=== PATIENT | female | born 1945 | race Caucasian/White ===

== ENCOUNTER → 2017-09-22 | Outpatient (CLI) | payer MEDICARE, OTHER ==
--- NOTE | 2017-09-23 11:51 | MM ---
Reason for exam: screening (asymptomatic). Last mammogram was performed 1 year ago. History: Patient is postmenopausal. Family history of breast cancer in daughter at age 43 and premenopausal breast cancer in sister. Benign cyst aspiration of the right breast. Took hormonal contraceptives for 2 years beginning at age 19. Physical Findings: A clinical breast exam by your physician is recommended on an annual basis and results should be correlated with mammographic findings. MG 3D Screening Mammo W/Cad Bilateral CC and MLO view(s) were taken. XCCL view(s) were taken of the right breast. Prior study comparison: September 13, 2016, bilateral MG 3d screening mammo w/cad. September 11, 2015, bilateral MG screening mammo w CAD. The breast tissue is heterogeneously dense. This may lower the sensitivity of mammography. Finding: There are typically benign vascular, round calcifications in both breasts. There is no discrete abnormality. ASSESSMENT: Benign, BI-RAD 2 RECOMMENDATION: Routine screening mammogram of both breasts in 1 year.
== END | disposition home or self-care (01) ==
LOC: RADMAMWWP 10:39
PROVIDERS: ATTEND Internal Medicine
DX: Z12.31 Encounter for screening mammogram for malignant neoplasm of breast (principal); Z80.3 Family history of malignant neoplasm of breast
CPT/HCPCS: 77063; G0202

== ENCOUNTER 2017-11-18 15:03 | Emergency (ER) | payer MEDICARE, OTHER ==
[2017-11-18 15:12] VITALS: RESP 16; TEMP 97.2
--- NOTE | 2017-11-18 15:37 | ED ---
Fall HPI - General Chief Complaint: Fall Stated Complaint: Fall/shoulder injury Time Seen by Provider: 11/18/17 15:06 Source: patient, RN notes reviewed Mode of arrival: EMS - History of Present Illness Initial Comments: This is a 72-year-old female who presents to the emergency department with chief complaint of fall injury. Patient states that prior to arrival she was at [facility]. She was walking on the sidewalk and slipped on a patch of ice. She landed on her buttucks and rolled onto her left side. Patient complains of left shoulder pain "within the joint." Patient was transported to the emergency department via EMS. Denies hitting her head, loss of consciousness or dizziness. Denies any neck tenderness. Denies any other injuries. Denies fever, chills, chest pain, shortness of breath, abdominal pain, nausea or vomiting, constipation or diarrhea, dysuria or hematuria, numbness or tingling, headache or vision changes. - Related Data Home Medications Medication Instructions Recorded Confirmed Omeprazole [PriLOSEC] 40 mg PO DAILY 03/31/15 11/18/17 Previous Rx's Medication Instructions Recorded HYDROcodone/APAP 5-325MG [[place] 5] 1 each PO Q6HR PRN #12 tab 11/18/17 Ibuprofen 600 mg PO Q6HR #20 tablet 11/18/17 Allergies Allergy/AdvReac Type Severity Reaction Status Date / Time No Known Allergies Allergy Verified 11/18/17 15:17 Review of Systems ROS Statement: Those systems with pertinent positive or pertinent negative responses have been documented in the HPI. ROS Other: All systems not noted in ROS Statement are negative. Past Medical History Past Medical History: Cancer, GERD/Reflux Additional Past Medical History / Comment(s): previous med for high BP but none currently, skin cancer History of Any Multi-Drug Resistant Organisms: None Reported Past Surgical History: Cholecystectomy, Hernia Repair, Tubal Ligation Additional Past Surgical History / Comment(s): Laley fundoplication with postoperative complications resulting in part of stomach removed and prolonged intubation, tracheostomy and multiple surgeries, sonja cataracts Past Anesthesia/Blood Transfusion Reactions: Motion Sickness Additional Past Anesthesia/Blood Transfusion Reaction / Comment(s): Alley fundoplication with postoperative complications resulting in prolonged intubation, tracheostomy and multiple surgeries Past Psychological History: No Psychological Hx Reported Smoking Status: Never smoker Past Alcohol Use History: None Reported Past Drug Use History: None Reported - Past Family History Sister(s) Family Medical History: Cancer Daughter(s) Family Medical History: Cancer General Exam - General Exam Comments Initial Comments: General: Awake and alert, well-developed; in no apparent distress. HEENT: Head atraumatic, normocephalic. Pupils are equal, round and reactive to light. Extraocular movements intact. Neck: Supple. Normal and full active ROM. No tenderness. Cardiovascular: Regular rate and rhythm. No murmurs, rubs or gallops. Chest symmetrical. Respiratory: Lungs clear to auscultation bilaterally. No wheezes, rales or rhonchi. Normal respiratory effort with no use of accessory muscles. Musculoskeletal: Patient unable to move her left shoulder due to pain. Tenderness on palpation of proximal humerus. Sensation is intact. Radial pulses are 2+ equal and palpable bilaterally. Skin: [place], warm and dry without rashes or lesions. Neurological: Alert and oriented x3. CN II-XII grossly intact. Speech is fluent and answers are appropriate. No focal neuro deficits. Psychiatric: Normal mood and affect. No overt signs of depression or anxiety noted. Limitations: no limitations Course Vital Signs 11/18/17 11/18/17 15:11 16:06 Temperature 97.2 F L Pulse Rate 61 61 Respiratory 16 16 Rate Blood Pressure 200/96 204/70 O2 Sat by Pulse 98 Oximetry Medical Decision Making - Medical Decision Making This is a 72-year-old female who presents for evaluation of left shoulder pain following a fall injury. X-ray revealed a proximal humerus fracture. Patient' s arm was was placed in a sling. She is in no acute distress at this time. She will be discharged home with referral to orthopedics. Patient had an elevated blood pressure in the emergency department. Patient states that she does not take anything for hypertension. She used to take medication but her blood pressure was too low. She was given 0.1 of Catapres while in the emergency department. Patient advised to follow-up with her primary care provider and to monitor her blood pressure. Return parameters were discussed. Patient is in agreement with plan and voices understanding. All questions were answered. - Radiology Data Radiology results: report reviewed X-ray left shoulder findings: There is an impacted and possibly comminuted proximal left humeral fracture. No dislocation. Left lung apex is visualized is normal. There is some slight superior displacement of the distal clavicle in relation to the acromion, associated acromioclavicular arthropathy noted. Bone mineralization is reduced which may limit sensitivity. Impression: Humerus fracture. Findings suggest acromioclavicular separation. Disposition Clinical Impression: Proximal humerus fracture Disposition: HOME SELF-CARE Condition: Good Instructions: Proximal Humerus Fracture (ED) Additional Instructions: Please follow-up with Dr. Wills tomorrow morning. Please take medications as prescribed. Please follow up with primary care provider within 1-2 days. Return to emergency department if symptoms should worsen or any concerns arise. Prescriptions: HYDROcodone/APAP 5-325MG [[place] 5] 1 each PO Q6HR PRN #12 tab PRN Reason: Pain Ibuprofen 600 mg PO Q6HR #20 tablet Referrals: Ankush Chery MD [Primary Care Provider] - 1-2 days Yimi Wills DO [Doctor of Osteopathic Medicine] - 1-2 days Time of Disposition: 16:44
--- NOTE | 2017-11-18 15:38 | XR ---
Left shoulder HISTORY: Trauma and pain 3 views of the left shoulder are submitted There is an impacted and possibly comminuted proximal left humeral fracture. No dislocation. Left jerri g apex as visualized is normal. There is some slight superior displacement of the distal clavicle in relation to the acromion, associated acromioclavicular arthropathy noted. Bone mineralization is redu ney which may limit sensitivity. IMPRESSION: Humerus fracture. Findings suggest acromioclavicular separation.
[2017-11-18] MEDS ORDERED: cloNIDine HCL 0.1 MG TAB PO STA (16:40)
[2017-11-18] MEDS ORDERED: HYDROmorphone 1 MG/ML 1 ML SYRINGE IM STA (16:41)
[2017-11-18 17:29] VITALS: PULSE 64
[2017-11-18 17:48] VITALS: BP 116/83
== END 2017-11-18 18:15 | disposition home or self-care (01) ==
LOC: EC 15:03
DX: S42.202A Unspecified fracture of upper end of left humerus, initial encounter for closed fracture (principal); K21.9 Gastro-esophageal reflux disease without esophagitis; R03.0 Elevated blood-pressure reading, without diagnosis of hypertension; Z85.828 Personal history of other malignant neoplasm of skin; Z79.899 Other long term (current) drug therapy; W00.9XXA Unspecified fall due to ice and snow, initial encounter; Y92.512 Supermarket, store or market as the place of occurrence of the external cause; Y93.01 Activity, walking, marching and hiking
CPT/HCPCS: 73030; 99283; 96372; J1170

== ENCOUNTER 2018-08-13 09:03 | Day surgery (SDC) | payer MEDICARE, OTHER ==
[2018-08-10 11:30] VITALS: BMI 20.6
[2018-08-13 09:29] VITALS: TEMP 97.1
[2018-08-13] MEDS ORDERED: LACTATED RINGERS 1,000 ML IV ONE (09:30)
[2018-08-13] MEDS ORDERED: PROPOFOL 10 MG/ML 20 ML VIAL IV ONE (10:27)
--- NOTE | 2018-08-13 11:02 | P.PCN ---
Date of Procedure: 08/13/18 Procedure(s) Performed: Brief history: Patient is a pleasant 73-year-old white female, scheduled for an elective upper endoscopy as well as colonoscopy as a part of evaluation of abdominal pain, chronic dyspeptic symptoms of several years duration. She had repair of hiatal hernia in 2001 and a few years later she had recurrence of the hernia. She complains of epigastric fullness, nausea and occasional heartburn after eating. She has been on Prilosec 20 mg daily with not much help. Procedure performed: Esophagogastroduodenoscopy with biopsy Colonoscopy Preoperative diagnosis: Chronic dyspepsia/heartburn Screening for colon cancer/family history of colon cancer Anesthesia: MAC Procedure: After informed consent was obtained from the patient was brought into the endoscopy unit and IV sedation was administered by anesthesia under continuous monitoring. Initially upper endoscopy was done. The Olympus GF 160 video endoscope was inserted inserted into the mouth and esophagus intubated without any difficulty and was gradually advanced into the stomach and duodenum and carefully examined. The bulb and second part of the duodenum appeared normal. The scope was then withdrawn into the stomach adequately insufflated with air and upon careful examination the antrum had gastritis and biopsies were done from this area. The body, appeared normal. in the proximal body of the stomach there was a 1 cm polyp that was biopsied. There was a large hiatal hernia noted with diaphragmatic impression at 40 cm from the incisors and the GE junction at 35 cm to the incisors. The scope was then withdrawn into the esophagus. The GE junction was located at 40 cm to the incisors. It appeared regular with no erythema erosions or ulcerations. Rest of the esophagus appeared normal. Patient tolerated the procedure well. At this time the patient continued to remain sedation. Initial digital rectal examination was normal. Olympus CF 160 video colonoscope was then inserted into the rectum and gradually advanced to the cecum without any difficulty. Careful examination was performed as the scope was gradually being withdrawn. The prep was excellent. The cecum, ascending colon, transverse colon, descending colon, sigmoid colon and rectum appeared normal. Scattered sigmoid diverticulosis seen. Retroflexion was performed in the rectum and no lesions were noted. Patient tolerated the procedure well. Impression: 1 Upper endoscopy revealed large hiatal hernia, 1 cm gastric polyp and mild gastritis. 2.Colonoscopy revealed scattered sigmoid diverticulosis but no evidence of colitis or colorectal neoplasia. Recommendations: Findings of this examination were discussed with the patient aswell a her family. She was advised to follow with the biopsy results. She will continue with Prilosec 20 mg twice daily and follow antireflux measures. She can have a repeat screening colonoscopy in 5 years from now because of the family history of colon cancer..
[2018-08-13 11:06] VITALS: BP 150/78; PULSE 93; RESP 16
== END 2018-08-13 11:40 | disposition home or self-care (01) ==
LOC: ORWHC2ENDO 09:03
PROVIDERS: ATTEND Internal Medicine Gastroenterology
DX: K29.50 Unspecified chronic gastritis without bleeding (principal); K44.9 Diaphragmatic hernia without obstruction or gangrene; K21.0 Gastro-esophageal reflux disease with esophagitis; K63.5 Polyp of colon; K57.30 Diverticulosis of large intestine without perforation or abscess without bleeding; K31.7 Polyp of stomach and duodenum; Z79.899 Other long term (current) drug therapy; Z85.828 Personal history of other malignant neoplasm of skin
CPT/HCPCS: 88305; 45378; 43239; J2704

== ENCOUNTER → 2018-11-04 | Outpatient (CLI) | payer MEDICARE, OTHER ==
--- NOTE | 2018-11-06 09:37 | MM ---
Reason for exam: screening (asymptomatic). Last mammogram was performed 1 year and 1 month ago. History: Patient is postmenopausal. Family history of breast cancer in daughter at age 43 and premenopausal breast cancer in sister. Benign cyst aspiration of the right breast. Took hormonal contraceptives for 2 years beginning at age 19. Physical Findings: A clinical breast exam by your physician is recommended on an annual basis and results should be correlated with mammographic findings. MG 3D Screening Mammo W/Cad Bilateral CC, MLO, and XCCL view(s) were taken. Prior study comparison: September 22, 2017, bilateral MG 3d screening mammo w/cad. September 13, 2016, bilateral MG 3d screening mammo w/cad. The breast tissue is heterogeneously dense. This may lower the sensitivity of mammography. Medial asymmetric density left CC view does not persist on 3D images. No significant changes when compared with prior studies. ASSESSMENT: Negative, BI-RAD 1 RECOMMENDATION: Routine screening mammogram of both breasts in 1 year.
== END | disposition home or self-care (01) ==
LOC: RADMAMWWP 10:41
PROVIDERS: ATTEND Internal Medicine
DX: Z12.31 Encounter for screening mammogram for malignant neoplasm of breast (principal); Z80.3 Family history of malignant neoplasm of breast
CPT/HCPCS: 77063; 77067

== ENCOUNTER → 2019-01-26 | Outpatient (CLI) | payer MEDICARE ==
--- NOTE | 2019-01-28 03:48 | BD ---
EXAMINATION TYPE: Axial Bone Density DATE OF EXAM: 01/26/2019 COMPARISON: 2014 CLINICAL HISTORY: 74-year-old female post menopausal screening without HRT Height: 5'5 Weight: 130 FRAX RISK QUESTIONS: History of Fracture in Adulthood: y Secondary Osteoporosis: RISK FACTORS HISTORY OF: Postmenopausal woman: y MEDICATIONS: Additional Medications: heart burn Additional History: skin cancer EXAM MEASUREMENTS: Bone mineral densitometry was performed using the [employer]. Bone mineral density as measured about the Lumbar spine is: ----- L1-L4(G/cm2): 1.044 T Score Values are as follows: ----- L2: -1.7 ----- L3: 0.0 ----- L4: -1.5 ----- L1-L4: -1.1 Bone mineral density has: Decreased -2.6% since study of: 09/11/2015 Bone mineral density about the R hip (g/cm2): 0.777 Bone mineral density about the L hip (g/cm2): 0.756 T Score values are as follows: -----R Neck: -1.9 -----L Neck: -2.0 -----R Total: -2.2 -----L Total: -2.3 Bone mineral density has: Decreased -11.2% since study of: 09/11/2015 IMPRESSION: Osteopenia (T Score between -2.5 and -1). There is slightly increased risk of fracture and the patient may be considered for treatment. Re-Screen 2-5 years. NOTE: T-SCORE=SD OF THE YOUNG ADULT MEAN.
== END | disposition home or self-care (01) ==
LOC: RADBDWWP 13:03
PROVIDERS: ATTEND Internal Medicine
DX: M85.88 Other specified disorders of bone density and structure, other site (principal); Z78.0 Asymptomatic menopausal state; Z80.3 Family history of malignant neoplasm of breast
CPT/HCPCS: 77080

== ENCOUNTER → 2019-11-05 | Outpatient (CLI) | payer MEDICARE ==
--- NOTE | 2019-11-05 13:09 | MM ---
Reason for exam: screening (asymptomatic). Last mammogram was performed 1 year ago. History: Patient is postmenopausal. Family history of breast cancer in daughter at age 43 and premenopausal breast cancer in sister. Benign cyst aspiration of the right breast. Took hormonal contraceptives for 2 years beginning at age 19. Physical Findings: A clinical breast exam by your physician is recommended on an annual basis and results should be correlated with mammographic findings. MG 3D Screening Mammo W/Cad Bilateral CC and MLO view(s) were taken. Prior study comparison: November 04, 2018, bilateral MG 3d screening mammo w/cad. September 22, 2017, bilateral MG 3d screening mammo w/cad. The breast tissue is heterogeneously dense. This may lower the sensitivity of mammography. There are benign appearing round vascular calcifications bilaterally. There is no discrete abnormality. ASSESSMENT: Benign, BI-RAD 2 RECOMMENDATION: Routine screening mammogram of both breasts in 1 year.
== END | disposition home or self-care (01) ==
LOC: RADMAMWWP 09:35 → EEVIPCON 10:00
PROVIDERS: ATTEND Internal Medicine
DX: Z12.31 Encounter for screening mammogram for malignant neoplasm of breast (principal)
CPT/HCPCS: 77063; 77067

== ENCOUNTER 2021-06-22 08:41 | Day surgery (SDC) | payer MEDICARE ==
[2021-06-20 15:48] VITALS: BMI 19.7
[~2021-06-22 08:41] MED LIST: LACTATED RINGERS 1,000 ML IV SCH; LIDOCAINE 1% (10MG/ML) FOR IV START INTRADERMA PRN
[2021-06-22 09:17] VITALS: TEMP 97.7
[2021-06-22] MEDS ORDERED: PROPOFOL 10 MG/ML 20 ML VIAL IV ONE (10:30)
[2021-06-22] MEDS ORDERED: LIDOCAINE 1% INJ 10MG/ML (20 ML MDV) ONE (10:30)
--- NOTE | 2021-06-22 10:42 | P.PCN ---
Date of Procedure: 06/22/21 Procedure(s) Performed: BRIEF HISTORY: Patient is a 75-year-old, pleasant, female scheduled for an upper endoscopy as a part of evaluation of epigastric pain, early satiety for the last several months duration.. She lost 30 pounds in the last 5 years duration. She has history of GERD and has been on omeprazole 20 mg daily. She had hiatal hernia repair of a 19 years ago followed by 3 more surgeries as a result of complications of Alley fundoplication. PROCEDURE PERFORMED: Esophagogastroduodenoscopy with biopsy. PREOPERATIVE DIAGNOSIS: Chronic epigastric pain/GERD/early satiety. IV sedation per anesthesia. PROCEDURE: After informed consent was obtained, the patient was brought into the endoscopy unit. IV sedation was administered by Anesthesia under continuous monitoring. Initially the Olympus GIF-140 video endoscope was inserted into the mouth. Esophagus intubated without any difficulty. It was gradually advanced into the stomach and duodenum and carefully examined. The bulb and the second part of the duodenum appeared normal. The scope at this time was withdrawn to the stomach, adequately insufflated with air, and upon careful examination, mucosa of the antrum had mild patchy areas of erythema in the prepyloric area which was biopsied. Mucosa of the body, cardia and the fundus appeared normal. The scope was then withdrawn into the esophagus. Moderate size paraesophageal hiatal hernia noted. The GE junction was located at 35 cm from the incisors. There was circumferential erythema and one superficial erosion at the GE junction consistent with LA grade a reflux esophagitis. The rest of the esophagus appeared normal and the patient tolerated the procedure well. IMPRESSION: 1. Moderate size hiatal hernia. 2. LA grade a reflux esophagitis. 3. Mild antral gastritis RECOMMENDATIONS: The findings of this examination were discussed with the patient as well as a family. She was advised to follow with the biopsy results.. She will continue with omeprazole 20 mg daily, small frequent meals and follow antireflux measures.
[2021-06-22 10:45] VITALS: RESP 18
[2021-06-22 11:00] VITALS: BP 171/68; PULSE 74
== END 2021-06-22 11:28 | disposition home or self-care (01) ==
LOC: ORWHC2ENDO 08:41
PROVIDERS: ATTEND Internal Medicine Gastroenterology
DX: R10.13 Epigastric pain (principal); K44.9 Diaphragmatic hernia without obstruction or gangrene; K29.50 Unspecified chronic gastritis without bleeding; Z79.899 Other long term (current) drug therapy; I10 Essential (primary) hypertension
CPT/HCPCS: 88305; 43239; J2001; J2704

== ENCOUNTER 2021-11-28 11:59 | Inpatient (IN) | payer MEDICARE, OTHER ==
[2021-11-28] MEDS ORDERED: ONDANSETRON 4 MG/2 ML VIAL IVP STA (12:24)
[2021-11-28] MEDS ORDERED: HYDROmorphone 1 MG/ML 1 ML SYRINGE IVP STA (12:24)
--- NOTE | 2021-11-28 12:49 | XR ---
EXAMINATION TYPE: XR Hip Complete LT DATE OF EXAM: 11/28/2021 COMPARISON: NONE HISTORY: Pain TECHNIQUE: 2 views submitted FINDINGS: Comminuted displaced fracture of the left femoral neck. Deformity along the inferior pubic ramus appe ars likely chronic. Probable vascular calcification. IMPRESSION: 1. Displaced comminuted fracture left femoral neck.
--- NOTE | 2021-11-28 12:49 | XR ---
EXAMINATION TYPE: XR chest 2V DATE OF EXAM: 11/28/2021 COMPARISON: NONE TECHNIQUE: PA and lateral views submitted. HISTORY: Pain FINDINGS: Hypertrophic degenerative changes spine. There is a chronic appearing deformity of of the humeral hea d, correlate for previous dislocation. Diffuse osteopenia. No overt failure. Bibasilar lower lobe inf iltrate and small effusion. Correlate for underlying COPD. Biapical pleural thickening. IMPRESSION: 1. Basilar atelectasis or infiltrate with normal. 2. COPD.
--- NOTE | 2021-11-28 13:09 | ED ---
Lower Extremity Injury HPI - General Chief Complaint: Extremity Injury, Lower Stated Complaint: Fall, left hip injury Time Seen by Provider: 11/28/21 12:07 Source: patient, EMS Mode of arrival: EMS Limitations: no limitations - History of Present Illness Initial Comments: 76-year-old female with past medical history of high blood pressure presents to the emergency department after a fall. 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 States that there was a student that was attempting to catch a football and ran into her. She fell onto her left hip. Denies hitting her head. No neck or back pain. Patient unable to get up and place any weight onto the extremity. No numbness, tingling or weakness into the knee or foot. No abdominal pain. Patient on any blood thinners. No other alleviating, precipitating or modifying factors - Related Data Home Medications Medication Instructions Recorded Confirmed Omeprazole 20 mg PO DAILY 06/20/21 06/20/21 amLODIPine BESYLATE [Norvasc] 2.5 mg PO HS 06/20/21 06/20/21 Allergies Allergy/AdvReac Type Severity Reaction Status Date / Time No Known Allergies Allergy Verified 11/28/21 12:14 Review of Systems ROS Statement: Those systems with pertinent positive or pertinent negative responses have been documented in the HPI. ROS Other: All systems not noted in ROS Statement are negative. Past Medical History Past Medical History: Cancer, GERD/Reflux, Hypertension Additional Past Medical History / Comment(s): hx. skin cancer, hx. colon polyps History of Any Multi-Drug Resistant Organisms: None Reported Past Surgical History: Cholecystectomy, Hernia Repair, Tubal Ligation Additional Past Surgical History / Comment(s): Alley fundoplication with postoperative complications resulting in part of stomach removed and prolonged intubation, tracheostomy and multiple surgeries, sonja cataracts, COLONOSCOPY, EGD Past Anesthesia/Blood Transfusion Reactions: Motion Sickness Additional Past Anesthesia/Blood Transfusion Reaction / Comment(s): . Past Psychological History: No Psychological Hx Reported Smoking Status: Never smoker Past Alcohol Use History: None Reported Past Drug Use History: None Reported - Past Family History Sister(s) Family Medical History: Cancer Daughter(s) Family Medical History: Cancer General Exam Limitations: no limitations General appearance: alert, in no apparent distress Head exam: Present: atraumatic, normocephalic, normal inspection Eye exam: Present: normal appearance, PERRL, EOMI. Absent: scleral icterus, conjunctival injection, periorbital swelling ENT exam: Present: normal exam, mucous membranes moist Neck exam: Present: normal inspection. Absent: tenderness, meningismus, lymphadenopathy Respiratory exam: Present: normal lung sounds bilaterally. Absent: respiratory distress, wheezes, rales, rhonchi, stridor Cardiovascular Exam: Present: regular rate, normal rhythm, normal heart sounds. Absent: systolic murmur, diastolic murmur, rubs, gallop, clicks GI/Abdominal exam: Present: soft, normal bowel sounds. Absent: distended, tenderness, guarding, rebound, rigid Extremities exam: Present: tenderness (Numbness to palpation of the left hip. 2+ DP and PT pulses. Patient able to wiggle toes. No pain to palpation of the ankle or knee. Left leg is shortened approximately 3 inches with lateral rotation), normal capillary refill. Absent: pedal edema, joint swelling, calf tenderness Back exam: Present: normal inspection Neurological exam: Present: alert, oriented X3, CN II-XII intact Psychiatric exam: Present: normal affect, normal mood Skin exam: Present: warm, dry, intact, normal color. Absent: rash Course Vital Signs 11/28/21 11/28/21 12:00 13:08 Temperature 98.8 F Pulse Rate 66 63 Respiratory 16 18 Rate Blood Pressure 131/64 121/42 O2 Sat by Pulse 98 99 Oximetry Medical Decision Making - Medical Decision Making On arrival patient was placed into room 2. She has been given 2 mg of IM morphine and 2 mg of IV morphine by EMS. Patient sent for x-rays which demonstrated a comminuted left hip fracture. Patient's pain is controlled at this time and she remains neurovascularly intact. With Dr. Alvarez who accepted admission. Chest x-ray and laboratory studies performed for preoperative clearance. Sound will be placed on consult - EKG Data EKG Comments: EKG demonstrates normal sinus rhythm with a ventricular rate of 62. DC interval 158. QRS 84. QTC 416. No acute ST segment elevations or depressions concerning for ischemic changes Disposition Clinical Impression: Fall, Hip fracture, left Disposition: ADMITTED IP TO THIS HOSP Condition: Stable Is patient prescribed a controlled substance at d/c from ED?: No Referrals: Iliana Buitrago MD [Primary Care Provider] - 1-2 days Decision to Admit Reason: Admit from EC Decision Date: 11/28/21 Decision Time: 13:09
[2021-11-28] MEDS ORDERED: ONDANSETRON 4 MG/2 ML VIAL IVP PRN ×2 (13:17→15:56)
[2021-11-28] MEDS ORDERED: MORPHINE SULFATE 4 MG/ML SYRINGE IV PRN (13:17)
[2021-11-28] MEDS ORDERED: NALOXONE 0.4 MG/ML 1 ML VIAL IV PRN ×2 (13:17→19:47)
[2021-11-28 13:19] LABS: Basophils # (A) 0.1 k/uL (0-0.2); Basophils % (A) 1 %; Eosinophils % (A) 1 %; HCT 33.3 % (34.0-46.0); HGB 11.2 gm/dL (11.4-16.0); Lymphocytes # (A) 1.3 k/uL (1.0-4.8); Lymphocytes % (A) 20 %; MCHC 33.6 g/dL (31.0-37.0); Mean Platelet Volume 8.1; Monocytes # (A) 0.4 k/uL (0-1.0); Monocytes % (A) 5 %; Neutrophils # (A) 4.7 k/uL (1.3-7.7); Neutrophils % (A) 72 %; Platelet Count 310 k/uL (150-450); RDW 13.6 % (11.5-15.5); WBC 6.5 k/uL (3.8-10.6)
[2021-11-28 13:30] LABS: Albumin 3.6 g/dL (3.5-5.0); Calcium 9.2 mg/dL (8.4-10.2); Potassium 4.8 mmol/L (3.5-5.1); Total Bilirubin 0.6 mg/dL (0.2-1.3); Total Protein 6.1 g/dL (6.3-8.2)
[2021-11-28 13:38] LABS: MCV 83.3 fL (80.0-100.0)
[2021-11-28 13:46] LABS: Partial Thromboplastin Time 22.3 sec (22.0-30.0)
[2021-11-28] MEDS ORDERED: PANTOPRAZOLE 40 MG/10 ML VIAL IVP STA (14:39)
--- NOTE | 2021-11-28 15:58 | P.CONS ---
History of Present Illness - Reason for Consult Consult date: 11/28/21 pre-op evaluation Requesting physician: Joseph Alvarez - Chief Complaint hip pain - History of Present Illness Patient is a 76-year-old female with a history of GERD, hypertension, and janeen fundoplication who presented to the ED after a fall. Evaluation in the ER demonstrated displaced left femorl neck fracture. She was incidentally positive for COVID in the ED. Hemoglobin was 11.2. We were asked to consult for medical risk stratification. Patient seen and examined at bedside. She reports that today a kid was chasing a ball and ran into causing her to fall on the floor at work. She had hip pain. She reports that 2 weeks ago she started with sore throat and then developed some nasal congestion. She denies cough. She has had chronic exertional dyspnea for the last 4 months. She is not vaccinated for COVID. Hx of a trach in the past after complication from hiatal hernia repair she was hospitalized for 7.5 months. Today she started having coughing productive of yellow discharge and she is unsure if it is emesis or phlegm. No nausea no vomiting, no diarrhea. Pertinent positives and negatives as discussed in HPI, a complete review of systems was performed and all other systems are negative. General: non toxic, no distress, appears at stated age, thin Derm: warm, dry Head: atraumatic, normocephalic, symmetric Eyes: EOMI, no lid lag, anicteric sclera, pupils equal round reactive to light ENT: Nose and ears atraumatic, no thrush, no pharyngeal erythema Neck: No thyromegaly, no cervical lymphadenopathy, trachea midline, supple Mouth: no lip lesion, mucus membranes moist Cardiovascular: S1S2 reg, no murmur, positive posterior tibial pulse bilateral, 1+ edema b/l LE, capillary refill less than 2 seconds Lungs: Decreased bs bilateral, no ronchi, no rales, no wheeze, no accessory muscle use Abdominal: soft, nontender to palpation, no guarding, no appreciable organomegaly, normal bowel sounds Ext: no gross muscle atrophy, muscle strength muscle strength 5 out of 5 in b/l upper extremities- deferred in lower extremities due to fracture, no contractures Neuro: CN II-XI grossly intact, light touch intact all 4 extremities, finger to nose within normal limits, Psych: Alert, oriented, appropriate affect Communicated left hip fracture Pre-operative risk stratification - patient is medically optimized for surgery without need for further testing - NSQIP for IM nailing patient is average risk for serious complication and cardiac complications - below average risk for - above average risk for admission to [facility] COVID-19 - CXR without signs of pneumonia - zinc, vit D, Vit C - out of the window for monoclonal if symptoms from 2 weeks ago related to COVID - also not a candidate for steroids due to being on room air - recommend starting anticoagulation as soon as cleared by ortho for anticoagulation HTN - controlled - resume norvasc GERD -PPI Thank you for allowing us to participate in the care of this pleasant patient. Do not hesitate to contact us with questions. Someone can be reached from the [facility] hospitalist group all hours of the day at [phone] or via [employer]. Past Medical History Past Medical History: Cancer, GERD/Reflux, Hypertension Additional Past Medical History / Comment(s): hx. skin cancer, hx. colon polyps History of Any Multi-Drug Resistant Organisms: None Reported Past Surgical History: Cholecystectomy, Hernia Repair, Tubal Ligation Additional Past Surgical History / Comment(s): Alley fundoplication with postoperative complications resulting in part of stomach removed and prolonged intubation, tracheostomy and multiple surgeries, sonja cataracts, COLONOSCOPY, EGD Past Anesthesia/Blood Transfusion Reactions: Motion Sickness Additional Past Anesthesia/Blood Transfusion Reaction / Comm: . Past Psychological History: No Psychological Hx Reported Smoking Status: Never smoker Past Alcohol Use History: None Reported Past Drug Use History: None Reported - Past Family History Sister(s) Family Medical History: Cancer Daughter(s) Family Medical History: Cancer Medications and Allergies Home Medications Medication Instructions Recorded Confirmed Type Cholecalciferol [Vitamin D3 (25 50 mcg PO BID 11/28/21 11/28/21 History Mcg = 1000 Iu)] Cyanocobalamin (Vitamin B-12) 1,000 mcg PO DAILY 11/28/21 11/28/21 History [Vitamin B-12] L.acidoph,Paracasei, B.lactis 1 cap PO DAILY 11/28/21 11/28/21 History [Probiotic] Wesley Red 1 cap PO DAILY 11/28/21 11/28/21 History Omeprazole 40 mg PO DAILY 11/28/21 11/28/21 History amLODIPine [Norvasc] 5 mg PO HS 11/28/21 11/28/21 History Allergies Allergy/AdvReac Type Severity Reaction Status Date / Time No Known Allergies Allergy Verified 11/28/21 14:00 Physical Exam Osteopathic Statement: *. No significant issues noted on an osteopathic struc tural exam other than those noted in the History and Physical/Consult. Vitals: Vital Signs Temp Pulse Resp BP Pulse Ox 11/28/21 13:08 63 18 121/42 99 11/28/21 12:00 98.8 F 66 16 131/64 98 Intake and Output 11/27/21 11/28/21 11/28/21 22:59 06:59 14:59 Other: Weight 54.431 kg Results CBC & Chem 7: 11/28/21 13:11 11/28/21 13:11 Labs: Abnormal Lab Results - Last 24 Hours (Table) 11/28/21 11/28/21 11/28/21 Range/Units 13:11 13:11 13:41 Hgb 11.2 L (11.4-16.0) gm/dL Hct 33.3 L (34.0-46.0) % Sodium 134 L (137-145) mmol/L BUN 29 H (7-17) mg/dL Total Protein 6.1 L (6.3-8.2) g/dL Coronavirus (PCR) Detected A (Not Detectd)
--- NOTE | 2021-11-28 16:35 | P.HPOR ---
History of Present Illness H&P Date: 11/28/21 Chief Complaint: Left hip injury This is a 76-year-old female who presented to the emergency department today after being knocked over on the playground of an elementary school, sustaining injury to her left hip. 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 A student was going for football and ran into her, knocking her over. She is brought to the emergency department. Her Covid test was positive today in the ER. Past Medical History Past Medical History: Cancer, GERD/Reflux, Hypertension Additional Past Medical History / Comment(s): hx. skin cancer, hx. colon polyps History of Any Multi-Drug Resistant Organisms: None Reported Past Surgical History: Cholecystectomy, Hernia Repair, Tubal Ligation Additional Past Surgical History / Comment(s): Alley fundoplication with postoperative complications resulting in part of stomach removed and prolonged intubation, tracheostomy and multiple surgeries, sonja cataracts, COLONOSCOPY, EGD Past Anesthesia/Blood Transfusion Reactions: Motion Sickness Additional Past Anesthesia/Blood Transfusion Reaction / Comment(s): . Past Psychological History: No Psychological Hx Reported Smoking Status: Never smoker Past Alcohol Use History: None Reported Past Drug Use History: None Reported - Past Family History Sister(s) Family Medical History: Cancer Daughter(s) Family Medical History: Cancer Medications and Allergies Home Medications Medication Instructions Recorded Confirmed Type Cholecalciferol [Vitamin D3 (25 50 mcg PO BID 11/28/21 11/28/21 History Mcg = 1000 Iu)] Cyanocobalamin (Vitamin B-12) 1,000 mcg PO DAILY 11/28/21 11/28/21 History [Vitamin B-12] L.acidoph,Paracasei, B.lactis 1 cap PO DAILY 11/28/21 11/28/21 History [Probiotic] Wesley Red 1 cap PO DAILY 11/28/21 11/28/21 History Omeprazole 40 mg PO DAILY 11/28/21 11/28/21 History amLODIPine [Norvasc] 5 mg PO HS 11/28/21 11/28/21 History Allergies Allergy/AdvReac Type Severity Reaction Status Date / Time No Known Allergies Allergy Verified 11/28/21 14:00 Physical Examination This is a pleasant 76-year-old female in no acute distress. She is alert and oriented at this time. Her daughter is present at bedside. Exam of the head neck reveal no obvious deformity. She has full cervical spine motion without difficulty or pain. Exam the upper extremities unremarkable. No areas of ecchymosis or swelling. No obvious deformity. Exam the lower extremities reveals slight shortening and external rotation to the left leg. She has full foot and ankle motion bilaterally. Neurovascular status to the lower extremities is intact. Results X-rays of the hip and pelvis reveal a displaced intertrochanteric fracture of the left hip. No other fractures identified. - Labs Labs: Abnormal Lab Results - Last 24 Hours (Table) 11/28/21 11/28/21 11/28/21 Range/Units 13:11 13:11 13:41 Hgb 11.2 L (11.4-16.0) gm/dL Hct 33.3 L (34.0-46.0) % Sodium 134 L (137-145) mmol/L BUN 29 H (7-17) mg/dL Total Protein 6.1 L (6.3-8.2) g/dL Coronavirus (PCR) Detected A (Not Detectd) H & H 11/28/21 Range/Units 13:11 Hgb 11.2 L (11.4-16.0) gm/dL Hct 33.3 L (34.0-46.0) % Coagulation 11/28/21 Range/Units 13:11 INR 1.0 (<1.2) Result Diagrams: 11/28/21 13:11 11/28/21 13:11 Assessment and Plan (1) Fall Current Visit: Yes Status: Acute Code(s): W19.XXXA - UNSPECIFIED FALL, INITIAL ENCOUNTER SNOMED Code(s): 4349976 (2) Hip fracture, left Current Visit: Yes Status: Acute Code(s): S72.002A - FRACTURE OF UNSP PART OF NECK OF LEFT FEMUR, INIT SNOMED Code(s): 463817361 Plan: The clinical and x-ray findings are discussed with the patient and her daughter. It is recommended she undergo closed reduction with insertion of intertrochanteric nail of the left hip. The procedures discussed in detail including the possible risks and outcomes. She may potentially need inpatient rehab postoperatively. Her Covid positive test results were discussed with the patient.
[2021-11-28] MEDS ORDERED: TRANEXAMIC ACID 1,000 MG in SODIUM CHLORIDE 0.9% 100 ML IVPB PRN (17:34)
[2021-11-28] MEDS ORDERED: ceFAZolin 2 GM in SODIUM CHLORIDE 0.9% 100 ML IVPB ONE (17:45)
[2021-11-28] MEDS ORDERED: IV FLUID CONTINUATION 1,000 ML IV ONE (18:34)
[2021-11-28] MEDS ORDERED: MIDAZOLAM 2 MG/2 ML VIAL ONE (18:34)
[2021-11-28] MEDS ORDERED: TRANEXAMIC ACID 1,000 MG/10 ML VIAL ONE (18:34)
[2021-11-28] MEDS ORDERED: SODIUM CHLORIDE 0.9% 100 ML BAG ONE (18:34)
--- NOTE | 2021-11-28 19:28 | P.OP ---
Date of Procedure: 11/28/21 Procedure(s) Performed: PREOPERATIVE DIAGNOSIS: Left hip intertrochanteric fracture. POSTOPERATIVE DIAGNOSIS: Left hip intertrochanteric fracture. OPERATION: Left hip intertrochanteric fracture closed reduction and intramedullary nailing using Synthes IT nail. SHAFT REPAIRER: Bre Meza PA-C (Assistance with: Patient positioning, retraction, exposure, hemostasis, fixation, irrigation, closure, dressing) ANESTHESIA: spinal ESTIMATED BLOOD LOSS: 25 mL. COMPLICATIONS: None OPERATIVE FINDINGS: See dictation INDICATIONS: Mrs. Griffin is a 76 year old female who is Covid positive with a history of acute left intertrochanteric fracture. The fracture is comminuted and displaced. The patient presents to the operating room today for closed reduction and intramedullary nailing. I discussed the risks of surgery in detail as being inclusive of but not limited to: Bleeding, infection, scarring, discomfort, blood vessel and/or nerve damage, need for further surgery, malunion, nonunion, gait disturbance including persistent or permanent limp, limb length inequality, arthritis, hardware failure, blood clot, pulmonary embolism, , and other risks. The consent form has been signed. PROCEDURE: After appropriate consent was obtained, the patient was taken to the operating room and placed in supine position. Spinal anesthetic was administered and after confirmation of adequate anesthesia, the patient was carefully placed in the supine position on the operating room table in the fracture table. The patient was placed up against a well-padded peroneal post. Care was taken to make sure about that all pressure points were adequately padded. The affected leg was placed in boot traction and the unaffected leg was placed in a well leg feliciano. Using gentle longitudinal distraction as well as adduction and internal rotation, the fracture was reduced as assessed by AP and lateral C-arm imaging. Once a satisfactory reduction had been obtained, the thigh was prepped and draped in the usual aseptic fashion using ChloraPrep. Ioban drape was used for the case and the patient received intravenous antibiotics prior to incision. Timeout was called, confirming patient identity, side, procedure, and administration of antibiotics. The incision was then created with a #10 blade just proximal to the greater trochanter laterally. It was carried down through skin into the subcutaneous tissues and through fascia. Hemostasis was obtained using electrocautery. The tip of the greater trochanter was palpated and a guide pin was placed at the tip and directed into the femoral shaft as assessed with C-arm imaging. Once optimal pin position had been obtained, a 17 mm reamer was used over the guide pin to create a path for the IT nail. IT nail selected was assembled to the insertion jig on the back table and bushings were checked for accuracy. The nail was then inserted using gentle mallet taps until it was fully deployed. The amount of rotation of the implant was assessed based on the amount of anteversion of the femoral neck. This was rotated to match the patient's femoral neck anteversion and the helical blade guide was placed through the insertion jig and through an incision on the lateral side of the thigh more distal than the first. Once this guide was placed against the lateral cortex of the femur, a guide pin was drilled into the central region of the femoral head and neck as based on AP and lateral C-arm imaging. Once optimal pin position had been obtained, the michael dewire was measured and appropriately sized helical blade was selected. The path for the helical blade was prepared using a tapered reamer. The helical blade was then inserted using gentle mallet taps along the guidewire until it was fully deployed. There was no displacement of the fracture during this step. The anti- rotation screw was locked down and the insertion apparatus for the helical blade was removed. The guide pin was then removed. Traction was then removed from the leg and the distal interlock was placed through the jig using standard technique. Finally, the insertion jig for the nail was removed and final C-arm images were taken and saved in both AP and lateral planes. The final x-rays showed satisfactory positioning of the implant and good reduction of the fracture. The top of the nail was plugged with a small quantity of bone wax and the incisions were then thoroughly irrigated with normal saline. Final hemostasis was obtained using electrocautery and closure of the fascia was performed using 0-Vicryl suture. 2-0 Vicryl suture was used in the subcutaneous tissues and bindu were used for the skin. Sterile dressing was then applied and the patient was carefully removed from the fracture table frame and placed onto the stretcher. The patient tolerated the procedure well. There were no complications and 25 of blood loss. The patient was then subsequently transferre d to recovery room in stable condition. Sponge and needle counts were correct.
[2021-11-28] MEDS ORDERED: MAGNESIUM HYDROXIDE 2,400 MG/10 ML CUP PO PRN (19:47)
[2021-11-28] MEDS ORDERED: HYDROcodone/APAP 5-325MG 1 EACH TAB PO PRN ×2 (19:47)
[2021-11-28] MEDS ORDERED: HYDROmorphone 0.5 MG/0.5 ML SYRINGE IVP PRN ×2 (19:47)
[2021-11-28] MEDS ORDERED: HYDROmorphone 0.2 MG/1 ML SYRINGE IVP PRN (19:47)
--- NOTE | 2021-11-28 19:49 | XR ---
EXAMINATION TYPE: XR Hip Complete LT DATE OF EXAM: 11/28/2021 COMPARISON: NONE HISTORY: Left hip nailing. TECHNIQUE: 2 views FINDINGS: There is intramedullary sam and transverse screw fixating the intertrochanteric fracture le ft femur. Components are in anatomic position. There was 37 seconds of fluoroscopy time recorded. IMPRESSION: No complicating process seen.
[2021-11-28] MEDS ORDERED: CHOLECALCIFEROL 25 MCG (1000 IU) TABLET PO SCH (21:00)
[2021-11-28] MEDS: SENNOSIDES-DOCUSATE SODIUM 1 EACH TAB PO SCH (21:01)
[2021-11-28] MEDS: SODIUM CHLORIDE 0.9% 1,000 ML IV SCH (21:01)
[2021-11-28] MEDS: amLODIPine 5 MG TAB PO SCH (21:01)
[2021-11-28] MEDS: ASPIRIN 81 MG PO SCH (21:01)
[2021-11-28 21:27] LABS: Basophils % (A) 0 %; Eosinophils % (A) 0 %; HCT 33.3 % (34.0-46.0); HGB 10.9 gm/dL (11.4-16.0); Lymphocytes # (A) 0.7 k/uL (1.0-4.8); Lymphocytes % (A) 5 %; MCH 27.8 pg (25.0-35.0); MCHC 32.7 g/dL (31.0-37.0); MCV 85.1 fL (80.0-100.0); Mean Platelet Volume 8.3; Monocytes # (A) 0.4 k/uL (0-1.0); Monocytes % (A) 3 %; Neutrophils # (A) 12.6 k/uL (1.3-7.7); Neutrophils % (A) 92 %; Platelet Count 250 k/uL (150-450); RBC 3.91 m/uL (3.80-5.40); RDW 13.6 % (11.5-15.5); WBC 13.7 k/uL (3.8-10.6)
[2021-11-28] MEDS: TEMAZEPAM 15 MG CAP PO PRN (23:26)
[2021-11-29] MEDS: SODIUM CHLORIDE 0.9% 1,000 ML IV SCH ×3 (05:02→19:42)
[2021-11-29] MEDS: PANTOPRAZOLE 40 MG TABLET PO SCH (05:02)
[2021-11-29] MEDS: ASCORBIC ACID 500 MG TAB PO SCH (07:43)
[2021-11-29] MEDS: ASPIRIN 81 MG PO SCH ×2 (07:43→20:49)
[2021-11-29] MEDS: CYANOCOBALAMIN 500 MCG TAB PO SCH (07:43)
[2021-11-29] MEDS: ZINC SULFATE 220 MG CAP PO SCH (07:43)
[2021-11-29] MEDS: CHOLECALCIFEROL 25 MCG (1000 IU) TABLET PO SCH (07:44)
--- NOTE | 2021-11-29 09:18 | P.PN ---
Subjective Progress Note Date: 11/29/21 Principal diagnosis: Intertrochanteric fracture left hip. Status post close reduction and insertion of intertrochanteric nail left hip. Covid 19 positive. This is a 76-year-old female who is postop day #1 status post close reduction with insertion of intertrochanteric nail left hip. The patient is in isolation secondary to testing positive for COVID-19. She has no new complaints or concerns today regarding her hip. She states that she does not feel well mentally. She has anxiety regarding a surgery in the past in which she had many complications. She is doing well today from an orthopedic standpoint. Vital signs are stable.Labs are stable. White count is slightly elevated at 13.7. Objective - Vital Signs Vital signs: Vital Signs Temp 98.0 F 11/29/21 05:07 Pulse 79 11/29/21 05:07 Resp 18 11/29/21 05:07 BP 114/55 11/29/21 05:07 Pulse Ox 99 11/29/21 05:07 Intake & Output 11/28/21 11/29/21 11/29/21 18:59 06:59 18:59 Intake Total 200 1540 Output Total 825 Balance 200 715 Weight 54.431 kg Intake: IV 200 1300 Sodium Chloride 0.9% 1, 1200 000 ml @ 100 mls/hr IV . Q10H JENNIFER Rx#:[id number] ceFAZolin 2 gm In Sodium 50 Chloride 0.9% 50 ml @ 100 mls/hr IVPB Q8HR JENNIFER Rx# :[id number] Oral 240 Output: Urine 800 Estimated Blood Loss 25 Other: Voiding Method Indwelling Catheter - Exam This is a 76-year-old female in no acute distress. She is alert and oriented 3. Exam of her left hip reveals that her dressings are clean, dry and intact. She has full foot and ankle motion bilaterally. Neurovascular status to the lower extremities is intact. - Labs CBC & Chem 7: 11/28/21 20:59 11/28/21 13:11 Labs: Abnormal Lab Results - Last 24 Hours (Table) 11/28/21 11/28/21 11/28/21 Range/Units 13:11 13:11 13:41 WBC (3.8-10.6) k/uL Hgb 11.2 L (11.4-16.0) gm/dL Hct 33.3 L (34.0-46.0) % Neutrophils # (1.3-7.7) k/uL Lymphocytes # (1.0-4.8) k/uL Sodium 134 L (137-145) mmol/L BUN 29 H (7-17) mg/dL Total Protein 6.1 L (6.3-8.2) g/dL Coronavirus (PCR) Detected A (Not Detectd) 11/28/21 Range/Units 20:59 WBC 13.7 H (3.8-10.6) k/uL Hgb 10.9 L (11.4-16.0) gm/dL Hct 33.3 L (34.0-46.0) % Neutrophils # 12.6 H (1.3-7.7) k/uL Lymphocytes # 0.7 L (1.0-4.8) k/uL Sodium (137-145) mmol/L BUN (7-17) mg/dL Total Protein (6.3-8.2) g/dL Coronavirus (PCR) (Not Detectd) Assessment and Plan (1) Fall Current Visit: Yes Status: Acute Code(s): W19.XXXA - UNSPECIFIED FALL, INITIAL ENCOUNTER SNOMED Code(s): 0539295 (2) Hip fracture, left Current Visit: Yes Status: Acute Code(s): S72.002A - FRACTURE OF UNSP PART OF NECK OF LEFT FEMUR, INIT SNOMED Code(s): 954872209 Plan: The clinical Findings are discussed with the patient. We are planning discharge to inpatient rehab possibly tomorrow if there is a bed available. It is discussed the patient that her covert status may make things more challenging as far as placement. Be up with physical therapy today toe-touch weightbearing to the left lower extremity with walker.
--- NOTE | 2021-11-29 09:42 | FL ---
Fluoroscopy HISTORY: Hip fracture 37 seconds fluoroscopy time supplied to the referring clinician. 2 intraoperative C-arm images docum ent the procedure. See dictated report from orthopedic surgery.
[2021-11-29 09:52] LABS: African American GFR (CKD) >90 (>60 ml/min/1.73 sqM); Anion Gap 7 mmol/L; Blood Urea Nitrogen 31 mg/dL (7-17); Calcium 8.5 mg/dL (8.4-10.2); Carbon Dioxide 21 mmol/L (22-30); Chloride 106 mmol/L (98-107); Glucose 103 mg/dL (74-99); Non-African American GFR(CKD) 83 (>60 ml/min/1.73 sqM); Potassium 4.5 mmol/L (3.5-5.1); Sodium 134 mmol/L (137-145)
[2021-11-29 09:57] LABS: HCT 28.2 % (34.0-46.0); MCH 27.9 pg (25.0-35.0); MCHC 32.3 g/dL (31.0-37.0); MCV 86.3 fL (80.0-100.0); Mean Platelet Volume 8.1; Platelet Count 274 k/uL (150-450); RBC 3.27 m/uL (3.80-5.40); RDW 13.8 % (11.5-15.5); WBC 7.7 k/uL (3.8-10.6)
[2021-11-29 10:01] LABS: HGB 9.1 gm/dL (11.4-16.0)
--- NOTE | 2021-11-29 16:17 | P.PN ---
<David Craig - Last Filed: 11/29/21 16:30> Subjective Progress Note Date: 11/29/21 Hospital course: Patient is a very pleasant 76-year-old female with a past medical history of h ypertension, GERD, and Josr fundoplication. She presented to the emergency department status post fall on 11/28/21. X-ray of left hip revealed a displaced comminuted fracture of left femoral neck. She also incidentally tested positive for Covid. Patient was admitted under orthopedic surgery team with Dr. Alvarez and we have been consulted for continued medical management throughout patient's hospitalization.. Physical examination: Patient seen and fully evaluated at the bedside this morning. Sitting up in chair and appeared to be comfortable. Patient reports postoperative pain is controlled at this time, but reports continued pain with movement and difficulty with standing and ambulation. She reports continued nasal congestion but denies having cough, shortness of breath at rest, or increased shortness of breath with exertion from baseline. Morning labs reviewed and postoperative hemoglobin stable at 9.1. General: non toxic, no distress, appears at stated age, thin Derm: warm, dry Head: atraumatic, normocephalic, symmetric Eyes: EOMI, no lid lag, anicteric sclera, pupils equal round reactive to light ENT: Nose and ears atraumatic, no thrush, no pharyngeal erythema Neck: No thyromegaly, no cervical lymphadenopathy, trachea midline, supple Mouth: no lip lesion, mucus membranes moist Cardiovascular: S1S2 reg, no murmur, positive posterior tibial pulse bilateral, 1+ edema b/l LE, capillary refill less than 2 seconds Lungs: Decreased bs bilateral, no ronchi, no rales, no wheeze, no accessory muscle use Abdominal: soft, nontender to palpation, no guarding, no appreciable organomegaly, normal bowel sounds Ext: no gross muscle atrophy, muscle strength muscle strength 5 out of 5 in b/l upper extremities- deferred in lower extremities due to fracture, no contractures Neuro: CN II-XI grossly intact, light touch intact all 4 extremities, finger to nose within normal limits, Psych: Alert, oriented, appropriate affect Assessment and plan of care: Communicated left hip fracture Status post closed reduction and intramedullary nailing of left femur -Management per primary admitting orthopedic surgery team including pain management, weightbearing, PT/OT, post operative dressing changes, and DVT prophylaxis. - Encourage use of incentive spirometry 10-15 times hourly while awake. COVID-19 - Monitor pulse oximetry, patient currently on room air saturating 98%. - CXR without signs of pneumonia - zinc, vit D, Vit C - out of the window for monoclonal bodies as symptoms reportedly began 2 weeks ago - also not a candidate for steroids as she remains on room air - recommend starting anticoagulation as soon as cleared by ortho to do so - Encourage use of incentive spirometry 10-15 times hourly while awake. HTN - controlled - Monitor vital signs and continue daily medication regimen with Norvasc 5 mg nightly. GERD -GI prophylaxis with Protonix 40 mg daily. Thank you for allowing us to participate in the care of this pleasant patient. Do not hesitate to contact us with questions. Someone can be reached from the [facility] hospitalist group all hours of the day at [phone] or via [employer] Objective - Vital Signs Vital signs: Vital Signs Temp 98.7 F 11/29/21 14:00 Pulse 69 11/29/21 14:00 Resp 16 11/29/21 14:00 BP 135/69 11/29/21 14:00 Pulse Ox 100 11/29/21 14:00 Intake & Output 11/28/21 11/29/21 11/29/21 18:59 06:59 18:59 Intake Total 200 1540 850 Output Total 825 500 Balance 200 715 350 Weight 54.431 kg Intake: IV 200 1300 850 Sodium Chloride 0.9% 1, 1200 800 000 ml @ 100 mls/hr IV . Q10H JENNIFER Rx#:[id number] ceFAZolin 2 gm In Sodium 50 50 Chloride 0.9% 50 ml @ 100 mls/hr IVPB Q8HR JENNIFER Rx# :[id number] Oral 240 Output: Urine 800 500 Uretheral (Bentley) 500 Estimated Blood Loss 25 Other: Voiding Method Indwelling Catheter - Labs CBC & Chem 7: 11/29/21 08:23 11/29/21 08:23 Labs: Abnormal Lab Results - Last 24 Hours (Table) 11/28/21 11/29/21 11/29/21 Range/Units 20:59 08:23 08:23 WBC 13.7 H (3.8-10.6) k/uL RBC 3.27 L (3.80-5.40) m/uL Hgb 10.9 L 9.1 L D (11.4-16.0) gm/dL Hct 33.3 L 28.2 L (34.0-46.0) % Neutrophils # 12.6 H (1.3-7.7) k/uL Lymphocytes # 0.7 L (1.0-4.8) k/uL Sodium 134 L (137-145) mmol/L Carbon Dioxide 21 L (22-30) mmol/L BUN 31 H (7-17) mg/dL Glucose 103 H (74-99) mg/dL <Sharon Chávez - Last Filed: 11/30/21 16:23> Subjective agree with note and plan Objective - Vital Signs Vital signs: Vital Signs Temp 98.9 F 11/30/21 14:18 Pulse 71 11/30/21 14:18 Resp 18 11/30/21 14:18 BP 125/68 11/30/21 14:18 Pulse Ox 100 11/30/21 14:18 Intake & Output 11/29/21 11/30/21 11/30/21 18:59 06:59 18:59 Intake Total 850 240 980 Output Total 500 Balance 350 240 980 Intake: IV 850 800 Sodium Chloride 0.9% 1, 800 800 000 ml @ 100 mls/hr IV . Q10H JENNIFER Rx#:[id number] ceFAZolin 2 gm In Sodium 50 Chloride 0.9% 50 ml @ 100 mls/hr IVPB Q8HR JENNIFER Rx# :[id number] Oral 240 180 Output: Urine 500 Uretheral (Bentley) 500 Other: Voiding Method Toilet Bedside Commode # Voids 1 - Labs CBC & Chem 7: 11/30/21 07:49 11/29/21 08:23 Labs: Abnormal Lab Results - Last 24 Hours (Table) 11/30/21 Range/Units 07:49 RBC 3.12 L (4.10-5.20) X 10*6/uL Hgb 8.3 L (12.0-15.0) g/dL Hct 26.2 L (37.2-46.3) % MCH 26.6 L (27.0-32.0) pg MCHC 31.7 L (32.0-37.0) g/dL Eosinophils # 0.03 L (0.04-0.35) X 10*3/uL
[2021-11-29] MEDS: amLODIPine 5 MG TAB PO SCH (20:49)
[2021-11-29] MEDS: TEMAZEPAM 15 MG CAP PO PRN ×2 (20:49→20:50)
[2021-11-29] MEDS: SENNOSIDES-DOCUSATE SODIUM 1 EACH TAB PO SCH (20:49)
[2021-11-30] MEDS: CYANOCOBALAMIN 500 MCG TAB PO SCH (07:54)
[2021-11-30] MEDS: ZINC SULFATE 220 MG CAP PO SCH (07:54)
[2021-11-30] MEDS: PANTOPRAZOLE 40 MG TABLET PO SCH (07:54)
[2021-11-30] MEDS: ASCORBIC ACID 500 MG TAB PO SCH (07:54)
[2021-11-30] MEDS: ASPIRIN 81 MG PO SCH (07:54)
[2021-11-30] MEDS: CHOLECALCIFEROL 25 MCG (1000 IU) TABLET PO SCH (07:54)
[2021-11-30 11:04] LABS: Basophils # (A) 0.02 X 10*3/uL (0.00-0.10); Basophils % (A) 0.3 %; Eosinophils # (A) 0.03 X 10*3/uL (0.04-0.35); Eosinophils % (A) 0.5 %; HCT 26.2 % (37.2-46.3); HGB 8.3 g/dL (12.0-15.0); Lymphocytes # (A) 1.08 X 10*3/uL (0.90-5.00); Lymphocytes % (A) 16.7 %; MCH 26.6 pg (27.0-32.0); MCHC 31.7 g/dL (32.0-37.0); Mean Platelet Volume 10.2 fL (9.5-12.2); Monocytes # (A) 0.61 X 10*3/uL (0.20-1.00); Monocytes % (A) 9.4 %; Neutrophils # (A) 4.72 X 10*3/uL (1.80-7.70); Neutrophils % (A) 72.9 %; Platelet Count 234 X 10*3/uL (140-440); RBC 3.12 X 10*6/uL (4.10-5.20); RDW 14.1 % (11.5-14.5); WBC 6.47 X 10*3/uL (4.50-10.00)
--- NOTE | 2021-11-30 12:00 | P.DS ---
Providers Date of admission: 11/28/21 13:17 Expected date of discharge: 11/30/21 Attending physician: Joseph Alvarez Consults: 11/28/21 13:18 Consult Physician Urgent Consulting Provider: Virginia Bonilla Consult Reason/Comments: fall, left hip fracture Do you want consulting provider notified?: Yes 11/28/21 13:59 Consult Physician Urgent Consulting Provider: Iliana Buitrago Consult Reason/Comments: medical clearance for hip fracture surgery Do you want consulting provider notified?: Yes Primary care physician: Iliana Buitrago MD - Discharge Diagnosis(es) (1) Fall Current Visit: Yes Status: Acute (2) Hip fracture, left Current Visit: Yes Status: Acute Hospital Course: This is a 76-year-old female who is admitted to [facility] on 11/28/2021 after falling and sustaining injury to the left hip. On exam and x- ray in the emergency department he is found to have an intertrochanteric fracture of the left hip. The patient also tested positive for Covid 19 in the emergency department but has been essentially asymptomatic. She has not vaccinated. She is admitted to our service for surgical intervention and care. Patient is taken to surgery for close reduction and insertion of intertrochant anais nail of the left hip. The procedure was performed without complication or sequelae. The patient is doing fairly well postoperatively. Vital signs and labs are stable on postoperative day #2. Patient is discharged to inpatient rehab in good condition. Please see med rec for accurate list of discharge medications. Patient Condition at Discharge: Stable Plan - Discharge Summary Discharge Rx Participant: Yes New Discharge Prescriptions: New HYDROcodone/APAP 5-325MG [Levan 5] 1 - 2 each PO Q6HR PRN #32 tab PRN Reason: Pain Aspirin [Adult Low Dose Aspirin EC] 81 mg PO BID #1 tab No Action Cyanocobalamin (Vitamin B-12) [Vitamin B-12] 1,000 mcg PO DAILY amLODIPine [Norvasc] 5 mg PO HS Omeprazole 40 mg PO DAILY L.acidoph,Paracasei, B.lactis [Probiotic] 1 cap PO DAILY Wesley Red 1 cap PO DAILY Cholecalciferol [Vitamin D3 (25 Mcg = 1000 Iu)] 50 mcg PO BID Discharge Medication List Cholecalciferol [Vitamin D3 (25 Mcg = 1000 Iu)] 50 mcg PO BID 11/28/21 [History] Cyanocobalamin (Vitamin B-12) [Vitamin B-12] 1,000 mcg PO DAILY 11/28/21 [History] L.acidoph,Paracasei, B.lactis [Probiotic] 1 cap PO DAILY 11/28/21 [History] Wesley Red 1 cap PO DAILY 11/28/21 [History] Omeprazole 40 mg PO DAILY 11/28/21 [History] amLODIPine [Norvasc] 5 mg PO HS 11/28/21 [History] Aspirin [Adult Low Dose Aspirin EC] 81 mg PO BID #1 tab 11/30/21 [Rx] HYDROcodone/APAP 5-325MG [Levan 5] 1 - 2 each PO Q6HR PRN #32 tab 11/30/21 [Rx] Follow up Appointment(s)/Referral(s): Iliana Buitrago MD [Primary Care Provider] - 1-2 days Luis A Torres, [NON-STAFF] - As Needed Bre Meza PAC [PHYSICIAN DYE REEL OPERATOR] - 2 Weeks Patient Instructions/Handouts: Coronavirus Disease 2019 (COVID-19), Intramedullary Nailing (DC) Activity/Diet/Wound Care/Special Instructions: Remove Optifoam dressing 7 days post op. Toe touch wt bearing LLE w walker. May shower. Discharge Disposition: TRANSFER TO SNF/ECF
[2021-11-30] MEDS: SODIUM CHLORIDE 0.9% 1,000 ML IV SCH (13:07)
--- NOTE | 2021-11-30 13:43 | P.PN ---
<David Craig - Last Filed: 11/30/21 13:38> Subjective Progress Note Date: 11/30/21 Hospital course: Patient is a very pleasant 76-year-old female with a past medical history of h ypertension, GERD, and Josr fundoplication. She presented to the emergency department status post fall on 11/28/21. X-ray of left hip revealed a displaced comminuted fracture of left femoral neck. She also incidentally tested positive for Covid. Patient was admitted under orthopedic surgery team with Dr. Alvarez and we have been consulted for continued medical management throughout patient's hospitalization.. Patient underwent closed reduction and intramedullary nailing by Dr. Buitrago on 11/28/21. Physical examination: Patient seen and fully evaluated at the bedside this morning. Doing well. She is postoperative day 2. Her respirations are even, regular, and unlabored on room air. She continues to deny having any chest pain, palpitations, or shortness of breath. Morning hemoglobin remains stable at 8.3. General: non toxic, no distress, appears at stated age Derm: warm, dry Head: atraumatic, normocephalic, symmetric Eyes: EOMI, no lid lag, anicteric sclera Mouth: no lip lesion, mucus membranes moist Cardiovascular: S1S2 reg, no murmur, positive posterior tibial pulse bilateral, Lungs: CTA bilateral, no rhonchi, no rales , no accessory muscle use Abdominal: soft, nontender to palpation, no guarding, no appreciable organomegaly Ext: no gross muscle atrophy, no edema, no contractures Neuro: CN II-XI grossly intact, no focal neuro deficits Psych: Alert, oriented, appropriate affect Assessment and plan of care: Communicated left hip fracture Status post closed reduction and intramedullary nailing of left femur -Management per primary admitting orthopedic surgery team including pain management, weightbearing, PT/OT, post operative dressing changes, and DVT prophylaxis. - Encourage use of incentive spirometry 10-15 times hourly while awake. COVID-19 - Monitor pulse oximetry, patient currently on room air saturating 98%. - CXR without signs of pneumonia - zinc, vit D, Vit C - out of the window for monoclonal bodies as symptoms reportedly began 2 weeks ago - also not a candidate for steroids as she remains on room air - recommend starting anticoagulation as soon as cleared by ortho to do so - Encourage use of incentive spirometry 10-15 times hourly while awake. HTN - controlled - Monitor vital signs and continue daily medication regimen with Norvasc 5 mg nightly. GERD -GI prophylaxis with Protonix 40 mg daily. Thank you for allowing us to participate in the care of this pleasant patient. Do not hesitate to contact us with questions. Someone can be reached from the [facility] hospitalist group all hours of the day at [phone] or via perfect serve Objective - Vital Signs Vital signs: Vital Signs Temp 97.6 F 11/30/21 05:35 Pulse 66 11/30/21 05:35 Resp 14 11/30/21 05:35 BP 131/72 11/30/21 05:35 Pulse Ox 97 11/30/21 05:35 Intake & Output 11/29/21 11/30/21 11/30/21 18:59 06:59 18:59 Intake Total 850 240 Output Total 500 Balance 350 240 Intake: IV 850 Sodium Chloride 0.9% 1, 800 000 ml @ 100 mls/hr IV . Q10H JENNIFER Rx#:[id number] ceFAZolin 2 gm In Sodium 50 Chloride 0.9% 50 ml @ 100 mls/hr IVPB Q8HR JENNIFER Rx# :[id number] Oral 240 Output: Urine 500 Uretheral (Bentley) 500 Other: Voiding Method Toilet Bedside Commode # Voids 1 - Labs CBC & Chem 7: 11/30/21 07:49 11/29/21 08:23 Labs: Abnormal Lab Results - Last 24 Hours (Table) 11/29/21 11/29/21 Range/Units 08:23 08:23 RBC 3.27 L (3.80-5.40) m/uL Hgb 9.1 L D (11.4-16.0) gm/dL Hct 28.2 L (34.0-46.0) % Sodium 134 L (137-145) mmol/L Carbon Dioxide 21 L (22-30) mmol/L BUN 31 H (7-17) mg/dL Glucose 103 H (74-99) mg/dL <Sharon Chávez - Last Filed: 11/30/21 16:21> Subjective agree with note and plan Objective - Vital Signs Vital signs: Vital Signs Temp 98.9 F 11/30/21 14:18 Pulse 71 11/30/21 14:18 Resp 18 11/30/21 14:18 BP 125/68 11/30/21 14:18 Pulse Ox 100 11/30/21 14:18 Intake & Output 11/29/21 11/30/21 11/30/21 18:59 06:59 18:59 Intake Total 850 240 980 Output Total 500 Balance 350 240 980 Intake: IV 850 800 Sodium Chloride 0.9% 1, 800 800 000 ml @ 100 mls/hr IV . Q10H JENNFIER Rx#:[id number] ceFAZolin 2 gm In Sodium 50 Chloride 0.9% 50 ml @ 100 mls/hr IVPB Q8HR JENNIFER Rx# :[id number] Oral 240 180 Output: Urine 500 Uretheral (Bentley) 500 Other: Voiding Method Toilet Bedside Commode # Voids 1 - Labs CBC & Chem 7: 11/30/21 07:49 11/29/21 08:23 Labs: Abnormal Lab Results - Last 24 Hours (Table) 11/30/21 Range/Units 07:49 RBC 3.12 L (4.10-5.20) X 10*6/uL Hgb 8.3 L (12.0-15.0) g/dL Hct 26.2 L (37.2-46.3) % MCH 26.6 L (27.0-32.0) pg MCHC 31.7 L (32.0-37.0) g/dL Eosinophils # 0.03 L (0.04-0.35) X 10*3/uL
[2021-11-30 15:12] VITALS: BP 125/68; PULSE 71; RESP 18; TEMP 98.9
== END 2021-11-30 16:21 | DRG 480 ==
LOC: EC 11:59 → 4SSUR 13:17
PROVIDERS: ADMIT Orthopaedic Surgery; ATTEND Orthopaedic Surgery
PROC: 0QS736Z Reposition Left Upper Femur with Intramedullary Internal Fixation Device, Percutaneous Approach (ICD-10-PCS; principal; 2021-11-28 16:30)
DX: S72.142A Displaced intertrochanteric fracture of left femur, initial encounter for closed fracture (principal); U07.1 COVID-19; K21.9 Gastro-esophageal reflux disease without esophagitis; I10 Essential (primary) hypertension; R06.09 Other forms of dyspnea; W03.XXXA Other fall on same level due to collision with another person, initial encounter; Y92.219 Unspecified school as the place of occurrence of the external cause; Z85.828 Personal history of other malignant neoplasm of skin; Z86.010 Personal history of colon polyps; Z98.890 Other specified postprocedural states; Z98.42 Cataract extraction status, left eye; Z98.41 Cataract extraction status, right eye; Z79.899 Other long term (current) drug therapy; Z98.51 Tubal ligation status; Z90.49 Acquired absence of other specified parts of digestive tract; Z80.9 Family history of malignant neoplasm, unspecified
CPT/HCPCS: 36415; 71046; 73502; 80048; 80053; 85025; 85027; 85610; 85730; 87635; 93005; 96374; 96375; 99285

== ENCOUNTER → 2022-05-16 | Outpatient (CLI) | payer MEDICARE ==
--- NOTE | 2022-05-16 14:31 | BD ---
EXAMINATION TYPE: Axial Bone Density DATE OF EXAM: 05/16/2022 COMPARISON: 01-26-2019 CLINICAL HISTORY: 77 years year old Female. ICD-10 CODE: M85.80 OSTEOPENIA Height: 64.5 Weight: 113 FRAX RISK QUESTIONS: History of Fracture in Adulthood: YES Secondary Osteoporosis: RISK FACTORS HISTORY OF: Hip Fracture (Right/Left): LEFT HIP FX When: 11/2021 Surgery to Hip(left): YES When: Family History of Osteoporosis: NO Active: YES Postmenopausal woman: YES AT 54 Lost more than 2 inches in height since high school: YES MEDICATIONS: Additional Medications: BP MEDS, HEART BURN MEDS, CALCIUM, VITAMIN D Additional History: EXAM MEASUREMENTS: Bone mineral densitometry was performed using the [employer] System. Bone mineral density as measured about the Lumbar spine is: ----- L1-L4(G/cm2): 0.988 T Score Values are as follows: ----- L1: -1.9 ----- L2: -2.1 ----- L3: -1.3 ----- L4: -1.3 ----- L1-L4: -1.6 Bone mineral density has: Decreased -5.4% since study of: 01-26-2019 Bone mineral density about the R hip (g/cm2): 0.662 T Score values are as follows: -----R Neck: -2.2 ----- -----R Total: -2.7 -----Bone mineral density has: Decreased -8.7% since study of: 01-26-2019 FRAX%s: The graph provided illustrates a 19.8% chance for a major osteoporotic fx and a 6.2% chance f or the hips probability for fx in 10 years time. IMPRESSION: Osteoporosis (T Score less than -2.5). There is increased fracture risk and therapy is usually indicated based on age. Re-Screen 1-2 years. NOTE: T-SCORE=SD OF THE YOUNG ADULT MEAN.
[2022-05-16 19:57] LABS: % Iron Saturation 6.01 (12.00-45.00); Ferritin 9.7 ng/mL (10.0-291.0); Iron 30 ug/dL (50-170); Total Iron Binding Capacity 493 ug/dL (228-460); Vitamin B12 >2000.0 pg/mL (200.0-944.0)
== END | disposition home or self-care (01) ==
LOC: RADBDWWP 13:04
PROVIDERS: ATTEND Internal Medicine
DX: M85.89 Other specified disorders of bone density and structure, multiple sites (principal); Z78.0 Asymptomatic menopausal state; D64.9 Anemia, unspecified
CPT/HCPCS: 36415; 77080; 82607; 82728; 82746; 83540; 83550

== ENCOUNTER → 2023-02-03 | Outpatient (CLI) | payer MEDICARE | END | disposition home or self-care (01) | LOC: RADNMMAIN 08:59 | PROVIDERS: ATTEND Internal Medicine | DX: Z53.9 Procedure and treatment not carried out, unspecified reason (principal) ==

== ENCOUNTER 2023-02-12 14:32 | Inpatient (IN) | payer MEDICARE ==
[2023-02-12] MEDS ORDERED: SODIUM CHLORIDE 0.9% 500 ML 500 ML IV STA (15:34)
[2023-02-12] MEDS ORDERED: ONDANSETRON 4 MG/2 ML VIAL IVP STA (15:35)
[2023-02-12] MEDS ORDERED: PANTOPRAZOLE 40 MG/10 ML VIAL IVP STA (15:35)
--- NOTE | 2023-02-12 15:45 | ED ---
General Adult HPI - General Chief complaint: Weakness Stated complaint: vomitting blood/backpain/trouble breathing Time Seen by Provider: 02/12/23 15:30 Source: patient, family, RN notes reviewed, old records reviewed Mode of arrival: wheelchair - History of Present Illness Initial comments: 78-year-old female presenting for evaluation of weakness and vomiting. Patient vomited between 8 and 10 times. This was dark. No prior history of GI bleed. No anticoagulation. No diarrhea or melena. No abdominal pain. No chest pain. She does feel quite weak. She has not had much to eat over the past 24 hours. - Related Data Home Medications Medication Instructions Recorded Confirmed Omeprazole 40 mg PO DAILY 11/28/21 02/12/23 amLODIPine [Norvasc] 5 mg PO DAILY 11/28/21 02/12/23 Amitriptyline HCl [Elavil] 25 mg PO DAILY 02/12/23 02/12/23 Mirabegron [Myrbetriq] 25 mg PO Q48H 02/12/23 02/12/23 Allergies Allergy/AdvReac Type Severity Reaction Status Date / Time No Known Allergies Allergy Verified 02/12/23 16:03 Review of Systems ROS Statement: Those systems with pertinent positive or pertinent negative responses have been documented in the HPI. ROS Other: All systems not noted in ROS Statement are negative. Past Medical History Past Medical History: Cancer, GERD/Reflux, Hypertension Additional Past Medical History / Comment(s): hx. skin cancer, hx. colon polyps History of Any Multi-Drug Resistant Organisms: None Reported Past Surgical History: Cholecystectomy, Hernia Repair, Tubal Ligation Additional Past Surgical History / Comment(s): Alley fundoplication with postoperative complications resulting in part of stomach removed and prolonged intubation, tracheostomy and multiple surgeries, sonja cataracts, COLONOSCOPY, EGD Past Anesthesia/Blood Transfusion Reactions: Motion Sickness Additional Past Anesthesia/Blood Transfusion Reaction / Comment(s): . Past Psychological History: No Psychological Hx Reported Smoking Status: Never smoker Past Alcohol Use History: None Reported Past Drug Use History: None Reported - Past Family History Sister(s) Family Medical History: Cancer Daughter(s) Family Medical History: Cancer General Exam General appearance: alert, in no apparent distress Head exam: Present: atraumatic, normocephalic Eye exam: Present: normal appearance, PERRL ENT exam: Present: normal exam Neck exam: Present: normal inspection. Absent: tenderness Respiratory exam: Present: normal lung sounds bilaterally. Absent: respiratory distress, wheezes Cardiovascular Exam: Present: regular rate, normal rhythm GI/Abdominal exam: Present: soft. Absent: distended, tenderness, guarding Extremities exam: Present: normal inspection, normal capillary refill. Absent: pedal edema Neurological exam: Present: alert, oriented X3, CN II-XII intact. Absent: motor sensory deficit Psychiatric exam: Present: normal affect, normal mood Skin exam: Present: warm, dry, intact, pallor. Absent: cyanosis, diaphoretic Course Vital Signs 02/12/23 14:42 Temperature 97.3 F L Pulse Rate 95 Respiratory 18 Rate Blood Pressure 171/102 O2 Sat by Pulse 98 Oximetry EKG Findings - EKG Comments: EKG Findings:: EKG: Sinus rhythm short AR, no ST segment elevation, T waves are upright, rate of 97, AR interval 118, QRS duration 82, QTC 388 Medical Decision Making - Medical Decision Making Was pt. sent in by a medical professional or institution (, PA, STYRENE DEHYDRATION REACTOR OPERATOR, urgent care, hospital, or group home...) When possible be specific @ -[No] Did you speak to anyone other than the patient for history (EMS, parent, family, police, friend...)? What history was obtained from this source @ -[No] Did you review nursing and triage notes (agree or disagree)? Why? @ -[I reviewed and agree with nursing and triage notes] Were old charts reviewed (outside hosp., previous admission, EMS record, old EKG, old radiological studies, urgent care reports/EKG's, group home records)? Report findings @ -[No old charts were reviewed] Differential Diagnosis (chest pain, altered mental status, abdominal pain women, abdominal pain men, vaginal bleeding, weakness, fever, dyspnea, syncope, headache, dizziness, GI bleed, back pain, seizure, CVA, palpatations, mental health, musculoskeletal)? @ -Small bowel obstruction, upper GI bleed EKG interpreted by me (3pts min.). @ -[As above] X-rays interpreted by me (1pt min.). @ -[Chest x-ray negative for acute findings, small bilateral pleural effusions, abdominal x-ray showing moderate stool burden with no obstructive process.] CT interpreted by me (1pt min.). @ -[None done] U/S interpreted by me (1pt. min.). @ -[None done] What testing was considered but not performed or refused? (CT, X-rays, U/S, labs)? Why? @ -[None] What meds were considered but not given or refused? Why? @ -[None] Did you discuss the management of the patient with other professionals (renate bravo i.e. , PA, STYRENE DEHYDRATION REACTOR OPERATOR, lab, RT, psych nurse, social worker masters, resaw operator, teacher, employee service officer, case management director)? Give summary @ -[Dr Rodriguez] Was smoking cessation discussed for >3mins.? @ -[No] Was critical care preformed (if so, how long)? @ -[No] Were there social determinants of health that impacted care today? How? (Homelessness, low income, unemployed, alcoholism, drug addiction, tra nsportation, low edu. Level, literacy, decrease access to med. care, correction, rehab)? @ -[No] Was there de-escalation of care discussed even if they declined (Discuss DNR or withdrawal of care, Hospice)? DNR status @ -[No] What co-morbidities impacted this encounter? (DM, HTN, Smoking, COPD, CAD, Cancer, CVA, ARF, Chemo, Hep., AIDS, mental health diagnosis, sleep apnea, morbid obesity)? @ -[Hiatal hernia] Was patient admitted / discharged? Hospital course, mention meds given and route , prescriptions, significant lab abnormalities, going to OR and other pertinent info. @ -[78-year-old female with multiple episodes of coffee-ground emesis. He called hemoglobin testing is positive. Patient's vital signs are stable. Her hemoglobin is 11.9 which is stable and improved for this patient. She started on Protonix and IV fluids. She will be admitted for serial hemoglobin and GI consultation. Case discussed with the admitting physician] Undiagnosed new problem with uncertain prognosis? @ -[No] Drug Therapy requiring intensive monitoring for toxicity (Heparin, Nitro, Insulin, Cardizem)? @ -[No] Were any procedures done? @ -[No] Diagnosis/symptom? @ -[Upper GI bleed, hematemesis] Acute, or Chronic, or Acute on Chronic? @ -[Acute] Uncomplicated (without systemic symptoms) or Complicated (systemic symptoms)? @ -[Complicated Side effects of treatment? @ -[No] Exacerbation, Progression, or Severe Exacerbation? @ -[No] Poses a threat to life or bodily function? How? (Chest pain, USA, MA, pneumonia, PE, COPD, DKA, ARF, appy, cholecystitis, CVA, Diverticulitis, Homicidal, Suicidal, threat to staff... and all critical care pts) @ -[Yes, risk of continued upper GI bleed and hemorrhagic shock.] - Lab Data Result diagrams: 02/12/23 15:56 02/12/23 15:56 Lab Results 02/12/23 02/12/23 02/12/23 Range/Units 15:56 15:56 15:56 WBC 6.9 (3.8-10.6) k/uL RBC 4.68 (3.80-5.40) m/uL Hgb 11.9 (11.4-16.0) gm/dL Hct 36.9 (34.0-46.0) % MCV 78.9 L (80.0-100.0) fL MCH 25.3 (25.0-35.0) pg MCHC 32.1 (31.0-37.0) g/dL RDW 14.7 (11.5-15.5) % Plt Count 339 (150-450) k/uL MPV 8.0 Neutrophils % 89 % Lymphocytes % 8 % Monocytes % 2 % Eosinophils % 0 % Basophils % 0 % Neutrophils # 6.2 (1.3-7.7) k/uL Lymphocytes # 0.6 L (1.0-4.8) k/uL Monocytes # 0.1 (0-1.0) k/uL Eosinophils # 0.0 (0-0.7) k/uL Basophils # 0.0 (0-0.2) k/uL PT 11.4 (9.0-12.0) sec INR 1.1 (<1.2) APTT 21.8 L (22.0-30.0) sec Sodium 139 (137-145) mmol/L Potassium 4.5 (3.5-5.1) mmol/L Chloride 100 (98-107) mmol/L Carbon Dioxide 19 L (22-30) mmol/L Anion Gap 20 mmol/L BUN 26 H (7-17) mg/dL Creatinine 0.84 (0.52-1.04) mg/dL Est GFR (CKD-EPI)AfAm 76 (>60 ml/min/1.73 sqM) Est GFR (CKD-EPI)NonAf 66 (>60 ml/min/1.73 sqM) Glucose 128 H (74-99) mg/dL Plasma Lactic Acid Maksim (0.7-2.0) mmol/L Calcium 10.1 (8.4-10.2) mg/dL Magnesium 2.1 (1.6-2.3) mg/dL Total Bilirubin 0.9 (0.2-1.3) mg/dL AST 27 (14-36) U/L ALT 20 (4-34) U/L Alkaline Phosphatase 153 H (38-126) U/L Total Protein 8.8 H (6.3-8.2) g/dL Albumin 5.1 H (3.5-5.0) g/dL Gastric Occult Blood (Negative) Blood Type Blood Type Recheck Bld Type Recheck Status Antibody Screen Spec Expiration Date 02/12/23 02/12/23 02/12/23 Range/Units 15:56 15:56 16:46 WBC (3.8-10.6) k/uL RBC (3.80-5.40) m/uL Hgb (11.4-16.0) gm/dL Hct (34.0-46.0) % MCV (80.0-100.0) fL MCH (25.0-35.0) pg MCHC (31.0-37.0) g/dL RDW (11.5-15.5) % Plt Count (150-450) k/uL MPV Neutrophils % % Lymphocytes % % Monocytes % % Eosinophils % % Basophils % % Neutrophils # (1.3-7.7) k/uL Lymphocytes # (1.0-4.8) k/uL Monocytes # (0-1.0) k/uL Eosinophils # (0-0.7) k/uL Basophils # (0-0.2) k/uL PT (9.0-12.0) sec INR (<1.2) APTT (22.0-30.0) sec Sodium (137-145) mmol/L Potassium (3.5-5.1) mmol/L Chloride (98-107) mmol/L Carbon Dioxide (22-30) mmol/L Anion Gap mmol/L BUN (7-17) mg/dL Creatinine (0.52-1.04) mg/dL Est GFR (CKD-EPI)AfAm (>60 ml/min/1.73 sqM) Est GFR (CKD-EPI)NonAf (>60 ml/min/1.73 sqM) Glucose (74-99) mg/dL Plasma Lactic Acid Maksim 2.4 H* (0.7-2.0) mmol/L Calcium (8.4-10.2) mg/dL Magnesium (1.6-2.3) mg/dL Total Bilirubin (0.2-1.3) mg/dL AST (14-36) U/L ALT (4-34) U/L Alkaline Phosphatase (38-126) U/L Total Protein (6.3-8.2) g/dL Albumin (3.5-5.0) g/dL Gastric Occult Blood Positive (Negative) Blood Type B Negative Blood Type Recheck B Neg Bld Type Recheck Status No Antibody Screen NEGATIVE Spec Expiration Date 02/15/20232355 Disposition Clinical Impression: Hematemesis Disposition: ADMITTED IP TO THIS [facility] Condition: Stable Is patient prescribed a controlled substance at d/c from ED?: No Referrals: Edgardo Rodriguez MD [Primary Care Provider] - 1-2 days Time of Disposition: 17:55
[2023-02-12 16:06] LABS: Basophils % (A) 0 %; Eosinophils % (A) 0 %; HCT 36.9 % (34.0-46.0); HGB 11.9 gm/dL (11.4-16.0); Lymphocytes # (A) 0.6 k/uL (1.0-4.8); Lymphocytes % (A) 8 %; MCH 25.3 pg (25.0-35.0); MCHC 32.1 g/dL (31.0-37.0); MCV 78.9 fL (80.0-100.0); Monocytes # (A) 0.1 k/uL (0-1.0); Monocytes % (A) 2 %; Neutrophils # (A) 6.2 k/uL (1.3-7.7); Neutrophils % (A) 89 %; Platelet Count 339 k/uL (150-450); RBC 4.68 m/uL (3.80-5.40); RDW 14.7 % (11.5-15.5); WBC 6.9 k/uL (3.8-10.6)
--- NOTE | 2023-02-12 16:34 | XR ---
EXAMINATION TYPE: XR KUB DATE OF EXAM: 02/12/2023 COMPARISON: None INDICATION: Weakness nausea vomiting TECHNIQUE: Single view abdomen FINDINGS: There is a nonspecific bowel gas pattern. Moderate fecal debris throughout the colon. No mass effect is evident. No free air is evident. Small bilateral pleural effusions may be present. Psoas margins are normal. IMPRESSION: 1. Moderate fecal retention. 2. Small bilateral pleural effusions.
[2023-02-12 16:35] LABS: Albumin 5.1 g/dL (3.5-5.0); Calcium 10.1 mg/dL (8.4-10.2); Magnesium 2.1 mg/dL (1.6-2.3); Potassium 4.5 mmol/L (3.5-5.1); Total Bilirubin 0.9 mg/dL (0.2-1.3); Total Protein 8.8 g/dL (6.3-8.2)
[2023-02-12 16:36] LABS: INR 1.1 (<1.2); Prothrombin Time 11.4 sec (9.0-12.0)
--- NOTE | 2023-02-12 16:37 | XR ---
EXAMINATION TYPE: XR chest 2V DATE OF EXAM: 02/12/2023 COMPARISON: 11/28/2021 INDICATION: Vomiting and nausea TECHNIQUE: Frontal and lateral views of the chest are obtained. FINDINGS: The heart size is normal. The pulmonary vasculature is normal. Small bilateral pleural effusions are present.. Some hyperinflation and increased AP diameter is pre sent compatible COPD. IMPRESSION: 1. Small bilateral pleural effusions. 2. COPD
[2023-02-12 16:41] LABS: Partial Thromboplastin Time 21.8 sec (22.0-30.0)
[2023-02-12] MEDS ORDERED: ACETAMINOPHEN TAB 325 MG TAB PO PRN (17:47)
[2023-02-12] MEDS ORDERED: NALOXONE 0.4 MG/ML 1 ML VIAL IV PRN (17:47)
[2023-02-12] MEDS: SODIUM CHLORIDE 0.9% 1,000 ML IV SCH (18:20)
[2023-02-12] MEDS: Mirabegron [Myrbetriq] 25 MG Tab.Er.24h PO SCH (18:41)
[2023-02-12] MEDS: PANTOPRAZOLE 40 MG/10 ML VIAL IVP SCH (21:29)
[2023-02-12 22:12] LABS: Basophils % (A) 0 %; Eosinophils % (A) 0 %; HCT 30.7 % (34.0-46.0); HGB 10.1 gm/dL (11.4-16.0); Lymphocytes # (A) 0.9 k/uL (1.0-4.8); Lymphocytes % (A) 12 %; MCH 25.2 pg (25.0-35.0); MCHC 32.8 g/dL (31.0-37.0); MCV 76.8 fL (80.0-100.0); Mean Platelet Volume 7.5; Microcytosis Slight; Monocytes # (A) 0.4 k/uL (0-1.0); Monocytes % (A) 6 %; Neutrophils # (A) 5.7 k/uL (1.3-7.7); Neutrophils % (A) 80 %; Platelet Count 280 k/uL (150-450); RBC 3.99 m/uL (3.80-5.40); RDW 14.7 % (11.5-15.5); WBC 7.1 k/uL (3.8-10.6)
[2023-02-13] MEDS: MELATONIN 3 MG TABLET PO SCH ×2 (01:47→20:17)
[2023-02-13] MEDS: amLODIPine 5 MG TAB PO SCH (08:18)
[2023-02-13] MEDS: PANTOPRAZOLE 40 MG/10 ML VIAL IVP SCH ×2 (08:18→20:18)
[2023-02-13] MEDS: SODIUM CHLORIDE 0.9% 1,000 ML IV SCH (08:18)
[2023-02-13] MEDS ORDERED: AMITRIPTYLINE HCL 25 MG TAB PO SCH ×2 (09:00→21:00)
[2023-02-13 09:21] LABS: Basophils % (A) 0 %; Eosinophils % (A) 1 %; HCT 32.4 % (34.0-46.0); HGB 10.3 gm/dL (11.4-16.0); Lymphocytes % (A) 16 %; MCH 25.7 pg (25.0-35.0); MCHC 31.9 g/dL (31.0-37.0); MCV 80.6 fL (80.0-100.0); Mean Platelet Volume 6.8; Monocytes # (A) 0.3 k/uL (0-1.0); Monocytes % (A) 5 %; Neutrophils # (A) 4.6 k/uL (1.3-7.7); Neutrophils % (A) 76 %; Platelet Count 255 k/uL (150-450); RBC 4.02 m/uL (3.80-5.40); RDW 14.8 % (11.5-15.5)
[2023-02-13 09:43] LABS: ALT 13 U/L (4-34); AST 21 U/L (14-36); African American GFR (CKD) >90 (>60 ml/min/1.73 sqM); Alkaline Phosphatase 109 U/L (38-126); Anion Gap 13 mmol/L; Blood Urea Nitrogen 32 mg/dL (7-17); Calcium 8.9 mg/dL (8.4-10.2); Carbon Dioxide 19 mmol/L (22-30); Chloride 107 mmol/L (98-107); Glucose 76 mg/dL (74-99); Non-African American GFR(CKD) 81 (>60 ml/min/1.73 sqM); Potassium 3.9 mmol/L (3.5-5.1); Sodium 139 mmol/L (137-145); Total Bilirubin 0.8 mg/dL (0.2-1.3); Total Protein 6.9 g/dL (6.3-8.2)
[2023-02-13 10:03] LABS: Appearance,Urine Cloudy (Clear); Bacteria,Urine Many /hpf; Bilirubin,Urine Negative (Negative); Blood,Urine Negative (Negative); Color,Urine Yellow; Glucose,Urine (UA) Negative (Negative); Ketones,Urine 2+ (Negative); Leukocyte Esterase,Urine Moderate (Negative); Mucus,Urine Occasional /hpf; Nitrite,Urine Negative (Negative); Protein,Urine Trace (Negative); RBC,Urine 2 /hpf (0-5); Specific Gravity,Urine 1.019 (1.001-1.035); Squamous Epithelial Cell,Urine 2 /hpf (0-4); Urobilinogen,Urine <2.0 mg/dL (<2.0); WBC,Urine 11 /hpf (0-5)
--- NOTE | 2023-02-13 11:16 | P.HPIM ---
History of Present Illness H&P Date: 02/12/23 Chief Complaint: Upper GI bleed HISTORY OF PRESENT ILLNESS: This is a 78-year-old female with a previous medical history significant for hypertension and hypertensive cardio vascular disease, hyperlipidemia, history of ALLERGIC rhinitis, GERD with esophagitis, osteopenia, detrusor stability, patient presented to the emergency department at [facility] with coffee-ground emesis associated with increased abdominal pain nausea and vomiting, patient was seen and evaluated in the emergency department and she was found to have a hemoglobin of 11.9, PT PTT and INR within normal value, BUN is slightly elevated, creatinine is normal, lactic acid slightly el evated at 2.4, patient was given IV fluid resuscitation the form of normal saline, she was started on Protonix 40 mg IV push every 12 hours, she was admitted to telemetry unit, with gastric nephrology consultation from Dr. Stout. REVIEW OF SYSTEMS: Constitutional: No documented fever, no chills, no night sweats. No weight change. No weakness, fatigue or lethargy. No daytime sleepiness. HEENT: No headache. No blurred vision or double vision, no loss of vision. No loss of Hearing, no ringing in the ears, no dizziness. No nasal drainage or congestion. No epistaxis. No sore throat. Lungs: No shortness of breath, no cough, no sputum production. No wheezing. Reports dyspnea with activity. Cardiovascular: No chest pain, no lower extremity edema. No palpitations. No paroxysmal nocturnal dyspnea. No orthopnea. No lightheadedness or dizziness. No syncopal episodes. Abdominal: Reports abdominal pain. No nausea, vomiting. No diarrhea. No constipation. No bloody or tarry stools reports loss of appetite. Genitourinary: No dysuria, increased frequency, urgency. No urinary retention. Musculoskeletal: No myalgias. No muscle weakness, no gait dysfunction, no frequent falls. No back pain. No neck pain. Integumentary: No wounds, no lesions. No rash or pruritus. No unusual bruising. No change in hair or nails. Neurologic: No aphasia. No facial droop. No change in mentation. No head injury. No headache. No paralysis. No paresthesia. Psychiatric: No depression. No anxiety. No mood swings. Endocrine: No abnormal blood sugars. No weight change. PAST MEDICAL HISTORY: Hypertension and hypertensive cardiovascular disease Hyperlipidemia. ALLERGIC rhinitis. GERD with esophagitis. Osteoporosis Detrusor instability. Rheumatoid arthritis positive serology Positive RANGEL. Constipation PAST SURGICAL HISTORY: left femur ORIF generally 2021 Left humerus fracture generally 2018 Incisional hernia surgeries in May 2012 Cholecystectomy August 2011 Cataract right eye February 2006 Detached retina right eye August 2005 Achilles tendon surgery for dropped food every 2002 Had a hernia surgery to prolonged hospital stay for 7 month generally 2001 Bilateral tubal ligation 1974 SOCIAL HISTORY: patient is a lifelong nonsmoker, she drinks monthly or less, she drinks about 3-4 cups of coffee a day, she drinks Diet Coke, she denies any marijuana use. FAMILY HISTORY: father at age of 85 from dementia and CAD, mother at age of 83 from CAD post-PCI 3, and she also's had a 3 valve replacement, patient had 2 sisters one at age of 78 from dementia and the other 2 sisters are okay patient has 2 daughters okay and patient has 2 sons one with smoking and had pneumothorax and seizure disorder and one is okay. PHYSICAL EXAMINATION: General: 78-year-old female laying down in bed in no apparent distress . HEENT: Head is atraumatic, normocephalic, pupils were equal round reactive to light and recommendation, extraocular muscle movement were intact, sclera nonicteric, conjunctivae were pale, mucous membranes of the mouth are somewhat dry. Neck: Supple, no JVP, normal carotid upstroke bilaterally, no lymphadenopathy. Chest: Decreased breath sounds at the bases, few rhonchi, no expiratory wheezes, no chest wall tenderness, no intercostal retractions. Heart: First heart sound is normal, second heart sound is normal there is systol ic ejection murmur 2/6 located in the left sternal border. Abdomen: Soft, mild tenderness to the epigastric area nondistended, positive bowel sounds. Extremities: There is no edema no calf tenderness DP +2 bilaterally. Neurologic examination: Patient is awake alert and oriented X 3, cranial nerves II-12 appear grossly intact, muscle power were 5 out of 5 in upper extremities and 5 out of 5 in bilateral lower extremities, deep tendon reflexes normal bilaterally. ASSESSMENT AND PLAN: 1. Upper GI bleed rule out peptic ulcer disease. Patient will be kept on nothing per mouth, start the patient on Protonix 40 mg IV push every 12 hours, check hemoglobin every 6 hours for the next 24 hours, transfuse for hemoglobin less than 7, Gastroenterology consultation from Dr. Stout. 2. Hypertension and hypertensive cardiovascular disease. Continue patient on amlodipine 5 mg once every day, monitor the patient blood pressure regularly. 3. Hyperlipidemia. Patient is not taking any medication at this time 3 4. GERD with esophagitis. Continue patient on Protonix 40 mg IV push every 12 hours. 5. Detrusor instability. Continue patient on Mirbetriq 25 mg po daily. 6. Rheumatoid arthritis positive serology and positive RANGEL.. Currently not taking any medication at this time. 7. ALLERGIC rhinitis. Continue patient on Claritin 10 mg once every day as well as Flonase spray 1 puff in each nostril twice every day as needed. 8. Osteoporosis. Continue patient on calcium 600 mg orally twice every day as well as vitamin D3 2000 and once every day continue with weightbearing exercise, monitor the patient with this is kind once every 2 years, she will need to be started on Prolia 9. DVT prophylaxis. Early ambulation and bilateral knee-high NITHIN hose. 10. GI prophylaxis. Continue patient on Protonix 40 mg IV push every 12 hours. 11. Admitted to inpatient. Estimate a length of stay 2 midnights. 12. Full code Past Medical History Past Medical History: Cancer, GERD/Reflux, Hypertension Additional Past Medical History / Comment(s): hx. skin cancer, hx. colon polyps History of Any Multi-Drug Resistant Organisms: None Reported Past Surgical History: Cholecystectomy, Hernia Repair, Tubal Ligation Additional Past Surgical History / Comment(s): Alley fundoplication with postoperative complications resulting in part of stomach removed and prolonged intubation, tracheostomy and multiple surgeries, sonja cataracts, COLONOSCOPY, EGD Past Anesthesia/Blood Transfusion Reactions: Motion Sickness Additional Past Anesthesia/Blood Transfusion Reaction / Comment(s): . Past Psychological History: No Psychological Hx Reported Smoking Status: Never smoker Past Alcohol Use History: None Reported Past Drug Use History: None Reported - Past Family History Sister(s) Family Medical History: Cancer Daughter(s) Family Medical History: Cancer Medications and Allergies Home Medications Medication Instructions Recorded Confirmed Type Omeprazole 40 mg PO DAILY 11/28/21 02/12/23 History amLODIPine [Norvasc] 5 mg PO DAILY 11/28/21 02/12/23 History Amitriptyline HCl [Elavil] 25 mg PO DAILY 02/12/23 02/12/23 History Mirabegron [Myrbetriq] 25 mg PO Q48H 02/12/23 02/12/23 History Allergies Allergy/AdvReac Type Severity Reaction Status Date / Time No Known Allergies Allergy Verified 02/12/23 16:03 Physical Exam Vitals: Vital Signs Temp Pulse Resp BP Pulse Ox 02/12/23 14:42 97.3 F L 95 18 171/102 98 Intake and Output 02/12/23 02/12/23 02/12/23 06:59 14:59 22:59 Other: Weight 50.802 kg Results CBC & Chem 7: 02/12/23 15:56 02/12/23 15:56 Labs: Abnormal Lab Results - Last 24 Hours (Table) 02/12/23 02/12/23 02/12/23 Range/Units 15:56 15:56 15:56 MCV 78.9 L (80.0-100.0) fL Lymphocytes # 0.6 L (1.0-4.8) k/uL APTT 21.8 L (22.0-30.0) sec Carbon Dioxide 19 L (22-30) mmol/L BUN 26 H (7-17) mg/dL Glucose 128 H (74-99) mg/dL Plasma Lactic Acid Maksim (0.7-2.0) mmol/L Alkaline Phosphatase 153 H (38-126) U/L Total Protein 8.8 H (6.3-8.2) g/dL Albumin 5.1 H (3.5-5.0) g/dL 02/12/23 Range/Units 15:56 MCV (80.0-100.0) fL Lymphocytes # (1.0-4.8) k/uL APTT (22.0-30.0) sec Carbon Dioxide (22-30) mmol/L BUN (7-17) mg/dL Glucose (74-99) mg/dL Plasma Lactic Acid Maksim 2.4 H* (0.7-2.0) mmol/L Alkaline Phosphatase (38-126) U/L Total Protein (6.3-8.2) g/dL Albumin (3.5-5.0) g/dL
--- NOTE | 2023-02-13 13:50 | P.PN ---
Subjective Progress Note Date: 02/13/23 HISTORY OF PRESENT ILLNESS: This is a 78-year-old female with a previous medical history signif icant for hypertension and hypertensive cardio vascular disease, hyperlipidemia, history of ALLERGIC rhinitis, GERD with esophagitis, osteopenia, detrusor stability, patient presented to the emergency department at [facility] with coffee-ground emesis associated with increased abdominal pain nausea and vomiting, patient was seen and evaluated in the emergency department and she was found to have a hemoglobin of 11.9, PT PTT and INR within normal value, BUN is slightly elevated, creatinine is normal, lactic acid slightly elevated at 2.4, patient was given IV fluid resuscitation the form of normal saline, she was started on Protonix 40 mg IV push every 12 hours, she was admitted to telemetry unit, with gastric nephrology consultation from Dr. Stout. 02/13: Patient has been seen by Dr. Chris Stout and scheduled for upper endoscopy tomorrow. Hemoglobin is 10.3. BUN 32 creatinine 0.72. Stool for occult blood last evening was positive. 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 Patient denies any abdominal pain. She has not had any vomiting since yesterday.. REVIEW OF SYSTEMS: Constitutional: No documented fever, no chills, no night sweats. No weight change. No weakness, fatigue or lethargy. No daytime sleepiness. HEENT: No headache. No blurred vision or double vision, no loss of vision. No loss of Hearing, no ringing in the ears, no dizziness. No nasal drainage or congestion. No epistaxis. No sore throat. Lungs: No shortness of breath, no cough, no sputum production. No wheezing. Reports dyspnea with activity. Cardiovascular: No chest pain, no lower extremity edema. No palpitations. No paroxysmal nocturnal dyspnea. No orthopnea. No lightheadedness or dizziness. No syncopal episodes. Abdominal: Reports abdominal pain. No nausea, vomiting. No diarrhea. No c onstipation. No bloody or tarry stools reports loss of appetite. Genitourinary: No dysuria, increased frequency, urgency. No urinary retention. Musculoskeletal: No myalgias. No muscle weakness, no gait dysfunction, no frequent falls. No back pain. No neck pain. Integumentary: No wounds, no lesions. No rash or pruritus. No unusual bruising. No change in hair or nails. Neurologic: No aphasia. No facial droop. No change in mentation. No head injury. No headache. No paralysis. No paresthesia. Psychiatric: No depression. No anxiety. No mood swings. Endocrine: No abnormal blood sugars. No weight change. PHYSICAL EXAMINATION: General: 78-year-old female laying down in bed in no apparent distress . HEENT: Head is atraumatic, normocephalic, pupils were equal round reactive to light and recommendation, extraocular muscle movement were intact, sclera nonicteric, conjunctivae were pale, mucous membranes of the mouth are somewhat dry. Neck: Supple, no JVP, normal carotid upstroke bilaterally, no lymphadenopathy. Chest: Decreased breath sounds at the bases, few rhonchi, no expiratory wheezes, no chest wall tenderness, no intercostal retractions. Heart: First heart sound is normal, second heart sound is normal there is systolic ejection murmur 2/6 located in the left sternal border. Abdomen: Soft, mild tenderness to the epigastric area nondistended, positive bowel sounds. Extremities: There is no edema no calf tenderness DP +2 bilaterally. Neurologic examination: Patient is awake alert and oriented X 3, cranial nerves II-12 appear grossly intact, muscle power were 5 out of 5 in upper extremities and 5 out of 5 in bilateral lower extremities, deep tendon reflexes normal bilaterally. ASSESSMENT AND PLAN: 1. Upper GI bleed rule out peptic ulcer disease. Patient will be kept on nothing per mouth after midnight, continue the patient on Protonix 40 mg IV push every 12 hours, check hemoglobin every 6 hours for the next 24 hours, transfuse for hemoglobin less than 7, Gastroenterology consultation from Dr. Stout with plan for EGD tomorrow. 2. Hypertension and hypertensive cardiovascular disease. Continue patient on amlodipine 5 mg once every day, monitor the patient blood pressure regularly. 3. Hyperlipidemia. Patient is not taking any medication at this time 3 4. GERD with esophagitis. Continue patient on Protonix 40 mg IV push every 12 hours. 5. Detrusor instability. Continue patient on Mirbetriq 25 mg po daily. 6. Rheumatoid arthritis positive serology and positive RANGEL.. Currently not taking any medication at this time. 7. ALLERGIC rhinitis. Continue patient on Claritin 10 mg once every day as well as Flonase spray 1 puff in each nostril twice every day as needed. 8. Osteoporosis. Continue patient on calcium 600 mg orally twice every day as well as vitamin D3 2000 and once every day continue with weightbearing exercise, monitor the patient with this is kind once every 2 years, she will need to be started on Prolia 9. DVT prophylaxis. Early ambulation and bilateral knee-high INTHIN hose. 10. GI prophylaxis. Continue patient on Protonix 40 mg IV push every 12 hours. 11. Full code Impression and plan of care have been directed as dictated by the signing physician. Nathalia Guillaume nurse practitioner acting as scribe for signing physician. Objective - Vital Signs Vital signs: Vital Signs Temp 97.4 F L 02/13/23 07:15 Pulse 65 02/13/23 08:15 Resp 16 02/13/23 09:52 BP 136/72 02/13/23 07:15 Pulse Ox 99 02/13/23 07:15 FiO2 Intake & Output 02/12/23 02/13/23 02/13/23 18:59 06:59 18:59 Output Total 120 400 Balance -120 -400 Weight 50.802 kg 50.802 kg Output: Urine 120 400 Other: Voiding Method Toilet - Labs CBC & Chem 7: 02/13/23 09:05 02/13/23 09:05 Labs: Abnormal Lab Results - Last 24 Hours (Table) 02/12/23 02/12/23 02/12/23 Range/Units 07:18 15:56 15:56 Hgb (11.4-16.0) gm/dL Hct (34.0-46.0) % MCV 78.9 L (80.0-100.0) fL Lymphocytes # 0.6 L (1.0-4.8) k/uL APTT 21.8 L (22.0-30.0) sec Carbon Dioxide (22-30) mmol/L BUN (7-17) mg/dL Glucose (74-99) mg/dL Plasma Lactic Acid Maksim (0.7-2.0) mmol/L Alkaline Phosphatase (38-126) U/L Total Protein (6.3-8.2) g/dL Albumin (3.5-5.0) g/dL Urine Appearance Cloudy H (Clear) Urine Protein Trace H (Negative) Urine Ketones 2+ H (Negative) Ur Leukocyte Esterase Moderate H (Negative) Urine WBC 11 H (0-5) /hpf Urine Bacteria Many H (None) /hpf Urine Mucus Occasional H (None) /hpf 02/12/23 02/12/23 02/12/23 Range/Units 15:56 15:56 22:00 Hgb 10.1 L (11.4-16.0) gm/dL Hct 30.7 L (34.0-46.0) % MCV 76.8 L (80.0-100.0) fL Lymphocytes # 0.9 L (1.0-4.8) k/uL APTT (22.0-30.0) sec Carbon Dioxide 19 L (22-30) mmol/L BUN 26 H (7-17) mg/dL Glucose 128 H (74-99) mg/dL Plasma Lactic Acid Maksim 2.4 H* (0.7-2.0) mmol/L Alkaline Phosphatase 153 H (38-126) U/L Total Protein 8.8 H (6.3-8.2) g/dL Albumin 5.1 H (3.5-5.0) g/dL Urine Appearance (Clear) Urine Protein (Negative) Urine Ketones (Negative) Ur Leukocyte Esterase (Negative) Urine WBC (0-5) /hpf Urine Bacteria (None) /hpf Urine Mucus (None) /hpf 02/13/23 02/13/23 Range/Units 09:05 09:05 Hgb 10.3 L (11.4-16.0) gm/dL Hct 32.4 L (34.0-46.0) % MCV (80.0-100.0) fL Lymphocytes # (1.0-4.8) k/uL APTT (22.0-30.0) sec Carbon Dioxide 19 L (22-30) mmol/L BUN 32 H (7-17) mg/dL Glucose (74-99) mg/dL Plasma Lactic Acid Maksim (0.7-2.0) mmol/L Alkaline Phosphatase (38-126) U/L Total Protein (6.3-8.2) g/dL Albumin (3.5-5.0) g/dL Urine Appearance (Clear) Urine Protein (Negative) Urine Ketones (Negative) Ur Leukocyte Esterase (Negative) Urine WBC (0-5) /hpf Urine Bacteria (None) /hpf Urine Mucus (None) /hpf
--- NOTE | 2023-02-13 14:30 | P.CONS ---
History of Present Illness - Reason for Consult Consult date: 02/13/23 Hematemesis Requesting physician: Edgardo Rodriguez - Chief Complaint Nausea and vomiting, coffee-ground emesis - History of Present Illness Patient pleasant 78-year-old female with a past medical history including hypertension, hyperlipidemia, and GERD with a history of Niesen fundoplication approximately 20 years ago with postop complications and multiple abdominal surgeries. Patient states that on Friday she started having some nausea and vomited twice a dark substance. 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 She stopped drinking any further,. The next day she tried to have some crackers and juice and water and then vomited 2 more times with brown liquid. She denied any abdominal pain associated with a vomiting. No fevers, no chills, shortness breath or chest pain. She her daughter recommended that she come to the emergency department while she was here yesterday she had 2-3 more coffee-ground emesis. She had positive gastric occult blood. Initial hemoglobin of 11.9 with a drop to 10.3. She denies any previous history of GI bleed. She has had several EGDs in the past for GERD. Last EGD 06/22/[address] Stout with findings of moderate sized hiatal hernia, LA grade a reflux esophagitis and mild antral gastritis. Prior to that she had EGD colonoscopy again with Dr. Polanco 2017 with EGD showing large hiatal hernia gastric polyp and mild gastritis with colonoscopy revealing scattered sigmoid diverticulosis with no concerns for neoplasm. Patient denies any anticoagulation, she does take Aleve as needed she believes only one per week. Review of Systems REVIEW OF SYSTEMS: CARDIOPULMONARY: No chest pain or shortness of breath. Gastrointestinal: No abdominal pain. Nausea with vomiting, coffee-ground emesis. No bright red blood. No rectal bleeding or melena. MUSCULOSKELETAL: Reports normal range of motion. SKIN: No rashes. No jaundice. ENDOCRINE: No chills, fevers. No excessive weight gain or loss. No polydipsia or polyuria. PSYCHIATRIC: Unremarkable. NEUROLOGY: No change in mental status. Denies dizziness, headache. ENT: Vision unremarkable. CONSTITUTIONAL: No recent weight loss. No fever, chills, night sweats. Past Medical History Past Medical History: Cancer, GERD/Reflux, Hypertension Additional Past Medical History / Comment(s): hx. skin cancer, hx. colon polyps History of Any Multi-Drug Resistant Organisms: None Reported Past Surgical History: Cholecystectomy, Hernia Repair, Orthopedic Surgery, Tubal Ligation Additional Past Surgical History / Comment(s): Alley fundoplication with postoperative complications resulting in part of stomach removed and prolonged intubation, tracheostomy and multiple surgeries, sonja cataracts, COLONOSCOPY, EGD, hip surgery 2021. Past Anesthesia/Blood Transfusion Reactions: Motion Sickness Additional Past Anesthesia/Blood Transfusion Reaction / Comm: . Past Psychological History: No Psychological Hx Reported Smoking Status: Never smoker Past Alcohol Use History: None Reported Past Drug Use History: None Reported - Past Family History Sister(s) Family Medical History: Cancer Daughter(s) Family Medical History: Cancer Medications and Allergies Home Medications Medication Instructions Recorded Confirmed Type Omeprazole 40 mg PO DAILY 11/28/21 02/12/23 History amLODIPine [Norvasc] 5 mg PO DAILY 11/28/21 02/12/23 History Amitriptyline HCl [Elavil] 25 mg PO DAILY 02/12/23 02/12/23 History Mirabegron [Myrbetriq] 25 mg PO Q48H 02/12/23 02/12/23 History Allergies Allergy/AdvReac Type Severity Reaction Status Date / Time No Known Allergies Allergy Verified 02/12/23 16:03 Physical Exam Vitals: Vital Signs Temp Pulse Pulse Pulse Resp BP BP 02/13/23 09:52 16 02/13/23 08:15 65 16 02/13/23 07:15 97.4 F L 91 16 136/72 02/13/23 04:00 98.2 F 82 18 143/80 02/13/23 00:00 98.1 F 103 H 18 139/70 02/12/23 21:35 99.3 F 100 18 160/80 02/12/23 18:28 101 H 16 183/95 02/12/23 14:42 97.3 F L 95 18 171/102 Pulse Ox 02/13/23 09:52 02/13/23 08:15 02/13/23 07:15 99 02/13/23 04:00 99 02/13/23 00:00 98 02/12/23 21:35 100 02/12/23 18:28 100 02/12/23 14:42 98 Intake and Output 04/05/23 04/06/23 04/06/23 22:59 06:59 14:59 Output Total 120 400 Balance -120 -400 Output: Urine 120 400 Other: Voiding Method Toilet Weight 50.802 kg General appearance: The patient is alert, oriented, appears in no acute distress. HET: Head is normocephalic and atraumatic. Conjunctiva pink. Sclera anicteric. Neck: Supple without lymphadenopathy. Trachea midline. Heart: S1 S2. Regular rate and rhythm. Lungs: Clear to auscultation. Abdomen: Soft, nontender, nondistended with bowel sounds. No guarding or rigidity. Skin: No rashes. No jaundice. Extremities: Normal skin color and turgor. No pedal edema. Neurological: No focal deficits. Alert and oriented x3. Results CBC & Chem 7: 02/13/23 09:05 02/13/23 09:05 Labs: Abnormal Lab Results - Last 24 Hours (Table) 02/12/23 02/12/23 02/12/23 Range/Units 15:56 15:56 15:56 Hgb (11.4-16.0) gm/dL Hct (34.0-46.0) % MCV 78.9 L (80.0-100.0) fL Lymphocytes # 0.6 L (1.0-4.8) k/uL APTT 21.8 L (22.0-30.0) sec Carbon Dioxide 19 L (22-30) mmol/L BUN 26 H (7-17) mg/dL Glucose 128 H (74-99) mg/dL Plasma Lactic Acid Maksim (0.7-2.0) mmol/L Alkaline Phosphatase 153 H (38-126) U/L Total Protein 8.8 H (6.3-8.2) g/dL Albumin 5.1 H (3.5-5.0) g/dL 02/12/23 02/12/23 02/13/23 Range/Units 15:56 22:00 09:05 Hgb 10.1 L (11.4-16.0) gm/dL Hct 30.7 L (34.0-46.0) % MCV 76.8 L (80.0-100.0) fL Lymphocytes # 0.9 L (1.0-4.8) k/uL APTT (22.0-30.0) sec Carbon Dioxide 19 L (22-30) mmol/L BUN 32 H (7-17) mg/dL Glucose (74-99) mg/dL Plasma Lactic Acid Maksim 2.4 H* (0.7-2.0) mmol/L Alkaline Phosphatase (38-126) U/L Total Protein (6.3-8.2) g/dL Albumin (3.5-5.0) g/dL 02/13/23 Range/Units 09:05 Hgb 10.3 L (11.4-16.0) gm/dL Hct 32.4 L (34.0-46.0) % MCV (80.0-100.0) fL Lymphocytes # (1.0-4.8) k/uL APTT (22.0-30.0) sec Carbon Dioxide (22-30) mmol/L BUN (7-17) mg/dL Glucose (74-99) mg/dL Plasma Lactic Acid Maksim (0.7-2.0) mmol/L Alkaline Phosphatase (38-126) U/L Total Protein (6.3-8.2) g/dL Albumin (3.5-5.0) g/dL Assessment and Plan (1) Coffee ground emesis Narrative/Plan: 78-year-old female with a long-standing history of GERD with previous Josr fundoplication at least 20 years ago with complications and multiple abdominal surgeries to follow. Patient presented to emergency department with coffee- ground emesis times several episodes. Denies any anticoagulation or regular NSAID use. Takes Aleve maybe 1 times a week. An initial hemoglobin of 11.9 admission with interrupted 10.3, BUN elevated to 32 of which can be seen with upper GI bleed. Unclear etiology as patient has not had previous GI bleed but has had multiple EGDs in the past. Possible etiologies include peptic ulcer disease, esophagitis, gastritis, AVM, or other possible etiologies. Recommend further evaluation with EGD. Current Visit: Yes Status: Acute Code(s): K92.0 - HEMATEMESIS SNOMED Code(s): 53885561 (2) Hiatal hernia Current Visit: Yes Status: Acute Code(s): K44.9 - DIAPHRAGMATIC HERNIA WITHOUT OBSTRUCTION OR GANGRENE SNOMED Code(s): 89395514 (3) History of Alley fundoplication Current Visit: Yes Status: Acute Code(s): Z98.890 - OTHER SPECIFIED POSTPROCEDURAL STATES SNOMED Code(s): 269652661 (4) History of abdominal surgery Current Visit: Yes Status: Acute Code(s): Z98.890 - OTHER SPECIFIED POSTPROCEDURAL STATES SNOMED Code(s): 359167944 (5) GERD (gastroesophageal reflux disease) Current Visit: No Status: Acute Code(s): K21.9 - GASTRO-ESOPHAGEAL REFLUX DISEASE WITHOUT ESOPHAGITIS SNOMED Code(s): 010227726 Plan: 1. Continue symptomatic and supportive care 2. Daily CBC, transfuse for hemoglobin less than 7 3. Protonix 40 mg IV twice a day 4. Patient may have clear liquid diet, nothing by mouth after midnight 5. Patient scheduled for EGD 6. Avoid NSAIDs Thank you for this consultation, we will continue to follow. Dr. Chris Stout I agree with the dictator's note, documented as a scribe by Martha Resendiz.
[2023-02-14] MEDS: SODIUM CHLORIDE 0.9% 1,000 ML IV SCH ×2 (01:53→11:15)
[2023-02-14 08:14] LABS: HCT 31.9 % (34.0-46.0); HGB 10.2 gm/dL (11.4-16.0); Hypochromasia Slight; MCH 26.5 pg (25.0-35.0); MCHC 32.1 g/dL (31.0-37.0); MCV 82.5 fL (80.0-100.0); Mean Platelet Volume 8.7; Platelet Count 203 k/uL (150-450); RBC 3.86 m/uL (3.80-5.40); WBC 4.9 k/uL (3.8-10.6)
[2023-02-14] MEDS: amLODIPine 5 MG TAB PO SCH (08:58)
[2023-02-14] MEDS: PANTOPRAZOLE 40 MG/10 ML VIAL IVP SCH (08:58)
[2023-02-14] MEDS ORDERED: IV FLUID CONTINUATION 1,000 ML IV ONE ×2 (09:56)
[2023-02-14] MEDS ORDERED: PROPOFOL 10 MG/ML 20 ML VIAL IV ONE (09:58)
[2023-02-14] MEDS ORDERED: LIDOCAINE 2% INJ 20 MG/ML (2 ML VIAL) ONE (09:58)
--- NOTE | 2023-02-14 10:11 | P.PCN ---
Date of Procedure: 02/14/23 Procedure(s) Performed: BRIEF HISTORY: Patient is a 78-year-old, pleasant, white female admitted hospital with nausea vomiting for the last 2 days' duration. She had some coffee-ground emesis. Hemoglobin is 10.1 g/dL. She is scheduled for an upper endoscopy as a part of evaluation o further. f. PROCEDURE PERFORMED: Esophagogastroduodenoscopy. PREOPERATIVE DIAGNOSIS: Nausea vomiting and coffee-ground emesis of 2 days' duration. IV sedation per anesthesia. PROCEDURE: After informed consent was obtained, the patient was brought into the endoscopy unit. IV sedation was administered by Anesthesia under continuous monitoring. Initially the Olympus GIF-140 video endoscope was inserted into the mouth. Esophagus intubated without any difficulty. It was gradually advanced into the stomach and duodenum and carefully examined. The bulb and the second part of the duodenum appeared normal. No active bleeding identified. The scope at this time was withdrawn to the stomach, adequately insufflated with air, and upon careful examination, mucosa of the antrum, had mild gastritis and biopsies were done from this area. Mucosa body, cardia and the fundus appeared normal. The scope was then withdrawn into the esophagus. Moderate size hiatal hernia noted. The GE junction was located at 36 cm from the incisors. The esophagus appeared normal. There were no erosions or ulcerations seen and the patient tolerated the procedure well. IMPRESSION: 1. Moderate size hiatal hernia. 2. Mild antral gastritis but no evidence of esophagitis or peptic ulcer disease. RECOMMENDATIONS: The findings of this examination were discussed with the patient as well as a family. She'll continue on Protonix 40 mg twice daily. Advance diet as tolerated. She can be discharged home today with outpatient follow-up in 4-6 weeks..
--- NOTE | 2023-02-14 10:22 | P.DS ---
Providers Date of admission: 02/12/23 17:47 Expected date of discharge: 02/14/23 Attending physician: Edgardo Rodriguez Consults: 02/12/23 17:47 Consult Physician Routine Consulting Provider: Sana Stout Consult Reason/Comments: Upper GI bleed Do you want consulting provider notified?: Yes Primary care physician: Edgardo Rodriguez Hospital Course: HISTORY OF PRESENT ILLNESS: This is a 78-year-old female with a previous medical history significant for hypertension and hypertensive cardio vascular disease, hyperlipidemia, history of ALLERGIC rhinitis, GERD with esophagitis, osteopenia, detrusor stability, patient presented to the emergency department at [facility] with coffee-ground emesis associated with increased abdominal pain nausea and vomiting, patient was seen and evaluated in the emergency department and she was found to have a hemoglobin of 11.9, PT PTT and INR within normal value, BUN is slightly elevated, creatinine is normal, lactic acid slightly elevated at 2.4, patient was given IV fluid resuscitation the form of normal saline, she was started on Protonix 40 mg IV push every 12 hours, she was admitted to telemetry unit, with gastric nephrology consultation from Dr. Stout. 02/13: Patient has been seen by Dr. Chris Stout and scheduled for upper endoscopy tomorrow. Hemoglobin is 10.3. BUN 32 creatinine 0.72. Stool for occult blood last evening was positive. monitoring and evaluation advisor is sinus rhythm. Patient denies any abdominal pain. She has not had any vomiting since yesterday.. 02/14: Patient underwent EGD this morning with Dr. Chris Stout will which revealed moderate sized hiatal hernia. Mild antral gastritis but no evidence of esophagitis or peptic ulcer disease. Recommendations to continue Protonix 40 mg twice daily and advance diet as tolerated. Patient is cleared for discharge and follow-up in the office in 4-6 weeks. Vital signs have been stable. monitoring and evaluation advisor is sinus rhythm. Patient will be discharged home today in stable c ondition. DISCHARGE DIAGNOSES 1. Upper GI bleed secondary to mild antral gastritis, ruled out peptic ulcer disease. 2. Hypertension and hypertensive cardiovascular disease. 3. Hyperlipidemia. 4. GERD with esophagitis. 5. Detrusor instability. 6. Rheumatoid arthritis positive serology and positive RANGEL. 7. ALLERGIC rhinitis. 8. Osteoporosis. Greater than 35 minutes was utilized and coordinating patient's discharge. Impression and plan of care have been directed as dictated by the signing physician. Nathalia Guillaume nurse practitioner acting as scribe for signing physician. Patient Condition at Discharge: Stable Plan - Discharge Summary Discharge Rx Participant: No New Discharge Prescriptions: New Pantoprazole [Protonix] 40 mg PO BID #60 tab Continue amLODIPine [Norvasc] 5 mg PO DAILY Mirabegron [Myrbetriq] 25 mg PO Q48H Amitriptyline HCl [Elavil] 25 mg PO DAILY Discontinued Omeprazole 40 mg PO DAILY Discharge Medication List amLODIPine [Norvasc] 5 mg PO DAILY 11/28/21 [History] Amitriptyline HCl [Elavil] 25 mg PO DAILY 02/12/23 [History] Mirabegron [Myrbetriq] 25 mg PO Q48H 02/12/23 [History] Pantoprazole [Protonix] 40 mg PO BID #60 tab 02/14/23 [Rx] Follow up Appointment(s)/Referral(s): Edgardo Rodriguez MD [Primary Care Provider] - 1 Week Sana Stout MD [STAFF PHYSICIAN] - 4 Weeks Discharge Disposition: HOME SELF-CARE
[2023-02-14 12:10] VITALS: BP 171/76; PULSE 72; RESP 17; TEMP 97.6
[2023-02-14] MEDS: Mirabegron [Myrbetriq] 25 MG Tab.Er.24h PO SCH (15:04)
== END 2023-02-14 15:23 | disposition home or self-care (01) | DRG 379 ==
LOC: EC 14:32 → 3SCARD 17:47
PROVIDERS: ADMIT Internal Medicine; ATTEND Internal Medicine
PROC: 0DB78ZX Excision of Stomach, Pylorus, Via Natural or Artificial Opening Endoscopic, Diagnostic (ICD-10-PCS; principal; 2023-02-14 10:00)
DX: K29.71 Gastritis, unspecified, with bleeding (principal); E78.5 Hyperlipidemia, unspecified; K21.00 Gastro-esophageal reflux disease with esophagitis, without bleeding; M06.9 Rheumatoid arthritis, unspecified; M81.0 Age-related osteoporosis without current pathological fracture; I10 Essential (primary) hypertension; J30.9 Allergic rhinitis, unspecified; K44.9 Diaphragmatic hernia without obstruction or gangrene; R76.8 Other specified abnormal immunological findings in serum; Z79.899 Other long term (current) drug therapy; Z85.828 Personal history of other malignant neoplasm of skin; Z87.19 Personal history of other diseases of the digestive system; Z82.49 Family history of ischemic heart disease and other diseases of the circulatory system; Z98.51 Tubal ligation status; Z98.42 Cataract extraction status, left eye; Z98.41 Cataract extraction status, right eye; Z87.81 Personal history of (healed) traumatic fracture
CPT/HCPCS: 36415; 43239; 71046; 74018; 80053; 81001; 82271; 83605; 83735; 85025; 85027; 85610; 85730; 86850; 86900; 86901; 88305; 93005; 96361; 96374; 96375; 96376; 99285

== ENCOUNTER → 2023-03-21 | Outpatient (CLI) | payer MEDICARE ==
[~2023-03-21] MED LIST changes: -LACTATED RINGERS 1,000 ML IV SCH; -LIDOCAINE 1% (10MG/ML) FOR IV START INTRADERMA PRN; +REGADENOSON 0.4 MG/5 ML SYRINGE IV PRN
--- NOTE | 2023-03-21 12:48 | CA ---
Lexiscan Nuclear Stress Test Report Name: Sherie Griffin Exam Date: 03/21/2023 09:12 Exam Location: [place] Stress Ht (in): 65 Wt (lb): 110 BSA: 1.53 Ordering Phys: Edgardo Rodriguez MD Referring Phys: Sana Stout MD Technologist: Franck Hughes Age: 78 Gender: F : 1945 Procedure CPT: Indications: I25.10 Atherosclerotic heart disease ICD-10 Codes: Patient History: Medications: Meds past 24 hrs: Pretest Chest Pain: STRESS TEST Lexiscan Protocol Exercise Duration (min:sec): 02:[address] Depressions (mm): Angina Score: Ma Score: Resting HR (bpm): 69 Peak HR (bpm): 89 Resting BP (mmHg): 155 / 82 Peak BP (mmHg): 156 / 69 MPHR: 141 Target HR: 120 % MPHR: 63 METS: 1.0 Total Dose: Peak Dose: Atropine: Double Product: 57924 BP Response: Stress Termination: protocol complete Stress Symptoms: no symptoms Stress Summary: ECG ANALYSIS Resting ECG: Stress ECG: CONCLUSIONS At baseline EKG showed normal sinus rhythm, normal axis, no significant ST or T wave abnormalities. Patient recieved IV infusion of Lexiscan 0.4mg and at peak infusion EKG showed no significant change from baseline. Conclusions: 1. Normal EKG response to Lexiscan infusion 2. Nuclear imaging to be reported separately. Dr. Daniel Blake DO (Electronically Signed) Final Date: 21 Mar 2023 12:47
--- NOTE | 2023-03-21 14:31 | NM ---
EXAMINATION TYPE: NM stress lexiscan cardiolite DATE OF EXAM: 03/21/2023 COMPARISON: NONE CLINICAL INDICATION: Female, 78 years old with history of I25.10 atherosclerotic heart disease; TECHNIQUE: After the intravenous administration of 9.3 mCi Tc 99m Sestamibi - Cardiolite resting SPE CT images acquired 45 minutes post injection. The patient received 0.4mg Lexiscan, 24.5 mCi Tc 99m Sestamibi - Stress images obtained [address] injection FINDINGS: Review of stress and rest SPECT images demonstrates no distinct perfusion abnormality. Gated analysi s shows normal wall motion with an estimated left ventricular ejection fraction of 72 %. IMPRESSION: No scintigraphic evidence for reversible ischemia.
== END | disposition home or self-care (01) ==
LOC: RADNMMAIN 07:30
PROVIDERS: ATTEND Internal Medicine
DX: I25.10 Atherosclerotic heart disease of native coronary artery without angina pectoris (principal)
CPT/HCPCS: 93017; 78452; A9500; J2785

== ENCOUNTER → 2023-05-09 | Outpatient (CLI) | payer MEDICARE ==
--- NOTE | 2023-05-09 18:28 | CT ---
EXAMINATION TYPE: CT chest wo con DATE OF EXAM: 05/09/2023 COMPARISON: None HISTORY: copd CT DLP: 116.10 mGycm, Automated exposure control for dose reduction was used. CONTRAST: None TECHNIQUE: Axial images were obtained at 5 mm thick sections. Reconstructed images are reviewed on t [employer] computer in the coronal plane. FINDINGS: Portion of the thyroid visualized is normal. There is a 0.4 cm calcification with pleural tenting at the lateral right apex. Series 4 image 11. A 0.4 cm calcification is in the right mid posterior lung series 4 image 23. No enlarged mediastinal or hilar adenopathy is evident. The ascending aorta diameter at the level o f the main pulmonary artery is 3. cm. The main pulmonary artery diameter at the bifurcation is 2.7 c m. Moderate coronary artery calcifications present. There is a moderate size hiatal hernia present. Limited CT sections are obtained through the upper abdomen. Abdomen is essentially unremarkable. IMPRESSIONS: 1. No suspicious lung nodules 2. Moderate size hiatal hernia.
== END | disposition home or self-care (01) ==
LOC: RADCTMAIN 11:57
PROVIDERS: ATTEND Internal Medicine
DX: J44.9 Chronic obstructive pulmonary disease, unspecified (principal); K44.9 Diaphragmatic hernia without obstruction or gangrene
CPT/HCPCS: 71250

== ENCOUNTER → 2023-05-16 | Outpatient (CLI) | payer MEDICARE ==
--- NOTE | 2023-05-19 08:28 | MM ---
Reason for Exam: Screening (asymptomatic). Last mammogram was performed 3 year(s) and 7 month(s) ago. Patient History: Menarche at age 15. First Full-Term at age 22. Postmenopausal. Hormonal Contraceptives for 2 years from age 19 until age 21. Benign Cyst Aspiration on the right side. Sister had breast cancer. Daughter had breast cancer, age 43. Risk Values: Lorna 5 year model risk: 6.2%. NCI Lifetime model risk: 10.2%. Prior Study Comparison: 09/22/2017 Bilateral Screening Mammogram, [facility]. 11/04/2018 Bilateral Screening Mammogram, [facility]. 11/05/2019 Bilateral Screening Mammogram, [facility]. Tissue Density: The breast tissue is heterogeneously dense. This may lower the sensitivity of mammography. Findings: Analyzed By CAD. There is no suspicious group of microcalcifications or new suspicious mass in either breast. Overall Assessment: Benign, BI-RAD 2 Management: Screening Mammogram of both breasts in 1 year. . Patient should continue monthly self-breast exams. A clinical breast exam by your physician is recommended on an annual basis. This exam should not preclude additional follow-up of suspicious palpable abnormalities. Note on Lorna scores and lifetime risk: 1. A Lorna score greater than 3% is considered moderate risk. If this is the case, consider specialist referral to assess eligibility for a risk reducing agent. 2. If overall lifetime risk for the development of breast cancer is 20% or higher, the patient may qualify for future screening with alternating mammogram and breast MRI. Electronically signed and approved by: Darrian Neal M.D. Radiologis
== END | disposition home or self-care (01) ==
LOC: RADMAMWWP 11:24
PROVIDERS: ATTEND Internal Medicine
DX: Z12.31 Encounter for screening mammogram for malignant neoplasm of breast (principal); Z78.0 Asymptomatic menopausal state; Z80.3 Family history of malignant neoplasm of breast
CPT/HCPCS: 77063; 77067

== ENCOUNTER → 2023-09-01 | Outpatient (CLI) | payer MEDICARE ==
--- NOTE | 2023-09-01 16:08 | US ---
EXAMINATION TYPE: US thyroid st tissue head/neck DATE OF EXAM: 09/01/2023 COMPARISON: CT chest 05/09/2023. CLINICAL INDICATION: Female, 78 years old with history of E04.1 thyroid nodule; thy nodule GLAND SIZE: Right Lobe: 4.0 x 1.8 x 2.0 cm Overall Parenchyma: homogenous Left Lobe: 3.9 x .8 x 1.2 cm Overall Parenchyma: Homogenous Isthmus Thickness: 0.2 cm NODULES RIGHT: # of nodules measured on right: 0 LEFT: # of nodules measured on left: 0 ISTHMUS: # of nodules measured in the isthmus: 0 Bilateral neck scanned, no evidence of lymphadenopathy. IMPRESSION: No suspicious thyroid nodules.
== END | disposition home or self-care (01) ==
LOC: RADUSWWP 14:49
PROVIDERS: ATTEND Internal Medicine
DX: E04.1 Nontoxic single thyroid nodule (principal)
CPT/HCPCS: 76536

== ENCOUNTER → 2024-05-21 | Outpatient (CLI) | payer MEDICARE ==
--- NOTE | 2024-05-22 09:14 | CA ---
Transthoracic Echo Report Name: Sherie Griffin Age: 79 Gender: F : 1945 Exam Date: 05/21/2024 15:11 Exam Location: [place] Echo Ht (in): 64 Wt (lb): 99 Ordering Physician: Edgardo Rodriguez MD Attending/Referring Phys: Permanent Waver Nataly Gill RDCS Procedure CPT: Indications: R91.1 SOLITARY PULMONARY NODULE Cardiac Hx: Technical Quality: Fair Contrast 1: Total Dose (mL): Contrast 2: Total Dose (mL): MEASUREMENTS (Male / Female) Normal Values 2D ECHO LV Diastolic Diameter PLAX 3.8 cm 4.2 - 5.9 / 3.9 - 5.3 cm LV Systolic Diameter PLAX 2.2 cm IVS Diastolic Thickness 0.9 cm 0.6 - 1.0 / 0.6 - 0.9 cm LVPW Diastolic Thickness 1.1 cm 0.6 - 1.0 / 0.6 - 0.9 cm LV Relative Wall Thickness 0.5 RV Internal Dim ED PLAX 2.1 cm LA Systolic Diameter LX 3.8 cm 3.0 - 4.0 / 2.7 - 3.8 cm LV Diastolic Volume MOD BP 44.1 cm??? 67 - 155 / 56 - 104 cm??? LV Systolic Volume MOD BP 22.0 cm??? 22 - 58 / 19 - 49 cm??? LV Ejection Fraction MOD BP 50.1 % >= 55 % LV Cardiac Index MOD BP 1313.8 cm???/min???m??? LV Diastolic Volume MOD 4C 51.4 cm??? LV Systolic Volume MOD 4C 23.7 cm??? LV Ejection Fraction MOD 4C 53.8 % LV Cardiac Index MOD 4C 1644.7 cm???/min???m??? LV Diastolic Length 4C 5.6 cm LV Systolic Length 4C 4.3 cm LV Diastolic Volume MOD 2C 37.8 cm??? LV Systolic Volume MOD 2C 19.1 cm??? LV Ejection Fraction MOD 2C 49.4 % LV Cardiac Index MOD 2C 1110.0 cm???/min???m??? LV Diastolic Length 2C 5.7 cm LV Systolic Length 2C 4.7 cm LA Volume 48.8 cm??? 18 - 58 / 22 - 52 cm??? LA Volume Index 34.6 cm???/m??? 16 - 28 cm???/m??? M-MODE Aortic Root Diameter MM 3.2 cm LA Systolic Diameter MM 3.2 cm LA Ao Ratio MM 1.0 AV Cusp Separation MM 1.4 cm DOPPLER AI Peak Velocity 347.9 cm/s AI Peak Gradient 48.4 mmHg AI Pressure Half Time 722.4 ms MV Area PHT 2.0 cm??? Mitral E Point Velocity 77.7 cm/s Mitral A Point Velocity 114.4 cm/s Mitral E to A Ratio 0.7 MV Deceleration Time 385.4 ms TR Peak Velocity 302.3 cm/s TR Peak Gradient 36.6 mmHg Right Atrial Pressure 8.0 mmHg Pulmonary Artery Systolic Pressu 44.6 mmHg Right Ventricular Systolic Press 44.6 mmHg FINDINGS Left Ventricle Left ventricular ejection fraction is estimated at 55-60 %. Mildly increased posterior wall thickness.Normal left ventricular systolic function with no obvious regional wall motion abnormalities. Left ventricular cavity size normal. Right Ventricle Mild right ventricular dilatation. Mild- Moderate pulmonary hypertension. Right ventricular systolic pressure estimated at 44.6 mmHg. Right Atrium Moderate right atrial dilatation. Left Atrium Moderately increased left atrial volume. Mitral Valve Mitral valve thickened. Mild thickening/calcification of the posterior mitral valve leaflet. Mild mitral regurgitation. No mitral stenosis. Aortic Valve Trileaflet aortic valve. Diffuse thickening (sclerosis) of the aortic valve cusps without reduced excursion. Mildto moderate aortic regurgitation. Eccentric aortic regurgitation jet directed at the mitral valve. Tricuspid Valve Structurally normal tricuspid valve. Moderate tricuspid regurgitation. Pulmonic Valve Structurally normal pulmonic valve. No pulmonic stenosis. Trace pulmonic regurgitation. Pericardium No pericardial or pleural effusion. Aorta Normal size aortic root and proximal ascending aorta. CONCLUSIONS Left ventricular ejection fraction 55-60% Mildly increased left ventricular wall thickness RVSP 44 Moderately dilated left atrium Mild mitral regurgitation Thickened aortic valve leaflets without significant aortic stenosis Mild to moderate aortic regurgitation Moderate tricuspid regurgitation No pericardial effusion Previewed by: Dr. Daniel Blake DO (Electronically Signed) Final Date: 22 May 2024 09:13
--- NOTE | 2024-05-22 13:03 | BD ---
EXAMINATION TYPE: Axial Bone Density DATE OF EXAM: 05/21/2024 CLINICAL HISTORY: 79 years old Female. ICD-10 CODE: M85.851 Osteopenia Height: 64" Weight: 99.3lbs FRAX RISK QUESTIONS: Alcohol (3 or more units per day): No Family History (Parent hip fracture): No Glucocorticoids (More than 3mos): No (Ex: prednisone, prednisolone, methylprednisolone, dexamethasone, and hydrocortisone). History of Fracture in Adulthood: Yes, left hip Secondary Osteoporosis: 1. Type 1 Diabetes: No 2. Hyperthyroidism: No 3. Menopause before 45: No 4. Malnutrition: No 5. Chronic liver disease: No Rheumatoid Arthritis: No Current Tobacco Use: No RISK FACTORS HISTORY OF: Hip Fracture (Right/Left): Yes, left When: Approx 2 years ago Spine Fracture: No History of Wrist Fracture: No Surgery to Spine/Hip(right/left)/Wrist (right/left): No MEDICATIONS: Thyroid Medications: No Osteoporosis Medications: No EXAM MEASUREMENTS: Bone mineral densitometry was performed using the [employer] System. Bone mineral density as measured about the Lumbar spine is: ----- L1-L4(G/cm2): 0.992 T Score Values are as follows: ----- L1: -2.6 ----- L2: -2.5 ----- L3: -0.4 ----- L4: -1.2 ----- L1-L4: -1.6 Z Score Values are as follows: ----- L1: -0.1 ----- L2: 0.0 ----- L3: 2.1 ----- L4: 1.3 ----- L1-L4: 0.9 Bone mineral density has: increased 0.4% since study of: 05/16/2022 Bone mineral density about the R hip (g/cm2): 0.616 T Score values are as follows: -----R Neck: -2.5 -----R Total: -3.1 Z Score values are as follows: -----R Neck: 0.0 -----R Total: -0.6 Bone mineral density has: decreased -6.9% since study of: 05/16/2022 FRAX%s: The graph provided illustrates a 21.4% chance for a major osteoporotic fx and a 7.6% chance f or the hips probability for fx in 10 years time. IMPRESSION: Osteoporosis (T Score less than -2.5). There is increased fracture risk and therapy is usually indicated based on age. Re-Screen 1-2 years. NOTE: T-SCORE=SD OF THE YOUNG ADULT MEAN.
== END | disposition home or self-care (01) ==
LOC: RADBDWWP 14:15
PROVIDERS: ATTEND Internal Medicine
DX: I35.1 Nonrheumatic aortic (valve) insufficiency (principal); M85.88 Other specified disorders of bone density and structure, other site; I08.3 Combined rheumatic disorders of mitral, aortic and tricuspid valves
CPT/HCPCS: 77080; 93306

== ENCOUNTER 2025-01-10 15:29 | Inpatient (IN) | payer MEDICARE ==
--- NOTE | 2025-01-10 15:53 | ED ---
SOB HPI - General Source: patient <Jenna Guillen - Last Filed: 01/10/25 16:07> <Greyson Hilliard - Last Filed: 01/10/25 21:52> - General Stated Complaint: flu SOB Time Seen by Provider: 01/10/25 15:52 - History of Present Illness Initial Comments: Quick [id number] female presenting for evaluation of shortness of breath. States she is very weak and appetite is decreased. Reports she was having flulike symptoms last week. Denies chest pain (Wilmer) 80-year-old female presenting with generalized weakness, increased dyspnea over the past 1 week. Patient states she had workup several months ago including both pulmonology and cardiology workup for dyspnea. She states that over the past 1 week she developed cough cold symptoms followed by progressive lethargy generalized weakness and dyspnea. She does report cough. She has very poor appetite at baseline. No chest pain. No abdominal pain. No fever. (Greyson Hilliard) - Related Data Home Medications Medication Instructions Recorded Confirmed amLODIPine [Norvasc] 5 mg PO DAILY 11/28/21 01/10/25 Mirabegron [Myrbetriq] 25 mg PO DAILY 02/12/23 01/10/25 Furosemide [Lasix] 40 mg PO HS 01/10/25 01/10/25 Potassium Chloride ER [K-Dur 20] 20 meq PO DAILY 01/10/25 01/10/25 Rosuvastatin [Crestor] 10 mg PO DAILY 01/10/25 01/10/25 Previous Rx's Medication Instructions Recorded Pantoprazole [Protonix] 40 mg PO BID #60 tab 02/14/23 Allergies Allergy/AdvReac Type Severity Reaction Status Date / Time No Known Allergies Allergy Verified 01/10/25 17:49 Review of Systems ROS Other: All systems not noted in ROS Statement are negative. <Jenna Guillen - Last Filed: 01/10/25 16:07> ROS Other: All systems not noted in ROS Statement are negative. <Greyson Hilliard - Last Filed: 01/10/25 21:52> ROS Statement: Those systems with pertinent positive or pertinent negative responses have been documented in the HPI. Past Medical History Past Medical History: Cancer, GERD/Reflux, Hypertension Additional Past Medical History / Comment(s): hx. skin cancer, hx. colon polyps History of Any Multi-Drug Resistant Organisms: None Reported Past Surgical History: Cholecystectomy, Hernia Repair, Orthopedic Surgery, Tubal Ligation Additional Past Surgical History / Comment(s): Alley fundoplication with postoperative complications resulting in part of stomach removed and prolonged intubation, tracheostomy and multiple surgeries, sonja cataracts, COLONOSCOPY, EGD, hip surgery 2021. Past Anesthesia/Blood Transfusion Reactions: Motion Sickness Additional Past Anesthesia/Blood Transfusion Reaction / Comment(s): . Past Psychological History: No Psychological Hx Reported Smoking Status: Never smoker Past Alcohol Use History: None Reported Past Drug Use History: None Reported - Past Family History Sister(s) Family Medical History: Cancer Daughter(s) Family Medical History: Cancer <Guillen - Last Filed: 01/10/25 16:07> General Exam <Jenna Guillen - Last Filed: 01/10/25 16:07> General appearance: alert, in distress (Tachypneic) Head exam: Present: atraumatic, normocephalic Eye exam: Present: normal appearance Neck exam: Present: normal inspection. Absent: tenderness, meningismus Respiratory exam: Present: respiratory distress, rhonchi Cardiovascular Exam: Present: regular rate, normal rhythm GI/Abdominal exam: Present: soft. Absent: distended, tenderness, guarding, rebound Extremities exam: Present: normal inspection, normal capillary refill. Absent: pedal edema, calf tenderness Neurological exam: Present: alert, oriented X3, CN II-XII intact. Absent: motor sensory deficit Psychiatric exam: Present: normal affect, normal mood Skin exam: Present: warm, dry, intact. Absent: cyanosis, diaphoretic <Greyson Hilliard - Last Filed: 01/10/25 21:52> - General Exam Comments Initial Comments: Visual Physical Exam General: Well-appearing, nontoxic, no acute distress. Head: Normocephalic, atraumatic Eyes: PERRLA, EOMI ENT: Airway patent Chest: Nonlabored breathing Skin: No visual rash, normal skin tone Neuro: Alert and oriented 3 Musculoskeletal: No gross abnormalities (Jenna Guillen) Course Vital Signs 01/10/25 01/10/25 01/10/25 15:51 18:33 18:48 Temperature 97.7 F Pulse Rate 104 H 98 Respiratory 20 19 Rate Blood Pressure 90/52 139/71 O2 Sat by Pulse 86 L 93 L 91 L Oximetry 01/10/25 01/10/25 01/10/25 18:49 19:05 20:59 Temperature Pulse Rate 101 H 105 H 111 H Respiratory Rate Blood Pressure O2 Sat by Pulse Oximetry 01/10/25 21:19 Temperature Pulse Rate 116 H Respiratory Rate Blood Pressure O2 Sat by Pulse Oximetry Medical Decision Making <Jenna Guillen - Last Filed: 01/10/25 16:07> - Lab Data Result diagrams: 01/10/25 20:17 01/10/25 20:17 <Greyson Hilliard - Last Filed: 01/10/25 21:52> - Medical Decision Making I completed the quick note portion of this chart signed Jenna Guillen PA-C (Jenna Guillen) Was pt. sent in by a medical professional or institution (GRABIEL Gifford, DOCUMENTATION ANALYST, urgent care, hospital, or [facility]...) When possible be specific @ -No Did you speak to anyone other than the patient for history (EMS, parent, family, police, friend...)? What history was obtained from this source @ -No Did you review nursing and triage notes (agree or disagree)? Why? @ -I reviewed and agree with nursing and triage notes Were old charts reviewed (outside hosp., previous admission, EMS record, old EKG, old radiological studies, urgent care reports/EKG's, [facility] records)? Report findings @ -No old charts were reviewed Differential Diagnosis (chest pain, altered mental status, abdominal pain women, abdominal pain men, vaginal bleeding, weakness, fever, dyspnea, syncope, headache, dizziness, GI bleed, back pain, seizure, CVA, palpatations, mental health, musculoskeletal)? @ -Not applicable EKG interpreted by me (3pts min.). @Sinus rhythm with frequent PVC, respiratory artifact, rate of 96, W[place] interval 173, QRS duration 83, QTc [address] segment elevation. Repeat EKG shows atrial fibrillation with RVR rate of 162 with ischemic changes likely demand related this EKG was obtained at 2144 patient started on Cardizem and primary care has been paged. X-rays interpreted by me (1pt min.). @Chest x-ray shows consolidated pneumonia right lower lobe CT interpreted by me (1pt min.). @ -None done U/S interpreted by me (1pt. min.). @ -None done What testing was considered but not performed or refused? (CT, X-rays, U/S, labs)? Why? @ -None What meds were considered but not given or refused? Why? @ -None Did you discuss the management of the patient with other professionals ( professionals i.e. Dr., PA, DOCUMENTATION ANALYST, lab, RT, psych nurse, social media marketing manager, paper slitter, teacher, special officer automat, case preparer and liner)? Give summary @ -[Yes Dr. Rodriguez Was smoking cessation discussed for >3mins.? @ -No Was critical care preformed (if so, how long)? @ -[Yes 35 minutes Were there social determinants of health that impacted care today? How? (Homelessness, low income, unemployed, alcoholism, drug addiction, transportation, low edu. Level, literacy, decrease access to med. care, [facility], rehab)? @ -No Was there de-escalation of care discussed even if they declined (Discuss DNR or withdrawal of care, Hospice)? DNR status @ -No What co-morbidities impacted this encounter? (DM, HTN, Smoking, COPD, CAD, Cancer, CVA, ARF, Chemo, Hep., AIDS, mental health diagnosis, sleep apnea, morbid obesity)? @ -None Was patient admitted / discharged? Hospital course, mention meds given and route, prescriptions, significant lab abnormalities, going to OR and other pertinent info. @ -[80-year-old female with dyspnea, cough, recent illness over the past 1 week. Patient test positive for influenza. She is moderately tachypneic and hypoxic requiring supplemental oxygen. Chest x-ray shows consolidated right lower lobar pneumonia. Patient started on antibiotics and as well as Tamiflu in the emergency department. She is admitted to her primary care provider Dr. Rodriguez who is able to see the patient in the emergency department. Patient will have a consultation from pulmonology for further recommendations. Undiagnosed new problem with uncertain prognosis? @ -No Drug Therapy requiring intensive monitoring for toxicity (Heparin, Nitro, Insulin, Cardizem)? @ -No Were any procedures done? @ -No Diagnosis/symptom? @ -Pneumonia, influenza, sepsis Acute, or Chronic, or Acute on Chronic? @ -[Acute Uncomplicated (without systemic symptoms) or Complicated (systemic symptoms)? @ -Default Side effects of treatment? @ -No Exacerbation, Progression, or Severe Exacerbation? @ -No Poses a threat to life or bodily function? How? (Chest pain, [place], [place], pneumonia, PE, COPD, DKA, ARF, appy, cholecystitis, CVA, Diverticulitis, Homicidal, Suicidal, threat to staff... and all critical care pts) @Yes, sepsis, respiratory failure (Greyson Hilliard) - Lab Data Lab Results 01/10/25 01/10/25 01/10/25 Range/Units 17:50 17:55 17:55 WBC 6.5 (3.8-10.6) k/uL RBC 4.48 (3.80-5.40) m/uL Hgb 8.8 L (11.4-16.0) gm/dL Hct 29.7 L (34.0-46.0) % MCV 66.3 L (80.0-100.0) fL MCH 19.5 L (25.0-35.0) pg MCHC 29.5 L (31.0-37.0) g/dL RDW 17.5 H (11.5-15.5) % Plt Count 261 (150-450) k/uL MPV 6.5 Neutrophils % (Manual) 55 % Band Neuts % (Manual) 32 % Lymphocytes % (Manual) 10 % Monocytes % (Manual) 3 % Neutrophils # (Manual) 5.60 (1.3-7.7) k/uL Lymphocytes # (Manual) 0.65 L (1.0-4.8) k/uL Monocytes # (Manual) 0.20 (0-1.0) k/uL Nucleated RBCs 0 (0-0) /100 WBC Hypochromasia Marked Hypochromasia (manual) Present Poikilocytosis Slight Poikilocytosis (manual Present Anisocytosis Slight Anisocytosis (manual) Present Microcytosis Marked Fragmented RBCs Present PT 11.0 (10.0-12.5) sec INR 1.0 (<1.2) APTT 25.4 (22.0-30.0) sec Sodium (137-145) mmol/L Potassium (3.5-5.1) mmol/L Chloride (98-107) mmol/L Carbon Dioxide (22-30) mmol/L Anion Gap mmol/L BUN (7-17) mg/dL Creatinine (0.52-1.04) mg/dL Est GFR (CKD-EPI)AfAm (>60 ml/min/1.73 sqM) Est GFR (CKD-EPI)NonAf (>60 ml/min/1.73 sqM) Glucose (74-99) mg/dL Lactic Ac Sepsis Rflx Plasma Lactic Acid Maksim (0.7-2.0) mmol/L Calcium (8.4-10.2) mg/dL Magnesium (1.6-2.3) mg/dL Total Bilirubin (0.2-1.3) mg/dL AST (14-36) U/L ALT (4-34) U/L Alkaline Phosphatase (38-126) U/L Troponin I (0.000-0.034) ng/mL NT-Pro-B Natriuret Pep pg/mL Total Protein (6.3-8.2) g/dL Albumin (3.5-5.0) g/dL Influenza Type A (PCR) Detected A (Not Detectd) Influenza Type B (PCR) Not Detected (Not Detectd) RSV (PCR) Not Detected (Not Detectd) SARS-CoV-2 (PCR) Not Detected (Not Detectd) 01/10/25 01/10/25 01/10/25 Range/Units 17:55 17:55 17:55 WBC (3.8-10.6) k/uL RBC (3.80-5.40) m/uL Hgb (11.4-16.0) gm/dL Hct (34.0-46.0) % MCV (80.0-100.0) fL MCH (25.0-35.0) pg MCHC (31.0-37.0) g/dL RDW (11.5-15.5) % Plt Count (150-450) k/uL MPV Neutrophils % (Manual) % Band Neuts % (Manual) % Lymphocytes % (Manual) % Monocytes % (Manual) % Neutrophils # (Manual) (1.3-7.7) k/uL Lymphocytes # (Manual) (1.0-4.8) k/uL Monocytes # (Manual) (0-1.0) k/uL Nucleated RBCs (0-0) /100 WBC Hypochromasia Hypochromasia (manual) Poikilocytosis Poikilocytosis (manual Anisocytosis Anisocytosis (manual) Microcytosis Fragmented RBCs PT (10.0-12.5) sec INR (<1.2) APTT (22.0-30.0) sec Sodium 136 L (137-145) mmol/L Potassium 3.9 (3.5-5.1) mmol/L Chloride 104 (98-107) mmol/L Carbon Dioxide 16 L (22-30) mmol/L Anion Gap 16 mmol/L BUN 44 H (7-17) mg/dL Creatinine 1.59 H (0.52-1.04) mg/dL Est GFR (CKD-EPI)AfAm 35 (>60 ml/min/1.73 sqM) Est GFR (CKD-EPI)NonAf 30 (>60 ml/min/1.73 sqM) Glucose 129 H (74-99) mg/dL Lactic Ac Sepsis Rflx Plasma Lactic Acid Maksim 4.1 H* (0.7-2.0) mmol/L Calcium 9.2 (8.4-10.2) mg/dL Magnesium 2.5 H (1.6-2.3) mg/dL Total Bilirubin 1.0 (0.2-1.3) mg/dL AST 59 H (14-36) U/L ALT 25 (4-34) U/L Alkaline Phosphatase 65 (38-126) U/L Troponin I 0.020 (0.000-0.034) ng/mL NT-Pro-B Natriuret Pep 2530 pg/mL Total Protein 6.3 (6.3-8.2) g/dL Albumin 3.5 (3.5-5.0) g/dL Influenza Type A (PCR) (Not Detectd) Influenza Type B (PCR) (Not Detectd) RSV (PCR) (Not Detectd) SARS-CoV-2 (PCR) (Not Detectd) 01/10/25 Range/Units 18:35 WBC (3.8-10.6) k/uL RBC (3.80-5.40) m/uL Hgb (11.4-16.0) gm/dL Hct (34.0-46.0) % MCV (80.0-100.0) fL MCH (25.0-35.0) pg MCHC (31.0-37.0) g/dL RDW (11.5-15.5) % Plt Count (150-450) k/uL MPV Neutrophils % (Manual) % Band Neuts % (Manual) % Lymphocytes % (Manual) % Monocytes % (Manual) % Neutrophils # (Manual) (1.3-7.7) k/uL Lymphocytes # (Manual) (1.0-4.8) k/uL Monocytes # (Manual) (0-1.0) k/uL Nucleated RBCs (0-0) /100 WBC Hypochromasia Hypochromasia (manual) Poikilocytosis Poikilocytosis (manual Anisocytosis Anisocytosis (manual) Microcytosis Fragmented RBCs PT (10.0-12.5) sec INR (<1.2) APTT (22.0-30.0) sec Sodium (137-145) mmol/L Potassium (3.5-5.1) mmol/L Chloride (98-107) mmol/L Carbon Dioxide (22-30) mmol/L Anion Gap mmol/L BUN (7-17) mg/dL Creatinine (0.52-1.04) mg/dL Est GFR (CKD-EPI)AfAm (>60 ml/min/1.73 sqM) Est GFR (CKD-EPI)NonAf (>60 ml/min/1.73 sqM) Glucose (74-99) mg/dL Lactic Ac Sepsis Rflx Y Plasma Lactic Acid Maksim (0.7-2.0) mmol/L Calcium (8.4-10.2) mg/dL Magnesium (1.6-2.3) mg/dL Total Bilirubin (0.2-1.3) mg/dL AST (14-36) U/L ALT (4-34) U/L Alkaline Phosphatase (38-126) U/L Troponin I (0.000-0.034) ng/mL NT-Pro-B Natriuret Pep pg/mL Total Protein (6.3-8.2) g/dL Albumin (3.5-5.0) g/dL Influenza Type A (PCR) (Not Detectd) Influenza Type B (PCR) (Not Detectd) RSV (PCR) (Not Detectd) SARS-CoV-2 (PCR) (Not Detectd) Critical Care Time Critical Care Time: Yes Total Critical Care Time: 35 <Greyson Hilliard - Last Filed: 01/10/25 21:52> Disposition <Jenna Guillen - Last Filed: 01/10/25 16:07> Is patient prescribed a controlled substance at d/c from ED?: No Time of Disposition: 19:04 <Greyson Hilliard - Last Filed: 01/10/25 21:52> Clinical Impression: Influenza A, PNA (pneumonia) Disposition: ADMITTED IP TO THIS HOSP Condition: Stable
--- NOTE | 2025-01-10 16:59 | XR ---
EXAMINATION TYPE: XR chest 1V portable DATE OF EXAM: 01/10/2025 4:47 PM COMPARISON: Chest radiographs from 02/12/2023 CLINICAL INDICATION: Female, 80 years old with history of Short of breath; TECHNIQUE: XR chest 1V portable Frontal view of the chest. FINDINGS: Lungs/Pleura: Right lower lobe airspace opacities. There is no evidence of pleural effusion, focal co nsolidation, or pneumothorax. Pulmonary vascularity: Unremarkable. Heart/mediastinum: Cardiomediastinal silhouette is unremarkable. Musculoskeletal: No acute osseous pathology. Other findings: None IMPRESSION: Right lower lobe pneumonia. [facility], , 01/10/2025 4:56 PM
[2025-01-10] MEDS: SODIUM CHLORIDE 0.9% 1,000 ML IV ONE (18:04)
[2025-01-10 18:19] LABS: Partial Thromboplastin Time 25.4 sec (22.0-30.0)
[2025-01-10 18:28] LABS: ALT 25 U/L (4-34); AST 59 U/L (14-36); African American GFR (CKD) 35 (>60 ml/min/1.73 sqM); Albumin 3.5 g/dL (3.5-5.0); Alkaline Phosphatase 65 U/L (38-126); Anion Gap 16 mmol/L; Blood Urea Nitrogen 44 mg/dL (7-17); Calcium 9.2 mg/dL (8.4-10.2); Carbon Dioxide 16 mmol/L (22-30); Chloride 104 mmol/L (98-107); Glucose 129 mg/dL (74-99); Magnesium 2.5 mg/dL (1.6-2.3); Non-African American GFR(CKD) 30 (>60 ml/min/1.73 sqM); Potassium 3.9 mmol/L (3.5-5.1); Sodium 136 mmol/L (137-145); Total Protein 6.3 g/dL (6.3-8.2)
[2025-01-10 18:31] LABS: Influenza A Detected (Not Detectd); Influenza B Not Detected (Not Detectd); RSV Not Detected (Not Detectd)
[2025-01-10] MEDS ORDERED: VANCOMYCIN IV PER PHARMACY 1 EACH MISC MISCELLANE PRN (18:35)
[2025-01-10 18:36] LABS: Anisocytosis Slight; HCT 29.7 % (34.0-46.0); HGB 8.8 gm/dL (11.4-16.0); Hypochromasia Marked; MCH 19.5 pg (25.0-35.0); MCHC 29.5 g/dL (31.0-37.0); MCV 66.3 fL (80.0-100.0); Mean Platelet Volume 6.5; Microcytosis Marked; Platelet Count 261 k/uL (150-450); Poikilocytosis Slight; RBC 4.48 m/uL (3.80-5.40); RDW 17.5 % (11.5-15.5); WBC 6.5 k/uL (3.8-10.6)
[2025-01-10 18:37] LABS: NT-Pro-B-Type Natriuretic Pept 2530 pg/mL
[2025-01-10] MEDS: AZITHROMYCIN 500 MG in SODIUM CHLORIDE 0.9% 250 ML IVPB STA (18:40)
[2025-01-10] MEDS: SODIUM CHLORIDE 0.9% 1,000 ML IV SCH (18:44)
[2025-01-10] MEDS: ALBUTEROL NEBULIZED 2.5 MG/3 ML INHALATION STA (18:48)
[2025-01-10] MEDS: IPRATROPIUM-ALBUTEROL 3 ML NEB INHALATION STA (18:49)
[2025-01-10] MEDS ORDERED: NALOXONE 0.4 MG/ML 1 ML VIAL IV PRN (19:01)
[2025-01-10] MEDS ORDERED: ACETAMINOPHEN TAB 325 MG TAB PO PRN (19:01)
[2025-01-10 19:03] LABS: Band Neutrophils % 32 %; Lymphocytes # (M) 0.65 k/uL (1.0-4.8); Neutrophils % (M) 55 %; Nucleated Red Blood Cells 0 /100 WBC (0-0); Total Cells Counted 100
--- NOTE | 2025-01-10 19:03 | P.HPIM ---
History of Present Illness H&P Date: 01/10/25 Chief Complaint: Right lower lobe pneumonia/influenza A HISTORY OF PRESENT ILLNESS: This is a 80-year-old female with a previous medical history significant for hypertension and hypertensive cardiovascular disease, hyperlipidemia, history of ALLERGIC rhinitis, GERD with esophagitis, osteopenia, detrusor stability, patient presented to the emergency department at [facility] with increased coughing and increased shortness of breath over the last few days, patient stated that she was doing fine up till about last week when she came down with an upper respite tract infection, she was complaining some cough and low-grade temperature, she was feeling fine at that time, however today she was supposed to come to my office to see me because of increased coughing and shortness of breath, however she contacted the office and stated that she was going to the ER by EMS because she was extremely short of breath, patient was seen in emergency department she was placed on nonrebreather with a 10 L oxygen and oxygenation was around 9394% on oxygen, her chest x-ray showed evidence of right lower lobe pneumonia, her influenza A came back positive, she was started on Rocephin 1 g piggyback every 24 hours, Zithromax 500 mg IV piggyback every 24 hours also Tamiflu 75 mg orally twice every day, she was started also on DuoNeb nebulization 4 times every day as well as Pulmicort 1 mg nebulization twice every day pulmonary consultation was obtained, patient will be admitted to the hospital for further evaluation and treatment. REVIEW OF SYSTEMS: Constitutional: Positive for documented fever, positive for chills, no night sweats. No weight change. Positive for weakness, fatigue or lethargy. No daytime sleepiness. HEENT: No headache. No blurred vision or double vision, no loss of vision. No loss of Hearing, no ringing in the ears, no dizziness. No nasal drainage or congestion. No epistaxis. No sore throat. Lungs: Positive for shortness of breath, positive for cough, positive for sputum production. Positive for wheezing. Reports dyspnea with activity. Cardiovascular: No chest pain, no lower extremity edema. No palpitations. No paroxysmal nocturnal dyspnea. No orthopnea. No lightheadedness or dizziness. No syncopal episodes. Abdominal: Reports abdominal pain. No nausea, vomiting. No diarrhea. No constipation. No bloody or tarry stools reports loss of appetite. Genitourinary: No dysuria, increased frequency, urgency. No urinary retention. Musculoskeletal: No myalgias. No muscle weakness, no gait dysfunction, no frequent falls. No back pain. No neck pain. Integumentary: No wounds, no lesions. No rash or pruritus. No unusual bruising. No change in hair or nails. Neurologic: No aphasia. No facial droop. No change in mentation. No head injury. No headache. No paralysis. No paresthesia. Psychiatric: No depression. No anxiety. No mood swings. Endocrine: No abnormal blood sugars. No weight change. PAST MEDICAL HISTORY: Hypertension and hypertensive cardiovascular disease Hyperlipidemia. ALLERGIC rhinitis. GERD with esophagitis. Osteoporosis Detrusor instability. Rheumatoid arthritis positive serology Positive RANGEL. Constipation PAST SURGICAL HISTORY: left femur ORIF generally 2021 Left humerus fracture generally 2017 Incisional hernia surgeries in May 2012 Cholecystectomy August 2011 Cataract right eye February 2006 Detached retina right eye August 2005 Achilles tendon surgery for dropped food every 2002 Had a hernia surgery to prolonged hospital stay for 7 month generally 2001 Bilateral tubal ligation 1973 SOCIAL HISTORY: patient is a lifelong nonsmoker, she drinks monthly or less, she drinks about 3-4 cups of coffee a day, she drinks Diet Coke, she denies any marijuana use. FAMILY HISTORY: father at age of 85 from dementia and CAD, mother at age of 83 from CAD post-PCI 3, and she also's had a 3 valve replacement, patient had 2 sisters one at age of 78 from dementia and the other 2 sisters are okay patient has 2 daughters okay and patient has 2 sons one with smoking and had pneumothorax and seizure disorder and one is okay. PHYSICAL EXAMINATION: General: 80-year-old female laying down in bed in moderate respiratory distress HEENT: Head is atraumatic, normocephalic, pupils were equal round reactive to light and recommendation, extraocular muscle movement were intact, sclera nonicteric, conjunctivae were pale, mucous membranes of the mouth are somewhat dry. Neck: Supple, no JVP, normal carotid upstroke bilaterally, no lymphadenopathy. Chest: Decreased breath sounds at the bases, few rhonchi, positive for egophony at the right lower lobe, positive for intercostal retraction. Heart: First heart sound is normal, second heart sound is normal there is systolic ejection murmur 2/6 located in the left sternal border. Abdomen: Soft, nontender nondistended positive ultrasound hepatosplenomegaly. Extremities: There is no edema no calf tenderness DP +2 bilaterally. Neurologic examination: Patient is awake alert and oriented X 3, cranial nerves II-12 appear grossly intact, muscle power were 5 out of 5 in upper extremities and 5 out of 5 in bilateral lower extremities, deep tendon reflexes normal bilaterally. ASSESSMENT AND PLAN: 1. Acute hypoxemic respiratory failure due to acute right lower lobe pneumonia with underlying influenza A Associated with sepsis. Check sputum culture, blood culture, start the patient on Rocephin 1 g piggyback every 24 hours, Zithromax 500 mg IV piggyback every 24 hours, Tamiflu 75 mg orally twice every day for 5 days, continue oxygen support, continue patient on DuoNeb 3 mL nebulization 4 times every day, continue Pulmicort 1 mg nebulization twice every day, pulmonary consultation Dr. Curiel. Follow-up with the patient very closely check mycoplasma IgG and IgM, check urine Legionella antigen, follow-up with the patient very closely. 2. Acute kidney injury due to acute tubular necrosis and vasomotor nephropathy. Continue IV fluid resuscitation in the form of normal saline 75 cc an hour, monitor the patient CMP over the next 24 hours, follow-up with the patient very closely. 3. Hypertension and hypertensive cardiovascular disease. Continue patient on amlodipine 5 mg once every day, monitor the patient blood pressure regularly. 4. Mixed hyperlipidemia continue patient on rosuvastatin 10 mg once every day, monitor lipid panel, keep LDL 55-70. 5. GERD with esophagitis. Continue patient on Protonix 40 mg orally twice every day 6. Detrusor instability. Continue patient on Mirbetriq 25 mg po daily. 7. Rheumatoid arthritis positive serology and positive RANGEL.. Currently not taking any medication at this time. 8. ALLERGIC rhinitis. Appears to be stable at this time 9. Osteoporosis. Patient will need to be started on Prolia 60 mg subcutaneously every 6 months, continue calcium and vitamin D supplement as an outpatient. 10. DVT prophylaxis. Bilateral knee-high NITHIN hose, Lovenox 30 mg subcutaneous every 24 hours 11. GI prophylaxis. Continue patient on Protonix 40 mg orally twice every day. 12. Admitted to inpatient. Estimate a length of stay 2 midnights. 13. Full code Past Medical History Past Medical History: Cancer, GERD/Reflux, Hypertension Additional Past Medical History / Comment(s): hx. skin cancer, hx. colon polyps History of Any Multi-Drug Resistant Organisms: None Reported Past Surgical History: Cholecystectomy, Hernia Repair, Orthopedic Surgery, Tubal Ligation Additional Past Surgical History / Comment(s): Alley fundoplication with postoperative complications resulting in part of stomach removed and prolonged intubation, tracheostomy and multiple surgeries, sonja cataracts, COLONOSCOPY, EGD, hip surgery 2021. Past Anesthesia/Blood Transfusion Reactions: Motion Sickness Additional Past Anesthesia/Blood Transfusion Reaction / Comment(s): . Past Psychological History: No Psychological Hx Reported Smoking Status: Never smoker Past Alcohol Use History: None Reported Past Drug Use History: None Reported - Past Family History Sister(s) Family Medical History: Cancer Daughter(s) Family Medical History: Cancer Medications and Allergies Home Medications Medication Instructions Recorded Confirmed Type amLODIPine [Norvasc] 5 mg PO DAILY 11/28/21 01/10/25 History Mirabegron [Myrbetriq] 25 mg PO DAILY 02/12/23 01/10/25 History Pantoprazole [Protonix] 40 mg PO BID #60 tab 02/14/23 01/10/25 Rx Furosemide [Lasix] 40 mg PO HS 01/10/25 01/10/25 History Potassium Chloride ER [K-Dur 20] 20 meq PO DAILY 01/10/25 01/10/25 History Rosuvastatin [Crestor] 10 mg PO DAILY 01/10/25 01/10/25 History Allergies Allergy/AdvReac Type Severity Reaction Status Date / Time No Known Allergies Allergy Verified 01/10/25 17:49 Physical Exam Vitals: Vital Signs Pulse Resp BP Pulse Ox 01/10/25 18:33 93 L 01/10/25 15:51 104 H 20 90/52 86 L Intake and Output 01/10/25 01/10/25 01/10/25 06:59 14:59 22:59 Other: Weight 45.359 kg Results CBC & Chem 7: 01/10/25 17:55 01/10/25 17:55 Labs: Abnormal Lab Results - Last 24 Hours (Table) 01/10/25 01/10/25 01/10/25 Range/Units 17:50 17:55 17:55 Hgb 8.8 L (11.4-16.0) gm/dL Hct 29.7 L (34.0-46.0) % MCV 66.3 L (80.0-100.0) fL MCH 19.5 L (25.0-35.0) pg MCHC 29.5 L (31.0-37.0) g/dL RDW 17.5 H (11.5-15.5) % Sodium 136 L (137-145) mmol/L Carbon Dioxide 16 L (22-30) mmol/L BUN 44 H (7-17) mg/dL Creatinine 1.59 H (0.52-1.04) mg/dL Glucose 129 H (74-99) mg/dL Plasma Lactic Acid Maksim (0.7-2.0) mmol/L Magnesium 2.5 H (1.6-2.3) mg/dL AST 59 H (14-36) U/L Influenza Type A (PCR) Detected A (Not Detectd) 01/10/25 Range/Units 17:55 Hgb (11.4-16.0) gm/dL Hct (34.0-46.0) % MCV (80.0-100.0) fL MCH (25.0-35.0) pg MCHC (31.0-37.0) g/dL RDW (11.5-15.5) % Sodium (137-145) mmol/L Carbon Dioxide (22-30) mmol/L BUN (7-17) mg/dL Creatinine (0.52-1.04) mg/dL Glucose (74-99) mg/dL Plasma Lactic Acid Maksim 4.1 H* (0.7-2.0) mmol/L Magnesium (1.6-2.3) mg/dL AST (14-36) U/L Influenza Type A (PCR) (Not Detectd)
[2025-01-10 19:04] LABS: Anisocytosis (M) Present; Hypochromasia (M) Present; Poikilocytosis (M) Present; RBC Fragments Present
[2025-01-10] MEDS: OSELTAMIVIR 75 MG CAP PO ONE (19:37)
[2025-01-10] MEDS: VANCOMYCIN 750 MG in SODIUM CHLORIDE 0.9% 250 ML IVPB ONE (19:37)
[2025-01-10 20:41] LABS: Anisocytosis Slight; HCT 31.6 % (34.0-46.0); HGB 8.7 gm/dL (11.4-16.0); Hypochromasia Marked; MCHC 27.4 g/dL (31.0-37.0); Mean Platelet Volume 7.2; Microcytosis Moderate; Platelet Count 257 k/uL (150-450); RBC 4.33 m/uL (3.80-5.40); RDW 17.6 % (11.5-15.5); WBC 6.5 k/uL (3.8-10.6)
[2025-01-10] MEDS: SODIUM CHLORIDE 0.9% 500 ML 500 ML IV ONE (20:42)
[2025-01-10] MEDS: PANTOPRAZOLE 40 MG TABLET PO SCH (20:42)
[2025-01-10 20:49] LABS: ALT 21 U/L (4-34); AST 55 U/L (14-36); African American GFR (CKD) 40 (>60 ml/min/1.73 sqM); Albumin 3.2 g/dL (3.5-5.0); Alkaline Phosphatase 55 U/L (38-126); Anion Gap 19 mmol/L; Blood Urea Nitrogen 41 mg/dL (7-17); Calcium 8.6 mg/dL (8.4-10.2); Carbon Dioxide 13 mmol/L (22-30); Chloride 106 mmol/L (98-107); Glucose 107 mg/dL (74-99); Non-African American GFR(CKD) 35 (>60 ml/min/1.73 sqM); Potassium 3.7 mmol/L (3.5-5.1); Sodium 138 mmol/L (137-145); Total Bilirubin 1.1 mg/dL (0.2-1.3); Total Protein 5.9 g/dL (6.3-8.2)
[2025-01-10] MEDS: IPRATROPIUM-ALBUTEROL 3 ML NEB INHALATION SCH (20:59)
[2025-01-10] MEDS: BUDESONIDE 1 MG/2 ML NEBU INHALATION STA (20:59)
[2025-01-10 21:39] LABS: Band Neutrophils % 21 %; Lymphocytes # (M) 0.72 k/uL (1.0-4.8); Monocytes # (M) 0.13 k/uL (0-1.0); Neutrophils % (M) 67 %; Nucleated Red Blood Cells 0 /100 WBC (0-0); Total Cells Counted 200
[2025-01-10 21:40] LABS: RBC Fragments Present
[2025-01-10 21:53] LABS: Poikilocytosis (M) Present
[2025-01-10] MEDS ORDERED: HEPARIN SODIUM 1,000 UN/ML (10ML VL) IV PRN (22:00)
[2025-01-10 22:01] LABS: Ovalocytes Present
[2025-01-10] MEDS: DILTIAZEM 125 MG in SODIUM CHLORIDE 0.9% 100 ML IV SCH (22:04)
[2025-01-10] MEDS: DILTIAZEM DRIP BOLUS FROM BAG 1 MG SOLN IV ONE (22:04)
[2025-01-10] MEDS: HEPARIN SODIUM 1,000 UN/ML (10ML VL) IV ONE (22:09)
[2025-01-10] MEDS: HEPARIN SOD,PORK IN 0.45% NACL 25,000 UNIT in 0.45% NACL 1 250ML.BAG IV SCH (22:10)
[2025-01-10 22:25] LABS: Anisocytosis Slight; HCT 25.5 % (34.0-46.0); HGB 7.5 gm/dL (11.4-16.0); Hypochromasia Marked; MCH 19.9 pg (25.0-35.0); MCHC 29.5 g/dL (31.0-37.0); Microcytosis Marked; Platelet Count 245 k/uL (150-450); Poikilocytosis Slight; RBC 3.78 m/uL (3.80-5.40); RDW 17.5 % (11.5-15.5); WBC 5.6 k/uL (3.8-10.6)
[2025-01-10 22:36] LABS: Partial Thromboplastin Time 25.5 sec (22.0-30.0)
[2025-01-10 22:52] LABS: MCV 67.4 fL (80.0-100.0)
[2025-01-11 05:23] LABS: Partial Thromboplastin Time 74.2 sec (22.0-30.0); Prothrombin Time 11.4 sec (10.0-12.5)
[2025-01-11 05:34] LABS: Anisocytosis Slight; HCT 26.6 % (34.0-46.0); HGB 7.7 gm/dL (11.4-16.0); Hypochromasia Marked; MCH 19.9 pg (25.0-35.0); MCHC 28.8 g/dL (31.0-37.0); MCV 69.1 fL (80.0-100.0); Mean Platelet Volume 8.8; Microcytosis Marked; Platelet Count 280 k/uL (150-450); Poikilocytosis Slight; RBC 3.86 m/uL (3.80-5.40); RDW 17.8 % (11.5-15.5); WBC 7.5 k/uL (3.8-10.6)
--- NOTE | 2025-01-11 05:50 | P.CNPUL ---
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 Her primary care provider is Dr. Rodriguez. Presented emergency department with a chief complaint of increasing shortness of breath developing over the last week or so. Associated symptoms including nasal congestion, cough, sore throat. Profound generalized weakness, unable to stand and walk. EMS was called yesterday afternoon, and she was br ought into the emergency department. Found to be extremely short of breath, placed on a 10 L nonrebreather. She was also in atrial fibrillation with rapid ventricular response, started on IV heparin per protocol and IV Cardizem. Workup in the emergency department including a viral screen positive for influenza A. Chest x-ray significant for cardiomegaly, small bilateral pleural effusions, and right lower lobe consolidation. CBC: WBC count 5.6, hemoglobin 7.5, platelets 245. CMP: Sodium 138, potassium 3.7, chloride 106, serum bicarb 13, anion gap 19, creatinine 1.41, glucose 107. Troponin 0.02. NT proBNP 2530. Lactic was 4.1 and is down to 2.4. Did receive a 1.5 L normal saline fluid bolus in the ED. Normal saline infusing at 75 mm/h. She has been started on Tamiflu. Patient currently be evaluated in the emergency department, she is on 6 L nasal cannula. Mild respiratory distress. Tachypneic. Conversational dyspnea speaking in 3-4 word phrases. Heart rhythm appears to be atrial fibrillation with rapid ventricular response with a rate up to 160 bpm. Blood pressure is normotensive. Currently on Cardizem which is infusing at 5 mg/h. Heparin continues to infuse per protocol. Denies history of atrial fibrillation. She denies any chest pain, heart palpitations, lighth eadedness/syncopal events, or lower extremity edema. She is prescribed Lasix to be taken on outpatient basis, she stopped taking this medication approximately 4 days ago. States she has been extremely weak and unable to make it to the bathroom. Most recent available echocardiogram from May, demonstrates preserved left ventricular ejection fraction of 55 to 60%, as well as, mild to moderate aortic regurgitation, mild to moderate tricuspid regurgitation. She has been started on Tamiflu with renal dose adjustment. States she has received a influenza vaccination this season. Empirically placed on antibiotics in the ED. Current vital signs: Afebrile, heart rate 158 bpm, blood pressure 107/86 mmHg, tachypneic breathing in the mid 20s, SpO2 reading 94% on 6 L/min nasal cannula. Review of Systems Constitutional: Reports fatigue, Reports poor appetite, Reports weakness, Denies chills, Denies fever, Denies weight gain, Denies weight loss Ears, nose, mouth and throat: Reports nasal congestion, Reports nasal discharge, Reports post-nasal drip, Reports sore throat, Denies headache, Denies sinus pain, Denies sinus pressure Cardiovascular: Denies chest pain, Denies irregular heart beat, Denies leg edema, Denies orthopnea, Denies palpitations, Denies paroxysmal nocturnal dyspnea, Denies syncope Respiratory: Reports as per HPI Gastrointestinal: Reports loss of appetite, Denies abdominal pain, Denies change in bowel habits, Denies diarrhea, Denies hematemesis, Denies hematochezia, Denies melena, Denies nausea, Denies vomiting Genitourinary: Denies dysuria Musculoskeletal: Denies limitation of motion Integumentary: Denies rash Neurological: Denies seizures, Denies syncope Psychiatric: Denies anxiety, Denies depression Past Medical History Past Medical History: Cancer, GERD/Reflux, Hypertension Additional Past Medical History / Comment(s): hx. skin cancer, hx. colon polyps History of Any Multi-Drug Resistant Organisms: None Reported Past Surgical History: Cholecystectomy, Hernia Repair, Orthopedic Surgery, Tubal Ligation Additional Past Surgical History / Comment(s): Alley fundoplication with postoperative complications resulting in part of stomach removed and prolonged intubation, tracheostomy and multiple surgeries, sonja cataracts, COLONOSCOPY, EGD, hip surgery 2021. Past Anesthesia/Blood Transfusion Reactions: Motion Sickness Additional Past Anesthesia/Blood Transfusion Reaction / Comment(s): . Past Psychological History: No Psychological Hx Reported Smoking Status: Never smoker Past Alcohol Use History: None Reported Past Drug Use History: None Reported - Past Family History Sister(s) Family Medical History: Cancer Daughter(s) Family Medical History: Cancer Medications and Allergies Home Medications Medication Instructions Recorded Confirmed Type amLODIPine [Norvasc] 5 mg PO DAILY 11/28/21 01/10/25 History Mirabegron [Myrbetriq] 25 mg PO DAILY 02/12/23 01/10/25 History Pantoprazole [Protonix] 40 mg PO BID #60 tab 02/14/23 01/10/25 Rx Furosemide [Lasix] 40 mg PO HS 01/10/25 01/10/25 History Potassium Chloride ER [K-Dur 20] 20 meq PO DAILY 01/10/25 01/10/25 History Rosuvastatin [Crestor] 10 mg PO DAILY 01/10/25 01/10/25 History Allergies Allergy/AdvReac Type Severity Reaction Status Date / Time No Known Allergies Allergy Verified 01/10/25 17:49 Physical Exam Vitals: Vital Signs Temp Pulse Resp BP Pulse Ox 01/11/25 00:10 137 H 20 101/61 96 01/10/25 22:15 158 H 42 H 107/86 94 L 01/10/25 21:44 98.4 F 174 H 42 H 111/62 01/10/25 21:19 116 H 01/10/25 20:59 111 H 01/10/25 19:05 105 H 01/10/25 18:49 101 H 01/10/25 18:48 97.7 F 98 19 139/71 91 L 01/10/25 18:33 93 L 01/10/25 15:51 104 H 20 90/52 86 L Intake and Output 01/10/25 01/10/25 01/11/25 14:59 22:59 06:59 Intake Total 10.333 Balance 10.333 Intake: Intake, IV Titration 10.333 Amount Diltiazem 125 mg In 10.333 Sodium Chloride 0.9% 100 ml @ 5 MG/HR 5 mls/hr IV .Q24H [facility] Rx#:[id number] Other: Weight 45.359 kg GENERAL EXAM: Alert, 80-year-old white female, on 6 L/min nasal cannula, in a mild amount of respiratory distress. HEAD: Normocephalic and atraumatic EYES: Normal reaction of pupils, equal size. NOSE: Clear with pink turbinates. THROAT: No erythema or exudates. NECK: No masses, no JVD. Remote appearing tracheostomy scar CHEST: No chest wall deformity. LUNGS: Equal air entry with right lower lobe inspiratory crackles. Tachypneic, conversational dyspnea CVS: S1 and S2 normal with no audible murmur, regular rhythm. No extra heart sounds ABDOMEN: No hepatosplenomegaly, active bowel sounds, no guarding or rigidity. SPINE: No scoliosis or deformity SKIN: No rashes CENTRAL NERVOUS SYSTEM: No focal deficits, tone is normal in all 4 extremities. EXTREMITIES: There is no peripheral edema, clubbing, or cyanosis. Peripheral pulses are intact. Results - Laboratory Findings CBC and BMP: 01/10/25 22:00 01/10/25 20:17 PT/INR, D-dimer PT 11.0 sec (10.0-12.5) 01/10/25 17:55 INR 1.0 (<1.2) 01/10/25 17:55 Abnormal lab findings: Abnormal Labs 01/10/25 01/10/25 01/10/25 17:50 17:55 17:55 RBC Hgb 8.8 L Hct 29.7 L MCV 66.3 L MCH 19.5 L MCHC 29.5 L RDW 17.5 H Lymphocytes # (Manual) 0.65 L Sodium 136 L Carbon Dioxide 16 L BUN 44 H Creatinine 1.59 H Glucose 129 H Plasma Lactic Acid Maksim Magnesium 2.5 H AST 59 H Total Protein Albumin Influenza Type A (PCR) Detected A 01/10/25 01/10/25 01/10/25 17:55 20:17 20:17 RBC Hgb 8.7 L Hct 31.6 L MCV 73.0 L D MCH 20.0 L MCHC 27.4 L RDW 17.6 H Lymphocytes # (Manual) 0.72 L Sodium Carbon Dioxide 13 L BUN 41 H Creatinine 1.41 H Glucose 107 H Plasma Lactic Acid Maksim 4.1 H* Magnesium AST 55 H Total Protein 5.9 L Albumin 3.2 L Influenza Type A (PCR) 01/10/25 01/10/25 21:35 22:00 RBC 3.78 L Hgb 7.5 L Hct 25.5 L MCV 67.4 L D MCH 19.9 L MCHC 29.5 L RDW 17.5 H Lymphocytes # (Manual) Sodium Carbon Dioxide BUN Creatinine Glucose Plasma Lactic Acid Maksim 2.4 H* Magnesium AST Total Protein Albumin Influenza Type A (PCR) - Diagnostic Findings Chest x-ray: image reviewed Assessment and Plan Assessment: Acute influenza A infection, with probable superimposed bacterial pneumonia Pneumonia/sepsis Atrial fibrillation with rapid ventricular response, new onset; currently on IV Cardizem and IV heparin Suspect acute exacerbation of CHF, with preserved ejection fraction Acute hypoxemic respiratory failure, secondary to a combination of above, Chest x-ray significant for cardiomegaly, trace to small bilateral pleural effusions, and right lower lobe consolidation. 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 Gastroesophageal reflux disease History of hypertension History of hyperlipidemia History of rheumatoid arthritis Plan: Patient's medications, labs, chest x-ray reviewed Continue supplemental oxygen maintain oxygen saturation 92% or greater Continue Tamiflu with renal adjustment Continue empiric antibiotics Blood cultures pending Check procalcitonin level Continue Cardizem, increase infusion rate to 10 mg/h Continue IV heparin per protocol Resume Lasix 40 mg daily Consult cardiology We will also continue to follow I have personally seen and examined the patient, performed the documentation and the assessment and plan as written. Number of minutes spent on the visit:20 This dictation was produced using [email or web address] dictation software please excuse grammatical errors Time with Patient: Greater than 30
[2025-01-11 07:11] LABS: Band Neutrophils % 13 %; Lymphocytes # (M) 1.05 k/uL (1.0-4.8); Monocytes # (M) 0.15 k/uL (0-1.0); Neutrophils % (M) 71 %; Nucleated Red Blood Cells 0 /100 WBC (0-0); Total Cells Counted 100
[2025-01-11 07:12] LABS: Crenated RBC Present; RBC Fragments Present
[2025-01-11 07:13] LABS: Ovalocytes Present
[2025-01-11] MEDS: SODIUM BICARBONATE TAB 650 MG TAB PO SCH (08:52)
[2025-01-11] MEDS: ATORVASTATIN 20 MG TAB PO SCH (08:52)
[2025-01-11] MEDS: OSELTAMIVIR 30 MG CAP PO SCH (08:53)
[2025-01-11] MEDS: POTASSIUM CHLORIDE ER 20 MEQ TAB.ER PO SCH (08:53)
[2025-01-11] MEDS: METOPROLOL TARTRATE 50 MG TAB PO SCH (08:55)
[2025-01-11] MEDS: APIXABAN 2.5 MG TABLET PO SCH (08:55)
[2025-01-11] MEDS: NON FORMULARY DRUG (Mirabegron [Myrbetriq] 25 MG Tab.Er.24h) PO SCH (08:56)
[2025-01-11] MEDS ORDERED: FUROSEMIDE 10 MG/ML 2 ML VIAL IV SCH (09:00)
[2025-01-11] MEDS ORDERED: FUROSEMIDE 40 MG TAB PO SCH (09:00)
[2025-01-11] MEDS: amLODIPine 5 MG TAB PO SCH (09:48)
[2025-01-11 10:26] LABS: Anisocytosis Slight; Basophils % (A) 0 %; Eosinophils % (A) 0 %; HCT 31.2 % (34.0-46.0); HGB 8.7 gm/dL (11.4-16.0); Hypochromasia Marked; Lymphocytes # (A) 0.4 k/uL (1.0-4.8); Lymphocytes % (A) 5 %; MCH 19.5 pg (25.0-35.0); MCHC 27.8 g/dL (31.0-37.0); MCV 70.2 fL (80.0-100.0); Mean Platelet Volume 7.2; Microcytosis Marked; Monocytes # (A) 0.2 k/uL (0-1.0); Monocytes % (A) 3 %; Neutrophils # (A) 7.4 k/uL (1.3-7.7); Neutrophils % (A) 91 %; Platelet Count 275 k/uL (150-450); RBC 4.44 m/uL (3.80-5.40); RDW 17.8 % (11.5-15.5); WBC 8.2 k/uL (3.8-10.6)
[2025-01-11 11:01] LABS: ALT 19 U/L (4-34); AST 43 U/L (14-36); African American GFR (CKD) 50 (>60 ml/min/1.73 sqM); Albumin 2.9 g/dL (3.5-5.0); Alkaline Phosphatase 56 U/L (38-126); Anion Gap 17 mmol/L; Blood Urea Nitrogen 37 mg/dL (7-17); Calcium 8.5 mg/dL (8.4-10.2); Carbon Dioxide 12 mmol/L (22-30); Chloride 112 mmol/L (98-107); Glucose 92 mg/dL (74-99); Non-African American GFR(CKD) 44 (>60 ml/min/1.73 sqM); Potassium 3.8 mmol/L (3.5-5.1); Sodium 141 mmol/L (137-145); Total Bilirubin 0.7 mg/dL (0.2-1.3); Total Protein 5.4 g/dL (6.3-8.2)
--- NOTE | 2025-01-11 13:21 | P.CRDCN ---
History of Present Illness History of present illness: HISTORY OF PRESENT ILLNESS: This is a 80-year-old female with a past medical history significant for hypertension, hyperlipidemia, and CHF. Patient follows in the office with Dr. Stout. We have been asked to see the patient in consultation for A-fib with RVR. Patient examined at the bedside in the emergency room. Patient states she presented to the hospital because she was so weak at home she was unable to walk. The patient was found to be positive for influenza A. She was also found to have pneumonia and started on antibiotics. She denies any chest pain or pressure. She currently denies any shortness of breath. Additionally the patient was found to be in A-fib with RVR. She denies any known history of atrial fibrillation. She was started on IV heparin and IV Cardizem. She is maintaining sinus mechanism at the time of examination. DIAGNOSTICS: - EKG reveals sinus mechanism with PVCs. Repeat EKG reveals atrial fibrillation with RVR. - Chest xray right lower lobe pneumonia. - Laboratory data: WBC 8.2. Hemoglobin 8.7. Platelet count 275. Sodium 141. Potassium 3.8. BUN 37. Creatinine 1.18. TSH 0.511. - Current home cardiac medications include amlodipine 5 mg daily, rosuvastatin 10 mg daily, Lasix 40 mg at night. - Patient underwent Lexiscan stress test in October 2024 in the office which was negative for ischemia - Most recent echocardiogram obtained in May 2024 revealed ejection fraction 55 to 60%, mild MR, mild to moderate AR, moderate tricuspid regurgitation - Cardiac catheterization history: Unknown REVIEW OF SYSTEMS: At the time of my exam: CONSTITUTIONAL: Denies fever or chills. HEENT: Denies blurred vision, vision changes, or eye pain. Denies hemoptysis CARDIOVASCULAR: Denies chest pain. Denies orthopnea. Denies PND. Denies palpita tions RESPIRATORY: Denies shortness of breath. GASTROINTESTINAL: Denies abdominal pain. Denies nausea or vomiting. HEMATOLOGIC: Denies bleeding disorders. GENITOURINARY: Denies any blood in urine. SKIN: Denies pruitis. Denies rash. PHYSICAL EXAM: VITAL SIGNS: Reviewed. GENERAL: Well-developed in no acute distress. HEENT: Head is normocephalic. Pupils are equal, round. Sclerae anicteric. Mucous membranes of the mouth are moist. Neck supple. No JVD or thyromegaly LUNGS: Respirations even and unlabored. Lungs essentially clear to auscultation bilaterally. HEART: Regular rate and rhythm. S1 and S2 heard. ABDOMEN: Soft. Nondistended. Nontender. EXTREMITIES: Normal range of motion. No clubbing or cyanosis. Peripheral pulses intact. No lower extremity edema NEUROLOGIC: Awake and alert. ASSESSMENT: Generalized weakness Acute influenza A Right lower lobe pneumonia New onset atrial fibrillation with RVR, currently maintaining sinus mechanism Chronic heart failure with preserved EF, currently euvolemic Chronic anemia History of hypertension History of hyperlipidemia PLAN: Obtain 2D echo to assess cardiac structure and function Discontinue heparin. Begin Eliquis 2.5 mg twice a day Discontinue IV Cardizem TSH checked and within normal limits Discontinue IV Lasix as patient is currently euvolemic upon examination Continue home medications including amlodipine and atorvastatin Begin metoprolol tartrate 50 mg twice a day Continue telemetry monitoring Further recommendations pending patient course Nurse practitioner note has been reviewed by physician. Signing provider agrees with the documented findings, assessment, and plan of care documented by CLIENT RELATIONS REPRESENTATIVE as a scribe. Past Medical History Past Medical History: Cancer, GERD/Reflux, Hypertension Additional Past Medical History / Comment(s): hx. skin cancer, hx. colon polyps History of Any Multi-Drug Resistant Organisms: None Reported Past Surgical History: Cholecystectomy, Hernia Repair, Orthopedic Surgery, Tubal Ligation Additional Past Surgical History / Comment(s): Alley fundoplication with postoperative complications resulting in part of stomach removed and prolonged intubation, tracheostomy and multiple surgeries, sonja cataracts, COLONOSCOPY, EGD, hip surgery 2021. Past Anesthesia/Blood Transfusion Reactions: Motion Sickness Additional Past Anesthesia/Blood Transfusion Reaction / Comment(s): . Past Psychological History: No Psychological Hx Reported Smoking Status: Never smoker Past Alcohol Use History: None Reported Past Drug Use History: None Reported - Past Family History Sister(s) Family Medical History: Cancer Daughter(s) Family Medical History: Cancer Medications and Allergies Home Medications Medication Instructions Recorded Confirmed Type amLODIPine [Norvasc] 5 mg PO DAILY 11/28/21 01/10/25 History Mirabegron [Myrbetriq] 25 mg PO DAILY 02/12/23 01/10/25 History Pantoprazole [Protonix] 40 mg PO BID #60 tab 02/14/23 01/10/25 Rx Furosemide [Lasix] 40 mg PO HS 01/10/25 01/10/25 History Potassium Chloride ER [K-Dur 20] 20 meq PO DAILY 01/10/25 01/10/25 History Rosuvastatin [Crestor] 10 mg PO DAILY 01/10/25 01/10/25 History Allergies Allergy/AdvReac Type Severity Reaction Status Date / Time No Known Allergies Allergy Verified 01/10/25 17:49 Physical Exam Vitals: Vital Signs Temp Pulse Resp BP Pulse Ox 01/11/25 13:00 51 L 20 101/52 95 01/11/25 12:57 52 L 01/11/25 12:49 77 01/11/25 12:00 98.9 F 50 L 18 100/65 96 01/11/25 11:00 55 L 20 111/57 98 01/11/25 10:30 58 L 20 91/57 97 01/11/25 09:58 58 L 01/11/25 09:45 61 01/11/25 09:43 56 L 18 101/55 96 01/11/25 07:49 85 18 105/61 96 01/11/25 04:00 97 24 101/55 95 01/11/25 00:10 137 H 20 101/61 96 01/10/25 22:15 158 H 42 H 107/86 94 L 01/10/25 21:44 98.4 F 174 H 42 H 111/62 01/10/25 21:19 116 H 01/10/25 20:59 111 H 01/10/25 19:05 105 H 01/10/25 18:49 101 H 01/10/25 18:48 97.7 F 98 19 139/71 91 L 01/10/25 18:33 93 L 01/10/25 15:51 104 H 20 90/52 86 L Intake and Output 01/10/25 01/11/25 01/11/25 22:59 06:59 14:59 Intake Total 53.151 Balance 53.151 Intake: Intake, IV Titration 53.151 Amount Diltiazem 125 mg In 10.333 Sodium Chloride 0.9% 100 ml @ 5 MG/HR 5 mls/hr IV .Q24H [facility] Rx#:[id number] Heparin Sod,Pork in 0.45% 42.818 NaCl 25,000 unit In 0.45 % NaCl 1 250ml.bag @ 12 UNITS/KG/HR 5.443 mls/hr IV .Q24H [facility] Rx#: [id number] Other: Weight 45.359 kg Results 01/11/25 09:55 01/11/25 09:55 Cardiac Enzymes 01/10/25 01/10/25 01/10/25 Range/Units 17:55 17:55 20:17 AST 59 H 55 H (14-36) U/L Troponin I 0.020 (0.000-0.034) ng/mL 01/11/25 Range/Units 09:55 AST 43 H (14-36) U/L Troponin I (0.000-0.034) ng/mL Coagulation 01/10/25 01/10/25 01/11/25 Range/Units 10:00 17:55 04:22 PT 11.0 11.0 11.4 (10.0-12.5) sec APTT 25.5 25.4 74.2 H (22.0-30.0) sec CBC 01/10/25 01/10/25 01/10/25 Range/Units 17:55 20:17 22:00 WBC 6.5 6.5 5.6 (3.8-10.6) k/uL RBC 4.48 4.33 3.78 L (3.80-5.40) m/uL Hgb 8.8 L 8.7 L 7.5 L (11.4-16.0) gm/dL Hct 29.7 L 31.6 L 25.5 L (34.0-46.0) % Plt Count 261 257 245 (150-450) k/uL 01/11/25 01/11/25 Range/Units 04:22 09:55 WBC 7.5 8.2 (3.8-10.6) k/uL RBC 3.86 4.44 (3.80-5.40) m/uL Hgb 7.7 L 8.7 L (11.4-16.0) gm/dL Hct 26.6 L 31.2 L (34.0-46.0) % Plt Count 280 275 (150-450) k/uL Comprehensive Metabolic Panel 01/10/25 01/10/25 01/11/25 Range/Units 17:55 20:17 09:55 Sodium 136 L 138 141 (137-145) mmol/L Potassium 3.9 3.7 3.8 (3.5-5.1) mmol/L Chloride 104 106 112 H (98-107) mmol/L Carbon Dioxide 16 L 13 L 12 L (22-30) mmol/L BUN 44 H 41 H 37 H (7-17) mg/dL Creatinine 1.59 H 1.41 H 1.18 H (0.52-1.04) mg/dL Glucose 129 H 107 H 92 (74-99) mg/dL Calcium 9.2 8.6 8.5 (8.4-10.2) mg/dL AST 59 H 55 H 43 H (14-36) U/L ALT 25 21 19 (4-34) U/L Alkaline Phosphatase 65 55 56 (38-126) U/L Total Protein 6.3 5.9 L 5.4 L (6.3-8.2) g/dL Albumin 3.5 3.2 L 2.9 L (3.5-5.0) g/dL Current Medications Generic Name Dose Route Start Last Admin Trade Name Freq PRN Reason Stop Dose Admin Acetaminophen 650 mg 01/10/25 19:01 Acetaminophen Tab 325 Mg Tab PO Q6HR PRN Mild Pain or Fever > 100.5 Albuterol/Ipratropium 3 ml 01/10/25 20:00 01/11/25 12:49 Ipratropium-Albuterol 3 Ml Neb INHALATION 3 ml RT-QID [facility] Administration Amlodipine Besylate 5 mg 01/11/25 09:00 01/11/25 09:48 Amlodipine 5 Mg Tab PO Not Given DAILY [facility] Apixaban 2.5 mg 01/11/25 09:00 01/11/25 08:55 Apixaban 2.5 Mg Tablet PO 2.5 mg BID JENNIFER Administration Protocol Atorvastatin Calcium 20 mg 01/11/25 09:00 01/11/25 08:52 Atorvastatin 20 Mg Tab PO 20 mg DAILY JENNIFER Administration Vancomycin HCl 750 mg/ Sodium 250 mls @ 125 mls/hr 01/11/25 16:00 Chloride IVPB 01/11/25 17:59 ONCE ONE Metoprolol Tartrate 50 mg 01/11/25 09:00 01/11/25 08:55 Metoprolol Tartrate 50 Mg Tab PO 50 mg BID JENNIFER Administration Miscellaneous Information 1 each 01/10/25 18:35 Vancomycin Iv Per Pharmacy 1 Each [facility] MISCELLANE DIRECTED PRN Per Protocol Protocol Naloxone HCl 0.2 mg 01/10/25 19:01 Naloxone 0.4 Mg/Ml 1 Ml Vial IV Q2M PRN Opioid Reversal Non-Formulary Medication 25 mg 01/11/25 09:00 01/11/25 08:56 Mirabegron [Myrbetriq] PO Not Given DAILY [facility]ENN[facility] Oseltamivir Phosphate 30 mg 01/11/25 09:00 01/11/25 08:53 Oseltamivir 30 Mg Cap PO 01/14/25 09:01 30 mg DAILY [facility] Administration Protocol Pantoprazole Sodium 40 mg 01/10/25 21:00 01/11/25 08:52 Pantoprazole 40 Mg Tablet PO 40 mg AC-BID JENN[facility]ER Administration Potassium Chloride 20 meq 01/11/25 09:00 01/11/25 09:00 Potassium Chloride Er 20 Meq Tab.Er PO Not Given BID JENN[facility]ER Sodium Bicarbonate 650 mg 01/11/25 09:00 01/11/25 08:52 Sodium Bicarbonate Tab 650 Mg Tab PO 650 mg BID JENNIFER Administration Intake and Output 01/10/25 01/11/25 01/11/25 22:59 06:59 14:59 Intake Total 53.151 Balance 53.151 Intake: Intake, IV Titration 53.151 Amount Diltiazem 125 mg In 10.333 Sodium Chloride 0.9% 100 ml @ 5 MG/HR 5 mls/hr IV .Q24H [facility] Rx#:[id number] Heparin Sod,Pork in 0.45% 42.818 NaCl 25,000 unit In 0.45 % NaCl 1 250ml.bag @ 12 UNITS/KG/HR 5.443 mls/hr IV .Q24H [facility] Rx#: [id number] Other: Weight 45.359 kg 01/11/25 09:55 01/11/25 09:55
--- NOTE | 2025-01-11 13:28 | P.PN ---
Subjective Progress Note Date: 01/11/25 HISTORY OF PRESENT ILLNESS: This is a 80-year-old female with a previous medical history signif icant for hypertension and hypertensive cardiovascular disease, hyperlipidemia, history of ALLERGIC rhinitis, GERD with esophagitis, osteopenia, detrusor stability, patient presented to the emergency department at [facility] with increased coughing and increased shortness of breath over the last few days, patient stated that she was doing fine up till about last week when she came down with an upper respite tract infection, she was complaining some cough and low-grade temperature, she was feeling fine at that time, however today she was supposed to come to my office to see me because of increased coughing and shortness of breath, however she contacted the office and stated that she was going to the ER by EMS because she was extremely short of breath, patient was seen in emergency department she was placed on nonrebreather with a 10 L oxygen and oxygenation was around 9394% on oxygen, her chest x-ray showed evidence of right lower lobe pneumonia, her influenza A came back positive, she was started on Rocephin 1 g piggyback every 24 hours, Zithromax 500 mg IV piggyback every 24 hours also Tamiflu 75 mg orally twice every day, she was started also on DuoNeb nebulization 4 times every day as well as Pulmicort 1 mg nebulization twice every day pulmonary consultation was obtained, patient will be admitted to the hospital for further evaluation and treatment. 01/11: Patient is sitting up in bed continues to be somewhat short of breath, she continues to be on 5 L and oxygen, her chest x-ray showed right lower lobe pneumonia, she is positive for influenza A, she does appear to have a significant anion gap metabolic acidosis, she would be switched to D5W with 3 A of sodium bicarbonate at 50 cc an hour, monitor the patient CMP over the next 24 hours, restart the patient back on ceftriaxone, continue vancomycin, continue Tamiflu 30 mg orally once every day, hold off diuretics for now, her BUN slightly elevated, her creatinine is slightly elevated as well, I will follow-up with the patient very closely, patient has been seen in consultation by pulmonary medicine as well as by cardiology she underwent atrial fibrillation with rapid ventricular response yesterday she was placed initially on Cardizem drip and heparin drip, so far she was taken off heparin drip and she was placed on Eliquis 2.5 mg orally twice every day we will continue with that, her heart rate is remains controlled, continue metoprolol 50 mg orally twice every day as well. REVIEW OF SYSTEMS: Constitutional: Positive for documented fever, positive for chills, no night sweats. No weight change. Positive for weakness, fatigue or lethargy. No daytime sleepiness. HEENT: No headache. No blurred vision or double vision, no loss of vision. No loss of Hearing, no ringing in the ears, no dizziness. No nasal drainage or congestion. No epistaxis. No sore throat. Lungs: Positive for shortness of breath, positive for cough, positive for sputum production. Positive for wheezing. Reports dyspnea with activity. Cardiovascular: No chest pain, no lower extremity edema. No palpitations. No paroxysmal nocturnal dyspnea. No orthopnea. No lightheadedness or dizziness. No syncopal episodes. Abdominal: Reports abdominal pain. No nausea, vomiting. No diarrhea. No constipation. No bloody or tarry stools reports loss of appetite. Genitourinary: No dysuria, increased frequency, urgency. No urinary retention. Musculoskeletal: No myalgias. No muscle weakness, no gait dysfunction, no frequent falls. No back pain. No neck pain. Integumentary: No wounds, no lesions. No rash or pruritus. No unusual bruising. No change in hair or nails. Neurologic: No aphasia. No facial droop. No change in mentation. No head injury. No headache. No paralysis. No paresthesia. Psychiatric: No depression. No anxiety. No mood swings. Endocrine: No abnormal blood sugars. No weight change. PHYSICAL EXAMINATION: General: 80-year-old female laying down in bed in moderate respirat ory distress HEENT: Head is atraumatic, normocephalic, pupils were equal round reactive to light and recommendation, extraocular muscle movement were intact, sclera nonicteric, conjunctivae were pale, mucous membranes of the mouth are somewhat dry. Neck: Supple, no JVP, normal carotid upstroke bilaterally, no lymphadenopathy. Chest: Decreased breath sounds at the bases, few rhonchi, positive for egophony at the right lower lobe, positive for intercostal retraction. Heart: First heart sound is normal, second heart sound is normal there is systolic ejection murmur 2/6 located in the left sternal border. Abdomen: Soft, nontender nondistended positive ultrasound hepatosplenomegaly. Extremities: There is no edema no calf tenderness DP +2 bilaterally. Neurologic examination: Patient is awake alert and oriented X 3, cranial nerves II-12 appear grossly intact, muscle power were 5 out of 5 in upper extremities and 5 out of 5 in bilateral lower extremities, deep tendon reflexes normal bilaterally. ASSESSMENT AND PLAN: 1. Acute hypoxemic respiratory failure due to acute right lower lobe pneumonia with underlying influenza A Associated with sepsis. Check sputum culture, blood culture, start the patient on Rocephin 1 g piggyback every 24 hours, continue ceftriaxone 1 g piggyback every 24 hours, continue Tamiflu 30 mg orally once every day, monitor the patient symptoms very closely, continue oxygen support, continue to follow-up with the patient very closely. 2. Acute kidney injury due to acute tubular necrosis and vasomotor nephropathy. Change IV fluid to D5 W with 3 A of sodium bicarbonate at 50 cc an hour, monitor CMP in the next 24 hours, discontinue Lasix for now. 3. Anion gap antibiotic acidosis due to acute kidney injury continue D5W with 3 A of sodium bicarbonate at 50 cc an hour, repeat CMP tomorrow morning. 4. Iron deficiency anemia, monitor the patient CBC very closely, start the patient on iron 325 mg orally twice every day, follow-up with the patient very closely. Patient did have a workup as an outpatient. She may be candidate for Watchman device 5. Hypertension and hypertensive cardiovascular disease. Continue patient on amlodipine 5 mg once every day, continue metoprolol 50 mg orally twice every day monitor the patient blood pressure regularly. 6. Mixed hyperlipidemia continue patient on rosuvastatin 10 mg once every day, monitor lipid panel, keep LDL 55-70. 7. GERD with esophagitis. Continue patient on Protonix 40 mg orally twice every day 8. Detrusor instability. Continue patient on Mirbetriq 25 mg po daily. 9. Rheumatoid arthritis positive serology and positive RANGEL.. Currently not taking any medication at this time. 10. ALLERGIC rhinitis. Appears to be stable at this time 11. Osteoporosis. Patient will need to be started on Prolia 60 mg subcutaneously every 6 months, continue calcium and vitamin D supplement as an outpatient. 12. DVT prophylaxis. Bilateral knee-high NITHIN hose, continue Eliquis 2.5 mg or ally twice every day. 13. GI prophylaxis. Continue patient on Protonix 40 mg orally twice every day. 14. Prognosis continue be guarded. Objective - Vital Signs Vital signs: Vital Signs Temp 98.9 F 01/11/25 12:00 Pulse 51 L 01/11/25 13:00 Resp 20 01/11/25 13:00 BP 101/52 01/11/25 13:00 Pulse Ox 95 01/11/25 13:00 FiO2 Intake & Output 01/10/25 01/11/25 01/11/25 18:59 06:59 18:59 Intake Total 53.151 Balance 53.151 Weight 45.359 kg Intake: Intake, IV Titration 53.151 Amount Diltiazem 125 mg In 10.333 Sodium Chloride 0.9% 100 ml @ 5 MG/HR 5 mls/hr IV .Q24H [facility] Rx#:[id number] Heparin Sod,Pork in 0.45% 42.818 NaCl 25,000 unit In 0.45 % NaCl 1 250ml.bag @ 12 UNITS/KG/HR 5.443 mls/hr IV .Q24H [facility] Rx#: [id number] - Labs CBC & Chem 7: 01/11/25 09:55 01/11/25 09:55 Labs: Abnormal Lab Results - Last 24 Hours (Table) 01/10/25 01/10/25 01/10/25 Range/Units 17:50 17:55 17:55 RBC (3.80-5.40) m/uL Hgb 8.8 L (11.4-16.0) gm/dL Hct 29.7 L (34.0-46.0) % MCV 66.3 L (80.0-100.0) fL MCH 19.5 L (25.0-35.0) pg MCHC 29.5 L (31.0-37.0) g/dL RDW 17.5 H (11.5-15.5) % Lymphocytes # (1.0-4.8) k/uL Lymphocytes # (Manual) 0.65 L (1.0-4.8) k/uL APTT (22.0-30.0) sec Sodium 136 L (137-145) mmol/L Chloride (98-107) mmol/L Carbon Dioxide 16 L (22-30) mmol/L BUN 44 H (7-17) mg/dL Creatinine 1.59 H (0.52-1.04) mg/dL Glucose 129 H (74-99) mg/dL Plasma Lactic Acid Maksim (0.7-2.0) mmol/L Magnesium 2.5 H (1.6-2.3) mg/dL AST 59 H (14-36) U/L Total Protein (6.3-8.2) g/dL Albumin (3.5-5.0) g/dL Procalcitonin (0.02-0.50) ng/mL Influenza Type A (PCR) Detected A (Not Detectd) 01/10/25 01/10/25 01/10/25 Range/Units 17:55 20:17 20:17 RBC (3.80-5.40) m/uL Hgb 8.7 L (11.4-16.0) gm/dL Hct 31.6 L (34.0-46.0) % MCV 73.0 L D (80.0-100.0) fL MCH 20.0 L (25.0-35.0) pg MCHC 27.4 L (31.0-37.0) g/dL RDW 17.6 H (11.5-15.5) % Lymphocytes # (1.0-4.8) k/uL Lymphocytes # (Manual) 0.72 L (1.0-4.8) k/uL APTT (22.0-30.0) sec Sodium (137-145) mmol/L Chloride (98-107) mmol/L Carbon Dioxide 13 L (22-30) mmol/L BUN 41 H (7-17) mg/dL Creatinine 1.41 H (0.52-1.04) mg/dL Glucose 107 H (74-99) mg/dL Plasma Lactic Acid Maksim 4.1 H* (0.7-2.0) mmol/L Magnesium (1.6-2.3) mg/dL AST 55 H (14-36) U/L Total Protein 5.9 L (6.3-8.2) g/dL Albumin 3.2 L (3.5-5.0) g/dL Procalcitonin (0.02-0.50) ng/mL Influenza Type A (PCR) (Not Detectd) 03/02/0101/10/25 01/10/25 Range/Units 20:17 21:35 22:00 RBC 3.78 L (3.80-5.40) m/uL Hgb 7.5 L (11.4-16.0) gm/dL Hct 25.5 L (34.0-46.0) % MCV 67.4 L D (80.0-100.0) fL MCH 19.9 L (25.0-35.0) pg MCHC 29.5 L (31.0-37.0) g/dL RDW 17.5 H (11.5-15.5) % Lymphocytes # (1.0-4.8) k/uL Lymphocytes # (Manual) (1.0-4.8) k/uL APTT (22.0-30.0) sec Sodium (137-145) mmol/L Chloride (98-107) mmol/L Carbon Dioxide (22-30) mmol/L BUN (7-17) mg/dL Creatinine (0.52-1.04) mg/dL Glucose (74-99) mg/dL Plasma Lactic Acid Maksim 2.4 H* (0.7-2.0) mmol/L Magnesium (1.6-2.3) mg/dL AST (14-36) U/L Total Protein (6.3-8.2) g/dL Albumin (3.5-5.0) g/dL Procalcitonin 42.30 H (0.02-0.50) ng/mL Influenza Type A (PCR) (Not Detectd) 01/11/25 01/11/25 01/11/25 Range/Units 04:22 04:22 09:55 RBC (3.80-5.40) m/uL Hgb 7.7 L 8.7 L (11.4-16.0) gm/dL Hct 26.6 L 31.2 L (34.0-46.0) % MCV 69.1 L 70.2 L (80.0-100.0) fL MCH 19.9 L 19.5 L (25.0-35.0) pg MCHC 28.8 L 27.8 L (31.0-37.0) g/dL RDW 17.8 H 17.8 H (11.5-15.5) % Lymphocytes # 0.4 L (1.0-4.8) k/uL Lymphocytes # (Manual) (1.0-4.8) k/uL APTT 74.2 H (22.0-30.0) sec Sodium (137-145) mmol/L Chloride (98-107) mmol/L Carbon Dioxide (22-30) mmol/L BUN (7-17) mg/dL Creatinine (0.52-1.04) mg/dL Glucose (74-99) mg/dL Plasma Lactic Acid Maksim (0.7-2.0) mmol/L Magnesium (1.6-2.3) mg/dL AST (14-36) U/L Total Protein (6.3-8.2) g/dL Albumin (3.5-5.0) g/dL Procalcitonin (0.02-0.50) ng/mL Influenza Type A (PCR) (Not Detectd) 01/11/25 Range/Units 09:55 RBC (3.80-5.40) m/uL Hgb (11.4-16.0) gm/dL Hct (34.0-46.0) % MCV (80.0-100.0) fL MCH (25.0-35.0) pg MCHC (31.0-37.0) g/dL RDW (11.5-15.5) % Lymphocytes # (1.0-4.8) k/uL Lymphocytes # (Manual) (1.0-4.8) k/uL APTT (22.0-30.0) sec Sodium (137-145) mmol/L Chloride 112 H (98-107) mmol/L Carbon Dioxide 12 L (22-30) mmol/L BUN 37 H (7-17) mg/dL Creatinine 1.18 H (0.52-1.04) mg/dL Glucose (74-99) mg/dL Plasma Lactic Acid Mkasim (0.7-2.0) mmol/L Magnesium (1.6-2.3) mg/dL AST 43 H (14-36) U/L Total Protein 5.4 L (6.3-8.2) g/dL Albumin 2.9 L (3.5-5.0) g/dL Procalcitonin (0.02-0.50) ng/mL Influenza Type A (PCR) (Not Detectd)
[2025-01-11] MEDS: DEXTROSE 5% IN WATER 1,000 ML with SODIUM BICARB (1 MEQ/ML) 150 ML IV ONE (15:35)
[2025-01-11] MEDS: VANCOMYCIN 750 MG in SODIUM CHLORIDE 0.9% 250 ML IVPB ONE (17:00)
[2025-01-11] MEDS: TEMAZEPAM 15 MG CAP PO PRN (20:27)
[2025-01-12 08:06] LABS: Anisocytosis Slight; Basophils % (A) 0 %; Eosinophils % (A) 0 %; HCT 26.4 % (34.0-46.0); HGB 7.5 gm/dL (11.4-16.0); Hypochromasia Marked; Lymphocytes # (A) 0.6 k/uL (1.0-4.8); Lymphocytes % (A) 6 %; MCH 19.1 pg (25.0-35.0); MCHC 28.4 g/dL (31.0-37.0); MCV 67.3 fL (80.0-100.0); Mean Platelet Volume 7.4; Microcytosis Marked; Monocytes # (A) 0.3 k/uL (0-1.0); Monocytes % (A) 4 %; Neutrophils # (A) 8.4 k/uL (1.3-7.7); Neutrophils % (A) 89 %; Platelet Count 250 k/uL (150-450); Poikilocytosis Slight; RBC 3.92 m/uL (3.80-5.40); RDW 17.7 % (11.5-15.5); WBC 9.4 k/uL (3.8-10.6)
[2025-01-12 10:30] LABS: ALT 22 U/L (4-34); AST 51 U/L (14-36); African American GFR (CKD) 48 (>60 ml/min/1.73 sqM); Albumin 2.6 g/dL (3.5-5.0); Alkaline Phosphatase 66 U/L (38-126); Anion Gap 10 mmol/L; Blood Urea Nitrogen 37 mg/dL (7-17); Calcium 8.5 mg/dL (8.4-10.2); Carbon Dioxide 25 mmol/L (22-30); Chloride 106 mmol/L (98-107); Glucose 106 mg/dL (74-99); Non-African American GFR(CKD) 41 (>60 ml/min/1.73 sqM); Potassium 3.1 mmol/L (3.5-5.1); Sodium 141 mmol/L (137-145); Total Bilirubin 0.5 mg/dL (0.2-1.3); Total Protein 5.2 g/dL (6.3-8.2)
[2025-01-12 10:36] LABS: Vancomycin,Random 8.6 ug/mL
[2025-01-12] MEDS ORDERED: ONDANSETRON 4 MG/2 ML VIAL IVP PRN (12:02)
[2025-01-12] MEDS: POTASSIUM CHLORIDE ER 20 MEQ TAB.ER PO SCH (12:09)
--- NOTE | 2025-01-12 13:10 | P.PN ---
Subjective HISTORY OF PRESENT ILLNESS: This is a 80-year-old female with a past medical history significant for hypertension, hyperlipidemia, and CHF. Patient follows in the office with Dr. Stout. We have been asked to see the patient in consultation for A-fib with RVR. Patient examined at the bedside in the emergency room. Patient states she presented to the hospital because she was so weak at home she was unable to walk. The patient was found to be positive for influenza A. She was also found to have pneumonia and started on antibiotics. She denies any chest pain or pressure. She currently denies any shortness of breath. Additionally the elizabeth perez was found to be in A-fib with RVR. She denies any known history of atrial fibrillation. She was started on IV heparin and IV Cardizem. She is maintaining sinus mechanism at the time of examination. DIAGNOSTICS: - EKG reveals sinus mechanism with PVCs. Repeat EKG reveals atrial fibrillation with RVR. - Chest xray right lower lobe pneumonia. - Laboratory data: WBC 8.2. Hemoglobin 8.7. Platelet count 275. Sodium 141. Potassium 3.8. BUN 37. Creatinine 1.18. TSH 0.511. - Current home cardiac medications include amlodipine 5 mg daily, rosuvastatin 10 mg daily, Lasix 40 mg at night. - Patient underwent Lexiscan stress test in October 2024 in the office which was negative for ischemia - Most recent echocardiogram obtained in May 2024 revealed ejection fraction 55 to 60%, mild MR, mild to moderate AR, moderate tricuspid regurgitation - Cardiac catheterization history: Unknown 01/12/2025 Patient examined this morning the bedside. Patient currently denies chest pain or pressure. She denies shortness of breath. Telemetry reveals sinus bradycardia with heart rate in the 50s60s. PHYSICAL EXAM: VITAL SIGNS: Reviewed. GENERAL: Well-developed in no acute distress. HEENT: Head is normocephalic. Pupils are equal, round. Sclerae anicteric. Mucous membranes of the mouth are moist. Neck supple. No JVD or thyromegaly LUNGS: Respirations even and unlabored. Lungs essentially clear to auscultation bilaterally. HEART: Regular rate and rhythm. S1 and S2 heard. ABDOMEN: Soft. Nondistended. Nontender. EXTREMITIES: Normal range of motion. No clubbing or cyanosis. Peripheral pulses intact. No lower extremity edema NEUROLOGIC: Awake and alert. ASSESSMENT: Generalized weakness Acute influenza A Right lower lobe pneumonia New onset atrial fibrillation with RVR, currently maintaining sinus mechanism Chronic heart failure with preserved EF, currently euvolemic Chronic anemia History of hypertension History of hyperlipidemia PLAN: 2D echo ordered. Await results. Continue current cardiac medications including amlodipine, Eliquis, Lipitor, metoprolol Continue telemetry monitoring Further recommendations pending patient course Nurse practitioner note has been reviewed by physician. Signing provider agrees with the documented findings, assessment, and plan of care documented by RN RADIOLOGY as a scribe. Objective - Vital Signs Vital signs: Vital Signs Temp 97.3 F L 01/12/25 11:04 Pulse 59 L 01/12/25 12:28 Resp 19 01/12/25 11:04 BP 117/58 01/12/25 11:04 Pulse Ox 97 01/12/25 11:04 FiO2 Intake & Output 01/11/25 01/12/25 01/12/25 18:59 06:59 18:59 Intake Total 40 260 Output Total 400 Balance -360 260 Weight 45.359 kg Intake: IV 40 20 Invasive Line 1 20 10 Invasive Line 2 20 10 Oral 240 Output: Urine 400 Other: Voiding Method External Catheter External Catheter # Voids 1 # Bowel Movements 1 - Labs CBC & Chem 7: 01/12/25 07:28 01/12/25 07:28 Labs: Abnormal Lab Results - Last 24 Hours (Table) 01/12/25 01/12/25 Range/Units 07:28 07:28 Hgb 7.5 L (11.4-16.0) gm/dL Hct 26.4 L (34.0-46.0) % MCV 67.3 L (80.0-100.0) fL MCH 19.1 L (25.0-35.0) pg MCHC 28.4 L (31.0-37.0) g/dL RDW 17.7 H (11.5-15.5) % Neutrophils # 8.4 H (1.3-7.7) k/uL Lymphocytes # 0.6 L (1.0-4.8) k/uL Potassium 3.1 L (3.5-5.1) mmol/L BUN 37 H (7-17) mg/dL Creatinine 1.23 H (0.52-1.04) mg/dL Glucose 106 H (74-99) mg/dL AST 51 H (14-36) U/L Total Protein 5.2 L (6.3-8.2) g/dL Albumin 2.6 L (3.5-5.0) g/dL Microbiology - Last 24 Hours (Table) 01/10/25 20:17 Blood Culture - Preliminary Blood 01/10/25 17:55 Blood Culture - Preliminary Blood
--- NOTE | 2025-01-12 13:30 | P.PN ---
Subjective Progress Note Date: 01/12/25 Principal diagnosis: Influenza. 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 Her primary care provider is Dr. Rodriguez. Presented emergency department with a chief complaint of increasing shortness of breath developing over the last week or so. Associated symptoms including nasal congestion, cough, sore throat. Profound generalized weakness, unable to stand and walk. EMS was called yesterday afternoon, and she was brought into the emergency department. Found to be extremely short of breath, placed on a 10 L nonrebreather. She was also in atrial fibrillation with rapid ventricular response, started on IV heparin per protocol and IV Cardizem. Workup in the emergency department including a viral screen positive for influenza A. Chest x-ray significant for cardiomegaly, small bilateral pleural effusions, and right lower lobe consolidation. CBC: WBC count 5.6, hemoglobin 7.5, platelets 245. CMP: Sodium 138, potassium 3.7, chloride 106, serum bicarb 13, anion gap 19, creatinine 1.41, glucose 107. Troponin 0.02. NT proBNP 2530. Lactic was 4.1 and is down to 2.4. Did receive a 1.5 L normal saline fluid bolus in the ED. Normal saline infusing at 75 mm/h. She has been started on Tamiflu. Patient currently be evaluated in the emergency department, she is on 6 L nasal cannula. Mild respiratory distress. Tachypneic. Conversational dyspnea speaking in 3-4 word phrases. Heart rhythm appears to be atrial fibrillation with rapid ventricular response with a rate up to 160 bpm. Blood pressure is normotensive. Currently on Cardizem which is infusing at 5 mg/h. Heparin continues to infuse per protocol. Denies history of atrial fibrillation. She denies any chest pain, heart palpitations, lightheadedness/syncopal events, or lower extremity edema. She is prescribed Lasix to be taken on outpatient basis, she stopped taking this medication approximately 4 days ago. States she has been extremely weak and unable to make it to the bathroom. Most recent available echocardiogram from May, demonstrates preserved left ventricular ejection fraction of 55 to 60%, as well as, mild to moderate aortic regurgitation, mild to moderate tricuspid regurgitation. She has been started on Tamiflu with renal dose adjustment. Diane france she has received a influenza vaccination this season. Empirically placed on antibiotics in the ED. Current vital signs: Afebrile, heart rate 158 bpm, blood pressure 107/86 mmHg, tachypneic breathing in the mid 20s, SpO2 reading 94% on 6 L/min nasal cannula. Progress note dated January 12, 2025. 80-year-old female with history of multiple medical problems including hiatal hernia, GERD, previous ventilator dependent respiratory failure requiring tracheostomy, hypertension, hyperlipidemia, among other things. The patient came into the hospital complaining of increasing shortness of breath. She had shortness of breath for about 5 to 7 days. She also complained of nasal congestion, cough, and sore throat. She tested positive for influenza A, and was admitted to the hospital. She is a DO NOT RESUSCITATE patient. Currently, she is on saline at 50 cc an hour, and nasal O2 at 4 L. She is currently on Rocephin, and Tamiflu. Vancomycin has been discontinued. Laboratory data includes a white count 9.4, hemoglobin 7.5, hematocrit 26.4, and a platelet count of 250,000. Sodium 141, potassium 3.1, chlorides 106, CO2 25, anion gap 10, BUN 37, creatinine 1.23. Objective - Vital Signs Vital signs: Vital Signs Temp 97.3 F L 01/12/25 11:04 Pulse 59 L 01/12/25 12:28 Resp 19 01/12/25 11:04 BP 117/58 01/12/25 11:04 Pulse Ox 97 01/12/25 11:04 FiO2 Intake & Output 01/11/25 01/12/25 01/12/25 18:59 06:59 18:59 Intake Total 40 260 Output Total 400 Balance -360 260 Weight 45.359 kg Intake: IV 40 20 Invasive Line 1 20 10 Invasive Line 2 20 10 Oral 240 Output: Urine 400 Other: Voiding Method External Catheter External Catheter # Voids 1 # Bowel Movements 1 - Exam No acute distress, oriented 3. No respiratory distress. Awake and alert. No conversational dyspnea. Currently on 4 L. HEENT examination is grossly unremarkable. Mucous membranes are moist. No oral lesions. Neck supple. Full range of motion. No adenopathy thyromegaly or neck vein dist ention. Cardiovascular examination reveals regular rhythm rate. S1-S2 normal. No S3 or S4. No discernible murmur noted. Lungs reveal scattered rhonchi and crackles. Breath sounds equal bilaterally. There are no wheezes. Breath sounds are equal bilaterally. Abdomen soft bowel sounds are heard. No masses or tenderness. Extremities are intact. No cyanosis clubbing or edema. Skin is without rash or lesion. Neurologic examination is brief but nonfocal. - Labs CBC & Chem 7: 01/12/25 07:28 01/12/25 07:28 Labs: Abnormal Lab Results - Last 24 Hours (Table) 01/12/25 01/12/25 Range/Units 07:28 07:28 Hgb 7.5 L (11.4-16.0) gm/dL Hct 26.4 L (34.0-46.0) % MCV 67.3 L (80.0-100.0) fL MCH 19.1 L (25.0-35.0) pg MCHC 28.4 L (31.0-37.0) g/dL RDW 17.7 H (11.5-15.5) % Neutrophils # 8.4 H (1.3-7.7) k/uL Lymphocytes # 0.6 L (1.0-4.8) k/uL Potassium 3.1 L (3.5-5.1) mmol/L BUN 37 H (7-17) mg/dL Creatinine 1.23 H (0.52-1.04) mg/dL Glucose 106 H (74-99) mg/dL AST 51 H (14-36) U/L Total Protein 5.2 L (6.3-8.2) g/dL Albumin 2.6 L (3.5-5.0) g/dL Microbiology - Last 24 Hours (Table) 01/10/25 20:17 Blood Culture - Preliminary Blood 01/10/25 17:55 Blood Culture - Preliminary Blood Assessment and Plan Assessment: Acute influenza A infection, with probable superimposed bacterial pneumonia. Pneumonia/sepsis. Atrial fibrillation with rapid ventricular response. Suspect acute exacerbation of CHF, with preserved ejection fraction. Acute hypoxemic respiratory failure, secondary to a combination of above. Acute kidney injury Anion gap metabolic acidosis. Lactic acidosis, improved. Chronic microcytic, hypochromic anemia. History of hiatal hernia with previous Alley fundoplication. 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 Gastroesophageal reflux disease. History of hypertension. History of hyperlipidemia. History of rheumatoid arthritis. Plan: Plan dated January 12, 2025. The patient is seen today in room 365. She is currently on 4 L of oxygen. She is getting saline at 50 cc an hour. Vancomycin has been discontinued. She continues on Tamiflu and Rocephin. We will continue to follow make recommendations along the way. Labs, x-rays, and medications are reviewed. The patient is a DO NOT RESUSCITATE patient. Prognosis is guarded. Dictation was produced using [employer]ation software. Please excuse any grammatical, word or spelling errors. Time with Patient: Less than 30
[2025-01-12] MEDS: SODIUM CHLORIDE 0.9% 1,000 ML IV SCH (15:43)
--- NOTE | 2025-01-12 18:41 | CA ---
Transthoracic Echo Report Name: Sherie Griffin Age: 80 Gender: F : 1945 Exam Date: 01/12/2025 08:00 Exam Location: [place] [facility] Ht (in): 65 Wt (lb): 100 Ordering Physician: Suzie Amin Attending/Referring Phys: [id number], Brennan Firewood Cutter Vivienne Lawson, TANIA Procedure CPT: Indications: lv function, new onset Afib, CHF Cardiac Hx: Technical Quality: Good Contrast 1: Total Dose (mL): Contrast 2: Total Dose (mL): MEASUREMENTS (Male / Female) Normal Values 2D ECHO LV Diastolic Diameter PLAX 3.4 cm 4.2 - 5.9 / 3.9 - 5.3 cm LV Systolic Diameter PLAX 2.4 cm IVS Diastolic Thickness 1.2 cm 0.6 - 1.0 / 0.6 - 0.9 cm LVPW Diastolic Thickness 1.3 cm 0.6 - 1.0 / 0.6 - 0.9 cm LV Relative Wall Thickness 0.7 RV Internal Dim ED PLAX 3.3 cm LA Systolic Diameter LX 3.9 cm 3.0 - 4.0 / 2.7 - 3.8 cm LV Diastolic Volume MOD 4C 78.6 cm??? LV Systolic Volume MOD 4C 33.6 cm??? LV Ejection Fraction MOD 4C 57.3 % LV Cardiac Index MOD 4C 1951.2 cm???/min???m??? LV Diastolic Length 4C 6.1 cm LV Systolic Length 4C 4.8 cm LV Diastolic Volume MOD 2C 59.4 cm??? LV Systolic Volume MOD 2C 25.8 cm??? LV Ejection Fraction MOD 2C 56.6 % LV Cardiac Index MOD 2C 1459.1 cm???/min???m??? LV Diastolic Length 2C 6.1 cm LV Systolic Length 2C 5.2 cm DOPPLER AV Peak Velocity 146.3 cm/s AV Peak Gradient 8.6 mmHg AI Peak Velocity 308.8 cm/s AI Peak Gradient 38.2 mmHg AI Pressure Half Time 761.6 ms Mitral E Point Velocity 104.2 cm/s Mitral A Point Velocity 112.8 cm/s Mitral E to A Ratio 0.9 MV Deceleration Time 246.0 ms MV E' Velocity 7.9 cm/s Mitral E to MV E' Ratio 13.2 TR Peak Velocity 279.0 cm/s TR Peak Gradient 31.1 mmHg Right Ventricular Systolic Press 41.3 mmHg FINDINGS Left Ventricle Left ventricular ejection fraction is estimated at 55-60 %. Normal left ventricular systolic function with no obvious regional wall motion abnormalities. Mildly increased left ventricular wall thickness. Right Ventricle Mild right ventricular dilatation. Mild pulmonary hypertension. Right Atrium Normal right atrial size. No right atrial thrombus or mass seen. Left Atrium Mildly increased left atrial diameter. No left atrial thrombus or mass present. Mitral Valve Severe mitral annular calcification. Moderate mitral regurgitation. Aortic Valve Trileaflet aortic valve. Aortic valve sclerosis. Mild aortic regurgitation. Tricuspid Valve Structurally normal tricuspid valve. Moderate tricuspid regurgitation. Pulmonic Valve Structurally normal pulmonic valve. Mild pulmonic regurgitation. Pericardium No pericardial effusion. Aorta Normal size aortic root and proximal ascending aorta. CONCLUSIONS 1. Normal left ventricular size and systolic function 2. Moderate mitral and tricuspid regurgitation 3. Mild aortic regurgitation 4. Mild pulmonary hypertension Previewed by: Dr. Iliana Cortes MD (Electronically Signed) Final Date: 12 January 2025 18:40
--- NOTE | 2025-01-13 10:29 | FL ---
EXAMINATION TYPE: FL barium swallow w video DATE OF EXAM: 01/13/2025 CLINICAL HISTORY: 80-year-old female dysphagia, trouble swallowing, admitted with pneumonia, assess f or silent aspiration. Remote tracheostomy. TECHNIQUE: Deglutition study is performed utilizing thin liquid barium, barium thick abutting, and b arium coated crushed cracker. Total dose area product (DAP) in uGy*m?, mGy*cm? (or similar): 57 mGycm2 Total images: 41. Total fluoroscopy time: 1 minute 9 seconds. COMPARISON: None. FINDINGS: The oral and pharyngeal phases show satisfactory initiation and propagation with all modalities teste d. Normal mastication is seen with solid modalities tested. There is no evidence of penetration or aspiration with any modality tested. No significant pharyngeal residue was appreciated. IMPRESSION: Functional swallow. Please refer to speech therapist notes for further details if necessa ry. [facility], Workstation: 3, 01/13/2025 10:27 AM
--- NOTE | 2025-01-13 11:44 | P.PN ---
Subjective Progress Note Date: 01/13/25 HISTORY OF PRESENT ILLNESS: This is a 80-year-old female with a past medical history significant for hy pertension, hyperlipidemia, and CHF. Patient follows in the office with Dr. Stout. We have been asked to see the patient in consultation for A-fib with RVR. Patient examined at the bedside in the emergency room. Patient states she presented to the hospital because she was so weak at home she was unable to walk. The patient was found to be positive for influenza A. She was also found to have pneumonia and started on antibiotics. She denies any chest pain or pressure. She currently denies any shortness of breath. Additionally the patient was found to be in A-fib with RVR. She denies any known history of atrial fibrillation. She was started on IV heparin and IV Cardizem. She is maintaining sinus mechanism at the time of examination. DIAGNOSTICS: - EKG reveals sinus mechanism with PVCs. Repeat EKG reveals atrial fibrillation with RVR. - Chest xray right lower lobe pneumonia. - Laboratory data: WBC 8.2. Hemoglobin 8.7. Platelet count 275. Sodium 141. Potassium 3.8. BUN 37. Creatinine 1.18. TSH 0.511. - Current home cardiac medications include amlodipine 5 mg daily, rosuvastatin 10 mg daily, Lasix 40 mg at night. - Patient underwent Lexiscan stress test in October 2024 in the office which was negative for ischemia - Most recent echocardiogram obtained in May 2024 revealed ejection fraction 55 to 60%, mild MR, mild to moderate AR, moderate tricuspid regurgitation - Cardiac catheterization history: Unknown 01/12/2025 Patient examined this morning the bedside. Patient currently denies chest pain or pressure. She denies shortness of breath. Telemetry reveals sinus bradycardia with heart rate in the 50s60s. 01/13/2025 Patient is seen and examined at bedside this a.m. On telemetry she is in sinus bradycardia with heart rate ranging from 50s to 60s beats per minute. She is otherwise hemodynamically stable. Labs shows hemoglobin of 7.5. She is not on anticoagulation. PHYSICAL EXAM: VITAL SIGNS: Reviewed. GENERAL: Well-developed in no acute distress. HEENT: Head is normocephalic. Pupils are equal, round. Sclerae anicteric. Mucous membranes of the mouth are moist. Neck supple. No JVD or thyromegaly LUNGS: Respirations even and unlabored. Lungs essentially clear to auscultation bilaterally. HEART: Regular rate and rhythm. S1 and S2 heard. ABDOMEN: Soft. Nondistended. Nontender. EXTREMITIES: Normal range of motion. No clubbing or cyanosis. Peripheral pulses intact. No lower extremity edema NEUROLOGIC: Awake and alert. ASSESSMENT: Generalized weakness Acute influenza A Right lower lobe pneumonia New onset atrial fibrillation with RVR, currently maintaining sinus mechanism Chronic heart failure with preserved EF, currently euvolemic Chronic anemia History of hypertension History of hyperlipidemia Pertinent cardiac testing Echo shows an EF of 55%, moderate MR, moderate TR, mild pulmonary hypertension, PLAN: Continue current cardiac medications including amlodipine, Eliquis, Lipitor, metoprolol Recommend doing IV iron versus oral iron as per primary team discretion. At this time patient is cleared from cardiovascular standpoint. Cardiology team will sign off. Please reconsult us in case of any question Recommend outpatient follow-up with primary textile machinery instructor. Objective - Vital Signs Vital signs: Vital Signs Temp 97.1 F L 01/13/25 09:03 Pulse 56 L 01/13/25 09:04 Resp 19 01/13/25 09:04 BP 128/63 01/13/25 09:03 Pulse Ox 100 01/13/25 09:03 FiO2 Intake & Output 01/12/25 01/13/25 01/13/25 18:59 06:59 18:59 Intake Total 280 40 20 Output Total 550 700 Balance -270 -660 20 Weight 45.359 kg Intake: IV 40 40 20 Invasive Line 1 20 20 10 Invasive Line 2 20 20 10 Oral 240 Output: Urine 550 700 Straight 700 Other: Voiding Method External Catheter External Catheter External Catheter # Voids 1 1 # Bowel Movements 1 - Labs CBC & Chem 7: 01/12/25 07:28 01/12/25 07:28 Labs: Microbiology - Last 24 Hours (Table) 01/10/25 20:17 Blood Culture - Preliminary Blood 01/10/25 17:55 Blood Culture - Preliminary Blood
[2025-01-13] MEDS: IRON PS CMPLX/VIT B12/FA 1 EACH CAP PO SCH (12:30)
[2025-01-13] MEDS: predniSONE 20 MG TAB PO SCH (12:30)
--- NOTE | 2025-01-13 14:06 | P.PN ---
Subjective Progress Note Date: 01/13/25 Principal diagnosis: Influenza. 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 Her primary care provider is Dr. Rodriguez. Presented emergency department with a chief complaint of increasing shortness of breath developing over the last week or so. Associated symptoms including nasal congestion, cough, sore throat. Profound generalized weakness, unable to stand and walk. EMS was called yesterday afternoon, and she was brought into the emergency department. Found to be extremely short of breath, placed on a 10 L nonrebreather. She was also in atrial fibrillation with rapid ventricular response, started on IV heparin per protocol and IV Cardizem. Workup in the emergency department including a viral screen positive for influenza A. Chest x-ray significant for cardiomegaly, small bilateral pleural effusions, and right lower lobe consolidation. CBC: WBC count 5.6, hemoglobin 7.5, platelets 245. CMP: Sodium 138, potassium 3.7, chloride 106, serum bicarb 13, anion gap 19, creatinine 1.41, glucose 107. Troponin 0.02. NT proBNP 2530. Lactic was 4.1 and is down to 2.4. Did receive a 1.5 L normal saline fluid bolus in the ED. Normal saline infusing at 75 mm/h. She has been started on Tamiflu. Patient currently be evaluated in the emergency department, she is on 6 L nasal cannula. Mild respiratory distress. Tachypneic. Conversational dyspnea speaking in 3-4 word phrases. Heart rhythm appears to be atrial fibrillation with rapid ventricular response with a rate up to 160 bpm. Blood pressure is normotensive. Currently on Cardizem which is infusing at 5 mg/h. Heparin continues to infuse per protocol. Denies history of atrial fibrillation. She denies any chest pain, heart palpitations, lightheadedness/syncopal events, or lower extremity edema. She is prescribed Lasix to be taken on outpatient basis, she stopped taking this medication approximately 4 days ago. States she has been extremely weak and unable to make it to the bathroom. Most recent available echocardiogram from May, demonstrates preserved left ventricular ejection fraction of 55 to 60%, as well as, mild to moderate aortic regurgitation, mild to moderate tricuspid regurgitation. She has been started on Tamiflu with renal dose adjustment. Diane [place] she has received a influenza vaccination this season. Empirically placed on antibiotics in the ED. Current vital signs: Afebrile, heart rate 158 bpm, blood pressure 107/86 mmHg, tachypneic breathing in the mid 20s, SpO2 reading 94% on 6 L/min nasal cannula. Progress note dated January 12, 2025. 80-year-old female with history of multiple medical problems including hiatal hernia, GERD, previous ventilator dependent respiratory failure requiring tracheostomy, hypertension, hyperlipidemia, among other things. The patient came into the hospital complaining of increasing shortness of breath. She had shortness of breath for about 5 to 7 days. She also complained of nasal congestion, cough, and sore throat. She tested positive for influenza A, and was admitted to the hospital. She is a DO NOT RESUSCITATE patient. Currently, she is on saline at 50 cc an hour, and nasal O2 at 4 L. She is currently on Rocephin, and Tamiflu. Vancomycin has been discontinued. Laboratory data includes a white count 9.4, hemoglobin 7.5, hematocrit 26.4, and a platelet count of 250,000. Sodium 141, potassium 3.1, chlorides 106, CO2 25, anion gap 10, BUN 37, creatinine 1.23. Progress note dated January 13, 2025. 80-year-old female with history of multiple medical problems including hiatal hernia, GERD, previous ventilator dependent respiratory failure, requiring tracheostomy, hypertension, hyperlipidemia, among other things. The patient is seen today in room 365. Clinically, she still complaining of shortness of breath, still has a cough. She is on 3 L. She is getting saline at 75 cc an hour. She continues on Rocephin and Tamiflu. We add prednisone to the regimen for her bronchoconstriction. We did order chest x-ray for tomorrow morning. The patient is a DO NOT RESUSCITATE patient. No new labs are noted from today. Objective - Vital Signs Vital signs: Vital Signs Temp 97.1 F L 01/13/25 12:29 Pulse 57 L 01/13/25 12:29 Resp 16 01/13/25 12:29 BP 140/63 01/13/25 12:29 Pulse Ox 97 01/13/25 12:29 FiO2 Intake & Output 0301/13/25 01/13/25 18:59 06:59 18:59 Intake Total 280 40 20 Output Total 550 700 Balance -270 -660 20 Weight 45.359 kg 45.359 kg Intake: IV 40 40 20 Invasive Line 1 20 20 10 Invasive Line 2 20 20 10 Oral 240 Output: Urine 550 700 Straight 700 Other: Voiding Method External Catheter External Catheter External Catheter # Voids 1 1 # Bowel Movements 1 - Exam No acute distress, oriented 3. No respiratory distress. Awake and alert. No conversational dyspnea. Currently on 3 L. HEENT examination is grossly unremarkable. Mucous membranes are moist. No oral lesions. Neck supple. Full range of motion. No adenopathy thyromegaly or neck vein distention. Cardiovascular examination reveals regular rhythm rate. S1-S2 normal. No S3 or S4. No discernible murmur noted. Lungs reveal scattered rhonchi and crackles. Breath sounds equal bilaterally. There are no wheezes. Breath sounds are equal bilaterally. Abdomen soft bowel sounds are heard. No masses or tenderness. Extremities are intact. No cyanosis clubbing or edema. Skin is without rash or lesion. Neurologic examination is brief but nonfocal. - Labs CBC & Chem 7: 01/12/25 07:28 01/12/25 07:28 Labs: Microbiology - Last 24 Hours (Table) 01/10/25 20:17 Blood Culture - Preliminary Blood 01/10/25 17:55 Blood Culture - Preliminary Blood Assessment and Plan Assessment: Acute influenza A infection, with probable superimposed bacterial pneumonia. Pneumonia/sepsis. Atrial fibrillation with rapid ventricular response. Suspect acute exacerbation of CHF, with preserved ejection fraction. Acute hypoxemic respiratory failure, secondary to a combination of above. Acute kidney injury Anion gap metabolic acidosis. Lactic acidosis, improved. Chronic microcytic, hypochromic anemia. History of hiatal hernia with previous Alley fundoplication. 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 Gastroesophageal reflux disease. History of hypertension. History of hyperlipidemia. History of rheumatoid arthritis. Plan: Plan dated January 12, 2025. The patient is seen today in room 365. She is currently on 4 L of oxygen. She is getting saline at 50 cc an hour. Vancomycin has been discontinued. She continues on Tamiflu and Rocephin. We will continue to follow make recommendations along the way. Labs, x-rays, and medications are reviewed. The patient is a DO NOT RESUSCITATE patient. Prognosis is guarded. Dictation was produced using [employer] software. Please excuse any grammatical, word or spelling errors. Plan dated January 13, 2025. The patient is a DO NOT RESUSCITATE patient. She is seen again today in room 365. She continues on nasal O2 at 3 L. The patient is currently getting saline at 75 cc an hour. She continues on Rocephin and Tamiflu. We add prednisone to the regimen. We will order chest x-ray for January 14. Labs, x-rays, and all medications are reviewed. The patient's overall prognosis remains very guarded. The patient is very frail appearing. We will continue to follow make recommendations. Dictation was produced using [employer] software. Please excuse any grammatical, word or spelling errors. Time with Patient: Less than 30
--- NOTE | 2025-01-13 15:20 | P.PN ---
Subjective Progress Note Date: 01/12/25 HISTORY OF PRESENT ILLNESS: This is a 80-year-old female with a previous medical history signif icant for hypertension and hypertensive cardiovascular disease, hyperlipidemia, history of ALLERGIC rhinitis, GERD with esophagitis, osteopenia, detrusor stability, patient presented to the emergency department at [facility] with increased coughing and increased shortness of breath over the last few days, patient stated that she was doing fine up till about last week when she came down with an upper respite tract infection, she was complaining some cough and low-grade temperature, she was feeling fine at that time, however today she was supposed to come to my office to see me because of increased coughing and shortness of breath, however she contacted the office and stated that she was going to the ER by EMS because she was extremely short of breath, patient was seen in emergency department she was placed on nonrebreather with a 10 L oxygen and oxygenation was around 9394% on oxygen, her chest x-ray showed evidence of right lower lobe pneumonia, her influenza A came back positive, she was started on Rocephin 1 g piggyback every 24 hours, Zithromax 500 mg IV piggyback every 24 hours also Tamiflu 75 mg orally twice every day, she was started also on DuoNeb nebulization 4 times every day as well as Pulmicort 1 mg nebulization twice every day pulmonary consultation was obtained, patient will be admitted to the hospital for further evaluation and treatment. 01/11: Patient is sitting up in bed continues to be somewhat short of breath, she continues to be on 5 L and oxygen, her chest x-ray showed right lower lobe pneumonia, she is positive for influenza A, she does appear to have a significant anion gap metabolic acidosis, she would be switched to D5W with 3 A of sodium bicarbonate at 50 cc an hour, monitor the patient CMP over the next 24 hours, restart the patient back on ceftriaxone, continue vancomycin, continue Tamiflu 30 mg orally once every day, hold off diuretics for now, her BUN slightly elevated, her creatinine is slightly elevated as well, I will follow-up with the patient very closely, patient has been seen in consultation by pulmonary medicine as well as by cardiology she underwent atrial fibrillation with rapid ventricular response yesterday she was placed initially on Cardizem drip and heparin drip, so far she was taken off heparin drip and she was placed on Eliquis 2.5 mg orally twice every day we will continue with that, her heart rate is remains controlled, continue metoprolol 50 mg orally twice every day as well. 01/12: Patient is sitting up in bed appears to be in minimal distress, she is not able to swallow very good, she was seen earlier by speech therapist who recommended for the patient to go for swallow evaluation the next 24 hours, patient is insisting on having her diet Coke at the bedside, I spoke with the patient about the importance of complying with the nursing orders and her son was in agreement for that, she was given a small cup of diet Coke to try while she is in the hospital until further evaluation by speech therapy, her son is questioning whether or not the patient need to have a PEG tube placement, but we will discuss this after swallow evaluation and see how the patient is doing. She has been followed by pulmonary as well as by cardiology. REVIEW OF SYSTEMS: Constitutional: Positive for documented fever, positive for chills, no night sweats. No weight change. Positive for weakness, fatigue or lethargy. No daytime sleepiness. HEENT: No headache. No blurred vision or double vision, no loss of vision. No loss of Hearing, no ringing in the ears, no dizziness. No nasal drainage or congestion. No epistaxis. No sore throat. Lungs: Positive for shortness of breath, positive for cough, positive for sputum production. Positive for wheezing. Reports dyspnea with activity. Cardiovascular: No chest pain, no lower extremity edema. No palpitations. No paroxysmal nocturnal dyspnea. No orthopnea. No lightheadedness or dizziness. No syncopal episodes. Abdominal: Reports abdominal pain. No nausea, vomiting. No diarrhea. No constipation. No bloody or tarry stools reports loss of appetite. Genitourinary: No dysuria, increased frequency, urgency. No urinary retention. Musculoskeletal: No myalgias. No muscle weakness, no gait dysfunction, no frequent falls. No back pain. No neck pain. Integumentary: No wounds, no lesions. No rash or pruritus. No unusual bruising. No change in hair or nails. Neurologic: No aphasia. No facial droop. No change in mentation. No head injury. No headache. No paralysis. No paresthesia. Psychiatric: No depression. No anxiety. No mood swings. Endocrine: No abnormal blood sugars. No weight change. PHYSICAL EXAMINATION: General: 80-year-old female laying down in bed in moderate respiratory distress HEENT: Head is atraumatic, normocephalic, pupils were equal round reactive to light and recommendation, extraocular muscle movement were intact, sclera nonicteric, conjunctivae were pale, mucous membranes of the mouth are somewhat dry. Neck: Supple, no JVP, normal carotid upstroke bilaterally, no lymphadenopathy. Chest: Decreased breath sounds at the bases, few rhonchi, positive for egophony at the right lower lobe, positive for intercostal retraction. Heart: First heart sound is normal, second heart sound is normal there is systolic ejection murmur 2/6 located in the left sternal border. Abdomen: Soft, nontender nondistended positive ultrasound hepatosplenomegaly. Extremities: There is no edema no calf tenderness DP +2 bilaterally. Neurologic examination: Patient is awake alert and oriented X 3, cranial nerves II-12 appear grossly intact, muscle power were 5 out of 5 in upper extremities and 5 out of 5 in bilateral lower extremities, deep tendon reflexes normal bilaterally. ASSESSMENT AND PLAN: 1. Acute hypoxemic respiratory failure due to acute right lower lobe pneumonia with underlying influenza A Associated with sepsis. Patient has been maintained on vancomycin with pharmacy to dose his peak and trough, continue patient on Tamiflu 30 mg orally once every as well as ceftriaxone 1 g piggyback every 24 hours, follow-up with the patient very closely. Patient will need to be evaluated by speech therapy for possible aspiration pneumonia at this point in time. Since she is having trouble swallowing and she has lost a lot of weight. 2. Acute kidney injury due to acute tubular necrosis and vasomotor nephropathy associated with anion gap metabolic acidosis. Resolved discontinue sodium bicar bonate drip, start the patient on IV fluid in the form of normal saline at 75 cc an hour. 3. Anion gap antibiotic acidosis due to acute kidney injury resolved. Discontinue sodium bicarb and drip, start the patient on normal saline 75 cc an hour. 4. Iron deficiency anemia, monitor the patient CBC very closely, start the patient on iron 325 mg orally twice every day, follow-up with the patient very closely. Patient did have a workup as an outpatient. She may be candidate for Watchman device 5. Hypertension and hypertensive cardiovascular disease. Continue patient on amlodipine 5 mg once every day, continue metoprolol 50 mg orally twice every day monitor the patient blood pressure regularly. 6. Mixed hyperlipidemia continue patient on rosuvastatin 10 mg once every day, monitor lipid panel, keep LDL 55-70. 7. GERD with esophagitis. Continue patient on Protonix 40 mg orally twice every day 8. Detrusor instability. Continue patient on Mirbetriq 25 mg po daily. 9. Rheumatoid arthritis positive serology and positive RANGEL.. Currently not taking any medication at this time. 10. ALLERGIC rhinitis. Appears to be stable at this time 11. Osteoporosis. Patient will need to be started on Prolia 60 mg subcutaneously every 6 months, continue calcium and vitamin D supplement as an outpatient. 12. DVT prophylaxis. Bilateral knee-high NITHIN hose, continue Eliquis 2.5 mg orally twice every day. 13. GI prophylaxis. Continue patient on Protonix 40 mg orally twice every day. 14. Prognosis continue be guarded. 15. Modified barium swallow tomorrow morning. Objective - Vital Signs Vital signs: Vital Signs Temp 97.1 F L 01/13/25 12:29 Pulse 57 L 01/13/25 12:29 Resp 16 01/13/25 12:29 BP 140/63 01/13/25 12:29 Pulse Ox 97 01/13/25 12:29 FiO2 Intake & Output 01/12/25 01/13/25 01/13/25 18:59 06:59 18:59 Intake Total 280 40 360 Output Total 550 700 Balance -270 -660 360 Weight 45.359 kg 45.359 kg Intake: IV 40 40 20 Invasive Line 1 20 20 10 Invasive Line 2 20 20 10 Oral 240 340 Output: Urine 550 700 Straight 700 Other: Voiding Method External Catheter External Catheter External Catheter # Voids 1 1 0 # Bowel Movements 1 0 - Labs CBC & Chem 7: 01/12/25 07:28 01/12/25 07:28 Labs: Microbiology - Last 24 Hours (Table) 01/10/25 20:17 Blood Culture - Preliminary Blood 01/10/25 17:55 Blood Culture - Preliminary Blood
[2025-01-13 17:01] LABS: African American GFR (CKD) 68 (>60 ml/min/1.73 sqM); Anion Gap 13 mmol/L; Blood Urea Nitrogen 26 mg/dL (7-17); Calcium 8.5 mg/dL (8.4-10.2); Carbon Dioxide 20 mmol/L (22-30); Chloride 109 mmol/L (98-107); Glucose 91 mg/dL (74-99); Non-African American GFR(CKD) 59 (>60 ml/min/1.73 sqM); Potassium 3.5 mmol/L (3.5-5.1); Sodium 142 mmol/L (137-145)
--- NOTE | 2025-01-13 17:20 | P.PN ---
Subjective Progress Note Date: 01/13/25 HISTORY OF PRESENT ILLNESS: This is a 80-year-old female with a previous medical history signif icant for hypertension and hypertensive cardiovascular disease, hyperlipidemia, history of ALLERGIC rhinitis, GERD with esophagitis, osteopenia, detrusor stability, patient presented to the emergency department at [facility] with increased coughing and increased shortness of breath over the last few days, patient stated that she was doing fine up till about last week when she came down with an upper respite tract infection, she was complaining some cough and low-grade temperature, she was feeling fine at that time, however today she was supposed to come to my office to see me because of increased coughing and shortness of breath, however she contacted the office and stated that she was going to the ER by EMS because she was extremely short of breath, patient was seen in emergency department she was placed on nonrebreather with a 10 L oxygen and oxygenation was around 9394% on oxygen, her chest x-ray showed evidence of right lower lobe pneumonia, her influenza A came back positive, she was started on Rocephin 1 g piggyback every 24 hours, Zithromax 500 mg IV piggyback every 24 hours also Tamiflu 75 mg orally twice every day, she was started also on DuoNeb nebulization 4 times every day as well as Pulmicort 1 mg nebulization twice every day pulmonary consultation was obtained, patient will be admitted to the hospital for further evaluation and treatment. 01/11: Patient is sitting up in bed continues to be somewhat short of breath, she continues to be on 5 L and oxygen, her chest x-ray showed right lower lobe pneumonia, she is positive for influenza A, she does appear to have a significant anion gap metabolic acidosis, she would be switched to D5W with 3 A of sodium bicarbonate at 50 cc an hour, monitor the patient CMP over the next 24 hours, restart the patient back on ceftriaxone, continue vancomycin, continue Tamiflu 30 mg orally once every day, hold off diuretics for now, her BUN slightly elevated, her creatinine is slightly elevated as well, I will follow-up with the patient very closely, patient has been seen in consultation by pulmonary medicine as well as by cardiology she underwent atrial fibrillation with rapid ventricular response yesterday she was placed initially on Cardizem drip and heparin drip, so far she was taken off heparin drip and she was placed on Eliquis 2.5 mg orally twice every day we will continue with that, her heart rate is remains controlled, continue metoprolol 50 mg orally twice every day as well. 01/12: Patient is sitting up in bed appears to be in minimal distress, she is not able to swallow very good, she was seen earlier by speech therapist who recommended for the patient to go for swallow evaluation the next 24 hours, patient is insisting on having her diet Coke at the bedside, I spoke with the patient about the importance of complying with the nursing orders and her son was in agreement for that, she was given a small cup of diet Coke to try while she is in the hospital until further evaluation by speech therapy, her son is questioning whether or not the patient need to have a PEG tube placement, but we will discuss this after swallow evaluation and see how the patient is doing. She has been followed by pulmonary as well as by cardiology. 01/13: Patient had her swallow evaluation today, she is able to tolerate a soft diet at this point in time, she continues to have significant trouble with swallowing, she is very picky about her food that she can eat and swallow, she is asking for manage. Will, I spoke with the nursing staff about that, continue soft diet at this point in time, I spoke with the patient and her son was at the bedside, the reason for the iron deficiency anemia could be anything starting from hiatal hernia all the way down to any sort of malignancy, she stated that she does not want to go for any procedure at this point in time, since she is 80-year-old, and her son was at the bedside I told her we are harry continue to treat her pneumonia for now, continue to treat her paroxysmal atrial fibrillation, and that she can be discharged home and follow-up with us as an outpatient then should make the decision with her retail office associate Dr. Arce as an outpatient whether or not she should go for EGD and colonoscopy and possible capsule endoscopy or MR enterography to complete the investigation of iron deficiency anemia. REVIEW OF SYSTEMS: Constitutional: Positive for documented fever, positive for chills, no night sweats. No weight change. Positive for weakness, fatigue or lethargy. No daytime sleepiness. HEENT: No headache. No blurred vision or double vision, no loss of vision. No loss of Hearing, no ringing in the ears, no dizziness. No nasal drainage or congestion. No epistaxis. No sore throat. Lungs: Positive for shortness of breath, positive for cough, positive for sputum production. Positive for wheezing. Reports dyspnea with activity. Cardiovascular: No chest pain, no lower extremity edema. No palpitations. No paroxysmal nocturnal dyspnea. No orthopnea. No lightheadedness or dizziness. No syncopal episodes. Abdominal: Reports abdominal pain. No nausea, vomiting. No diarrhea. No constipation. No bloody or tarry stools reports loss of appetite. Genitourinary: No dysuria, increased frequency, urgency. No urinary retention. Musculoskeletal: No myalgias. No muscle weakness, no gait dysfunction, no frequent falls. No back pain. No neck pain. Integumentary: No wounds, no lesions. No rash or pruritus. No unusual bruising. No change in hair or nails. Neurologic: No aphasia. No facial droop. No change in mentation. No head injury. No headache. No paralysis. No paresthesia. Psychiatric: No depression. No anxiety. No mood swings. Endocrine: No abnormal blood sugars. No weight change. PHYSICAL EXAMINATION: General: 80-year-old female laying down in bed in moderate respiratory distress HEENT: Head is atraumatic, normocephalic, pupils were equal round reactive to light and recommendation, extraocular muscle movement were intact, sclera nonicteric, conjunctivae were pale, mucous membranes of the mouth are somewhat dry. Neck: Supple, no JVP, normal carotid upstroke bilaterally, no lymphadenopathy. Chest: Decreased breath sounds at the bases, few rhonchi, positive for egophony at the right lower lobe, positive for intercostal retraction. Heart: First heart sound is normal, second heart sound is normal there is systolic ejection murmur 2/6 located in the left sternal border. Abdomen: Soft, nontender nondistended positive ultrasound hepatosplenomegaly. Extremities: There is no edema no calf tenderness DP +2 bilaterally. Neurologic examination: Patient is awake alert and oriented X 3, cranial nerves II-12 appear grossly intact, muscle power were 5 out of 5 in upper extremities and 5 out of 5 in bilateral lower extremities, deep tendon reflexes normal bilaterally. ASSESSMENT AND PLAN: 1. Acute hypoxemic respiratory failure due to acute right lower lobe pneumonia with underlying influenza A Associated with sepsis. Patient has been maintained on vancomycin with pharmacy to dose his peak and trough, continue patient on Tamiflu 30 mg orally once every as well as ceftriaxone 1 g piggyback every 24 hours, follow-up with the patient very closely Patient is able to tolerate soft diet at this time, will continue to monitor the patient very closely aspiration precaution, follow-up with the patient very closely 2. Acute kidney injury due to acute tubular necrosis and vasomotor nephropathy associated with anion gap metabolic acidosis. Resolved discontinue sodium bicarbonate drip, start the patient on IV fluid in the form of normal saline at 75 cc an hour. 3. Anion gap antibiotic acidosis due to acute kidney injury resolved. Discontinue sodium bicarb and drip, start the patient on normal saline 75 cc an hour. 4. Iron deficiency anemia, monitor the patient CBC very closely, start the patient on iron 325 mg orally twice every day, follow-up with the patient very closely. Patient did have a workup as an outpatient. She may be candidate for Watchman device 5. Hypertension and hypertensive cardiovascular disease. Continue patient on amlodipine 5 mg once every day, continue metoprolol 50 mg orally twice every day monitor the patient blood pressure regularly. 6. Mixed hyperlipidemia continue patient on rosuvastatin 10 mg once every day, monitor lipid panel, keep LDL 55-70. 7. GERD with esophagitis. Continue patient on Protonix 40 mg orally twice ever y day 8. Detrusor instability. Continue patient on Mirbetriq 25 mg po daily. 9. Rheumatoid arthritis positive serology and positive RANGEL.. Currently not taking any medication at this time. 10. ALLERGIC rhinitis. Appears to be stable at this time 11. Osteoporosis. Patient will need to be started on Prolia 60 mg subcutaneously every 6 months, continue calcium and vitamin D supplement as an outpatient. 12. DVT prophylaxis. Bilateral knee-high NITHIN hose, continue Eliquis 2.5 mg orally twice every day. 13. GI prophylaxis. Continue patient on Protonix 40 mg orally twice every day. 14. Prognosis continue be guarded. 15. repeat labs tomorrow morning. Objective - Vital Signs Vital signs: Vital Signs Temp 97.1 F L 01/13/25 12:29 Pulse 57 L 01/13/25 12:29 Resp 16 01/13/25 12:29 BP 140/63 01/13/25 12:29 Pulse Ox 97 01/13/25 12:29 FiO2 Intake & Output 01/12/25 01/13/25 01/13/25 18:59 06:59 18:59 Intake Total 280 40 360 Output Total 550 700 Balance -270 -660 360 Weight 45.359 kg 45.359 kg Intake: IV 40 40 20 Invasive Line 1 20 20 10 Invasive Line 2 20 20 10 Oral 240 340 Output: Urine 550 700 Straight 700 Other: Voiding Method External Catheter External Catheter External Catheter # Voids 1 1 0 # Bowel Movements 1 0 - Labs CBC & Chem 7: 01/12/25 07:28 01/13/25 15:55 Labs: Microbiology - Last 24 Hours (Table) 01/10/25 20:17 Blood Culture - Preliminary Blood 01/10/25 17:55 Blood Culture - Preliminary Blood
[2025-01-14 04:23] LABS: Mycoplasma IgG Antibody (EIA) 0.99 INDEX (<=0.90); Mycoplasma IgM Antibody 0.14 INDEX (<=0.90)
[2025-01-14 07:06] LABS: Anisocytosis Slight; Basophils % (A) 0 %; Eosinophils % (A) 0 %; HCT 30.9 % (34.0-46.0); HGB 8.7 gm/dL (11.4-16.0); Hypochromasia Marked; Lymphocytes # (A) 0.5 k/uL (1.0-4.8); Lymphocytes % (A) 5 %; MCH 19.7 pg (25.0-35.0); MCHC 28.2 g/dL (31.0-37.0); MCV 69.8 fL (80.0-100.0); Mean Platelet Volume 6.9; Microcytosis Marked; Monocytes # (A) 0.4 k/uL (0-1.0); Monocytes % (A) 4 %; Neutrophils # (A) 8.9 k/uL (1.3-7.7); Neutrophils % (A) 89 %; Platelet Count 297 k/uL (150-450); RBC 4.42 m/uL (3.80-5.40); RDW 17.9 % (11.5-15.5)
--- NOTE | 2025-01-14 07:11 | XR ---
EXAMINATION TYPE: XR chest 1V portable DATE OF EXAM: 01/14/2025 CLINICAL INDICATION: Female, 80 years old with history of Influenza, progress study. TECHNIQUE: Single AP portable upright view of the chest is obtained. COMPARISON: Chest x-ray from 4 days earlier FINDINGS: Persistent increased opacity but improved aeration in the right lower lung. Persistent lef t basilar increased opacity. Cardiomegaly redemonstrated with ectatic aortic knob and mitral annular calcifications. Osseous structures are intact. IMPRESSION: Persistent but improving right lower lung acute infiltrate and/or atelectasis. Stable car diomegaly and left basilar acute infiltrate and/or atelectasis. [facility], , 01/14/2025 7:08 AM
[2025-01-14 07:18] LABS: ALT 38 U/L (4-34); AST 48 U/L (14-36); African American GFR (CKD) 74 (>60 ml/min/1.73 sqM); Albumin 2.9 g/dL (3.5-5.0); Alkaline Phosphatase 63 U/L (38-126); Anion Gap 15 mmol/L; Blood Urea Nitrogen 28 mg/dL (7-17); Calcium 8.5 mg/dL (8.4-10.2); Carbon Dioxide 17 mmol/L (22-30); Chloride 110 mmol/L (98-107); Glucose 110 mg/dL (74-99); Non-African American GFR(CKD) 64 (>60 ml/min/1.73 sqM); Potassium 3.7 mmol/L (3.5-5.1); Sodium 142 mmol/L (137-145); Total Bilirubin 0.6 mg/dL (0.2-1.3); Total Protein 5.7 g/dL (6.3-8.2)
--- NOTE | 2025-01-14 13:52 | P.PN ---
Subjective Progress Note Date: 01/14/25 Principal diagnosis: Influenza. 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 Her primary care provider is Dr. Rodriguez. Presented emergency department with a chief complaint of increasing shortness of breath developing over the last week or so. Associated symptoms including nasal congestion, cough, sore throat. Profound generalized weakness, unable to stand and walk. EMS was called yesterday afternoon, and she was brought into the emergency department. Found to be extremely short of breath, placed on a 10 L nonrebreather. She was also in atrial fibrillation with rapid ventricular response, started on IV heparin per protocol and IV Cardizem. Workup in the emergency department including a viral screen positive for influenza A. Chest x-ray significant for cardiomegaly, small bilateral pleural effusions, and right lower lobe consolidation. CBC: WBC count 5.6, hemoglobin 7.5, platelets 245. CMP: Sodium 138, potassium 3.7, chloride 106, serum bicarb 13, anion gap 19, creatinine 1.41, glucose 107. Troponin 0.02. NT proBNP 2530. Lactic was 4.1 and is down to 2.4. Did receive a 1.5 L normal saline fluid bolus in the ED. Normal saline infusing at 75 mm/h. She has been started on Tamiflu. Patient currently be evaluated in the emergency department, she is on 6 L nasal cannula. Mild respiratory distress. Tachypneic. Conversational dyspnea speaking in 3-4 word phrases. Heart rhythm appears to be atrial fibrillation with rapid ventricular response with a rate up to 160 bpm. Blood pressure is normotensive. Currently on Cardizem which is infusing at 5 mg/h. Heparin continues to infuse per protocol. Denies history of atrial fibrillation. She denies any chest pain, heart palpitations, lightheadedness/syncopal events, or lower extremity edema. She is prescribed Lasix to be taken on outpatient basis, she stopped taking this medication approximately 4 days ago. States she has been extremely weak and unable to make it to the bathroom. Most recent available echocardiogram from May, demonstrates preserved left ventricular ejection fraction of 55 to 60%, as well as, mild to moderate aortic regurgitation, mild to moderate tricuspid regurgitation. She has been started on Tamiflu with renal dose adjustment. Diane fr[place] she has received a influenza vaccination this season. Empirically placed on antibiotics in the ED. Current vital signs: Afebrile, heart rate 158 bpm, blood pressure 107/86 mmHg, tachypneic breathing in the mid 20s, SpO2 reading 94% on 6 L/min nasal cannula. Progress note dated January 12, 2025. 80-year-old female with history of multiple medical problems including hiatal hernia, GERD, previous ventilator dependent respiratory failure requiring tracheostomy, hypertension, hyperlipidemia, among other things. The patient came into the hospital complaining of increasing shortness of breath. She had shortness of breath for about 5 to 7 days. She also complained of nasal congestion, cough, and sore throat. She tested positive for influenza A, and was admitted to the hospital. She is a DO NOT RESUSCITATE patient. Currently, she is on saline at 50 cc an hour, and nasal O2 at 4 L. She is currently on Rocephin, and Tamiflu. Vancomycin has been discontinued. Laboratory data includes a white count 9.4, hemoglobin 7.5, hematocrit 26.4, and a platelet count of 250,000. Sodium 141, potassium 3.1, chlorides 106, CO2 25, anion gap 10, BUN 37, creatinine 1.23. Progress note dated January 13, 2025. 80-year-old female with history of multiple medical problems including hiatal hernia, GERD, previous ventilator dependent respiratory failure, requiring tracheostomy, hypertension, hyperlipidemia, among other things. The patient is seen today in room 365. Clinically, she still complaining of shortness of breath, still has a cough. She is on 3 L. She is getting saline at 75 cc an hour. She continues on Rocephin and Tamiflu. We add prednisone to the regimen for her bronchoconstriction. We did order chest x-ray for tomorrow morning. The patient is a DO NOT RESUSCITATE patient. No new labs are noted from today. Progress note dated January 14, 2025. 80-year-old female seen today in room 365. She does feel better today. She is on room air. She is getting saline at 75 cc an hour. She does have a bit of a cough, it is nonproductive. Her breathing is much improved. She is awake and alert. Her laboratory data includes a white count 10, hemoglobin 8.7, hematocrit 30.9, and a platelet count of 297,000. Sodium 142, potassium 3.7, chlorides 110, CO2 17, anion gap 15, BUN 28, and creatinine 0.86. Glucose is 110. Chest x-ray shows persistent but improving right lower lobe infiltrate, and/or atelectasis. There is some cardiomegaly, and left basilar atelectasis or infiltrate. Objective - Vital Signs Vital signs: Vital Signs Temp 97.4 F L 01/14/25 08:34 Pulse 56 L 01/14/25 11:54 Resp 19 01/14/25 11:54 BP 133/60 01/14/25 11:54 Pulse Ox 92 L 01/14/25 11:54 FiO2 Intake & Output 01/13/25 01/14/25 01/14/25 18:59 06:59 18:59 Intake Total 380 565 220 Output Total 420 600 Balance -40 -35 220 Weight 45.359 kg Intake: IV 40 40 20 Invasive Line 1 20 20 10 Invasive Line 2 20 20 10 Intake, IV Titration 525 Amount Sodium Chloride 0.9% 1, 525 000 ml @ 75 mls/hr IV . [id number] [facility] Rx#:[id number] Oral 340 200 Output: Urine 420 600 Straight 600 Other: Voiding Method External Catheter External Catheter External Catheter # Voids 0 # Bowel Movements 0 - Exam No acute distress, oriented 3. No respiratory distress. Awake and alert. No conversational dyspnea. Currently on room air. HEENT examination is grossly unremarkable. Mucous membranes are moist. No oral lesions. Neck supple. Full range of motion. No adenopathy thyromegaly or neck vein distention. Cardiovascular examination reveals regular rhythm rate. S1-S2 normal. No S3 or S4. No discernible murmur noted. Lungs reveal scattered rhonchi and crackles. Breath sounds equal bilaterally. There are no wheezes. Breath sounds are equal bilaterally. Abdomen soft bowel sounds are heard. No masses or tenderness. Extremities are intact. No cyanosis clubbing or edema. Skin is without rash or lesion. Neurologic examination is brief but nonfocal. - Labs CBC & Chem 7: 01/14/25 06:40 01/14/25 06:40 Labs: Abnormal Lab Results - Last 24 Hours (Table) 01/10/25 01/13/25 01/14/25 Range/Units 20:17 15:55 06:40 Hgb 8.7 L (11.4-16.0) gm/dL Hct 30.9 L (34.0-46.0) % MCV 69.8 L (80.0-100.0) fL MCH 19.7 L (25.0-35.0) pg MCHC 28.2 L (31.0-37.0) g/dL RDW 17.9 H (11.5-15.5) % Neutrophils # 8.9 H (1.3-7.7) k/uL Lymphocytes # 0.5 L (1.0-4.8) k/uL Chloride 109 H (98-107) mmol/L Carbon Dioxide 20 L (22-30) mmol/L BUN 26 H (7-17) mg/dL Glucose (74-99) mg/dL AST (14-36) U/L ALT (4-34) U/L Total Protein (6.3-8.2) g/dL Albumin (3.5-5.0) g/dL Mycoplasma pneumon IgG 0.99 H (<=0.90) INDEX 01/14/25 Range/Units 06:40 Hgb (11.4-16.0) gm/dL Hct (34.0-46.0) % MCV (80.0-100.0) fL MCH (25.0-35.0) pg MCHC (31.0-37.0) g/dL RDW (11.5-15.5) % Neutrophils # (1.3-7.7) k/uL Lymphocytes # (1.0-4.8) k/uL Chloride 110 H (98-107) mmol/L Carbon Dioxide 17 L (22-30) mmol/L BUN 28 H (7-17) mg/dL Glucose 110 H (74-99) mg/dL AST 48 H (14-36) U/L ALT 38 H (4-34) U/L Total Protein 5.7 L (6.3-8.2) g/dL Albumin 2.9 L (3.5-5.0) g/dL Mycoplasma pneumon IgG (<=0.90) INDEX Microbiology - Last 24 Hours (Table) 01/10/25 20:17 Blood Culture - Preliminary Blood 01/10/25 17:55 Blood Culture - Preliminary Blood Assessment and Plan Assessment: Acute influenza A infection, with probable superimposed bacterial pneumonia. Pneumonia/sepsis. Atrial fibrillation with rapid ventricular response. Suspect acute exacerbation of CHF, with preserved ejection fraction. Acute hypoxemic respiratory failure, secondary to a combination of above. Acute kidney injury Anion gap metabolic acidosis. Lactic acidosis, improved. Chronic microcytic, hypochromic anemia. History of hiatal hernia with previous Alley fundoplication. 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 Gastroesophageal reflux disease. History of hypertension. History of hyperlipidemia. History of rheumatoid arthritis. Plan: Plan dated January 12, 2025. The patient is seen today in room 365. She is currently on 4 L of oxygen. She is getting saline at 50 cc an hour. Vancomycin has been discontinued. She continues on Tamiflu and Rocephin. We will continue to follow make recommendations along the way. Labs, x-rays, and medications are reviewed. The patient is a DO NOT RESUSCITATE patient. Prognosis is guarded. Dictation was produced using [employer] software. Please excuse any grammatical, word or spelling errors. Plan dated January 13, 2025. The patient is a DO NOT RESUSCITATE patient. She is seen again today in room 365. She continues on nasal O2 at 3 L. The patient is currently getting saline at 75 cc an hour. She continues on Rocephin and Tamiflu. We add prednisone to the regimen. We will order chest x-ray for January 14. Labs, x-rays, and all medications are reviewed. The patient's overall prognosis remains very guarded. The patient is very frail appearing. We will continue to follow make recommendations. Dictation was produced using [employer] software. Please excuse any grammatical, word or spelling errors. Plan dated January 14, 2025. 80-year-old female again seen today in room 365. She is currently on room air. She is getting saline at 75 cc an hour. All labs, x-rays, and medications are reviewed. She continues on appropriate medications. Today she states that she is feeling better. She does have a nonproductive cough. She denies any shortness of breath. We will continue to follow make recommendations along the way. She will complete 5 days of Tamiflu. No additional recommendations at this time. Prognosis is guarded. The patient is a DO NOT RESUSCITATE patient. Dictation was produced using [employer] dictation software. Please excuse any grammatical, word or spelling errors. Time with Patient: Less than 30
--- NOTE | 2025-01-15 07:40 | XR ---
Two-view chest. CLINICAL INDICATION: Female, 80 years old with history of Follow up Pneumonia, Cough. COMPARISON: None TECHNIQUE: PA and lateral views chest obtained FINDINGS: There is mild cephalization of the pulmonary vasculature. There are small bilateral pleural effusions . There is a focal opacity in the right lung base. The heart size is normal. The osseous structures are intact. There is no pneumothorax. IMPRESSION: Acute cardiopulmonary disease as described above. Findings could be related to right lower lobe pneum onia or CHF with focal right lower lobe pulmonary edema. Clinical correlation recommended. [facility], , 01/15/2025 7:38 AM
[2025-01-15 08:17] LABS: ALT 33 U/L (4-34); AST 36 U/L (14-36); African American GFR (CKD) 80 (>60 ml/min/1.73 sqM); Albumin 2.7 g/dL (3.5-5.0); Alkaline Phosphatase 60 U/L (38-126); Anion Gap 11 mmol/L; Blood Urea Nitrogen 28 mg/dL (7-17); Calcium 8.7 mg/dL (8.4-10.2); Carbon Dioxide 19 mmol/L (22-30); Chloride 110 mmol/L (98-107); Glucose 111 mg/dL (74-99); Non-African American GFR(CKD) 70 (>60 ml/min/1.73 sqM); Potassium 3.3 mmol/L (3.5-5.1); Sodium 140 mmol/L (137-145); Total Bilirubin 0.5 mg/dL (0.2-1.3); Total Protein 5.3 g/dL (6.3-8.2)
[2025-01-15 08:24] LABS: Anisocytosis Slight; Basophils % (A) 0 %; Eosinophils % (A) 0 %; HCT 27.8 % (34.0-46.0); HGB 7.9 gm/dL (11.4-16.0); Hypochromasia Marked; Lymphocytes # (A) 0.7 k/uL (1.0-4.8); Lymphocytes % (A) 6 %; MCH 19.3 pg (25.0-35.0); MCHC 28.3 g/dL (31.0-37.0); MCV 68.2 fL (80.0-100.0); Mean Platelet Volume 7.4; Microcytosis Marked; Monocytes # (A) 0.6 k/uL (0-1.0); Monocytes % (A) 6 %; Neutrophils # (A) 9.2 k/uL (1.3-7.7); Neutrophils % (A) 85 %; Platelet Count 369 k/uL (150-450); Poikilocytosis Slight; RBC 4.07 m/uL (3.80-5.40); WBC 10.7 k/uL (3.8-10.6)
--- NOTE | 2025-01-15 09:27 | P.PN ---
Subjective Progress Note Date: 01/14/25 HISTORY OF PRESENT ILLNESS: This is a 80-year-old female with a previous medical history signif icant for hypertension and hypertensive cardiovascular disease, hyperlipidemia, history of ALLERGIC rhinitis, GERD with esophagitis, osteopenia, detrusor stability, patient presented to the emergency department at [facility] with increased coughing and increased shortness of breath over the last few days, patient stated that she was doing fine up till about last week when she came down with an upper respite tract infection, she was complaining some cough and low-grade temperature, she was feeling fine at that time, however today she was supposed to come to my office to see me because of increased coughing and shortness of breath, however she contacted the office and stated that she was going to the ER by EMS because she was extremely short of breath, patient was seen in emergency department she was placed on nonrebreather with a 10 L oxygen and oxygenation was around 9394% on oxygen, her chest x-ray showed evidence of right lower lobe pneumonia, her influenza A came back positive, she was started on Rocephin 1 g piggyback every 24 hours, Zithromax 500 mg IV piggyback every 24 hours also Tamiflu 75 mg orally twice every day, she was started also on DuoNeb nebulization 4 times every day as well as Pulmicort 1 mg nebulization twice every day pulmonary consultation was obtained, patient will be admitted to the hospital for further evaluation and treatment. 01/11: Patient is sitting up in bed continues to be somewhat short of breath, she continues to be on 5 L and oxygen, her chest x-ray showed right lower lobe pneumonia, she is positive for influenza A, she does appear to have a significant anion gap metabolic acidosis, she would be switched to D5W with 3 A of sodium bicarbonate at 50 cc an hour, monitor the patient CMP over the next 24 hours, restart the patient back on ceftriaxone, continue vancomycin, continue Tamiflu 30 mg orally once every day, hold off diuretics for now, her BUN slightly elevated, her creatinine is slightly elevated as well, I will follow-up with the patient very closely, patient has been seen in consultation by pulmonary medicine as well as by cardiology she underwent atrial fibrillation with rapid ventricular response yesterday she was placed initially on Cardizem drip and heparin drip, so far she was taken off heparin drip and she was placed on Eliquis 2.5 mg orally twice every day we will continue with that, her heart rate is remains controlled, continue metoprolol 50 mg orally twice every day as well. 01/12: Patient is sitting up in bed appears to be in minimal distress, she is not able to swallow very good, she was seen earlier by speech therapist who recommended for the patient to go for swallow evaluation the next 24 hours, patient is insisting on having her diet Coke at the bedside, I spoke with the patient about the importance of complying with the nursing orders and her son was in agreement for that, she was given a small cup of diet Coke to try while she is in the hospital until further evaluation by speech therapy, her son is questioning whether or not the patient need to have a PEG tube placement, but we will discuss this after swallow evaluation and see how the patient is doing. She has been followed by pulmonary as well as by cardiology. 01/13: Patient had her swallow evaluation today, she is able to tolerate a soft diet at this point in time, she continues to have significant trouble with swallowing, she is very picky about her food that she can eat and swallow, she is asking for manage. Will, I spoke with the nursing staff about that, continue soft diet at this point in time, I spoke with the patient and her son was at the bedside, the reason for the iron deficiency anemia could be anything starting from hiatal hernia all the way down to any sort of malignancy, she stated that she does not want to go for any procedure at this point in time, since she is 80-year-old, and her son was at the bedside I told her we are harry continue to treat her pneumonia for now, continue to treat her paroxysmal atrial fibrillation, and that she can be discharged home and follow-up with us as an outpatient then should make the decision with her front worker Dr. Arce as an outpatient whether or not she should go for EGD and colonoscopy and possible capsule endoscopy or MR enterography to complete the investigation of iron deficiency anemia. 01/14: Patient is sitting up in bed in no apparent distress, she is feeling a lot better today, will discontinue IV fluid, patient was taken off vancomycin, we will discontinue ceftriaxone as the patient did have a 5-day course of IV antibiotic at this point in time, repeated chest x-ray, repeat procalcitonin level today, pulm medicine is following, will follow-up with the patient very closely, likely patient will be discharged home in the next 1 or 2 days. REVIEW OF SYSTEMS: Constitutional: Positive for documented fever, positive for chills, no night sweats. No weight change. Positive for weakness, fatigue or lethargy. No daytime sleepiness. HEENT: No headache. No blurred vision or double vision, no loss of vision. No loss of Hearing, no ringing in the ears, no dizziness. No nasal drainage or congestion. No epistaxis. No sore throat. Lungs: Positive for shortness of breath, positive for cough, positive for sputum production. Positive for wheezing. Reports dyspnea with activity. Cardiovascular: No chest pain, no lower extremity edema. No palpitations. No paroxysmal nocturnal dyspnea. No orthopnea. No lightheadedness or dizziness. No syncopal episodes. Abdominal: Reports abdominal pain. No nausea, vomiting. No diarrhea. No constipation. No bloody or tarry stools reports loss of appetite. Genitourinary: No dysuria, increased frequency, urgency. No urinary retention. Musculoskeletal: No myalgias. No muscle weakness, no gait dysfunction, no frequent falls. No back pain. No neck pain. Integumentary: No wounds, no lesions. No rash or pruritus. No unusual bruising. No change in hair or nails. Neurologic: No aphasia. No facial droop. No change in mentation. No head injury. No headache. No paralysis. No paresthesia. Psychiatric: No depression. No anxiety. No mood swings. Endocrine: No abnormal blood sugars. No weight change. PHYSICAL EXAMINATION: General: 80-year-old female laying down in bed in moderate respiratory distress HEENT: Head is atraumatic, normocephalic, pupils were equal round reactive to light and recommendation, extraocular muscle movement were intact, sclera n onicteric, conjunctivae were pale, mucous membranes of the mouth are somewhat dry. Neck: Supple, no JVP, normal carotid upstroke bilaterally, no lymphadenopathy. Chest: Decreased breath sounds at the bases, few rhonchi, positive for egophony at the right lower lobe, positive for intercostal retraction. Heart: First heart sound is normal, second heart sound is normal there is systolic ejection murmur 2/6 located in the left sternal border. Abdomen: Soft, nontender nondistended positive ultrasound hepatosplenomegaly. Extremities: There is no edema no calf tenderness DP +2 bilaterally. Neurologic examination: Patient is awake alert and oriented X 3, cranial nerves II-12 appear grossly intact, muscle power were 5 out of 5 in upper extremities and 5 out of 5 in bilateral lower extremities, deep tendon reflexes normal bilaterally. ASSESSMENT AND PLAN: 1. Acute hypoxemic respiratory failure due to acute right lower lobe pneumonia with underlying influenza A Associated with sepsis. Patient has finished 5-day course of Tamiflu as well as IV antibiotic, discontinue ceftriaxone, discontinue vancomycin, repeat chest x-ray, repeat procalcitonin level. Pulmonary is following. 2. Acute kidney injury due to acute tubular necrosis and vasomotor nephropathy associated with anion gap metabolic acidosis. Resolved. 3. Anion gap antibiotic acidosis due to acute kidney injury resolved. 4. Paroxysmal atrial fibrillation currently in sinus rhythm continue patient on metoprolol 50 mg orally twice every day, continue Eliquis 2.5 mg orally twice every day monitor the patient symptoms very closely. 5. Iron deficiency anemia. Continue to monitor the patient CBC, continue iron 150 mg orally once every day, hemoglobin is better today. 6. Hypertension and hypertensive cardiovascular disease. Continue patient on amlodipine 5 mg once every day, continue metoprolol 50 mg orally twice every day monitor the patient blood pressure regularly. 7. Mixed hyperlipidemia continue patient on rosuvastatin 10 mg once every day, monitor lipid panel, keep LDL 55-70. 8. GERD with esophagitis. 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 Rheumatoid arthritis positive serology and positive RANGEL.. Currently not taking any medication at this time. 11. ALLERGIC rhinitis. Appears to be stable at this time 12. Osteoporosis. Patient will need to be started on Prolia 60 mg subcutaneously every 6 months, continue calcium and vitamin D supplement as an outpatient. 13. DVT prophylaxis. Bilateral knee-high NITHIN hose, continue Eliquis 2.5 mg orally twice every day. 14. GI prophylaxis. Continue patient on Protonix 40 mg orally twice every day. 15. Patient is not resuscitate. Patient stated that she does not want to do any invasive procedures at this time including EGD and colonoscopy as workup for iron deficiency anemia she and her son are aware that this could be related to her malignancy somewhere in the GI tract because of her weight loss and not able to eat much, she has been following with Dr. Arce last time she was seen in July 2024, I believe she was offered EGD and colonoscopy but she declined. 16. Hopefully home in the next 24 hours. Objective - Vital Signs Vital signs: Vital Signs Temp 97.4 F L 01/14/25 08:34 Pulse 56 L 01/14/25 11:54 Resp 19 01/14/25 11:54 BP 133/60 01/14/25 11:54 Pulse Ox 92 L 01/14/25 11:54 FiO2 Intake & Output 01/13/25 01/14/25 01/14/25 18:59 06:59 18:59 Intake Total 380 565 220 Output Total 420 600 Balance -40 -35 220 Weight 45.359 kg Intake: IV 40 40 20 Invasive Line 1 20 20 10 Invasive Line 2 20 20 10 Intake, IV Titration 525 Amount Sodium Chloride 0.9% 1, 525 000 ml @ 75 mls/hr IV . [id number] [facility] Rx#:[id number] Oral 340 200 Output: Urine 420 600 Straight 600 Other: Voiding Method External Catheter External Catheter External Catheter # Voids 0 # Bowel Movements 0 - Labs CBC & Chem 7: 01/14/25 06:40 01/14/25 06:40 Labs: Abnormal Lab Results - Last 24 Hours (Table) 01/10/25 01/13/25 01/14/25 Range/Units 20:17 15:55 06:40 Hgb 8.7 L (11.4-16.0) gm/dL Hct 30.9 L (34.0-46.0) % MCV 69.8 L (80.0-100.0) fL MCH 19.7 L (25.0-35.0) pg MCHC 28.2 L (31.0-37.0) g/dL RDW 17.9 H (11.5-15.5) % Neutrophils # 8.9 H (1.3-7.7) k/uL Lymphocytes # 0.5 L (1.0-4.8) k/uL Chloride 109 H (98-107) mmol/L Carbon Dioxide 20 L (22-30) mmol/L BUN 26 H (7-17) mg/dL Glucose (74-99) mg/dL AST (14-36) U/L ALT (4-34) U/L Total Protein (6.3-8.2) g/dL Albumin (3.5-5.0) g/dL Mycoplasma pneumon IgG 0.99 H (<=0.90) INDEX 01/14/25 Range/Units 06:40 Hgb (11.4-16.0) gm/dL Hct (34.0-46.0) % MCV (80.0-100.0) fL MCH (25.0-35.0) pg MCHC (31.0-37.0) g/dL RDW (11.5-15.5) % Neutrophils # (1.3-7.7) k/uL Lymphocytes # (1.0-4.8) k/uL Chloride 110 H (98-107) mmol/L Carbon Dioxide 17 L (22-30) mmol/L BUN 28 H (7-17) mg/dL Glucose 110 H (74-99) mg/dL AST 48 H (14-36) U/L ALT 38 H (4-34) U/L Total Protein 5.7 L (6.3-8.2) g/dL Albumin 2.9 L (3.5-5.0) g/dL Mycoplasma pneumon IgG (<=0.90) INDEX Microbiology - Last 24 Hours (Table) 01/10/25 20:17 Blood Culture - Preliminary Blood 01/10/25 17:55 Blood Culture - Preliminary Blood
[2025-01-15] MEDS: POTASSIUM CHLORIDE ER 20 MEQ TAB.ER PO STA (09:36)
[2025-01-15] MEDS: FUROSEMIDE 10 MG/ML 2 ML VIAL IV STA (09:37)
--- NOTE | 2025-01-15 11:07 | P.PN ---
Subjective Progress Note Date: 01/15/25 HISTORY OF PRESENT ILLNESS: This is a 80-year-old female with a previous medical history signif icant for hypertension and hypertensive cardiovascular disease, hyperlipidemia, history of ALLERGIC rhinitis, GERD with esophagitis, osteopenia, detrusor stability, patient presented to the emergency department at [facility] with increased coughing and increased shortness of breath over the last few days, patient stated that she was doing fine up till about last week when she came down with an upper respite tract infection, she was complaining some cough and low-grade temperature, she was feeling fine at that time, however today she was supposed to come to my office to see me because of increased coughing and shortness of breath, however she contacted the office and stated that she was going to the ER by EMS because she was extremely short of breath, patient was seen in emergency department she was placed on nonrebreather with a 10 L oxygen and oxygenation was around 9394% on oxygen, her chest x-ray showed evidence of right lower lobe pneumonia, her influenza A came back positive, she was started on Rocephin 1 g piggyback every 24 hours, Zithromax 500 mg IV piggyback every 24 hours also Tamiflu 75 mg orally twice every day, she was started also on DuoNeb nebulization 4 times every day as well as Pulmicort 1 mg nebulization twice every day pulmonary consultation was obtained, patient will be admitted to the hospital for further evaluation and treatment. 01/11: Patient is sitting up in bed continues to be somewhat short of breath, she continues to be on 5 L and oxygen, her chest x-ray showed right lower lobe pneumonia, she is positive for influenza A, she does appear to have a significant anion gap metabolic acidosis, she would be switched to D5W with 3 A of sodium bicarbonate at 50 cc an hour, monitor the patient CMP over the next 24 hours, restart the patient back on ceftriaxone, continue vancomycin, continue Tamiflu 30 mg orally once every day, hold off diuretics for now, her BUN slightly elevated, her creatinine is slightly elevated as well, I will follow-up with the patient very closely, patient has been seen in consultation by pulmonary medicine as well as by cardiology she underwent atrial fibrillation with rapid ventricular response yesterday she was placed initially on Cardizem drip and heparin drip, so far she was taken off heparin drip and she was placed on Eliquis 2.5 mg orally twice every day we will continue with that, her heart rate is remains controlled, continue metoprolol 50 mg orally twice every day as well. 01/12: Patient is sitting up in bed appears to be in minimal distress, she is not able to swallow very good, she was seen earlier by speech therapist who recommended for the patient to go for swallow evaluation the next 24 hours, patient is insisting on having her diet Coke at the bedside, I spoke with the patient about the importance of complying with the nursing orders and her son was in agreement for that, she was given a small cup of diet Coke to try while she is in the hospital until further evaluation by speech therapy, her son is questioning whether or not the patient need to have a PEG tube placement, but we will discuss this after swallow evaluation and see how the patient is doing. She has been followed by pulmonary as well as by cardiology. 01/13: Patient had her swallow evaluation today, she is able to tolerate a soft diet at this point in time, she continues to have significant trouble with swallowing, she is very picky about her food that she can eat and swallow, she is asking for manage. Will, I spoke with the nursing staff about that, continue soft diet at this point in time, I spoke with the patient and her son was at the bedside, the reason for the iron deficiency anemia could be anything starting from hiatal hernia all the way down to any sort of malignancy, she stated that she does not want to go for any procedure at this point in time, since she is 80-year-old, and her son was at the bedside I told her we are harry continue to treat her pneumonia for now, continue to treat her paroxysmal atrial fibrillation, and that she can be discharged home and follow-up with us as an outpatient then should make the decision with her freight brake operator Dr. Arce as an outpatient whether or not she should go for EGD and colonoscopy and possible capsule endoscopy or MR enterography to complete the investigation of iron deficiency anemia. 01/14: Patient is sitting up in bed in no apparent distress, she is feeling a lot better today, will discontinue IV fluid, patient was taken off vancomycin, we will discontinue ceftriaxone as the patient did have a 5-day course of IV antibiotic at this point in time, repeated chest x-ray, repeat procalcitonin level today, pulm medicine is following, will follow-up with the patient very closely, likely patient will be discharged home in the next 1 or 2 days. 01/15: Patient is feeling better, she continues to be generally weak, she will continue to work with physical therapy and Occupational Therapy, will likely require to go for subacute rehabilitation at [facility] patient was in agreement to go for subacute rehabilitation hopefully on Friday, continue current treatment plan, patient chest x-ray was reviewed showed evidence of cardiomegaly with minimal pulmonary vascular congestion resolving right lower lobe pneumonia, discontinue IV antibiotic and oral Tamiflu orally after 5 days, continue other treatment plan, patient will be given Lasix 20 mg IV push x 1, her potassium is being replaced as well. Repeat labs tomorrow morning. REVIEW OF SYSTEMS: Constitutional: Positive for documented fever, positive for chills, no night sweats. No weight change. Positive for weakness, fatigue or lethargy. No daytime sleepiness. HEENT: No headache. No blurred vision or double vision, no loss of vision. No loss of Hearing, no ringing in the ears, no dizziness. No nasal drainage or congestion. No epistaxis. No sore throat. Lungs: Positive for shortness of breath, positive for cough, positive for sputum production. Positive for wheezing. Reports dyspnea with activity. Cardiovascular: No chest pain, no lower extremity edema. No palpitations. No paroxysmal nocturnal dyspnea. No orthopnea. No lightheadedness or dizziness. No syncopal episodes. Abdominal: Reports abdominal pain. No nausea, vomiting. No diarrhea. No constipation. No bloody or tarry stools reports loss of appetite. Genitourinary: No dysuria, increased frequency, urgency. No urinary retention. Musculoskeletal: No myalgias. No muscle weakness, no gait dysfunction, no frequent falls. No back pain. No neck pain. Integumentary: No wounds, no lesions. No rash or pruritus. No unusual bruising. No change in hair or nails. Neurologic: No aphasia. No facial droop. No change in mentation. No head injury. No headache. No paralysis. No paresthesia. Psychiatric: No depression. No anxiety. No mood swings. Endocrine: No abnormal blood sugars. No weight change. PHYSICAL EXAMINATION: General: 80-year-old female laying down in bed in moderate respiratory distress HEENT: Head is atraumatic, normocephalic, pupils were equal round reactive to light and recommendation, extraocular muscle movement were intact, sclera nonicteric, conjunctivae were pale, mucous membranes of the mouth are somewhat dry. Neck: Supple, no JVP, normal carotid upstroke bilaterally, no lymphadenopathy. Chest: Decreased breath sounds at the bases, few rhonchi, positive for egophony at the right lower lobe, positive for intercostal retraction. Heart: First heart sound is normal, second heart sound is normal there is systolic ejection murmur 2/6 located in the left sternal border. Abdomen: Soft, nontender nondistended positive ultrasound hepatosplenomegaly. Extremities: There is no edema no calf tenderness DP +2 bilaterally. Neurologic examination: Patient is awake alert and oriented X 3, cranial nerves II-12 appear grossly intact, muscle power were 5 out of 5 in upper extremities and 5 out of 5 in bilateral lower extremities, deep tendon reflexes normal bilaterally. ASSESSMENT AND PLAN: 1. Acute hypoxemic respiratory failure due to acute right lower lobe pneumonia with underlying influenza A Associated with sepsis. Patient has finished 5-day course of Tamiflu as well as IV antibiotic, discontinue ceftriaxone, discontinue vancomycin, repeat chest x-ray, repeat procalcitonin level. Pulmonary is following. 2. Acute kidney injury due to acute tubular necrosis and vasomotor nephropathy associated with anion gap metabolic acidosis. Resolved. 3. Anion gap antibiotic acidosis due to acute kidney injury resolved. 4. Paroxysmal atrial fibrillation currently in sinus rhythm continue patient on metoprolol 50 mg orally twice every day, continue Eliquis 2.5 mg orally twice every day monitor the patient symptoms very closely. 5. Iron deficiency anemia. Continue to monitor the patient CBC, continue iron 150 mg orally once every day, hemoglobin is better today. 6. Hypertension and hypertensive cardiovascular disease. Continue patient on amlodipine 5 mg once every day, continue metoprolol 50 mg orally twice every day monitor the patient blood pressure regularly. 7. Mixed hyperlipidemia continue patient on rosuvastatin 10 mg once every day, monitor lipid panel, keep LDL 55-70. 8. GERD with esophagitis. 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 Rheumatoid arthritis positive serology and positive RANGEL.. Currently not taking any medication at this time. 11. ALLERGIC rhinitis. Appears to be stable at this time 12. Osteoporosis. Patient will need to be started on Prolia 60 mg subcutaneously every 6 months, continue calcium and vitamin D supplement as an outpatient. 13. DVT prophylaxis. Bilateral knee-high NITHIN hose, continue Eliquis 2.5 mg orally twice every day. 14. GI prophylaxis. Continue patient on Protonix 40 mg orally twice every day. 15. Patient is not resuscitate. Patient stated that she does not want to do any invasive procedures at this time including EGD and colonoscopy as workup for iron deficiency anemia she and her son are aware that this could be related to her malignancy somewhere in the GI tract because of her weight loss and not able to eat much, she has been following with Dr. Arce last time she was seen in July 2024, I believe she was offered EGD and colonoscopy but she declined. 16. Hypokalemia status post replacement. 17. Medical debility. Continue physical therapy and Occupational Therapy, marriage and family social worker consultation for discharge planning likely on Friday. Objective - Vital Signs Vital signs: Vital Signs Temp 97.5 F L 01/15/25 03:53 Pulse 58 L 01/15/25 07:48 Resp 19 01/15/25 03:53 BP 153/67 01/15/25 03:53 Pulse Ox 93 L 01/15/25 07:41 FiO2 Intake & Output 01/14/25 01/15/25 01/15/25 18:59 06:59 18:59 Intake Total 420 180 Output Total 600 450 Balance -180 -450 180 Weight 46 kg Intake: IV 40 Invasive Line 1 20 Invasive Line 2 20 Oral 380 180 Output: Urine 600 450 Straight 600 450 Other: Voiding Method External Catheter External Catheter # Voids 0 - Labs CBC & Chem 7: 01/15/25 07:35 01/15/25 07:35 Labs: Abnormal Lab Results - Last 24 Hours (Table) 01/15/25 01/15/25 Range/Units 07:35 07:35 WBC 10.7 H (3.8-10.6) k/uL Hgb 7.9 L (11.4-16.0) gm/dL Hct 27.8 L (34.0-46.0) % MCV 68.2 L (80.0-100.0) fL MCH 19.3 L (25.0-35.0) pg MCHC 28.3 L (31.0-37.0) g/dL RDW 18.0 H (11.5-15.5) % Neutrophils # 9.2 H (1.3-7.7) k/uL Lymphocytes # 0.7 L (1.0-4.8) k/uL Potassium 3.3 L (3.5-5.1) mmol/L Chloride 110 H (98-107) mmol/L Carbon Dioxide 19 L (22-30) mmol/L BUN 28 H (7-17) mg/dL Glucose 111 H (74-99) mg/dL Total Protein 5.3 L (6.3-8.2) g/dL Albumin 2.7 L (3.5-5.0) g/dL Microbiology - Last 24 Hours (Table) 01/10/25 20:17 Blood Culture - Preliminary Blood 01/10/25 17:55 Blood Culture - Preliminary Blood
--- NOTE | 2025-01-15 14:01 | P.PN ---
Subjective Progress Note Date: 01/15/25 Principal diagnosis: Influenza. 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 Her primary care provider is Dr. Rodriguez. Presented emergency department with a chief complaint of increasing shortness of breath developing over the last week or so. Associated symptoms including nasal congestion, cough, sore throat. Profound generalized weakness, unable to stand and walk. EMS was called yesterday afternoon, and she was brought into the emergency department. Found to be extremely short of breath, placed on a 10 L nonrebreather. She was also in atrial fibrillation with rapid ventricular response, started on IV heparin per protocol and IV Cardizem. Workup in the emergency department including a viral screen positive for influenza A. Chest x-ray significant for cardiomegaly, small bilateral pleural effusions, and right lower lobe consolidation. CBC: WBC count 5.6, hemoglobin 7.5, platelets 245. CMP: Sodium 138, potassium 3.7, chloride 106, serum bicarb 13, anion gap 19, creatinine 1.41, glucose 107. Troponin 0.02. NT proBNP 2530. Lactic was 4.1 and is down to 2.4. Did receive a 1.5 L normal saline fluid bolus in the ED. Normal saline infusing at 75 mm/h. She has been started on Tamiflu. Patient currently be evaluated in the emergency department, she is on 6 L nasal cannula. Mild respiratory distress. Tachypneic. Conversational dyspnea speaking in 3-4 word phrases. Heart rhythm appears to be atrial fibrillation with rapid ventricular response with a rate up to 160 bpm. Blood pressure is normotensive. Currently on Cardizem which is infusing at 5 mg/h. Heparin continues to infuse per protocol. Denies history of atrial fibrillation. She denies any chest pain, heart palpitations, lightheadedness/syncopal events, or lower extremity edema. She is prescribed Lasix to be taken on outpatient basis, she stopped taking this medication approximately 4 days ago. States she has been extremely weak and unable to make it to the bathroom. Most recent available echocardiogram from May, demonstrates preserved left ventricular ejection fraction of 55 to 60%, as well as, mild to moderate aortic regurgitation, mild to moderate tricuspid regurgitation. She has been started on Tamiflu with renal dose adjustment. Diane [place] she has received a influenza vaccination this season. Empirically placed on antibiotics in the ED. Current vital signs: Afebrile, heart rate 158 bpm, blood pressure 107/86 mmHg, tachypneic breathing in the mid 20s, SpO2 reading 94% on 6 L/min nasal cannula. Progress note dated January 12, 2025. 80-year-old female with history of multiple medical problems including hiatal hernia, GERD, previous ventilator dependent respiratory failure requiring tracheostomy, hypertension, hyperlipidemia, among other things. The patient came into the hospital complaining of increasing shortness of breath. She had shortness of breath for about 5 to 7 days. She also complained of nasal congestion, cough, and sore throat. She tested positive for influenza A, and was admitted to the hospital. She is a DO NOT RESUSCITATE patient. Currently, she is on saline at 50 cc an hour, and nasal O2 at 4 L. She is currently on Rocephin, and Tamiflu. Vancomycin has been discontinued. Laboratory data includes a white count 9.4, hemoglobin 7.5, hematocrit 26.4, and a platelet count of 250,000. Sodium 141, potassium 3.1, chlorides 106, CO2 25, anion gap 10, BUN 37, creatinine 1.23. Progress note dated January 13, 2025. 80-year-old female with history of multiple medical problems including hiatal hernia, GERD, previous ventilator dependent respiratory failure, requiring tracheostomy, hypertension, hyperlipidemia, among other things. The patient is seen today in room 365. Clinically, she still complaining of shortness of breath, still has a cough. She is on 3 L. She is getting saline at 75 cc an hour. She continues on Rocephin and Tamiflu. We add prednisone to the regimen for her bronchoconstriction. We did order chest x-ray for tomorrow morning. The patient is a DO NOT RESUSCITATE patient. No new labs are noted from today. Progress note dated January 14, 2025. 80-year-old female seen today in room 365. She does feel better today. She is on room air. She is getting saline at 75 cc an hour. She does have a bit of a cough, it is nonproductive. Her breathing is much improved. She is awake and alert. Her laboratory data includes a white count 10, hemoglobin 8.7, hematocrit 30.9, and a platelet count of 297,000. Sodium 142, potassium 3.7, chlorides 110, CO2 17, anion gap 15, BUN 28, and creatinine 0.86. Glucose is 110. Chest x-ray shows persistent but improving right lower lobe infiltrate, and/or atelectasis. There is some cardiomegaly, and left basilar atelectasis or infiltrate. Progress note dated January 15, 2025. 80-year-old female seen today in room 365. The patient is feeling much better. She is sitting in a chair next to the hospital bed. She has been weaned off of oxygen. She is not receiving any IV fluids. She is very frail appearing. Current labs include a white count of 10.7, hemoglobin 7.9, hematocrit 27.8, and platelet count of 369,000. Sodium 140, potassium 3.3, chlorides 110, CO2 19, anion gap 11, BUN 28, and creatinine 0.8. Procalcitonin level was 3.96. Cultures are negative. Most mild fluid overload, and some opacities, in the right lower lobe, consistent with either pneumonia or CHF. Objective - Vital Signs Vital signs: Vital Signs Temp 97.7 F 01/15/25 08:00 Pulse 54 L 01/15/25 12:00 Resp 16 01/15/25 08:00 BP 141/65 01/15/25 12:00 Pulse Ox 97 01/15/25 12:00 FiO2 Intake & Output 01/14/25 01/15/25 01/15/25 18:59 06:59 18:59 Intake Total 420 180 Output Total 600 450 Balance -180 -450 180 Weight 46 kg Intake: IV 40 Invasive Line 1 20 Invasive Line 2 20 Oral 380 180 Output: Urine 600 450 Straight 600 450 Other: Voiding Method External Catheter External Catheter External Catheter # Voids 0 - Exam No acute distress, oriented 3. No respiratory distress. Awake and alert. No conversational dyspnea. Currently on room air. HEENT examination is grossly unremarkable. Mucous membranes are moist. No oral lesions. Neck supple. Full range of motion. No adenopathy thyromegaly or neck vein dis tention. Cardiovascular examination reveals regular rhythm rate. S1-S2 normal. No S3 or S4. No discernible murmur noted. Lungs reveal scattered rhonchi and crackles. Breath sounds equal bilaterally. There are no wheezes. Breath sounds are equal bilaterally. Abdomen soft bowel sounds are heard. No masses or tenderness. Extremities are intact. No cyanosis clubbing or edema. Skin is without rash or lesion. Neurologic examination is brief but nonfocal. - Labs CBC & Chem 7: 01/15/25 07:35 01/15/25 07:35 Labs: Abnormal Lab Results - Last 24 Hours (Table) 01/15/25 01/15/25 01/15/25 Range/Units 07:35 07:35 07:35 WBC 10.7 H (3.8-10.6) k/uL Hgb 7.9 L (11.4-16.0) gm/dL Hct 27.8 L (34.0-46.0) % MCV 68.2 L (80.0-100.0) fL MCH 19.3 L (25.0-35.0) pg MCHC 28.3 L (31.0-37.0) g/dL RDW 18.0 H (11.5-15.5) % Neutrophils # 9.2 H (1.3-7.7) k/uL Lymphocytes # 0.7 L (1.0-4.8) k/uL Potassium 3.3 L (3.5-5.1) mmol/L Chloride 110 H (98-107) mmol/L Carbon Dioxide 19 L (22-30) mmol/L BUN 28 H (7-17) mg/dL Glucose 111 H (74-99) mg/dL Total Protein 5.3 L (6.3-8.2) g/dL Albumin 2.7 L (3.5-5.0) g/dL Procalcitonin 3.96 H (0.02-0.50) ng/mL Assessment and Plan Assessment: Acute influenza A infection, with probable superimposed bacterial pneumonia. Pneumonia/sepsis. Atrial fibrillation with rapid ventricular response. Suspect acute exacerbation of CHF, with preserved ejection fraction. Acute hypoxemic respiratory failure, secondary to a combination of above. Acute kidney injury Anion gap metabolic acidosis. Lactic acidosis, improved. Chronic microcytic, hypochromic anemia. History of hiatal hernia with previous Alley fundoplication. 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 Gastroesophageal reflux disease. History of hypertension. History of hyperlipidemia. History of rheumatoid arthritis. Plan: Plan dated January 12, 2025. The patient is seen today in room 365. She is currently on 4 L of oxygen. She is getting saline at 50 cc an hour. Vancomycin has been discontinued. She continues on Tamiflu and Rocephin. We will continue to follow make recommendations along the way. Labs, x-rays, and medications are reviewed. The patient is a DO NOT RESUSCITATE patient. Prognosis is guarded. Dictation was produced using [employer] software. Please excuse any grammatical, word or spelling errors. Plan dated January 13, 2025. The patient is a DO NOT RESUSCITATE patient. She is seen again today in room 365. She continues on nasal O2 at 3 L. The patient is currently getting saline at 75 cc an hour. She continues on Rocephin and Tamiflu. We add prednisone to the regimen. We will order chest x-ray for January 14. Labs, x-rays, and all medications are reviewed. The patient's overall prognosis remains very guarded. The patient is very frail appearing. We will continue to follow make recommendations. Dictation was produced using [employer] software. Please excuse any grammatical, word or spelling errors. Plan dated January 14, 2025. 80-year-old female again seen today in room 365. She is currently on room air. She is getting saline at 75 cc an hour. All labs, x-rays, and medications are reviewed. She continues on appropriate medications. Today she states that she is feeling better. She does have a nonproductive cough. She denies any shortness of breath. We will continue to follow make recommendations along the way. She will complete 5 days of Tamiflu. No additional recommendations at this time. Prognosis is guarded. The patient is a DO NOT RESUSCITATE patient. Dictation was produced using [employer] software. Please excuse any grammatical, word or spelling errors. Plan dated January 15, 2025. 80-year-old female seen today in room 365. The patient appears to be doing much better. She is awake and alert. She is not having any respiratory distress. She continues on updrafts. She is on prednisone 30 mg a day. We will continue to follow make recommendations. The patient's overall prognosis remains guarded. She is a DO NOT RESUSCITATE patient. The patient is very frail appearing. Dictation was produced using [employer] software. Please excuse any grammatical, word or spelling errors. Time with Patient: Less than 30
[2025-01-16 08:47] LABS: Anisocytosis Slight; Basophils % (A) 0 %; Eosinophils # (A) 0.1 k/uL (0-0.7); Eosinophils % (A) 0 %; HCT 28.4 % (34.0-46.0); Hypochromasia Marked; Lymphocytes # (A) 1.1 k/uL (1.0-4.8); Lymphocytes % (A) 9 %; MCH 19.1 pg (25.0-35.0); MCV 68.2 fL (80.0-100.0); Mean Platelet Volume 7.3; Microcytosis Marked; Monocytes # (A) 0.7 k/uL (0-1.0); Monocytes % (A) 6 %; Neutrophils # (A) 9.1 k/uL (1.3-7.7); Neutrophils % (A) 81 %; Platelet Count 349 k/uL (150-450); RBC 4.16 m/uL (3.80-5.40); RDW 17.8 % (11.5-15.5); WBC 11.1 k/uL (3.8-10.6)
[2025-01-16 09:16] LABS: ALT 33 U/L (4-34); AST 33 U/L (14-36); African American GFR (CKD) 87 (>60 ml/min/1.73 sqM); Albumin 2.7 g/dL (3.5-5.0); Alkaline Phosphatase 59 U/L (38-126); Anion Gap 11 mmol/L; Blood Urea Nitrogen 24 mg/dL (7-17); Calcium 8.5 mg/dL (8.4-10.2); Carbon Dioxide 21 mmol/L (22-30); Chloride 107 mmol/L (98-107); Glucose 88 mg/dL (74-99); Non-African American GFR(CKD) 75 (>60 ml/min/1.73 sqM); Sodium 139 mmol/L (137-145); Total Bilirubin 0.6 mg/dL (0.2-1.3); Total Protein 5.4 g/dL (6.3-8.2)
[2025-01-16] MEDS: POTASSIUM CHLORIDE 20 MEQ in WATER FOR INJECTION 1 100ML.BAG IVPB STA (09:43)
[2025-01-16] MEDS: predniSONE 10 MG TAB PO SCH (09:44)
[2025-01-16] MEDS: POTASSIUM CHLORIDE ER 20 MEQ TAB.ER PO STA (09:44)
--- NOTE | 2025-01-16 12:08 | P.PN ---
Subjective Progress Note Date: 01/16/25 HISTORY OF PRESENT ILLNESS: This is a 80-year-old female with a previous medical history signif icant for hypertension and hypertensive cardiovascular disease, hyperlipidemia, history of ALLERGIC rhinitis, GERD with esophagitis, osteopenia, detrusor stability, patient presented to the emergency department at [facility] with increased coughing and increased shortness of breath over the last few days, patient stated that she was doing fine up till about last week when she came down with an upper respite tract infection, she was complaining some cough and low-grade temperature, she was feeling fine at that time, however today she was supposed to come to my office to see me because of increased coughing and shortness of breath, however she contacted the office and stated that she was going to the ER by EMS because she was extremely short of breath, patient was seen in emergency department she was placed on nonrebreather with a 10 L oxygen and oxygenation was around 9394% on oxygen, her chest x-ray showed evidence of right lower lobe pneumonia, her influenza A came back positive, she was started on Rocephin 1 g piggyback every 24 hours, Zithromax 500 mg IV piggyback every 24 hours also Tamiflu 75 mg orally twice every day, she was started also on DuoNeb nebulization 4 times every day as well as Pulmicort 1 mg nebulization twice every day pulmonary consultation was obtained, patient will be admitted to the hospital for further evaluation and treatment. 01/11: Patient is sitting up in bed continues to be somewhat short of breath, she continues to be on 5 L and oxygen, her chest x-ray showed right lower lobe pneumonia, she is positive for influenza A, she does appear to have a significant anion gap metabolic acidosis, she would be switched to D5W with 3 A of sodium bicarbonate at 50 cc an hour, monitor the patient CMP over the next 24 hours, restart the patient back on ceftriaxone, continue vancomycin, continue Tamiflu 30 mg orally once every day, hold off diuretics for now, her BUN slightly elevated, her creatinine is slightly elevated as well, I will follow-up with the patient very closely, patient has been seen in consultation by pulmonary medicine as well as by cardiology she underwent atrial fibrillation with rapid ventricular response yesterday she was placed initially on Cardizem drip and heparin drip, so far she was taken off heparin drip and she was placed on Eliquis 2.5 mg orally twice every day we will continue with that, her heart rate is remains controlled, continue metoprolol 50 mg orally twice every day as well. 01/12: Patient is sitting up in bed appears to be in minimal distress, she is not able to swallow very good, she was seen earlier by speech therapist who recommended for the patient to go for swallow evaluation the next 24 hours, patient is insisting on having her diet Coke at the bedside, I spoke with the patient about the importance of complying with the nursing orders and her son was in agreement for that, she was given a small cup of diet Coke to try while she is in the hospital until further evaluation by speech therapy, her son is questioning whether or not the patient need to have a PEG tube placement, but we will discuss this after swallow evaluation and see how the patient is doing. She has been followed by pulmonary as well as by cardiology. 01/13: Patient had her swallow evaluation today, she is able to tolerate a soft diet at this point in time, she continues to have significant trouble with swallowing, she is very picky about her food that she can eat and swallow, she is asking for manage. Will, I spoke with the nursing staff about that, continue soft diet at this point in time, I spoke with the patient and her son was at the bedside, the reason for the iron deficiency anemia could be anything starting from hiatal hernia all the way down to any sort of malignancy, she stated that she does not want to go for any procedure at this point in time, since she is 80-year-old, and her son was at the bedside I told her we are harry continue to treat her pneumonia for now, continue to treat her paroxysmal atrial fibrillation, and that she can be discharged home and follow-up with us as an outpatient then should make the decision with her generation mechanic helper Dr. Arce as an outpatient whether or not she should go for EGD and colonoscopy and possible capsule endoscopy or MR enterography to complete the investigation of iron deficiency anemia. 01/14: Patient is sitting up in bed in no apparent distress, she is feeling a lot better today, will discontinue IV fluid, patient was taken off vancomycin, we will discontinue ceftriaxone as the patient did have a 5-day course of IV antibiotic at this point in time, repeated chest x-ray, repeat procalcitonin level today, pulm medicine is following, will follow-up with the patient very closely, likely patient will be discharged home in the next 1 or 2 days. 01/15: Patient is feeling better, she continues to be generally weak, she will continue to work with physical therapy and Occupational Therapy, will likely require to go for subacute rehabilitation at [facility] patient was in agreement to go for subacute rehabilitation hopefully on Friday, continue current treatment plan, patient chest x-ray was reviewed showed evidence of cardiomegaly with minimal pulmonary vascular congestion resolving right lower lobe pneumonia, discontinue IV antibiotic and oral Tamiflu orally after 5 days, continue other treatment plan, patient will be given Lasix 20 mg IV push x 1, her potassium is being replaced as well. Repeat labs tomorrow morning. 01/16: Patient sitting up in bed in no apparent distress, she is feeling a lot better today, she denies any chest pain, she continues to be somewhat short of breath, she is not eating much, she appears to be generally weak, she decided to go to [facility] at this point in time, will talk with social organization professor tomorrow morning to try to get the patient to [facility] for physical therapy rehabilitation, continue current treatment plan, patient has finished 5-day course of both Tamiflu and ceftriaxone, repeated procalcitonin level showed 3.96 down from 40 I will continue to follow-up with the patient very closely REVIEW OF SYSTEMS: Constitutional: no fever, no chills, no night sweats. Positive for weight c hange. Positive for weakness, fatigue or lethargy. No daytime sleepiness. HEENT: No headache. No blurred vision or double vision, no loss of vision. No loss of Hearing, no ringing in the ears, no dizziness. No nasal drainage or congestion. No epistaxis. No sore throat. Lungs: Positive for the last shortness of breath, positive for cough, positive for minimal sputum production. negative for wheezing. Reports dyspnea with activity. Cardiovascular: No chest pain, no lower extremity edema. No palpitations. No paroxysmal nocturnal dyspnea. No orthopnea. No lightheadedness or dizziness. No syncopal episodes. Abdominal: Reports abdominal pain. No nausea, vomiting. No diarrhea. No constipation. No bloody or tarry stools reports loss of appetite. Positive for dysphagia, positive for constipation Genitourinary: No dysuria, negative for increased frequency, urgency. No urinary retention. Musculoskeletal: No myalgias. Positive for muscle weakness, positive for gait dysfunction, no frequent falls. No back pain. No neck pain. Integumentary: No wounds, no lesions. No rash or pruritus. No unusual bruising. No change in hair or nails. Neurologic: No aphasia. No facial droop. No change in mentation. No head injury. No headache. No paralysis. No paresthesia. Psychiatric: Positive for depression. No anxiety. No mood swings. Endocrine: No abnormal blood sugars. Positive for weight change. PHYSICAL EXAMINATION: General: 80-year-old female laying down in bed in moderate respiratory distress HEENT: Head is atraumatic, normocephalic, pupils were equal round reactive to light and recommendation, extraocular muscle movement were intact, sclera nonicteric, conjunctivae were pale, mucous membranes of the mouth are somewhat dry. Neck: Supple, no JVP, normal carotid upstroke bilaterally, no lymphadenopathy. Chest: Decreased breath sounds at the bases, few rhonchi, positive for egophony at the right lower lobe, positive for intercostal retraction. Heart: First heart sound is normal, second heart sound is normal there is systolic ejection murmur 2/6 located in the left sternal border. Abdomen: Soft, nontender nondistended positive ultrasound hepatosplenomegaly. Extremities: There is no edema no calf tenderness DP +2 bilaterally. Neurologic examination: Patient is awake alert and oriented X 3, cranial nerves II-12 appear grossly intact, muscle power were 5 out of 5 in upper extremities and 5 out of 5 in bilateral lower extremities, deep tendon reflexes normal bilaterally. ASSESSMENT AND PLAN: 1. Acute hypoxemic respiratory failure due to acute right lower lobe pneumonia with underlying influenza A Associated with sepsis. Patient has finished 5-day course of Tamiflu as well as IV antibiotic, discontinue ceftriaxone, discontinue vancomycin, repeated chest x-ray showed evidence of minimal pulmonary vascular congestion with right lower lobe pneumonia that is resolving, continue to monitor the patient clinically, procalcitonin level is down to 3.96 from 40. 2. Acute kidney injury due to acute tubular necrosis and vasomotor nephropathy associated with anion gap metabolic acidosis. Resolved. 3. Anion gap antibiotic acidosis due to acute kidney injury resolved. 4. Paroxysmal atrial fibrillation currently in sinus rhythm continue patient on metoprolol 50 mg orally twice every day, continue Eliquis 2.5 mg orally twice every day monitor the patient symptoms very closely. 5. Iron deficiency anemia. Continue to monitor the patient CBC, continue iron 150 mg orally once every day, hemoglobin is better today. Patient is refusing GI workup including EGD and colonoscopy and capsule endoscopy 6. Hypertension and hypertensive cardiovascular disease. Continue patient on amlodipine 5 mg once every day, continue metoprolol 50 mg orally twice every day monitor the patient blood pressure regularly. 7. Mixed hyperlipidemia continue patient on rosuvastatin 10 mg once every day, monitor lipid panel, keep LDL 55-70. 8. GERD with esophagitis. 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 Rheumatoid arthritis positive serology and positive RANGEL.. Currently not taking any medication at this time. 11. ALLERGIC rhinitis. Appears to be stable at this time 12. Osteoporosis. Patient will need to be started on Prolia 60 mg subcutaneously every 6 months, continue calcium and vitamin D supplement as an outpatient. 13. DVT prophylaxis. Bilateral knee-high NITHIN hose, continue Eliquis 2.5 mg orally twice every day. 14. GI prophylaxis. Continue patient on Protonix 40 mg orally twice every day. 15. Patient is not resuscitate. Patient stated that she does not want to do any invasive procedures at this time including EGD and colonoscopy as workup for iron deficiency anemia she and her son are aware that this could be related to her malignancy somewhere in the GI tract because of her weight loss and not able to eat much, she has been following with Dr. Arce last time she was seen in July 2024, I believe she was offered EGD and colonoscopy but she declined. 16. Hypokalemia patient will be given potassium chloride 40 mcg orally x 1 and 20 mill equivalent IV piggyback over 2 hours x 1. 17. Severe protein calorie malnutrition start the patient on Ensure compact twice every day with meals. 18. Medical debility. Continue physical therapy and Occupational Therapy, social organization professor consultation for discharge planning likely on Friday. 19. Patient is no code Objective - Vital Signs Vital signs: Vital Signs Temp 98.2 F 01/16/25 03:24 Pulse 54 L 01/16/25 03:24 Resp 19 01/16/25 03:24 BP 126/59 01/16/25 03:24 Pulse Ox 95 01/16/25 03:24 FiO2 Intake & Output 01/15/25 01/16/25 01/16/25 17:59 06:59 18:59 Intake Total 0 Output Total Balance 0 Weight Intake: Oral 0 Output: Urine Straight Other: Voiding Method # Voids - Labs CBC & Chem 7: 01/16/25 08:18 01/16/25 08:18 Labs: Abnormal Lab Results - Last 24 Hours (Table) 01/15/25 01/15/25 01/15/25 Range/Units 07:35 07:35 07:35 WBC 10.7 H (3.8-10.6) k/uL Hgb 7.9 L (11.4-16.0) gm/dL Hct 27.8 L (34.0-46.0) % MCV 68.2 L (80.0-100.0) fL MCH 19.3 L (25.0-35.0) pg MCHC 28.3 L (31.0-37.0) g/dL RDW 18.0 H (11.5-15.5) % Neutrophils # 9.2 H (1.3-7.7) k/uL Lymphocytes # 0.7 L (1.0-4.8) k/uL Potassium 3.3 L (3.5-5.1) mmol/L Chloride 110 H (98-107) mmol/L Carbon Dioxide 19 L (22-30) mmol/L BUN 28 H (7-17) mg/dL Glucose 111 H (74-99) mg/dL Total Protein 5.3 L (6.3-8.2) g/dL Albumin 2.7 L (3.5-5.0) g/dL Procalcitonin 3.96 H (0.02-0.50) ng/mL 01/16/25 Range/Units 08:18 WBC 11.1 H (3.8-10.6) k/uL Hgb 8.0 L (11.4-16.0) gm/dL Hct 28.4 L (34.0-46.0) % MCV 68.2 L (80.0-100.0) fL MCH 19.1 L (25.0-35.0) pg MCHC 28.0 L (31.0-37.0) g/dL RDW 17.8 H (11.5-15.5) % Neutrophils # 9.1 H (1.3-7.7) k/uL Lymphocytes # (1.0-4.8) k/uL Potassium (3.5-5.1) mmol/L Chloride (98-107) mmol/L Carbon Dioxide (22-30) mmol/L BUN (7-17) mg/dL Glucose (74-99) mg/dL Total Protein (6.3-8.2) g/dL Albumin (3.5-5.0) g/dL Procalcitonin (0.02-0.50) ng/mL Microbiology - Last 24 Hours (Table) 01/10/25 20:17 Blood Culture - Final Blood 01/10/25 17:55 Blood Culture - Final Blood
--- NOTE | 2025-01-16 13:27 | P.PN ---
Subjective Progress Note Date: 01/16/25 Principal diagnosis: Influenza. 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 Her primary care provider is Dr. Rodriguez. Presented emergency department with a chief complaint of increasing shortness of breath developing over the last week or so. Associated symptoms including nasal congestion, cough, sore throat. Profound generalized weakness, unable to stand and walk. EMS was called yesterday afternoon, and she was brought into the emergency department. Found to be extremely short of breath, placed on a 10 L nonrebreather. She was also in atrial fibrillation with rapid ventricular response, started on IV heparin per protocol and IV Cardizem. Workup in the emergency department including a viral screen positive for influenza A. Chest x-ray significant for cardiomegaly, small bilateral pleural effusions, and right lower lobe consolidation. CBC: WBC count 5.6, hemoglobin 7.5, platelets 245. CMP: Sodium 138, potassium 3.7, chloride 106, serum bicarb 13, anion gap 19, creatinine 1.41, glucose 107. Troponin 0.02. NT proBNP 2530. Lactic was 4.1 and is down to 2.4. Did receive a 1.5 L normal saline fluid bolus in the ED. Normal saline infusing at 75 mm/h. She has been started on Tamiflu. Patient currently be evaluated in the emergency department, she is on 6 L nasal cannula. Mild respiratory distress. Tachypneic. Conversational dyspnea speaking in 3-4 word phrases. Heart rhythm appears to be atrial fibrillation with rapid ventricular response with a rate up to 160 bpm. Blood pressure is normotensive. Currently on Cardizem which is infusing at 5 mg/h. Heparin continues to infuse per protocol. Denies history of atrial fibrillation. She denies any chest pain, heart palpitations, lightheadedness/syncopal events, or lower extremity edema. She is prescribed Lasix to be taken on outpatient basis, she stopped taking this medication approximately 4 days ago. States she has been extremely weak and unable to make it to the bathroom. Most recent available echocardiogram from May, demonstrates preserved left ventricular ejection fraction of 55 to 60%, as well as, mild to moderate aortic regurgitation, mild to moderate tricuspid regurgitation. She has been started on Tamiflu with renal dose adjustment. Diane fr[place] she has received a influenza vaccination this season. Empirically placed on antibiotics in the ED. Current vital signs: Afebrile, heart rate 158 bpm, blood pressure 107/86 mmHg, tachypneic breathing in the mid 20s, SpO2 reading 94% on 6 L/min nasal cannula. Progress note dated January 12, 2025. 80-year-old female with history of multiple medical problems including hiatal hernia, GERD, previous ventilator dependent respiratory failure requiring tracheostomy, hypertension, hyperlipidemia, among other things. The patient came into the hospital complaining of increasing shortness of breath. She had shortness of breath for about 5 to 7 days. She also complained of nasal congestion, cough, and sore throat. She tested positive for influenza A, and was admitted to the hospital. She is a DO NOT RESUSCITATE patient. Currently, she is on saline at 50 cc an hour, and nasal O2 at 4 L. She is currently on Rocephin, and Tamiflu. Vancomycin has been discontinued. Laboratory data includes a white count 9.4, hemoglobin 7.5, hematocrit 26.4, and a platelet count of 250,000. Sodium 141, potassium 3.1, chlorides 106, CO2 25, anion gap 10, BUN 37, creatinine 1.23. Progress note dated January 13, 2025. 80-year-old female with history of multiple medical problems including hiatal hernia, GERD, previous ventilator dependent respiratory failure, requiring tracheostomy, hypertension, hyperlipidemia, among other things. The patient is seen today in room 365. Clinically, she still complaining of shortness of breath, still has a cough. She is on 3 L. She is getting saline at 75 cc an hour. She continues on Rocephin and Tamiflu. We add prednisone to the regimen for her bronchoconstriction. We did order chest x-ray for tomorrow morning. The patient is a DO NOT RESUSCITATE patient. No new labs are noted from today. Progress note dated January 14, 2025. 80-year-old female seen today in room 365. She does feel better today. She is on room air. She is getting saline at 75 cc an hour. She does have a bit of a cough, it is nonproductive. Her breathing is much improved. She is awake and alert. Her laboratory data includes a white count 10, hemoglobin 8.7, hematocrit 30.9, and a platelet count of 297,000. Sodium 142, potassium 3.7, chlorides 110, CO2 17, anion gap 15, BUN 28, and creatinine 0.86. Glucose is 110. Chest x-ray shows persistent but improving right lower lobe infiltrate, and/or atelectasis. There is some cardiomegaly, and left basilar atelectasis or infiltrate. Progress note dated January 15, 2025. 80-year-old female seen today in room 365. The patient is feeling much better. She is sitting in a chair next to the hospital bed. She has been weaned off of oxygen. She is not receiving any IV fluids. She is very frail appearing. Current labs include a white count of 10.7, hemoglobin 7.9, hematocrit 27.8, and platelet count of 369,000. Sodium 140, potassium 3.3, chlorides 110, CO2 19, anion gap 11, BUN 28, and creatinine 0.8. Procalcitonin level was 3.96. Cultures are negative. Most mild fluid overload, and some opacities, in the right lower lobe, consistent with either pneumonia or CHF. Progress note dated January 16, 2025. 80-year-old frail female, seen in room 365. The patient is doing much better. She is on room air. She is not receiving any IV fluids. Clinically, the patient is not complaining of shortness of breath, cough, wheezing, chest tightness, or phlegm production. White count 1.1, hemoglobin 8, hematocrit 28.4 , and platelet count 349,000. Sodium 139, potassium 3, chlorides 107, CO2 21, anion gap 11, BUN 24, and creatinine 0.75. Most recent procalcitonin level is 3.96. Blood cultures are negative. Chest x-ray could be consistent with CHF, versus right lower lobe pneumonia. Objective - Vital Signs Vital signs: Vital Signs Temp 98.1 F 01/16/25 08:00 Pulse 67 01/16/25 13:01 Resp 16 01/16/25 08:00 BP 129/61 01/16/25 12:00 Pulse Ox 91 L 01/16/25 12:00 FiO2 Intake & Output 01/15/25 01/16/25 01/16/25 17:59 06:59 18:59 Intake Total 0 Output Total Balance 0 Weight Intake: Oral 0 Output: Urine Straight Other: Voiding Method External Catheter # Voids - Exam No acute distress, oriented 3. No respiratory distress. Awake and alert. No conversational dyspnea. Currently on room air. HEENT examination is grossly unremarkable. Mucous membranes are moist. No oral lesions. Neck supple. Full range of motion. No adenopathy thyromegaly or neck vein distention. Cardiovascular examination reveals regular rhythm rate. S1-S2 normal. No S3 or S4. No discernible murmur noted. Lungs reveal scattered rhonchi and crackles. Breath sounds equal bilaterally. There are no wheezes. Breath sounds are equal bilaterally. Abdomen soft bowel sounds are heard. No masses or tenderness. Extremities are intact. No cyanosis clubbing or edema. Skin is without rash or lesion. Neurologic examination is brief but nonfocal. - Labs CBC & Chem 7: 01/16/25 08:18 01/16/25 08:18 Labs: Abnormal Lab Results - Last 24 Hours (Table) 01/15/25 01/16/25 01/16/25 Range/Units 07:35 08:18 08:18 WBC 11.1 H (3.8-10.6) k/uL Hgb 8.0 L (11.4-16.0) gm/dL Hct 28.4 L (34.0-46.0) % MCV 68.2 L (80.0-100.0) fL MCH 19.1 L (25.0-35.0) pg MCHC 28.0 L (31.0-37.0) g/dL RDW 17.8 H (11.5-15.5) % Neutrophils # 9.1 H (1.3-7.7) k/uL Potassium 3.0 L (3.5-5.1) mmol/L Carbon Dioxide 21 L (22-30) mmol/L BUN 24 H (7-17) mg/dL Total Protein 5.4 L (6.3-8.2) g/dL Albumin 2.7 L (3.5-5.0) g/dL Procalcitonin 3.96 H (0.02-0.50) ng/mL Microbiology - Last 24 Hours (Table) 01/10/25 20:17 Blood Culture - Final Blood 01/10/25 17:55 Blood Culture - Final Blood Assessment and Plan Assessment: Acute influenza A infection, with probable superimposed bacterial pneumonia, RLL. Pneumonia/sepsis. Atrial fibrillation with rapid ventricular response. Suspect acute exacerbation of CHF, with preserved ejection fraction. Acute hypoxemic respiratory failure, secondary to a combination of above. Acute kidney injury Anion gap metabolic acidosis. Lactic acidosis, improved. Chronic microcytic, hypochromic anemia. History of hiatal hernia with previous Alley fundoplication. 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 Gastroesophageal reflux disease. History of hypertension. History of hyperlipidemia. History of rheumatoid arthritis. Plan: Plan dated January 12, 2025. The patient is seen today in room 365. She is currently on 4 L of oxygen. She is getting saline at 50 cc an hour. Vancomycin has been discontinued. She continues on Tamiflu and Rocephin. We will continue to follow make recommendations along the way. Labs, x-rays, and medications are reviewed. The patient is a DO NOT RESUSCITATE patient. Prognosis is guarded. Dictation was produced using [employer] software. Please excuse any grammatical, word or spelling errors. Plan dated January 13, 2025. The patient is a DO NOT RESUSCITATE patient. She is seen again today in room 365. She continues on nasal O2 at 3 L. The patient is currently getting saline at 75 cc an hour. She continues on Rocephin and Tamiflu. We add prednisone to the regimen. We will order chest x-ray for January 14. Labs, x-rays, and all medications are reviewed. The patient's overall prognosis remains very guarded. The patient is very frail appearing. We will continue to follow make recom mendations. Dictation was produced using [employer] software. Please excuse any grammatical, word or spelling errors. Plan dated January 14, 2025. 80-year-old female again seen today in room 365. She is currently on room air. She is getting saline at 75 cc an hour. All labs, x-rays, and medications are reviewed. She continues on appropriate medications. Today she states that she is feeling better. She does have a nonproductive cough. She denies any shortness of breath. We will continue to follow make recommendations along the way. She will complete 5 days of Tamiflu. No additional recommendations at this time. Prognosis is guarded. The patient is a DO NOT RESUSCITATE patient. Dictation was produced using [employer] software. Please excuse any grammatical, word or spelling errors. Plan dated January 15, 2025. 80-year-old female seen today in room 365. The patient appears to be doing much better. She is awake and alert. She is not having any respiratory distress. She continues on updrafts. She is on prednisone 30 mg a day. We will continue to follow make recommendations. The patient's overall prognosis remains guarded. She is a DO NOT RESUSCITATE patient. The patient is very frail appearing. Dictation was produced using [employer] software. Please excuse any grammatical, word or spelling errors. Plan dated January 16, 2025. The patient is seen today in room 365. She has been doing better each day. She is currently on room air. She is not receiving any IV fluids. Labs, x-rays, and all medications are reviewed. The patient remains a DO NOT RESUSCITATE patient. Currently, the patient is on updrafts, and prednisone. She has compl eted her antibiotics. We will continue to follow and make recommendations along the way. Prognosis is certainly guarded. All labs, x-rays, medications are reviewed. Dictation was produced using [employer] software. Please excuse any grammatical, word or spelling errors. Time with Patient: Less than 30
[2025-01-17 05:27] LABS: Anisocytosis Slight; Basophils % (A) 0 %; Eosinophils % (A) 0 %; HCT 26.1 % (34.0-46.0); HGB 7.4 gm/dL (11.4-16.0); Hypochromasia Marked; Lymphocytes # (A) 0.7 k/uL (1.0-4.8); Lymphocytes % (A) 7 %; MCH 19.3 pg (25.0-35.0); MCHC 28.5 g/dL (31.0-37.0); MCV 67.8 fL (80.0-100.0); Mean Platelet Volume 6.7; Microcytosis Marked; Monocytes # (A) 0.6 k/uL (0-1.0); Monocytes % (A) 6 %; Neutrophils # (A) 7.9 k/uL (1.3-7.7); Neutrophils % (A) 84 %; Platelet Count 343 k/uL (150-450); RBC 3.85 m/uL (3.80-5.40); RDW 18.2 % (11.5-15.5); WBC 9.3 k/uL (3.8-10.6)
[2025-01-17 05:53] LABS: ALT 27 U/L (4-34); AST 23 U/L (14-36); African American GFR (CKD) >90 (>60 ml/min/1.73 sqM); Albumin 2.6 g/dL (3.5-5.0); Alkaline Phosphatase 54 U/L (38-126); Anion Gap 6 mmol/L; Blood Urea Nitrogen 21 mg/dL (7-17); Calcium 8.4 mg/dL (8.4-10.2); Carbon Dioxide 25 mmol/L (22-30); Chloride 107 mmol/L (98-107); Glucose 108 mg/dL (74-99); Magnesium 2.1 mg/dL (1.6-2.3); Non-African American GFR(CKD) 82 (>60 ml/min/1.73 sqM); Potassium 3.9 mmol/L (3.5-5.1); Sodium 138 mmol/L (137-145); Total Bilirubin 0.5 mg/dL (0.2-1.3); Total Protein 5.1 g/dL (6.3-8.2)
[2025-01-17 10:17] VITALS: TEMP 97.9
[2025-01-17 11:55] VITALS: BP 117/74; RESP 16
[2025-01-17 12:10] VITALS: BMI 16.1
[2025-01-17 12:21] VITALS: PULSE 74
--- NOTE | 2025-01-17 13:50 | P.DS ---
Providers Date of admission: 01/10/25 19:02 Expected date of discharge: 01/17/25 Attending physician: Edgardo Rodriguez Consults: 01/10/25 19:01 Consult Physician Routine Consulting Provider: Greyson Curiel Consult Reason/Comments: FLu PNA Do you want consulting provider notified?: Yes Primary care physician: Edgardo Rodriguez Hospital Course: HISTORY OF PRESENT ILLNESS: This is a 80-year-old female with a previous medical history significant for hypertension and hypertensive cardiovascular disease, hyperlipidemia, history of ALLERGIC rhinitis, GERD with esophagitis, osteopenia, detrusor stability, patient presented to the emergency department at [facility] with increased coughing and increased shortness of breath over the last few days, patient stated that she was doing fine up till about last week when she came down with an upper respite tract infection, she was complaining some cough and low-grade temperature, she was feeling fine at that time, however today she was supposed to come to my office to see me because of increased coughing and shortness of breath, however she contacted the office and stated that she was going to the ER by EMS because she was extremely short of breath, patient was seen in emergency department she was placed on nonrebreather with a 10 L oxygen and oxygenation was around 9394% on oxygen, her chest x-ray showed evidence of right lower lobe pneumonia, her influenza A came back positive, she was started on Rocephin 1 g piggyback every 24 hours, Zithromax 500 mg IV piggyback every 24 hours also Tamiflu 75 mg orally twice every day, she was started also on DuoNeb nebulization 4 times every day as well as Pulmicort 1 mg nebulization twice every day pulmonary consultation was obtained, patient will be admitted to the hospital for further evaluation and treatment. 01/11: Patient is sitting up in bed continues to be somewhat short of breath, she continues to be on 5 L and oxygen, her chest x-ray showed right lower lobe pneumonia, she is positive for influenza A, she does appear to have a significant anion gap metabolic acidosis, she would be switched to D5W with 3 A of sodium bicarbonate at 50 cc an hour, monitor the patient CMP over the next 24 hours, restart the patient back on ceftriaxone, continue vancomycin, continue Tamiflu 30 mg orally once every day, hold off diuretics for now, her BUN slightly elevated, her creatinine is slightly elevated as well, I will follow-up with the patient very closely, patient has been seen in consultation by pulmonary medicine as well as by cardiology she underwent atrial fibrillation with rapid ventricular response yesterday she was placed initially on Cardizem drip and heparin drip, so far she was taken off heparin drip and she was placed on Eliquis 2.5 mg orally twice every day we will continue with that, her heart rate is remains controlled, continue metoprolol 50 mg orally twice every day as well. 01/12: Patient is sitting up in bed appears to be in minimal distress, she is not able to swallow very good, she was seen earlier by speech therapist who recommended for the patient to go for swallow evaluation the next 24 hours, patient is insisting on having her diet Coke at the bedside, I spoke with the patient about the importance of complying with the nursing orders and her son was in agreement for that, she was given a small cup of diet Coke to try while she is in the hospital until further evaluation by speech therapy, her son is questioning whether or not the patient need to have a PEG tube placement, but we will discuss this after swallow evaluation and see how the patient is doing. She has been followed by pulmonary as well as by cardiology. 01/13: Patient had her swallow evaluation today, she is able to tolerate a soft diet at this point in time, she continues to have significant trouble with swallowing, she is very picky about her food that she can eat and swallow, she is asking for manage. Will, I spoke with the nursing staff about that, continue soft diet at this point in time, I spoke with the patient and her son was at the bedside, the reason for the iron deficiency anemia could be anything starting from hiatal hernia all the way down to any sort of malignancy, she stated that she does not want to go for any procedure at this point in time, since she is 80-year-old, and her son was at the bedside I told her we are harry continue to treat her pneumonia for now, continue to treat her paroxysmal atrial fibrillation, and that she can be discharged home and follow-up with us as an outpatient then should make the decision with her supervisor net making Dr. Arce as an outpatient whether or not she should go for EGD and colonoscopy and possible capsule endoscopy or MR enterography to complete the investigation of iron deficiency anemia. 3/7: Patient is sitting up in bed in no apparent distress, she is feeling a lot better today, will discontinue IV fluid, patient was taken off vancomycin, we will discontinue ceftriaxone as the patient did have a 5-day course of IV antibiotic at this point in time, repeated chest x-ray, repeat procalcitonin level today, pulm medicine is following, will follow-up with the patient very c losely, likely patient will be discharged home in the next 1 or 2 days. 01/15: Patient is feeling better, she continues to be generally weak, she will continue to work with physical therapy and Occupational Therapy, will likely require to go for subacute rehabilitation at [facility] patient was in agreement to go for subacute rehabilitation hopefully on Friday, continue current treatment plan, patient chest x-ray was reviewed showed evidence of cardiomegaly with minimal pulmonary vascular congestion resolving right lower lobe pneumonia, discontinue IV antibiotic and oral Tamiflu orally after 5 days, continue other treatment plan, patient will be given Lasix 20 mg IV push x 1, her potassium is being replaced as well. Repeat labs tomorrow morning. 01/16: Patient sitting up in bed in no apparent distress, she is feeling a lot better today, she denies any chest pain, she continues to be somewhat short of breath, she is not eating much, she appears to be generally weak, she decided to go to [facility] at this point in time, will talk with neonatal social worker tomorrow morning to try to get the patient to [facility] for physical therapy rehabilitation, continue current treatment plan, patient has finished 5-day course of both Tamiflu and ceftriaxone, repeated procalcitonin level showed 3.96 down from 40 I will continue to follow-up with the patient very closely 01/17: REVIEW OF SYSTEMS: Constitutional: no fever, no chills, no night sweats. Positive for weight change. Positive for weakness, fatigue or lethargy. No daytime sleepiness. HEENT: No headache. No blurred vision or double vision, no loss of vision. No loss of Hearing, no ringing in the ears, no dizziness. No nasal drainage or congestion. No epistaxis. No sore throat. Lungs: Positive for the last shortness of breath, positive for cough, positive for minimal sputum production. negative for wheezing. Reports dyspnea with activity. Cardiovascular: No chest pain, no lower extremity edema. No palpitations. No paroxysmal nocturnal dyspnea. No orthopnea. No lightheadedness or dizziness. No syncopal episodes. Abdominal: Reports abdominal pain. No nausea, vomiting. No diarrhea. No constipation. No bloody or tarry stools reports loss of appetite. Positive for dysphagia, positive for constipation Genitourinary: No dysuria, negative for increased frequency, urgency. No urinary retention. Musculoskeletal: No myalgias. Positive for muscle weakness, positive for gait dysfunction, no frequent falls. No back pain. No neck pain. Integumentary: No wounds, no lesions. No rash or pruritus. No unusual bruising . No change in hair or nails. Neurologic: No aphasia. No facial droop. No change in mentation. No head injury. No headache. No paralysis. No paresthesia. Psychiatric: Positive for depression. No anxiety. No mood swings. Endocrine: No abnormal blood sugars. Positive for weight change. PHYSICAL EXAMINATION: General: 80-year-old female laying down in bed in moderate respiratory distress HEENT: Head is atraumatic, normocephalic, pupils were equal round reactive to light and recommendation, extraocular muscle movement were intact, sclera nonicteric, conjunctivae were pale, mucous membranes of the mouth are somewhat dry. Neck: Supple, no JVP, normal carotid upstroke bilaterally, no lymphadenopathy. Chest: Decreased breath sounds at the bases, few rhonchi, positive for egophony at the right lower lobe, positive for intercostal retraction. Heart: First heart sound is normal, second heart sound is normal there is systolic ejection murmur 2/6 located in the left sternal border. Abdomen: Soft, nontender nondistended positive ultrasound hepatosplenomegaly. Extremities: There is no edema no calf tenderness DP +2 bilaterally. Neurologic examination: Patient is awake alert and oriented X 3, cranial nerves II-12 appear grossly intact, muscle power were 5 out of 5 in upper extremities and 5 out of 5 in bilateral lower extremities, deep tendon reflexes normal bilaterally. DISCHARGE DIAGNOSES: 1. Acute hypoxemic respiratory failure due to acute right lower lobe pneumonia with underlying influenza A Associated with sepsis. 2. Acute kidney injury due to acute tubular necrosis and vasomotor nephropathy associated with anion gap metabolic acidosis. Resolved. 3. Anion gap antibiotic acidosis due to acute kidney injury resolved. 4. Paroxysmal atrial fibrillation currently in sinus rhythm. 5. Iron deficiency anemia. 6. Hypertension and hypertensive cardiovascular disease. 7. Mixed hyperlipidemia. 8. GERD with esophagitis. 9. Detrusor instability. 10. Rheumatoid arthritis positive serology and positive RANGEL. 11. ALLERGIC rhinitis. 12. Osteoporosis. 13. Hypokalemia. 14. Severe protein calorie malnutrition. 15. Medical debility. 16. Patient is no code Patient Condition at Discharge: Stable Plan - Discharge Summary New Discharge Prescriptions: New Apixaban [Eliquis] 2.5 mg PO BID tab Iron Ps Cmplx/Vit B12/FA [Niferex-150 Forte] 1 each PO DAILY cap predniSONE 30 mg PO DAILY #18 tab Ipratropium-Albuterol Nebulize [Duoneb 0.5 mg-3 mg/3 ml Soln] 3 ml INHALATION RT-TID PRN each PRN Reason: Wheezing Metoprolol Tartrate [Lopressor] 50 mg PO BID tab Continue amLODIPine [Norvasc] 5 mg PO DAILY Pantoprazole [Protonix] 40 mg PO BID #60 tab Rosuvastatin [Crestor] 10 mg PO DAILY Discontinued Mirabegron [Myrbetriq] 25 mg PO DAILY Potassium Chloride ER [K-Dur 20] 20 meq PO DAILY Furosemide [Lasix] 40 mg PO HS Discharge Medication List amLODIPine [Norvasc] 5 mg PO DAILY 11/28/21 [History] Pantoprazole [Protonix] 40 mg PO BID #60 tab 02/14/23 [Rx] Rosuvastatin [Crestor] 10 mg PO DAILY 01/10/25 [History] Apixaban [Eliquis] 2.5 mg PO BID tab 01/17/25 [Rx] Ipratropium-Albuterol Nebulize [Duoneb 0.5 mg-3 mg/3 ml Soln] 3 ml INHALATION RT-TID PRN each 01/17/25 [Rx] Iron Ps Cmplx/Vit B12/FA [Niferex-150 Forte] 1 each PO DAILY cap 01/17/25 [Rx] Metoprolol Tartrate [Lopressor] 50 mg PO BID tab 01/17/25 [Rx] predniSONE 30 mg PO DAILY #18 tab 01/17/25 [Rx] Follow up Appointment(s)/Referral(s): Edgardo Rodriguez MD [Primary Care Provider] - 1 Week (AT [facility]) Discharge Dis[facility]: [facility]
--- NOTE | 2025-01-17 15:53 | P.PN ---
Subjective Progress Note Date: 01/17/25 Acute influenza A infection, with probable superimposed bacterial pneumonia, RLL. Pneumonia/sepsis. Atrial fibrillation with rapid ventricular response. Suspect acute exacerbation of CHF, with preserved ejection fraction. Acute hypoxemic respiratory failure, secondary to a combination of above. Acute kidney injury Anion gap metabolic acidosis. Lactic acidosis, improved. Chronic microcytic, hypochromic anemia. History of hiatal hernia with previous Alley fundoplication. 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 Gastroesophageal reflux disease. History of hypertension. History of hyperlipidemia. History of rheumatoid arthritis. Plan: Plan dated January 12, 2025. The patient is seen today in room 365. She is currently on 4 L of oxygen. She is getting saline at 50 cc an hour. Vancomycin has been discontinued. She continues on Tamiflu and Rocephin. We will continue to follow make recommen dations along the way. Labs, x-rays, and medications are reviewed. The patient is a DO NOT RESUSCITATE patient. Prognosis is guarded. Dictation was produced using [email or web address] software. Please excuse any grammatical, word or spelling errors. Plan dated January 13, 2025. The patient is a DO NOT RESUSCITATE patient. She is seen again today in room 365. She continues on nasal O2 at 3 L. The patient is currently getting saline at 75 cc an hour. She continues on Rocephin and Tamiflu. We add prednisone to the regimen. We will order chest x-ray for January 14. Labs, x-rays, and all medications are reviewed. The patient's overall prognosis remains very guarded. The patient is very frail appearing. We will continue to follow make recommendations. Dictation was produced using [email or web address] software. Please excuse any grammatical, word or spelling errors. Plan dated January 14, 2025. 80-year-old female again seen today in room 365. She is currently on room air. She is getting saline at 75 cc an hour. All labs, x-rays, and medications are reviewed. She continues on appropriate medications. Today she states that she is feeling better. She does have a nonproductive cough. She denies any shortness of breath. We will continue to follow make recommendations along the way. She will complete 5 days of Tamiflu. No additional recommendations at this time. Prognosis is guarded. The patient is a DO NOT RESUSCITATE patient. Dictation was produced using [employer] software. Please excuse any grammatical, word or spelling errors. Plan dated January 15, 2025. 80-year-old female seen today in room 365. The patient appears to be doing much better. She is awake and alert. She is not having any respiratory distress. She continues on updrafts. She is on prednisone 30 mg a day. We will continue to follow make recommendations. The patient's overall prognosis remains guarded. She is a DO NOT RESUSCITATE patient. The patient is very frail appearing. Dictation was produced using [email or web address] software. Please excuse any grammatical, word or spelling errors. Plan dated January 16, 2025. The patient is seen today in room 365. She has been doing better each day. She is currently on room air. She is not receiving any IV fluids. Labs, x-rays, and all medications are reviewed. The patient remains a DO NOT RESUSCITATE patient. Currently, the patient is on updrafts, and prednisone. She has completed her antibiotics. We will continue to follow and make recommendations along the way. Prognosis is certainly guarded. All labs, x-rays, medications are reviewed. Dictation was produced using [email or web address] software. Please excuse any grammatical, word or spelling errors. On 01/17/2025, seen the patient for a follow-up. The patient is feeling better. She seems to be less short of breath on today's evaluation. No significant cough or sputum production. Noted the patient had a influenza infection. She also had a right lower lobe consolidation. The patient completed the course of Tamiflu and IV Rocephin. Chest x-ray shows improvement in right lower lobe consolidation. She has previous history of hypertension, hyperlipidemia, hiatal hernia/reflux and she has undergone a Alley fundoplication. She also has previous history of prolonged respiratory failure requiring tracheostomy tube insertion with subsequent reversal. She has history of atrial fibrillation. Echocardiogram shows a preserved LV function with an EF of 55 to 60%. The white cell count is at 9.3 with a hemoglobin 7.4 and a platelet count of 343. BUN is 21 with a creatinine of 0.6. Sodium levels at 138. She remains on anticoagulation with Eliquis 2.5 mg twice a day and the patient is also on metoprolol 50 mg p.o. twice a day. She will be discharged on a course of prednisone burst taper. She is going to [facility]. Objective - Vital Signs Vital signs: Vital Signs Temp 97.9 F 01/17/25 08:00 Pulse 74 01/17/25 12:30 Resp 16 01/17/25 11:53 BP 117/74 01/17/25 11:53 Pulse Ox 96 01/17/25 11:53 FiO2 Intake & Output 01/16/25 01/17/25 01/17/25 18:59 06:59 18:59 Intake Total 240 540 240 Output Total 520 150 150 Balance -280 390 90 Weight 44 kg 44 kg Intake: Oral 240 240 Tube Feeding 540 Output: Urine 400 150 150 Post Void Residual 120 Other: Voiding Method External Catheter External Catheter External Catheter - Exam No acute distress, oriented 3. No respiratory distress. Awake and alert. No conversational dyspnea. Currently on room air. HEENT examination is grossly unremarkable. Mucous membranes are moist. No oral lesions. Neck supple. Full range of motion. No adenopathy thyromegaly or neck vein distention. Cardiovascular examination reveals regular rhythm rate. S1-S2 normal. No S3 or S4. No discernible murmur noted. Lungs reveal scattered rhonchi and crackles. Breath sounds equal bilaterally. There are no wheezes. Breath sounds are equal bilaterally. Abdomen soft bowel sounds are heard. No masses or tenderness. Extremities are intact. No cyanosis clubbing or edema. Skin is without rash or lesion. Neurologic examination is brief but nonfocal. - Labs CBC & Chem 7: 01/17/25 04:41 01/17/25 04:41 Labs: Abnormal Lab Results - Last 24 Hours (Table) 01/16/25 01/17/25 01/17/25 Range/Units 08:18 04:41 04:41 Hgb 7.4 L (11.4-16.0) gm/dL Hct 26.1 L (34.0-46.0) % MCV 67.8 L (80.0-100.0) fL MCH 19.3 L (25.0-35.0) pg MCHC 28.5 L (31.0-37.0) g/dL RDW 18.2 H (11.5-15.5) % Neutrophils # 7.9 H (1.3-7.7) k/uL Lymphocytes # 0.7 L (1.0-4.8) k/uL BUN 21 H (7-17) mg/dL Glucose 108 H (74-99) mg/dL Total Protein 5.1 L (6.3-8.2) g/dL Albumin 2.6 L (3.5-5.0) g/dL Procalcitonin 2.18 H (0.02-0.50) ng/mL Assessment and Plan Plan: Acute influenza A infection, with probable superimposed bacterial pneumonia, RLL. Follow-up chest x-ray showed no consolidation. The patient is doing well and currently she is on room air oxygen. Completed the course of antibiotics and Tamiflu. Atrial fibrillation with rapid ventricular response, rate is controlled and the patient is on anticoagulation with Eliquis CHF, with preserved ejection fraction. Acute hypoxemic respiratory failure, secondary to a combination of above, improved Acute kidney injury, improved and the renal function is normalized Anion gap metabolic acidosis, improved Lactic acidosis, improved. Chronic microcytic, hypochromic anemia. History of hiatal hernia with previous Alley fundoplication. 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 Gastroesophageal reflux disease. History of hypertension. History of hyperlipidemia. History of rheumatoid arthritis. Plan: The patient is going to be discharged tomorrow with manage on a course of prednisone burst taper. Rest of the occasions will be kept unchanged.
== END 2025-01-17 15:54 | DRG 871 ==
LOC: EC 15:29 → 3SCARD 19:02
PROVIDERS: ADMIT Internal Medicine; ATTEND Internal Medicine
DX: A41.9 Sepsis, unspecified organism (principal); E43 Unspecified severe protein-calorie malnutrition; J10.08 Influenza due to other identified influenza virus with other specified pneumonia; J15.9 Unspecified bacterial pneumonia; J96.01 Acute respiratory failure with hypoxia; N17.0 Acute kidney failure with tubular necrosis; E87.20 Acidosis, unspecified; I27.20 Pulmonary hypertension, unspecified; I11.0 Hypertensive heart disease with heart failure; M06.9 Rheumatoid arthritis, unspecified; D50.9 Iron deficiency anemia, unspecified; I50.30 Unspecified diastolic (congestive) heart failure; Z68.1 Body mass index [BMI] 19.9 or less, adult; I48.0 Paroxysmal atrial fibrillation; E78.2 Mixed hyperlipidemia; M81.0 Age-related osteoporosis without current pathological fracture; K21.00 Gastro-esophageal reflux disease with esophagitis, without bleeding; R76.8 Other specified abnormal immunological findings in serum; J30.9 Allergic rhinitis, unspecified; E87.6 Hypokalemia; R53.81 Other malaise; Z66 Do not resuscitate; R13.10 Dysphagia, unspecified; Z79.01 Long term (current) use of anticoagulants; Z79.899 Other long term (current) drug therapy
CPT/HCPCS: 36415; 71045; 71046; 74230; 80048; 80053; 80202; 83605; 83735; 83880; 84145; 84443; 84484; 85025; 85027; 85610; 85730; 86738; 87040; 87449; 87636; 93005; 93306; 94640; 94760; 96365; 96366; 96367; 96368; 99291

== ENCOUNTER 2025-01-24 09:09 | Observation (INO) | payer MEDICARE ==
--- NOTE | 2025-01-24 09:29 | ED ---
General Adult HPI - General Chief complaint: GI Bleed Stated complaint: poss gi bleed Time Seen by Provider: 01/24/25 09:12 Source: patient Mode of arrival: EMS Limitations: no limitations - History of Present Illness Initial comments: Dictation was produced using [employer] dictation software. please excuse any grammatical, word or spelling errors. Chief Complaint: 80-year-old female presents with coffee-ground emesis History of Present Illness: Patient is 80-year-old female recently seen at outside emergency department for low hemoglobin 6.9 she was received 1 unit of blood discharged. Patient has been having reported coffee-ground emesis since M onday. States she feels weak. Denies any pain complaints. Takes anticoagulation medications. Her anticoagulation medications were held at this time. Patient has history of hiatal hernia. Denies any abdominal pain. The ROS documented in this emergency department record has been reviewed and c onfirmed by me. Those systems with pertinent positive or negative responses have been documented in the HPI. All other systems are other negative and/or noncontributory. - Related Data Home Medications Medication Instructions Recorded Confirmed amLODIPine [Norvasc] 5 mg PO DAILY@0800 11/28/21 01/24/25 Rosuvastatin [Crestor] 10 mg PO DAILY@0800 01/10/25 01/24/25 Acetaminophen [Acetaminophen ER] 650 mg PO Q4H PRN 01/24/25 01/24/25 Apixaban [Eliquis] 2.5 mg PO BID@0800,1700 01/24/25 01/24/25 Magic Cup 100 ml PO TID@0800,1200,1700 01/24/25 01/24/25 Magnesium Hydroxide [Milk of 7,200 mg PO Q48H PRN 01/24/25 01/24/25 Magnesia Concentrate] Metoprolol Tartrate [Lopressor] 50 mg PO BID@0800,1700 01/24/25 01/24/25 Na Phos,M-B/Na Phos,Di-Ba [Fleet 133 ml RECTAL DAILY PRN 01/24/25 01/24/25 Adult] Ondansetron [Zofran] 4 mg PO Q6H PRN 01/24/25 01/24/25 Pantoprazole [Protonix] 40 mg PO BID@0800,1700 01/24/25 01/24/25 Polysaccharide Iron Complex 150 mg PO DAILY@0800 01/24/25 01/24/25 Capsule 150mg bisacodyL [Dulcolax] 10 mg RECTAL DAILY PRN 01/24/25 01/24/25 predniSONE See Taper PO DAILY@0800 01/24/25 01/24/25 Previous Rx's Medication Instructions Recorded Ipratropium-Albuterol Nebulize 3 ml INHALATION RT-TID PRN each 01/17/25 [Duoneb 0.5 mg-3 mg/3 ml Soln] Allergies Allergy/AdvReac Type Severity Reaction Status Date / Time No Known Allergies Allergy Verified 01/24/25 10:23 Review of Systems ROS Statement: Those systems with pertinent positive or pertinent negative responses have been documented in the HPI. ROS Other: All systems not noted in ROS Statement are negative. Past Medical History Past Medical History: Cancer, GERD/Reflux, Hypertension Additional Past Medical History / Comment(s): hx. skin cancer, hx. colon polyps History of Any Multi-Drug Resistant Organisms: None Reported Past Surgical History: Cholecystectomy, Hernia Repair, Orthopedic Surgery, Tubal Ligation Additional Past Surgical History / Comment(s): Alley fundoplication with postoperative complications resulting in part of stomach removed and prolonged intubation, tracheostomy and multiple surgeries, sonja cataracts, COLONOSCOPY, EGD, hip surgery 2021. Past Anesthesia/Blood Transfusion Reactions: Motion Sickness Additional Past Anesthesia/Blood Transfusion Reaction / Comment(s): . Past Psychological History: No Psychological Hx Reported Smoking Status: Never smoker Past Alcohol Use History: None Reported Past Drug Use History: None Reported - Past Family History Sister(s) Family Medical History: Cancer Daughter(s) Family Medical History: Cancer General Exam - General Exam Comments Initial Comments: PHYSICAL EXAM: General Impression: Alert and oriented x3, not in acute distress HEENT: Normocephalic atraumatic, extra-ocular movements intact, pupils equal and reactive to light bilaterally, mucous membranes moist. Cardiovascular: Heart regular rate and rhythm Chest: Able to complete full sentences, no retractions, no tachypnea Abdomen: abdomen soft, non-tender, non-distended, no organomegaly Musculoskeletal: Pulses present and equal in all extremities, no peripheral edema Motor: no focal deficits noted Neurological: CN II-XII grossly intact, no focal motor or sensory deficits noted Skin: Intact with no visualized rashes Psych: Normal affect and mood Rectal exam: No gross blood, no melanotic stool Limitations: no limitations Course Vital Signs 01/24/25 01/24/25 01/24/25 09:13 10:38 12:27 Temperature 98.2 F Pulse Rate 57 L 54 L 62 Respiratory 18 18 18 Rate Blood Pressure 140/87 182/70 O2 Sat by Pulse 98 96 Oximetry EKG Findings - EKG Comments: EKG Findings:: My EKG interpretation: Ventricular rate 66, sinus rhythm,. 162, cures 77, QTc 402. No CO prolongation, no QTC prolongation, no ST or T-wave changes noted. Significant artifact making interpretation difficult. Overall this EKG is nonspecific. Medical Decision Making - Medical Decision Making Was pt. sent in by a medical professional or institution (, PA, SLAB POLISHER, urgent care, hospital, or assisted...) When possible be specific @ -No Did you speak to anyone other than the patient for history (EMS, parent, family, police, friend...)? What history was obtained from this source @ -See above Did you review nursing and triage notes (agree or disagree)? Why? @ -I reviewed and agree with nursing and triage notes Were old charts reviewed (outside hosp., previous admission, EMS record, old EKG, old radiological studies, urgent care reports/EKG's, assisted records)? Report findings @ -No old charts were reviewed Differential Diagnosis (chest pain, altered mental status, abdominal pain women, abdominal pain men, vaginal bleeding, musculoskeletal, weakness, fever, dyspnea, syncope, headache, dizziness, GI bleed, back pain, seizure, CVA, palpatations, mental health)? @ -Differential GI Bleed: Esophageal varices, aortoenteric fistula, Ema-Glynn, gastritis, peptic ulcer disease, diverticulosis, inflammatory bowel disease, hemorrhoids, fissure, colitis, malignancy, Meckel's diverticulum, this is not meant to be an all- inclusive list. EKG interpreted by me (3pts min.). @ -None done X-rays interpreted by me (1pt min.). @ -None done CT interpreted by me (1pt min.). @ -None done U/S interpreted by me (1pt. min.). @ -None done What testing was considered but not performed or refused? (CT, X-rays, U/S, labs)? Why? @ -None What meds were considered but not given or refused? Why? @ -None Was smoking cessation discussed for >3mins.? @ -No Were there social determinants of health that impacted care today? How? (Homelessness, low income, unemployed, alcoholism, drug addiction, transportati on, low edu. Level, literacy, decrease access to med. care, [facility], rehab)? @ -No Was there de-escalation of care discussed even if they declined (Discuss DNR or withdrawal of care, Hospice)? DNR status @ -No What co-morbidities impacted this encounter? (DM, HTN, Smoking, COPD, CAD, Cancer, CVA, ARF, Chemo, Hep., AIDS, mental health diagnosis, sleep apnea, morbid obesity)? @ -None Was patient admitted / discharged? Hospital course, mention meds given and route, prescriptions, significant lab abnormalities, going to OR and other pertinent info. @ -80-year-old female presents to the emergency department with reported coffee-ground emesis. Vital signs stable. Allegedly she had received a tr ansfusion of 1 unit of blood recently. Vital signs are stable. Laboratory evaluation obtained. Hemoglobin stable 11.0. Rest of labs within acceptable limits. So-called blood is negative. Reevaluated bedside 12:34 PM. She did not have any coffee-ground emesis at the bedside. Patient states that her primary care, Dr. Quijano requested that she be admitted with GI evaluation. Case discussed with Dr. Rodriguez who confirmed this. Did you discuss the management of the patient with other professionals (professionals i.e. , PA, SL[employer] POLISHER, lab, RT, psych nurse, social work program coordinator, manifold builder, teacher, community services officer, correctional case records supervisor)? Give summary @ -See above Was critical care preformed (if so, how long)? @ -No Undiagnosed new problem with uncertain prognosis? @ -No Drug Therapy requiring intensive monitoring for toxicity (Heparin, Nitro, Insulin, Cardizem)? @ -No Were any procedures done? @ -No Diagnosis/symptom? Acute, or Chronic, or Acute on Chronic? Uncomplicated (without systemic symptoms) or Complicated (systemic symptoms)? @ -Reported coffee-ground emesis, no complications Side effects of treatment? @ -No Exacerbation, Progression, or Severe Exacerbation? @ -No Poses a threat to life or bodily function? How? (Chest pain, USA, ND, pneumonia, PE, COPD, DKA, ARF, appy, cholecystitis, CVA, Diverticulitis, Homicidal, Suicidal, threat to staff... and all critical care pts) @ -No - Lab Data Result diagrams: 01/24/25 09:28 01/24/25 09: Lab Results 01/24/25 01/24/25 01/24/25 Range/Units 09: 09: 09: WBC 8.1 (3.8-10.6) k/uL RBC 5.02 (3.80-5.40) m/uL Hgb 11.0 L (11.4-16.0) gm/dL Hct 36.8 (34.0-46.0) % MCV 73.4 L (80.0-100.0) fL MCH 21.9 L (25.0-35.0) pg MCHC 29.8 L (31.0-37.0) g/dL RDW 23.2 H (11.5-15.5) % Plt Count 726 H (150-450) k/uL MPV 7.9 Neutrophils % 84 % Lymphocytes % 10 % Monocytes % 5 % Eosinophils % 0 % Basophils % 0 % Neutrophils # 6.8 (1.3-7.7) k/uL Lymphocytes # 0.8 L (1.0-4.8) k/uL Monocytes # 0.4 (0-1.0) k/uL Eosinophils # 0.0 (0-0.7) k/uL Basophils # 0.0 (0-0.2) k/uL Hypochromasia Marked Poikilocytosis Slight Anisocytosis Moderate Microcytosis Marked PT 11.7 (10.0-12.5) sec INR 1.1 (<1.2) APTT 19.8 L (22.0-30.0) sec Sodium (137-145) mmol/L Potassium (3.5-5.1) mmol/L Chloride (98-107) mmol/L Carbon Dioxide (22-30) mmol/L Anion Gap mmol/L BUN (7-17) mg/dL Creatinine (0.52-1.04) mg/dL Est GFR (CKD-EPI)AfAm (>60 ml/min/1.73 sqM) Est GFR (CKD-EPI)NonAf (>60 ml/min/1.73 sqM) Glucose (74-99) mg/dL Lactic Ac Sepsis Rflx Plasma Lactic Acid Maksim (0.7-2.0) mmol/L Calcium (8.4-10.2) mg/dL Total Bilirubin (0.2-1.3) mg/dL AST (14-36) U/L ALT (4-34) U/L Alkaline Phosphatase (38-126) U/L Total Protein (6.3-8.2) g/dL Albumin (3.5-5.0) g/dL Stool Occult Blood Negative (Negative) Blood Type Blood Type Recheck Bld Type Recheck Status Antibody Screen Spec Expiration Date 01/24/25 01/24/25 01/24/25 Range/Units 09:28 09:28 09:30 WBC (3.8-10.6) k/uL RBC (3.80-5.40) m/uL Hgb (11.4-16.0) gm/dL Hct (34.0-46.0) % MCV (80.0-100.0) fL MCH (25.0-35.0) pg MCHC (31.0-37.0) g/dL RDW (11.5-15.5) % Plt Count (150-450) k/uL MPV Neutrophils % % Lymphocytes % % Monocytes % % Eosinophils % % Basophils % % Neutrophils # (1.3-7.7) k/uL Lymphocytes # (1.0-4.8) k/uL Monocytes # (0-1.0) k/uL Eosinophils # (0-0.7) k/uL Basophils # (0-0.2) k/uL Hypochromasia Poikilocytosis Anisocytosis Microcytosis PT (10.0-12.5) sec INR (<1.2) APTT (22.0-30.0) sec Sodium 139 (137-145) mmol/L Potassium 4.9 (3.5-5.1) mmol/L Chloride 102 (98-107) mmol/L Carbon Dioxide 22 (22-30) mmol/L Anion Gap 15 mmol/L BUN 23 H (7-17) mg/dL Creatinine 0.79 (0.52-1.04) mg/dL Est GFR (CKD-EPI)AfAm 82 (>60 ml/min/1.73 sqM) Est GFR (CKD-EPI)NonAf 71 (>60 ml/min/1.73 sqM) Glucose 119 H (74-99) mg/dL Lactic Ac Sepsis Rflx Plasma Lactic Acid Maksim 2.5 H* (0.7-2.0) mmol/L Calcium 9.9 (8.4-10.2) mg/dL Total Bilirubin 0.8 (0.2-1.3) mg/dL AST 29 (14-36) U/L ALT 28 (4-34) U/L Alkaline Phosphatase 84 (38-126) U/L Total Protein 6.7 (6.3-8.2) g/dL Albumin 3.9 (3.5-5.0) g/dL Stool Occult Blood (Negative) Blood Type B Negative Blood Type Recheck B Neg Bld Type Recheck Status No Antibody Screen NEGATIVE Spec Expiration Date 01/27/2025 - 232701/24/25 Range/Units 10:19 WBC (3.8-10.6) k/uL RBC (3.80-5.40) m/uL Hgb (11.4-16.0) gm/dL Hct (34.0-46.0) % MCV (80.0-100.0) fL MCH (25.0-35.0) pg MCHC (31.0-37.0) g/dL RDW (11.5-15.5) % Plt Count (150-450) k/uL MPV Neutrophils % % Lymphocytes % % Monocytes % % Eosinophils % % Basophils % % Neutrophils # (1.3-7.7) k/uL Lymphocytes # (1.0-4.8) k/uL Monocytes # (0-1.0) k/uL Eosinophils # (0-0.7) k/uL Basophils # (0-0.2) k/uL Hypochromasia Poikilocytosis Anisocytosis Microcytosis PT (10.0-12.5) sec INR (<1.2) APTT (22.0-30.0) sec Sodium (137-145) mmol/L Potassium (3.5-5.1) mmol/L Chloride (98-107) mmol/L Carbon Dioxide (22-30) mmol/L Anion Gap mmol/L BUN (7-17) mg/dL Creatinine (0.52-1.04) mg/dL Est GFR (CKD-EPI)AfAm (>60 ml/min/1.73 sqM) Est GFR (CKD-EPI)NonAf (>60 ml/min/1.73 sqM) Glucose (74-99) mg/dL Lactic Ac Sepsis Rflx Y Plasma Lactic Acid Maksim (0.7-2.0) mmol/L Calcium (8.4-10.2) mg/dL Total Bilirubin (0.2-1.3) mg/dL AST (14-36) U/L ALT (4-34) U/L Alkaline Phosphatase (38-126) U/L Total Protein (6.3-8.2) g/dL Albumin (3.5-5.0) g/dL Stool Occult Blood (Negative) Blood Type Blood Type Recheck Bld Type Recheck Status Antibody Screen Spec Expiration Date Disposition Clinical Impression: Coffee ground emesis Disposition: ADMITTED IP TO THIS [facility] Condition: Fair Referrals: Edgardo Rodriguez MD [Primary Care Provider] - 1-2 days Decision Time: 12:36
[2025-01-24 10:05] LABS: INR 1.1 (<1.2); Prothrombin Time 11.7 sec (10.0-12.5)
[2025-01-24 10:11] LABS: ALT 28 U/L (4-34); AST 29 U/L (14-36); African American GFR (CKD) 82 (>60 ml/min/1.73 sqM); Albumin 3.9 g/dL (3.5-5.0); Alkaline Phosphatase 84 U/L (38-126); Anion Gap 15 mmol/L; Blood Urea Nitrogen 23 mg/dL (7-17); Calcium 9.9 mg/dL (8.4-10.2); Carbon Dioxide 22 mmol/L (22-30); Chloride 102 mmol/L (98-107); Glucose 119 mg/dL (74-99); Non-African American GFR(CKD) 71 (>60 ml/min/1.73 sqM); Potassium 4.9 mmol/L (3.5-5.1); Sodium 139 mmol/L (137-145); Total Bilirubin 0.8 mg/dL (0.2-1.3); Total Protein 6.7 g/dL (6.3-8.2)
[2025-01-24 10:12] LABS: Partial Thromboplastin Time 19.8 sec (22.0-30.0)
[2025-01-24 10:15] LABS: Anisocytosis Moderate; Basophils % (A) 0 %; Eosinophils % (A) 0 %; HCT 36.8 % (34.0-46.0); Hypochromasia Marked; Lymphocytes # (A) 0.8 k/uL (1.0-4.8); Lymphocytes % (A) 10 %; MCH 21.9 pg (25.0-35.0); MCHC 29.8 g/dL (31.0-37.0); MCV 73.4 fL (80.0-100.0); Mean Platelet Volume 7.9; Microcytosis Marked; Monocytes # (A) 0.4 k/uL (0-1.0); Monocytes % (A) 5 %; Neutrophils # (A) 6.8 k/uL (1.3-7.7); Neutrophils % (A) 84 %; Platelet Count 726 k/uL (150-450); Poikilocytosis Slight; RBC 5.02 m/uL (3.80-5.40); RDW 23.2 % (11.5-15.5); WBC 8.1 k/uL (3.8-10.6)
[2025-01-24] MEDS ORDERED: ONDANSETRON 4 MG/2 ML VIAL IVP PRN ×2 (12:36→13:31)
[2025-01-24] MEDS ORDERED: NALOXONE 0.4 MG/ML 1 ML VIAL IV PRN (12:36)
[2025-01-24] MEDS: SODIUM CHLORIDE 0.9% 1,000 ML IV SCH (13:11)
[2025-01-24] MEDS: PANTOPRAZOLE 40 MG/10 ML VIAL IVP STA (13:12)
[2025-01-24] MEDS ORDERED: bisacodyL 10 MG SUPP RECTAL PRN (13:29)
[2025-01-24] MEDS ORDERED: IPRATROPIUM-ALBUTEROL 3 ML NEB INHALATION PRN (13:29)
[2025-01-24] MEDS ORDERED: ONDANSETRON 4 MG PO PRN (13:29)
--- NOTE | 2025-01-24 13:29 | P.HPIM ---
History of Present Illness H&P Date: 01/24/25 Chief Complaint: Coffee-ground emesis. HISTORY OF PRESENT ILLNESS: This is a 80-year-old female with a previous medical history significant for hypertension and hypertensive cardiovascular disease, hyperlipidemia, history of ALLERGIC rhinitis, GERD with esophagitis, osteopenia, detrusor stability, iron deficiency anemia, significant dysphagia with significant weight loss, she was recently hospitalized at [facility] from January 10, 2025 till January 17, 2025 after she was admitted to the hospital with acute hypoxemic respiratory failure due to acute influenza A with possible aspiration pneumonia along with acute diastolic heart failure due to atrial fib rillation with rapid ventricular response, patient was started on Eliquis she was sent to [facility], she was seen at [facility] by myself few days ago, and she was doing fine up till Friday when she developed to have a significant intractable nausea and vomiting not able to keep anything down, she has been able to take her medicine down, she had a significant drop in her hemoglobin, she did receive 1 unit of packed red blood cells as outpatient, hemoglobin stable at this time, today I received a call from the nursing staff stating that the patient is coughing up coffee-ground emesis, not able to get food down, she was directed to go to the ER for evaluation, she was hemodynamically stable, she was not tachycardic, her hemoglobin is stable, lactic acid is stable, patient was started on IV fluid resuscitation in the form of normal saline, she will be started on Protonix 40 mg IV push every 12 hours, will consult GI for an EGD hopefully in the next 24 hours. Patient last time received her Eliquis was last night. REVIEW OF SYSTEMS: Constitutional: no documented fever, no chills, no night sweats. No weight change. Positive for weakness, fatigue or lethargy. No daytime sleepiness. HEENT: No headache. No blurred vision or double vision, no loss of vision. No loss of Hearing, no ringing in the ears, no dizziness. No nasal drainage or congestion. No epistaxis. No sore throat. Lungs: Positive for shortness of breath, no cough, no sputum production. no wheezing. Reports dyspnea with activity. Cardiovascular: No chest pain, no lower extremity edema. No palpitations. No paroxysmal nocturnal dyspnea. No orthopnea. No lightheadedness or dizziness. No syncopal episodes. Abdominal: Reports abdominal pain. Positive for nausea, vomiting. No diarrhea, positive for coffee-ground emesis, positive for difficulty swallowing, positive for weight loss, positive for poor appetite Genitourinary: No dysuria, increased frequency, urgency. No urinary retention. Musculoskeletal: No myalgias. Positive for muscle weakness, positive for gait dysfunction, no frequent falls. Positive for mid back pain. No neck pain. Integumentary: No wounds, no lesions. No rash or pruritus. No unusual bruising. No change in hair or nails. Neurologic: No aphasia. No facial droop. No change in mentation. No head injury. No headache. No paralysis. No paresthesia. Psychiatric: Positive for depression. Positive anxiety. No mood swings. Endocrine: No abnormal blood sugars. No weight change. PAST MEDICAL HISTORY: Hypertension and hypertensive cardiovascular disease Hyperlipidemia. ALLERGIC rhinitis. GERD with esophagitis. Osteoporosis Detrusor instability. Rheumatoid arthritis positive serology Positive RANGEL. Constipation Paroxysmal atrial fibrillation Severe dysphagia Severe weight loss. Iron deficiency anemia PAST SURGICAL HISTORY: left femur ORIF generally 2021 Left humerus fracture generally 2017 Incisional hernia surgeries in May 2012 Cholecystectomy August 2011 Cataract right eye February 2006 Detached retina right eye August 2005 Achilles tendon surgery for dropped food every 2002 Had a hernia surgery to prolonged hospital stay for 7 month generally 2001 Bilateral tubal ligation 1973 SOCIAL HISTORY: patient is a lifelong nonsmoker, she drinks monthly or less, she drinks about 3-4 cups of coffee a day, she drinks Diet Coke, she denies any marijuana use. FAMILY HISTORY: father at age of 85 from dementia and CAD, mother at age of 83 from CAD post-PCI 3, and she also's had a 3 valve replacement, patient had 2 sisters one at age of 78 from dementia and the other 2 sisters are okay patient has 2 daughters okay and patient has 2 sons one with smoking and had pneumothorax and seizure disorder and one is okay. PHYSICAL EXAMINATION: General: 80-year-old female laying down in bed in no respiratory distress. HEENT: Head is atraumatic, normocephalic, pupils were equal round reactive to light and recommendation, extraocular muscle movement were intact, sclera nonicteric, conjunctivae were pale, mucous membranes of the mouth are somewhat dry. Neck: Supple, no JVP, normal carotid upstroke bilaterally, no lymphadenopathy. Chest: Decreased breath sounds at the bases, few rhonchi, no expiratory wheezes, no chest wall tenderness, no intercostal retractions Heart: First heart sound is normal, second heart sound is normal there is systolic ejection murmur 2/6 located in the left sternal border, there is diastolic heart murmur 2 over systolic in the right second intercostal space Abdomen: Soft, mild tenderness to the epigastric area nondistended positive bowel sounds. Extremities: There is no edema no calf tenderness DP +2 bilaterally. Neurologic examination: Patient is awake alert and oriented X 3, cranial nerves II-12 appear grossly intact, muscle power were 4out of 5 in upper extremities and 4 out of 5 in bilateral lower extremities, deep tendon reflexes normal bilaterally. ASSESSMENT AND PLAN: 1. Coffee-ground emesis with symptoms of progressive dysphagia iron deficiency anemia and severe weight loss in a patient with prior history of hiatal hernia s/p repair. Patient will be admitted to hospital for possible upper GI bleed, start the patient on Protonix 40 mg a push every 12 hours, start the patient on clear liquid diet, GI consultation for an EGD. 2. Prerenal azotemia. Continue IV fluid resuscitation of form of normal saline 75 cc an hour repeat CMP tomorrow morning. 3. Hypertension and hypertensive cardiovascular disease. Continue patient on amlodipine 5 mg once every day, continue metoprolol 50 mg orally twice every day monitor the patient blood pressure regularly. 4. Mixed hyperlipidemia continue patient on rosuvastatin 10 mg once every day, monitor lipid panel, keep LDL 55-70. 5. GERD with esophagitis. Continue patient on Protonix 40 mg IV push every 12 hours 6. Paroxysmal atrial fibrillation currently in sinus rhythm. Hold Eliquis for now. Continue patient metoprolol 50 mg orally twice every day 7. Rheumatoid arthritis positive serology and positive RANGEL.. Currently not taking any medication at this time. 8. ALLERGIC rhinitis. Appears to be stable at this time 9. Osteoporosis. Patient will need to be started on Prolia 60 mg subcutaneously every 6 months, continue calcium and vitamin D supplement as an outpatient. 10. DVT prophylaxis. Bilateral knee-high NITHIN hose, hold Eliquis for now. 11. Insomnia start the patient on Restoril 15 mg at bedtime. 12. Chronic mid back pain due to osteoporosis and kyphosis. Started patient on morphine 2 mg a push every 4 hours as needed. 13. GI prophylaxis. Continue patient on Protonix 40 mg IV push every 12 hours. 14. Admit to inpatient. Estimated length of stay 2 midnights. 15. Patient is no code Past Medical History Past Medical History: Cancer, GERD/Reflux, Hypertension Additional Past Medical History / Comment(s): hx. skin cancer, hx. colon polyps History of Any Multi-Drug Resistant Organisms: None Reported Past Surgical History: Cholecystectomy, Hernia Repair, Orthopedic Surgery, Tubal Ligation Additional Past Surgical History / Comment(s): Alley fundoplication with postoperative complications resulting in part of stomach removed and prolonged intubation, tracheostomy and multiple surgeries, sonja cataracts, COLONOSCOPY, EGD, hip surgery 2021. Past Anesthesia/Blood Transfusion Reactions: Motion Sickness Additional Past Anesthesia/Blood Transfusion Reaction / Comment(s): . Past Psychological History: No Psychological Hx Reported Smoking Status: Never smoker Past Alcohol Use History: None Reported Past Drug Use History: None Reported - Past Family History Sister(s) Family Medical History: Cancer Daughter(s) Family Medical History: Cancer Medications and Allergies Home Medications Medication Instructions Recorded Confirmed Type amLODIPine [Norvasc] 5 mg PO DAILY@0800 11/28/21 01/24/25 History Rosuvastatin [Crestor] 10 mg PO DAILY@0800 01/10/25 01/24/25 History Ipratropium-Albuterol Nebulize 3 ml INHALATION RT-TID PRN each 01/17/25 01/24/25 Rx [Duoneb 0.5 mg-3 mg/3 ml Soln] Acetaminophen [Acetaminophen ER] 650 mg PO Q4H PRN 01/24/25 01/24/25 History Apixaban [Eliquis] 2.5 mg PO BID@0800,1700 01/24/25 01/24/25 History Magic Cup 100 ml PO TID@0800,1200,1700 01/24/25 01/24/25 History Magnesium Hydroxide [Milk of 7,200 mg PO Q48H PRN 01/24/25 01/24/25 History Magnesia Concentrate] Metoprolol Tartrate [Lopressor] 50 mg PO BID@0800,1700 01/24/25 01/24/25 History Na Phos,M-B/Na Phos,Di-Ba [Fleet 133 ml RECTAL DAILY PRN 01/24/25 01/24/25 History Adult] Ondansetron [Zofran] 4 mg PO Q6H PRN 01/24/25 01/24/25 History Pantoprazole [Protonix] 40 mg PO BID@0800,1700 01/24/25 01/24/25 History Polysaccharide Iron Complex 150 mg PO DAILY@0800 01/24/25 01/24/25 History Capsule 150mg bisacodyL [Dulcolax] 10 mg RECTAL DAILY PRN 01/24/25 01/24/25 History predniSONE See Taper PO DAILY@0800 01/24/25 01/24/25 History Allergies Allergy/AdvReac Type Severity Reaction Status Date / Time No Known Allergies Allergy Verified 01/24/25 10:23 Physical Exam Vitals: Vital Signs Temp Pulse Resp BP Pulse Ox 01/24/25 12:27 62 18 01/24/25 10:38 54 L 18 182/70 96 01/24/25 09:13 98.2 F 57 L 18 140/87 98 Intake and Output 01/23/25 01/24/25 01/24/25 22:59 06:59 14:59 Other: Weight 47.627 kg Results CBC & Chem 7: 01/24/25 09:28 01/24/25 09:28 Labs: Abnormal Lab Results - Last 24 Hours (Table) 01/24/25 01/24/25 01/24/25 Range/Units 09:28 09:28 09:28 Hgb 11.0 L (11.4-16.0) gm/dL MCV 73.4 L (80.0-100.0) fL MCH 21.9 L (25.0-35.0) pg MCHC 29.8 L (31.0-37.0) g/dL RDW 23.2 H (11.5-15.5) % Plt Count 726 H (150-450) k/uL Lymphocytes # 0.8 L (1.0-4.8) k/uL APTT 19.8 L (22.0-30.0) sec BUN 23 H (7-17) mg/dL Glucose 119 H (74-99) mg/dL Plasma Lactic Acid Maksim (0.7-2.0) mmol/L 01/24/25 Range/Units 09:28 Hgb (11.4-16.0) gm/dL MCV (80.0-100.0) fL MCH (25.0-35.0) pg MCHC (31.0-37.0) g/dL RDW (11.5-15.5) % Plt Count (150-450) k/uL Lymphocytes # (1.0-4.8) k/uL APTT (22.0-30.0) sec BUN (7-17) mg/dL Glucose (74-99) mg/dL Plasma Lactic Acid Maksim 2.5 H* (0.7-2.0) mmol/L
[2025-01-24] MEDS ORDERED: MORPHINE SULFATE 2 MG/ML SYRINGE IVP PRN (13:30)
--- NOTE | 2025-01-24 14:48 | P.CONS ---
History of Present Illness - Reason for Consult Consult date: 01/24/25 Coffee-ground emesis Requesting physician: Edgardo Rodriguez - Chief Complaint Coffee-ground emesis, anemia - History of Present Illness This is a pleasant 80-year-old female who was sent in from [facility] for concerns of nausea and vomiting with coffee-ground emesis and drop in hemoglobin. Apparently patient was recently hospitalized from January 10 to January 17 with influenza A, pneumonia new onset atrial fibrillation started on Eliquis and acute diastolic heart failure. She states nausea and vomiting started on Friday multiple times she said it was coffee-ground. She had outpatient blood work done on 01/19/2025 with a hemoglobin of 6.9 and will was reportedly given 1 unit of blood at [facility]. Past medical history includes new onset atrial fibrillation, GERD, hiatal hernia, hypertension, cardiovascular disease, hyperlipidemia, allergic rhinitis, iron deficiency anemia and dysphagia. Patient states she has not had any further nausea or vomiting, no further coffee-ground emesis. She denies any blood in her stool or black stool. Denies any abdominal pain. States that she has no difficulty with swallowing. She is currently tolerating clear liquid diet. Last dose of Eliquis was yesterday evening. Today's labs WBC 8.1 hemoglobin 11 hematocrit 36 platelet count 726,000 INR 1.1 sodium 139 potassium 4.9 BUN 23 creatinine 0.79 lactic acid 2.5 total bilirubin 0.8 AST 29 ALT 28 alkaline phosphatase 84 stool occult blood negative. Review of Systems REVIEW OF SYSTEMS: CARDIOPULMONARY: No chest pain or shortness of breath. Gastrointestinal: No abdominal pain. No nausea or vomiting. Had nausea with vomiting with reported coffee-ground emesis on Friday. No rectal bleeding, or melena. GENITOURINARY: No dysuria or hematuria. MUSCULOSKELETAL: Reports normal range of motion., Joint pain. SKIN: No rashes. No jaundice. ENDOCRINE: No chills, fevers. No excessive weight gain or loss. No polydipsia or polyuria. PSYCHIATRIC: Unremarkable. NEUROLOGY: No change in mental status. Denies dizziness, headache. ENT: Vision unremarkable. CONSTITUTIONAL: No recent weight loss. No fever, chills, night sweats. Past Medical History Past Medical History: Cancer, GERD/Reflux, Hypertension Additional Past Medical History / Comment(s): hx. skin cancer, hx. colon polyps History of Any Multi-Drug Resistant Organisms: None Reported Past Surgical History: Cholecystectomy, Hernia Repair, Orthopedic Surgery, Tubal Ligation Additional Past Surgical History / Comment(s): Alley fundoplication with postoperative complications resulting in part of stomach removed and prolonged intubation, tracheostomy and multiple surgeries, sonja cataracts, COLONOSCOPY, EGD, hip surgery 2021. Past Anesthesia/Blood Transfusion Reactions: Motion Sickness Additional Past Anesthesia/Blood Transfusion Reaction / Comm: . Past Psychological History: No Psychological Hx Reported Smoking Status: Never smoker Past Alcohol Use History: None Reported Past Drug Use History: None Reported - Past Family History Sister(s) Family Medical History: Cancer Daughter(s) Family Medical History: Cancer Medications and Allergies Home Medications Medication Instructions Recorded Confirmed Type amLODIPine [Norvasc] 5 mg PO DAILY@0800 11/28/21 01/24/25 History Rosuvastatin [Crestor] 10 mg PO DAILY@0800 01/10/25 01/24/25 History Ipratropium-Albuterol Nebulize 3 ml INHALATION RT-TID PRN each 01/17/25 01/24/25 Rx [Duoneb 0.5 mg-3 mg/3 ml Soln] Acetaminophen [Acetaminophen ER] 650 mg PO Q4H PRN 01/24/25 01/24/25 History Apixaban [Eliquis] 2.5 mg PO BID@0800,1700 01/24/25 01/24/25 History Magic Cup 100 ml PO TID@0800,1200,1700 01/24/25 01/24/25 History Magnesium Hydroxide [Milk of 7,200 mg PO Q48H PRN 01/24/25 01/24/25 History Magnesia Concentrate] Metoprolol Tartrate [Lopressor] 50 mg PO BID@0800,1700 01/24/25 01/24/25 History Na Phos,M-B/Na Phos,Di-Ba [Fleet 133 ml RECTAL DAILY PRN 01/24/25 01/24/25 History Adult] Ondansetron [Zofran] 4 mg PO Q6H PRN 01/24/25 01/24/25 History Pantoprazole [Protonix] 40 mg PO BID@0800,1700 01/24/25 01/24/25 History Polysaccharide Iron Complex 150 mg PO DAILY@0800 01/24/25 01/24/25 History Capsule 150mg bisacodyL [Dulcolax] 10 mg RECTAL DAILY PRN 01/24/25 01/24/25 History predniSONE See Taper PO DAILY@0800 01/24/25 01/24/25 History Allergies Allergy/AdvReac Type Severity Reaction Status Date / Time No Known Allergies Allergy Verified 01/24/25 10:23 Physical Exam Vitals: Vital Signs Temp Pulse Resp BP Pulse Ox 01/24/25 12:27 62 18 01/24/25 10:38 54 L 18 182/70 96 01/24/25 09:13 98.2 F 57 L 18 140/87 98 Intake and Output 01/23/25 01/24/25 01/24/25 22:59 06:59 14:59 Other: Weight 47.627 kg General appearance: The patient is alert, oriented, appears in no acute distress. HET: Head is normocephalic and atraumatic. Conjunctiva pink. Sclera anicteric. Neck: Supple without lymphadenopathy. Trachea midline. Heart: Regular. Lungs: Equal expansion, normal respiratory effort. Abdomen: Soft, nontender, thin, nondistended. Skin: No rashes. No jaundice. Extremities: Normal skin color and turgor. No pedal edema. Neurological: No focal deficits. Alert and oriented x3. Results CBC & Chem 7: 01/24/25 09:28 01/24/25 09:28 Labs: Abnormal Lab Results - Last 24 Hours (Table) 01/24/25 01/24/25 01/24/25 Range/Units 09:28 09:28 09:28 Hgb 11.0 L (11.4-16.0) gm/dL MCV 73.4 L (80.0-100.0) fL MCH 21.9 L (25.0-35.0) pg MCHC 29.8 L (31.0-37.0) g/dL RDW 23.2 H (11.5-15.5) % Plt Count 726 H (150-450) k/uL Lymphocytes # 0.8 L (1.0-4.8) k/uL APTT 19.8 L (22.0-30.0) sec BUN 23 H (7-17) mg/dL Glucose 119 H (74-99) mg/dL Plasma Lactic Acid Mkasim (0.7-2.0) mmol/L 01/24/25 Range/Units 09:28 Hgb (11.4-16.0) gm/dL MCV (80.0-100.0) fL MCH (25.0-35.0) pg MCHC (31.0-37.0) g/dL RDW (11.5-15.5) % Plt Count (150-450) k/uL Lymphocytes # (1.0-4.8) k/uL APTT (22.0-30.0) sec BUN (7-17) mg/dL Glucose (74-99) mg/dL Plasma Lactic Acid Maksim 2.5 H* (0.7-2.0) mmol/L Assessment and Plan (1) Coffee ground emesis Narrative/Plan: 80-year-old female presenting with 1 day of multiple episodes of nausea and vomiting with coffee-ground emesis with recent new onset of atrial fibrillation started on anticoagulation. Patient has history of coffee-ground emesis in the past last upper endoscopy was in 2022 with findings of moderate hiatal hernia mild antral gastritis without any evidence of esophagitis or peptic ulcer disease. She currently denies any abdominal pain, nausea or vomiting. No acid reflux. She does have elevated BUN with a recent drop in her hemoglobin requiring blood transfusion 5 days ago. Need to consider upper GI bleed in setting of recently starting anticoagulation. Will plan for upper endoscopy tomorrow. Hold anticoagulation. Avoid NSAIDs. PPI twice a day. Current Visit: Yes Status: Acute Code(s): K92.0 - HEMATEMESIS SNOMED Code(s): 57095948 (2) GERD (gastroesophageal reflux disease) Current Visit: No Status: Acute Code(s): K21.9 - GASTRO-ESOPHAGEAL REFLUX DISEASE WITHOUT ESOPHAGITIS SNOMED Code(s): 208677917 Plan: 1. Continue symptomatic and supportive care 2. Daily CBC, transfuse for hemoglobin less than 7 3. Protonix 40 mg twice daily 4. Patient may have clear liquid diet, n.p.o. after midnight 5. Hold anticoagulation 6. Avoid NSAIDs 7. Will plan for upper endoscopy tomorrow Thank you for this consultation, we will continue to follow. Dr. Chris Stout I agree with the dictator's note, documented as a scribe by Martha Resendiz.
[2025-01-24] MEDS: METOPROLOL TARTRATE 50 MG TAB PO SCH (16:38)
[2025-01-24] MEDS ORDERED: NON FORMULARY DRUG (Magic Cup 1 EACH Ml) PO SCH (17:00)
[2025-01-24] MEDS: PANTOPRAZOLE 40 MG/10 ML VIAL IV SCH (20:44)
[2025-01-24] MEDS: TEMAZEPAM 15 MG CAP PO SCH (20:59)
[2025-01-25] MEDS: ACETAMINOPHEN TAB 325 MG TAB PO PRN (04:13)
[2025-01-25 06:36] LABS: ALT 17 U/L (4-34); AST 18 U/L (14-36); African American GFR (CKD) 89 (>60 ml/min/1.73 sqM); Albumin 2.5 g/dL (3.5-5.0); Alkaline Phosphatase 54 U/L (38-126); Anion Gap 4 mmol/L; Blood Urea Nitrogen 23 mg/dL (7-17); Calcium 8.6 mg/dL (8.4-10.2); Carbon Dioxide 26 mmol/L (22-30); Chloride 106 mmol/L (98-107); Glucose 84 mg/dL (74-99); Non-African American GFR(CKD) 77 (>60 ml/min/1.73 sqM); Potassium 3.9 mmol/L (3.5-5.1); Sodium 136 mmol/L (137-145); Total Bilirubin 0.4 mg/dL (0.2-1.3); Total Protein 4.8 g/dL (6.3-8.2)
[2025-01-25 07:00] LABS: Anisocytosis Moderate; Basophils % (A) 0 %; Eosinophils # (A) 0.1 k/uL (0-0.7); Eosinophils % (A) 1 %; HCT 28.8 % (34.0-46.0); Hypochromasia Marked; Lymphocytes # (A) 1.5 k/uL (1.0-4.8); Lymphocytes % (A) 17 %; MCH 21.9 pg (25.0-35.0); MCHC 29.2 g/dL (31.0-37.0); MCV 74.9 fL (80.0-100.0); Mean Platelet Volume 7.2; Microcytosis Marked; Monocytes # (A) 0.5 k/uL (0-1.0); Monocytes % (A) 6 %; Neutrophils # (A) 6.5 k/uL (1.3-7.7); Neutrophils % (A) 75 %; Platelet Count 522 k/uL (150-450); Poikilocytosis Slight; RBC 3.84 m/uL (3.80-5.40); RDW 23.8 % (11.5-15.5); WBC 8.7 k/uL (3.8-10.6)
[2025-01-25 07:02] LABS: HGB 8.4 gm/dL (11.4-16.0)
[2025-01-25 08:50] VITALS: BP 108/48; PULSE 72; RESP 16; TEMP 97.9
[2025-01-25] MEDS ORDERED: PANTOPRAZOLE 40 MG/10 ML VIAL IV SCH (09:00)
[2025-01-25] MEDS ORDERED: PROPOFOL 10 MG/ML 20 ML VIAL IV ONE (09:08)
[2025-01-25] MEDS: IV FLUID CONTINUATION 500 ML IV ONE (09:09)
[2025-01-25] MEDS: ATORVASTATIN 20 MG TAB PO SCH (09:15)
[2025-01-25] MEDS: amLODIPine 5 MG TAB PO SCH (09:15)
--- NOTE | 2025-01-25 09:30 | P.PCN ---
Date of Procedure: 01/25/25 Procedure(s) Performed: BRIEF HISTORY: Patient is a pleasant, 80-year-old white female scheduled for an upper endoscopy as a part evaluation of 2 episodes of coffee-ground emesis. History of A-fib and on Eliquis which is on hold for the last 2 days.. PROCEDURE PERFORMED: Esophagogastroduodenoscopy with biopsy. PREOPERATIVE DIAGNOSIS: Upper GI bleed. IV sedation per anesthesia. PROCEDURE: After informed consent was obtained, the patient was brought into the endoscopy unit. IV sedation was administered by Anesthesia under continuous monitoring. Initially the Olympus GIF-140 video endoscope was inserted into the mouth. Esophagus intubated without any difficulty. It was gradually advanced into the stomach and duodenum and carefully examined. The bulb and the second part of the duodenum appeared normal. The scope at this time was withdrawn to the stomach, adequately insufflated with air, and upon careful examination, mucosa of the antrum, body appeared normal. There was a moderate to large size hiatal hernia noted. Diaphragmatic hiatus was located at 43 cm from the incisors. Mucosa of the, cardia and the fundus appeared normal. In the body of the stomach there was a 1 cm gastric polyp that was biopsied. The scope was then withdrawn into the esophagus. The GE junction was located at 35 cm from the incisors. The esophagus appeared normal. There were no erosions or ulcerations seen and the patient tolerated the procedure well. IMPRESSION: 1. Moderate to large hiatal hernia 2. 1 cm gastric polyp in the proximal gastric body status post biopsy. 3. No evidence of esophagitis or peptic ulcer disease RECOMMENDATIONS: The findings of this examination were discussed with the patient. Continue with Protonix 40 mg twice daily. Start on a regular diet and recommend small frequent meals. Resume Eliquis today.
[2025-01-25 12:09] VITALS: BMI 17.4
--- NOTE | 2025-01-25 12:53 | P.DS ---
Providers Date of admission: 01/24/25 12:37 Expected date of discharge: 01/25/25 Attending physician: Edgardo Rodriguez Consults: 01/24/25 12:36 Consult Physician Routine Consulting Provider: Sana Stout Consult Reason/Comments: reported coffee ground emesis Do you want consulting provider notified?: Yes Primary care physician: Edgardo Rodriguez Hospital Course: HISTORY OF PRESENT ILLNESS: This is a 80-year-old female with a previous medical history significant for hypertension and hypertensive cardiovascular disease, hyperlipidemia, history of ALLERGIC rhinitis, GERD with esophagitis, osteopenia, detrusor stability, iron deficiency anemia, significant dysphagia with significant weight loss, she was recently hospitalized at [facility] from January 10, 2025 till January 17, 2025 after she was admitted to the hospital with acute hypoxemic respiratory failure due to acute influenza A with possible aspiration pneumonia along with acute diastolic heart failure due to atrial fibrillation with rapid ventricular response, patient was started on Eliquis she was sent to [facility], she was seen at [facility] by myself few days ago, and she was doing fine up till Friday when she developed to have a significant intractable nausea and vomiting not able to keep anything down, she has been able to take her medicine down, she had a significant drop in her hemoglobin, she did receive 1 unit of packed red blood cells as outpatient, hemoglobin stable at this time, today I received a call from the nursing staff stating that the patient is coughing up coffee-ground emesis, not able to get food down, she was directed to go to the ER for evaluation, she was hemodynamically stable, she was not tachycardic, her hemoglobin is stable, lactic acid is stable, patient was started on IV fluid resuscitation in the form of normal saline, she will be started on Protonix 40 mg IV push every 12 hours, will consult GI for an EGD hopefully in the next 24 hours. Patient last time received her Eliquis was last night. 01/25: Patient has been seen by GI and underwent EGD with biopsy. EGD found moderate to large hiatal hernia, 1 cm gastric polyp in the proximal gastric body status post biopsy. No evidence of esophagitis or peptic ulcer disease. Recommendations are to continue Protonix 40 mg twice daily, regular diet and hold Eliquis for 2 days. Blood pressure 108/48, heart rate 72, pulse ox 90% on room air. Repeat hemoglobin is 8.4. BUN 23, creatinine 0.74. Due to the drop in hemoglobin, we will plan to monitor her hemoglobin twice weekly and start patient on ferrous sulfate. Hold Eliquis for 2 days and monitor for bleeding. Patient will be discharged back to [facility] today in stable condition once all arrangements are completed. DISCHARGE DIAGNOSES: 1. Coffee-ground emesis with symptoms of progressive dysphagia iron deficiency anemia and severe weight loss in a patient with prior history of hiatal hernia s/p repair. 2. Prerenal azotemia. 3. Hypertension and hypertensive cardiovascular disease. 4. Mixed hyperlipidemia. 5. GERD with esophagitis. 6. Paroxysmal atrial fibrillation currently in sinus rhythm. 7. Rheumatoid arthritis positive serology and positive RANGEL. 8. ALLERGIC rhinitis. 9. Osteoporosis. 10. Insomnia 12. Chronic mid back pain due to osteoporosis and kyphosis. Greater than 35 minutes was utilized and coordinating patient's discharge. Impression and plan of care have been directed as dictated by the signing physician. Nathalia Guillaume nurse practitioner acting as scribe for signing physician. Patient Condition at Discharge: Fair Plan - Discharge Summary New Discharge Prescriptions: New Temazepam [Restoril] 15 mg PO HS PRN 3 Days #3 cap PRN Reason: Insomnia Continue amLODIPine [Norvasc] 5 mg PO DAILY@0800 Magnesium Hydroxide [Milk of Magnesia Concentrate] 7,200 mg PO Q48H PRN PRN Reason: Constipation Magic Cup 100 ml PO TID@0800,1200,1700 Acetaminophen [Acetaminophen ER] 650 mg PO Q4H PRN PRN Reason: General Discomfort Pantoprazole [Protonix] 40 mg PO BID@0800,1700 Metoprolol Tartrate [Lopressor] 50 mg PO BID@0800,1700 predniSONE See Taper PO DAILY@0800 Polysaccharide Iron Complex Capsule 150mg 150 mg PO DAILY@0800 Rosuvastatin [Crestor] 10 mg PO DAILY@0800 Ipratropium-Albuterol Nebulize [Duoneb 0.5 mg-3 mg/3 ml Soln] 3 ml INHALATION RT-TID PRN each PRN Reason: Wheezing bisacodyL [Dulcolax] 10 mg RECTAL DAILY PRN PRN Reason: Constipation Ondansetron [Zofran] 4 mg PO Q6H PRN PRN Reason: Nausea And Vomiting Na Phos,M-B/Na Phos,Di-Ba [Fleet Adult] 133 ml RECTAL DAILY PRN PRN Reason: Constipation Changed Apixaban [Eliquis] 2.5 mg PO BID@0800,1700 #0 Discharge Medication List amLODIPine [Norvasc] 5 mg PO DAILY@0800 11/28/21 [History] Rosuvastatin [Crestor] 10 mg PO DAILY@0800 01/10/25 [History] Ipratropium-Albuterol Nebulize [Duoneb 0.5 mg-3 mg/3 ml Soln] 3 ml INHALATION RT-TID PRN each 01/17/25 [Rx] Acetaminophen [Acetaminophen ER] 650 mg PO Q4H PRN 01/24/25 [History] Magic Cup 100 ml PO TID@0800,1200,1700 01/24/25 [History] Magnesium Hydroxide [Milk of Magnesia Concentrate] 7,200 mg PO Q48H PRN 01/24/25 [History] Metoprolol Tartrate [Lopressor] 50 mg PO BID@0800,1700 01/24/25 [History] Na Phos,M-B/Na Phos,Di-Ba [Fleet Adult] 133 ml RECTAL DAILY PRN 01/24/25 [History] Ondansetron [Zofran] 4 mg PO Q6H PRN 01/24/25 [History] Pantoprazole [Protonix] 40 mg PO BID@0800,1700 01/24/25 [History] Polysaccharide Iron Complex Capsule 150mg 150 mg PO DAILY@0800 01/24/25 [History] bisacodyL [Dulcolax] 10 mg RECTAL DAILY PRN 01/24/25 [History] predniSONE See Taper PO DAILY@0800 01/24/25 [History] Apixaban [Eliquis] 2.5 mg PO BID@0800,1700 #0 01/25/25 [Rx] Temazepam [Restoril] 15 mg PO HS PRN 3 Days #3 cap 01/25/25 [Rx] Follow up Appointment(s)/Referral(s): Sana Stout MD [STAFF PHYSICIAN] - 2 Weeks Edgardo Rodriguez MD [Primary Care Provider] - 1 Week Patient Instructions/Handouts: Hiatal Hernia (DC), GERD (Gastroesophageal Reflux Disease) (DC) Discharge Disposition: TRANSFER TO SNF/ECF
== END 2025-01-25 14:48 ==
LOC: EC 09:09 → 6NMEDSUR 12:37 → 5NMEDONC 17:20 → 1SOBS 19:08
PROVIDERS: ADMIT Internal Medicine; ATTEND Internal Medicine
DX: K92.0 Hematemesis (principal); K21.00 Gastro-esophageal reflux disease with esophagitis, without bleeding; K31.7 Polyp of stomach and duodenum; K44.9 Diaphragmatic hernia without obstruction or gangrene; D50.9 Iron deficiency anemia, unspecified; R79.89 Other specified abnormal findings of blood chemistry; K59.00 Constipation, unspecified; E78.2 Mixed hyperlipidemia; G47.00 Insomnia, unspecified; G89.29 Other chronic pain; I11.0 Hypertensive heart disease with heart failure; I25.10 Atherosclerotic heart disease of native coronary artery without angina pectoris; I48.0 Paroxysmal atrial fibrillation; I50.32 Chronic diastolic (congestive) heart failure; J30.9 Allergic rhinitis, unspecified; M06.9 Rheumatoid arthritis, unspecified; M40.209 Unspecified kyphosis, site unspecified; M81.0 Age-related osteoporosis without current pathological fracture; Z79.01 Long term (current) use of anticoagulants; Z79.899 Other long term (current) drug therapy; Z85.828 Personal history of other malignant neoplasm of skin; Z86.0100 Personal history of colon polyps, unspecified; Z79.52 Long term (current) use of systemic steroids
CPT/HCPCS: 96376 ×2; 96374; 99285; 36415; 93005; 97161; 86900; 86901; 88305; 80053 ×2; 83605; 85025 ×2; 85610; 85730; 86850; 82272; 43239; G0378 ×4; J2704; J2470 ×2